=== PATIENT | female | born 1950 | race Caucasian/White ===

== ENCOUNTER → 2018-06-03 | Outpatient (CLI) | payer MEDICARE, BC ==
[2018-06-03 10:24] LABS: Blood Urea Nitrogen 8 mg/dL (7-17)
--- NOTE | 2018-06-03 14:03 | XR ---
EXAMINATION TYPE: XR finger RT DATE OF EXAM: 06/03/2018 COMPARISON: NONE HISTORY: Thumb pain on the right TECHNIQUE: 3 views of the right thumb were obtained FINDINGS: No evidence of acute fracture or dislocation is seen. However mild degenerative changes are present at the first distal interphalangeal joint and to a lesser degree of the proximal interphalan geal joint and metacarpal phalangeal joint demonstrated as small marginal osteophytes, opposing surfa ce sclerosis and joint space narrowing. No radiopaque foreign body is seen. IMPRESSION: No evidence of acute fracture or dislocation of the right thumb. Mild arthropathy.
--- NOTE | 2018-06-03 14:15 | XR ---
EXAMINATION TYPE: XR wrist complete RT DATE OF EXAM: 06/03/2018 CLINICAL HISTORY: Right wrist pain TECHNIQUE: Frontal, lateral and oblique images of the right wrist are obtained. Scaphoid view was al so obtained. COMPARISON: None FINDINGS: There is no acute fracture/dislocation evident in the right wrist. The joint spaces in th e right wrist demonstrate mild opposing surface sclerosis, joint space narrowing and marginal osteoph ytes. No radiopaque foreign body. The overlying soft tissue appears unremarkable. IMPRESSION: There is no acute fracture or dislocation in the right wrist. Mild first carpometacarpal arthropathy.
--- NOTE | 2018-06-05 07:03 | MR ---
EXAMINATION TYPE: MR lumbar spine wo/w con DATE OF EXAM: 06/03/2018 COMPARISON: 04/21/2013 HISTORY: LBP, mari[place] feet numbness x 2 mos, hx surgery 2016 TECHNIQUE: Multiplanar, multisequence images of the lumbar spine were acquired utilizing 7.5 mL intravenous Gada vist gadolinium contrast. FINDINGS: The lumbar spine vertebral bodies maintain normal vertebral body height and alignment. Schmorl's node is present in the superior endplate of L4. Anterior superior endplate maintains normal vertebral bod y height at this level. Vertebral body hemangiomas are seen of L2-L3 that are T1 and T2 hyperintense. Pedicular screws and fixation rods fixate the L5-S1 vertebral levels. Conus medullaris is unremarkab le terminating at L1. The previously noted hepatic cyst appears overall stable. L1-L2: There is a broad-based disc bulge and facet arthropathy without significant spinal canal steno sis or neural foraminal narrowing. L2-L3: There is a broad-based disc bulge and facet arthropathy resulting in bilateral mild neural for aminal narrowing slightly narrowing the ventral subarachnoid space without significant spinal canal s tenosis. No ligamentum flavum buckling. L3-L4: There is a left eccentric broad-based disc bulge creating moderate left neural foraminal narro wing and mild right neural foraminal narrowing without significant spinal canal stenosis. Facet arthr opathy is also seen at this level. L4-L5: There is a broad-based disc bulge and facet arthropathy creating moderate bilateral neural for aminal narrowing. No spinal canal stenosis. L5-S1: There is postoperative change with a small residual disc bulge and and very small central nallely lar tear. There is resection of the posterior elements at this level. Mild paraspinal atrophy is seen . There is no significant neural foraminal narrowing or spinal canal stenosis. Postcontrast images demonstrate no abnormal enhancement at the postsurgical level to suggest epidural fibrosis, however there is linear and nodular abnormal enhancement along the anterior thecal sac and of the distal nerve roots of the cauda equina such as on T1 nonfat sat sagittal image 7. IMPRESSION: 1. Abnormal ventral dural enhancement along the thecal sac and extending into the distal nerve roots. This finding is nonspecific but as seen in arachnoiditis of infectious or inflammatory etiologies or leptomeningeal carcinomatosis. Evaluation of the cervical and thoracic spine with MR could be perfor med to evaluate for additional lesion as well as lumbar puncture. 2. Postoperative changes of the lumbosacral spine without evidence of epidural fibrosis. 3. Moderate multilevel degenerative disc disease without spinal canal stenosis or disc herniation. Va riable degrees of neural foraminal narrowing are described above.
== END | disposition home or self-care (01) ==
LOC: RADMRIMAIN 09:44
PROVIDERS: ATTEND Family Medicine
DX: M99.73 Connective tissue and disc stenosis of intervertebral foramina of lumbar region (principal); M51.36 Other intervertebral disc degeneration, lumbar region; M19.041 Primary osteoarthritis, right hand; M18.11 Unilateral primary osteoarthritis of first carpometacarpal joint, right hand; Z13.9 Encounter for screening, unspecified; Z98.890 Other specified postprocedural states
CPT/HCPCS: 82565; 84520; 73110; 73140; 72158; 36415; A9581

== ENCOUNTER → 2018-07-12 | Outpatient (CLI) | payer MEDICARE, BC ==
--- NOTE | 2018-07-12 14:00 | XR ---
EXAM TYPE: LUMBAR SPINE X RAY SERIES COMPARISON: 02/26/2014 HISTORY: Pain TECHNIQUE: 4 views are submitted. FINDINGS: Alignment is anatomic. The pedicles are intact. The transverse processes are intact. There is no s pondylolysis or spondylolisthesis. Degenerative change involving the vertebral column all levels wit h postsurgical changes at L5-S1. Endplate deformities of L4 and L3 appear to be chronic. Vascular hayley cifications are noted. IMPRESSION: 1. Postsurgical changes which is similar flexion and extension views.
== END | disposition home or self-care (01) ==
LOC: RADXRMAIN 12:48
DX: M47.26 Other spondylosis with radiculopathy, lumbar region (principal)
CPT/HCPCS: 72110

== ENCOUNTER → 2019-04-03 | Outpatient (CLI) | payer MEDICARE, BC ==
[~2019-04-03] MED LIST: DENOSUMAB 60 MG/ML 1 ML SYRINGE SQ ONE
[2019-04-03 11:41] VITALS: BP 149/68; PULSE 71; RESP 16; TEMP 97.6
== END ==
LOC: PROCWHC3 10:44
PROVIDERS: ATTEND Family Medicine
DX: M81.0 Age-related osteoporosis without current pathological fracture (principal)
CPT/HCPCS: 96372; J0897

== ENCOUNTER 2019-05-18 12:09 | Day surgery (SDC) | payer MEDICARE, BC ==
[2019-05-16 08:54] VITALS: BMI 27.5
[~2019-05-18 12:09] MED LIST changes: -DENOSUMAB 60 MG/ML 1 ML SYRINGE SQ ONE; +LACTATED RINGERS 1,000 ML IV SCH
[2019-05-18 12:55] VITALS: TEMP 97.4
[2019-05-18] MEDS ORDERED: PROPOFOL 10 MG/ML 20 ML VIAL IV ONE (13:11)
--- NOTE | 2019-05-18 13:33 | P.PCN ---
Date of Procedure: 05/18/19 Procedure(s) Performed: BRIEF HISTORY: Patient is a 68-year-old [id number], scheduled for an elective colonoscopy as a part of evaluation of prior history of colon polyps. Last coloscopy was 5 years ago. PROCEDURE PERFORMED: Colonoscopy. PREOPERATIVE DIAGNOSIS: History of colon polyps. IV sedation per Anesthesia. PROCEDURE: After informed consent was obtained, the patient, was brought into the endoscopy unit. IV sedation was administered by Anesthesia under continuous monitoring. Digital rectal examination was normal. Initially the Olympus CF-160 flexible video colonoscope was then inserted in the rectum, gradually advanced into the cecum without any difficulty. Careful examination was performed as the scope was gradually being withdrawn. Ileocecal valve and the appendiceal orifice were visualized and appeared normal. Prep was excellent. Mucosa of the cecum, ascending colon, transverse colon, descending colon, sigmoid colon, and rectum appeared normal. Scattered diverticulosis seen. Retroflexion was performed in the rectum and no lesions were seen. The patient tolerated the procedure well. IMPRESSION: Normal-appearing colon from rectum to cecum with no evidence of colitis or colonic neoplasia Scattered left sided diverticulosis.. RECOMMENDATIONS: Findings of this examination were discussed with the patient and as well as a family. She was advised to have a repeat surveillance colonoscopy in 5 years because of the prior history of colon polyps..
[2019-05-18 14:03] VITALS: BP 133/77; PULSE 68; RESP 18
== END 2019-05-18 14:14 | disposition home or self-care (01) ==
LOC: ORWHC2ENDO 12:09
PROVIDERS: ATTEND Internal Medicine Gastroenterology
DX: Z12.11 Encounter for screening for malignant neoplasm of colon (principal); K57.30 Diverticulosis of large intestine without perforation or abscess without bleeding; K21.9 Gastro-esophageal reflux disease without esophagitis; J44.9 Chronic obstructive pulmonary disease, unspecified; I10 Essential (primary) hypertension; Z79.891 Long term (current) use of opiate analgesic; Z86.010 Personal history of colon polyps; Z88.1 Allergy status to other antibiotic agents; Z72.0 Tobacco use; Z79.82 Long term (current) use of aspirin; Z79.899 Other long term (current) drug therapy
CPT/HCPCS: J2704; G0105

== ENCOUNTER → 2019-07-31 | Outpatient (CLI) | payer MEDICARE, BC ==
--- NOTE | 2019-07-31 11:39 | XR ---
EXAMINATION TYPE: XR chest 2V DATE OF EXAM: 07/31/2019 COMPARISON: 03/01/2016 TECHNIQUE: PA and lateral views submitted. HISTORY: COPD FINDINGS: The lungs are clear and there is no pneumothorax, pleural effusion, or focal pneumonia. 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 Hype rinflation noted. Degenerative change of the vertebral column. Atherosclerotic change aorta. No overt failure. IMPRESSION: 1. No acute process. Correlate for COPD.
== END ==
LOC: RADXRMAIN 11:10
PROVIDERS: ATTEND Family Medicine
DX: J44.9 Chronic obstructive pulmonary disease, unspecified (principal)
CPT/HCPCS: 71046

== ENCOUNTER → 2019-10-12 | Outpatient (CLI) | payer MEDICARE, BC ==
[~2019-10-12] MED LIST changes: +DENOSUMAB 60 MG/ML 1 ML SYRINGE SQ NR; -LACTATED RINGERS 1,000 ML IV SCH
[2019-10-12 13:31] VITALS: BP 145/78; PULSE 81; RESP 16; TEMP 97.9
== END | disposition home or self-care (01) ==
LOC: PROCWHC3 13:09
PROVIDERS: ATTEND Family Medicine
DX: M81.0 Age-related osteoporosis without current pathological fracture (principal)
CPT/HCPCS: 96372; J0897

== ENCOUNTER 2019-11-06 11:21 | Inpatient (IN) | payer MEDICARE, BC ==
[2019-11-06] MEDS ORDERED: IPRATROPIUM 0.5 MG/2.5 ML NEBU INHALATION STA (11:33)
[2019-11-06] MEDS ORDERED: ALBUTEROL NEBULIZED 2.5 MG/3 ML INHALATION STA (11:33)
[2019-11-06] MEDS ORDERED: methylPREDNISolone SOD SUCCI 125 MG/2 ML VIAL IV STA (11:33)
--- NOTE | 2019-11-06 11:36 | ED ---
General Adult HPI - General Chief complaint: Shortness of Breath Stated complaint: YEIMY Time Seen by Provider: 11/06/19 11:25 Source: EMS, RN notes reviewed, old records reviewed Mode of arrival: EMS Limitations: no limitations - History of Present Illness Initial comments: This is a 68-year-old female with past medical history significant for smoking and COPD. Patient states she quit smoking and I asked her when she quit she stated 2 days ago patient states she's been having difficulty breathing for the last 3-4 days. Patient states she's coughing quite a bit more than normal and coughing up some green sputum. Patient denies any fever chills per patient denies any chest pain or palpitations. Patient denies any sweating the legs or calf tenderness. Patient denies any abdominal pain. Patient denies any nausea vomiting. Patient denies any headache patient denies numbness weakness. Patient denies lightheadedness or dizziness. - Related Data Home Medications Medication Instructions Recorded Confirmed HYDROcodone/APAP 7.5-325MG [[place] 7.5 mg PO Q6H PRN 04/15/14 10/12/19 7.5-325] Tiotropium [place] [Spiriva] 1 inhalation INHALATION HS 04/15/14 10/12/19 Aspirin [[place] Aspirin EC] 81 mg PO DAILY 04/03/19 10/12/19 Budesonide-Formot 160-4.5 Mcg 2 puff INHALATION BID 04/03/19 10/12/19 [Symbicort 160-4.5 Mcg Inhaler] Ranitidine HCl [Zantac] 75 mg PO BID 04/03/19 10/12/19 Albuterol Inhaler [Ventolin Hfa 2 puff INHALATION BID 05/16/19 10/12/19 Inhaler] Atorvastatin [Lipitor] 20 mg PO HS 05/16/19 10/12/19 Ergocalciferol [Vitamin D2] 50,000 unit PO Q30D 05/16/19 10/12/19 Gabapentin [Neurontin] 300 mg PO BID 05/16/19 10/12/19 Lisinopril [Zestril] 5 mg PO HS 05/16/19 10/12/19 Ubidecarenone [Co Q-10] 100 mg PO DAILY 05/16/19 10/12/19 traMADol HCL [Ultram] 50 mg PO BID PRN 05/16/19 10/12/19 Allergies Allergy/AdvReac Type Severity Reaction Status Date / Time levofloxacin [From Levaquin] Allergy Nausea,diarrhea,STATES Verified 11/06/19 11:25 GOT C. DIFF AFTER TAKING Review of Systems ROS Statement: Those systems with pertinent positive or pertinent negative responses have been documented in the HPI. ROS Other: All systems not noted in ROS Statement are negative. Past Medical History Past Medical History: COPD, GERD/Reflux, Hypertension Additional Past Medical History / Comment(s): HX POLYPS, DIVERTICULI. Osteoporosis History of Any Multi-Drug Resistant Organisms: C-DIFF Date of last positivie culture/infection: 2013 approx MDRO Source:: stool Past Surgical History: Back Surgery, Bowel Resection, Joint Replacement, Orthopedic Surgery Additional Past Surgical History / Comment(s): RIGHT KNEE REPLACEMENT, LEFT LEG ORIF-removed, LIZZIE CARPAL TUNNEL,. Bilateral cataract surgery,plate rt foot Additional Past Anesthesia/Blood Transfusion Reaction / Comment(s): STATES NO EPIDURALS R/T GETTING SEVERE MIGRAINES Past Psychological History: No Psychological Hx Reported Smoking Status: Former smoker Past Alcohol Use History: None Reported Past Drug Use History: None Reported - Past Family History Mother Family Medical History: Hypertension Father Family Medical History: Cancer Additional Family Medical History / Comment(s): aneurysms,prostate General Exam - General Exam Comments Initial Comments: GENERAL: Patient is well-developed and well-nourished. Patient is nontoxic and well- hydrated and is in mild distress. ENT: Neck is soft and supple. No significant lymphadenopathy is noted. Oropharynx is clear. Moist mucous membranes. Neck has full range of motion without eliciting any pain. EYES: The sclera were anicteric and conjunctiva were pink and moist. Extraocular movements were intact and pupils were equal round and reactive to light. Eyelids were unremarkable. PULMONARY: Patient has diffuse wheezing with some crackles the left base. CARDIOVASCULAR: There is a regular rate and rhythm without any murmurs gallops or rubs. ABDOMEN: Soft and nontender with normal bowel sounds. No palpable organomegaly was n oted. There is no palpable pulsatile mass. SKIN: Skin is clear with no lesions or rashes and otherwise unremarkable. NEUROLOGIC: Patient is alert and oriented x3. Cranial nerves II through XII are grossly intact. Motor and sensory are also intact. Normal speech, volume and content. Symmetrical smile. MUSCULOSKELETAL: Normal extremities with adequate strength and full range of motion. LYMPHATICS: No significant lymphadenopathy is noted PSYCHIATRIC: Normal psychiatric evaluation. Limitations: no limitations Course Vital Signs 11/06/19 11:25 Temperature 98.4 F Pulse Rate 99 Respiratory 22 Rate Blood Pressure 122/79 O2 Sat by Pulse 96 Oximetry Procedures - Intubation Sedative: Versed Mg Given: 5 Paralytic: Succinylcholine Mg Given: 100 Laryngoscope: Gary ET Tube Size: 7.5 ET Tube Uncuffed: No Tube Secured Location: teeth Tube Placement Confirmation: visualized tube passing through cords, equal breath sounds bilaterally, no breath sounds over epigastrium, confirmation by capnometry Patient Tolerated Procedure: well Intubation Complications: none Medical Decision Making - Medical Decision Making EKG shows a normal sinus rhythm at 96 bpm AR interval 230 QRS is 82 QT interval 384 QTC is 485 per patient's EKG shows no ST segment elevation however there is biphasic T waves in inferior leads as well as leads V2 and V3. EKG was not given to me to call after the patient coded and a second EKG was used to was done. After I left the room the patient had increased difficulty breathing and then lost her pulses at which point in time the nurse called a CODE BLUE. At the room the patient was pulses but in PEA and she was not taking any breaths. We ran the code per ACLS I intubated the patient and patient was given 1 epi. Shortly thereafter pulses returned another EKG was done. Second EKG showed atrial fibrillation with rapid ventricular response at a rate of 216 QRS is 80 QT interval is 220 QTC is 417. The patient's heart rate slowed significantly repeated an EKG showed sinus tachycardia at 150 bpm AR interval 220 QRS is 90 QT interval 326 QTC is 447 per patient's EKG shows no ST segment elevation at this point continues to show T- wave inversions in inferior leads and biphasic T waves in V2 V3. and it was significant ST segment elevation in inferior leads and I called a STEMI at this time. Cardiology did come down to the bedside to see the patient. When the patient's heart rate slowed significantly high Patient was given heparin and aspirin in the emergency department. Patient was taken to the catheterization lab. - Lab Data Result diagrams: 11/06/19 11:34 11/06/19 11:34 Lab Results 11/06/19 11/06/19 11/06/19 Range/Units 11:34 11:34 11:34 WBC 22.6 H (3.8-10.6) k/uL RBC 4.65 (3.80-5.40) m/uL Hgb 14.2 (11.4-16.0) gm/dL Hct 43.1 (34.0-46.0) % MCV 92.6 (80.0-100.0) fL MCH 30.6 (25.0-35.0) pg MCHC 33.1 (31.0-37.0) g/dL RDW 12.5 (11.5-15.5) % Plt Count 362 (150-450) k/uL Neutrophils % 84 % Lymphocytes % 8 % Monocytes % 5 % Eosinophils % 1 % Basophils % 0 % Neutrophils # 19.1 H (1.3-7.7) k/uL Lymphocytes # 1.9 (1.0-4.8) k/uL Monocytes # 1.1 H (0-1.0) k/uL Eosinophils # 0.1 (0-0.7) k/uL Basophils # 0.1 (0-0.2) k/uL PT 9.9 (9.0-12.0) sec INR 0.9 (<1.2) APTT 24.6 (22.0-30.0) sec Sodium 131 L (137-145) mmol/L Potassium 4.5 (3.5-5.1) mmol/L Chloride 92 L (98-107) mmol/L Carbon Dioxide 31 H (22-30) mmol/L Anion Gap 8 mmol/L BUN 27 H (7-17) mg/dL Creatinine 0.59 (0.52-1.04) mg/dL Est GFR (CKD-EPI)AfAm >90 (>60 ml/min/1.73 sqM) Est GFR (CKD-EPI)NonAf >90 (>60 ml/min/1.73 sqM) Glucose 104 H (74-99) mg/dL POC Glucose (mg/dL) (75-99) mg/dL POC Glu Interactive Digital Media Specialist ID Calcium 8.3 L (8.4-10.2) mg/dL Magnesium 2.5 H (1.6-2.3) mg/dL Total Bilirubin 0.9 (0.2-1.3) mg/dL AST 56 H (14-36) U/L ALT 54 H (9-52) U/L Alkaline Phosphatase 125 (38-126) U/L Troponin I (0.000-0.034) ng/mL Total Protein 6.8 (6.3-8.2) g/dL Albumin 3.3 L (3.5-5.0) g/dL 11/06/19 11/06/19 Range/Units 11:34 12:04 WBC (3.8-10.6) k/uL RBC (3.80-5.40) m/uL Hgb (11.4-16.0) gm/dL Hct (34.0-46.0) % MCV (80.0-100.0) fL MCH (25.0-35.0) pg MCHC (31.0-37.0) g/dL RDW (11.5-15.5) % Plt Count (150-450) k/uL Neutrophils % % Lymphocytes % % Monocytes % % Eosinophils % % Basophils % % Neutrophils # (1.3-7.7) k/uL Lymphocytes # (1.0-4.8) k/uL Monocytes # (0-1.0) k/uL Eosinophils # (0-0.7) k/uL Basophils # (0-0.2) k/uL PT (9.0-12.0) sec INR (<1.2) APTT (22.0-30.0) sec Sodium (137-145) mmol/L Potassium (3.5-5.1) mmol/L Chloride (98-107) mmol/L Carbon Dioxide (22-30) mmol/L Anion Gap mmol/L BUN (7-17) mg/dL Creatinine (0.52-1.04) mg/dL Est GFR (CKD-EPI)AfAm (>60 ml/min/1.73 sqM) Est GFR (CKD-EPI)NonAf (>60 ml/min/1.73 sqM) Glucose (74-99) mg/dL POC Glucose (mg/dL) 110 H (75-99) mg/dL POC Glu Interactive Digital Media Specialist ID Tuesday, Samia Calcium (8.4-10.2) mg/dL Magnesium (1.6-2.3) mg/dL Total Bilirubin (0.2-1.3) mg/dL AST (14-36) U/L ALT (9-52) U/L Alkaline Phosphatase (38-126) U/L Troponin I 0.090 H* (0.000-0.034) ng/mL Total Protein (6.3-8.2) g/dL Albumin (3.5-5.0) g/dL Critical Care Time Critical Care Time: Yes Total Critical Care Time: 35 Disposition Clinical Impression: Cardiac arrest, Acute MD Disposition: ADMITTED IP TO THIS HOSP Referrals: Vern Rodriguez DO [Primary Care Provider] - 1-2 days Time of Disposition: 12:30
[2019-11-06 11:56] LABS: Basophils # (A) 0.1 k/uL (0-0.2); Basophils % (A) 0 %; Eosinophils # (A) 0.1 k/uL (0-0.7); Eosinophils % (A) 1 %; HCT 43.1 % (34.0-46.0); HGB 14.2 gm/dL (11.4-16.0); Lymphocytes # (A) 1.9 k/uL (1.0-4.8); Lymphocytes % (A) 8 %; MCH 30.6 pg (25.0-35.0); MCHC 33.1 g/dL (31.0-37.0); MCV 92.6 fL (80.0-100.0); Mean Platelet Volume 6.8; Monocytes # (A) 1.1 k/uL (0-1.0); Monocytes % (A) 5 %; Neutrophils # (A) 19.1 k/uL (1.3-7.7); Neutrophils % (A) 84 %; Platelet Count 362 k/uL (150-450); RBC 4.65 m/uL (3.80-5.40); RDW 12.5 % (11.5-15.5); WBC 22.6 k/uL (3.8-10.6)
[2019-11-06] MEDS ORDERED: EPINEPHrine 10 ML SYRINGE (0.1 MG/ML) ONE (11:59)
[2019-11-06 12:05] LABS: INR 0.9 (<1.2); Partial Thromboplastin Time 24.6 sec (22.0-30.0); Prothrombin Time 9.9 sec (9.0-12.0)
[2019-11-06 12:06] LABS: Glucose,Whole Blood 110 mg/dL (75-99)
[2019-11-06 12:07] LABS: ALT 54 U/L (9-52); AST 56 U/L (14-36); African American GFR (CKD) >90 (>60 ml/min/1.73 sqM); Albumin 3.3 g/dL (3.5-5.0); Alkaline Phosphatase 125 U/L (38-126); Anion Gap 8 mmol/L; Blood Urea Nitrogen 27 mg/dL (7-17); Calcium 8.3 mg/dL (8.4-10.2); Carbon Dioxide 31 mmol/L (22-30); Chloride 92 mmol/L (98-107); Glucose 104 mg/dL (74-99); Magnesium 2.5 mg/dL (1.6-2.3); Non-African American GFR(CKD) >90 (>60 ml/min/1.73 sqM); Potassium 4.5 mmol/L (3.5-5.1); Sodium 131 mmol/L (137-145); Total Bilirubin 0.9 mg/dL (0.2-1.3); Total Protein 6.8 g/dL (6.3-8.2)
[2019-11-06] MEDS ORDERED: MIDAZOLAM 1 MG/ML 5 ML VIAL IV STA (12:14)
[2019-11-06] MEDS ORDERED: SUCCINYLCHOLINE CHLORIDE VIAL 200 MG/10 ML VIAL IV ONE (12:17)
[2019-11-06] MEDS ORDERED: ASPIRIN 600 MG SUPP RECTAL STA (12:18)
[2019-11-06] MEDS ORDERED: LIDOCAINE 1% INJ 10MG/ML (20 ML MDV) ONE (12:21)
[2019-11-06] MEDS ORDERED: IV FLUID CONTINUATION 1,000 ML IV ONE (12:39)
[2019-11-06] MEDS ORDERED: MIDAZOLAM 2 MG/2 ML VIAL IV ONE (12:40)
[2019-11-06] MEDS ORDERED: ASPIRIN 325 MG TAB PO ONE (12:50)
--- NOTE | 2019-11-06 12:59 | XR ---
EXAMINATION TYPE: XR chest 1V DATE OF EXAM: 11/06/2019 COMPARISON: 07/31/2019 HISTORY: Postintubation TECHNIQUE: Single frontal view of the chest is obtained. FINDINGS: There is no focal air space opacity, pleural effusion, or pneumothorax seen. The cardiac silhouette size is within normal limits. The osseous structures are intact. ET tube approximately 3 cm above the kadie. 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 Atherosclerotic change aorta. Un derlying COPD suspected. Gastric bubble is distended. Interstitium suggests chronic interstitial lung disease. IMPRESSION: 1. ET tube approximately 3 cm above kadie. 2. Correlate for chronic interstitial lung disease or interstitial pneumonitis. 3. The gastric bubble is distended correlate clinically
[2019-11-06] MEDS ORDERED: IOPAMIDOL-370 100ML BTL INJ ONE (13:00)
[2019-11-06] MEDS ORDERED: SODIUM CHLORIDE 0.9% 2,000 ML IV ONE (13:03)
[2019-11-06 13:23] LABS: O2 Sat Blood Gas 99.7 %
[2019-11-06] MEDS: PROPOFOL 1,000 MG in EMPTY BAG 1 BAG IV SCH ×3 (13:50→22:00)
[2019-11-06] MEDS: NOREPINEPHRINE 4 MG in SODIUM CHLORIDE 0.9% 250 ML IV SCH ×2 (14:00→21:58)
[2019-11-06 14:08] LABS: Glucose,Whole Blood 139 mg/dL (75-99)
[2019-11-06] MEDS ORDERED: NALOXONE 0.4 MG/ML 1 ML VIAL IV PRN (14:24)
--- NOTE | 2019-11-06 14:42 | CC ---
CARDIAC CATHETERIZATION REPORT DATE OF SERVICE: 11/06/2019 PROCEDURE: Left heart catheterization and coronary angiography. PERFORMED BY: Dr. Will Elizabeth. Moderate conscious sedation time was 18 minutes. The patient was administered Versed and subsequently because she was still restless, I gave her some propofol bolus of about 15 mg and a drip at 10 mcg/kg per minute. Patient's oxygen saturation was monitored closely. She was already on the ventilator. CLINICAL INFORMATION: This lady presented to the emergency room with shortness of breath and in the ER, developed sort of a respiratory arrest-type picture and then had epinephrine was also given. Developed atrial fib with ST elevation. Patient was seen and evaluated by Dr. Wenceslao King and sent to the cardiac systems testing laboratory technician. Dr. King has requested me to perform coronary angiography. PROCEDURE NOTE: Under local anesthesia and strict aseptic precautions, a 6-[place] introducer was placed in the right femoral artery. Using a JR4 diagnostic and a JL3.5 guide catheter, I performed coronary angiography and a pigtail catheter was used to check LV pressures. LV gram was not performed. Sheath was sutured. Patient was sedated, placed on Levophed drip up to 10 mcg/minute and she was advised to go to the ICU. Patient does not have any significant obstructive CAD. Filling pressures are elevated. No gradient across the aortic valve. She has a right dominant system. CARDIAC CATHETERIZATION FINDINGS: The left ventricular end-diastolic pressure was about 16 mmHg without any gradient for across aortic valve. CORONARY ANGIOGRAPHY FINDINGS: RIGHT CORONARY ARTERY: Moderate to heavily calcified vessel, especially in the proximal 1/3, there is about a 40% narrowing without significant critical lesion. Distally the vessel caliber improves, gives off a large PDA, small PLV. No significant disease other than the 35%-40% proximal RCA disease. LEFT MAIN CORONARY ARTERY: Short patent vessel immediately bifurcates into LAD and circumflex. No significant disease in the left main. LEFT ANTERIOR DESCENDING CORONARY ARTERY: Good caliber vessel, extends along the anterior wall, very tortuous, gives off several septal and diagonal branches. No significant disease. The distal aspect curves over the apex to supply the inferoapical portion. LEFT POSTERIOR CIRCUMFLEX CORONARY ARTERY: Technically a nondominant, yet good caliber vessel gives off 2 large obtuse marginals and a distal posterolateral branch, has minor irregularities, no significant disease. No more than 30% to 35% narrowing noted. Overall, circumflex is a disease-free, nondominant, good caliber and good distribution vessel. Left ventriculogram was not performed. FINAL IMPRESSION: This patient has a moderate noncritical disease with a 40% proximal right coronary artery calcified and mid circumflex of 35%. No significant disease in the left anterior descending artery. Filling pressures are mildly elevated and there is no gradient across the aortic valve. RECOMMENDATION: I believe this patient probably had more or less respiratory arrest type picture and does not seem to be in any obstructive CAD. Findings were discussed with the patient. I will also speak to the family. I spoke to Dr. Robles, technical project lead and the patient will be transferred on the ventilator to the ICU and a small dose of propofol and Levophed drip. This is not ST-elevation AL. MMODL / IJN: [id number] /
[2019-11-06] MEDS: HEPARIN SOD,PORK IN 0.45% NACL 25,000 UNIT in 0.45% NACL 1 250ML.BAG IV SCH (14:53)
[2019-11-06 15:07] LABS: ABG Base Excess -0.4 mmol/L; ABG HCO3 26 mmol/L (21-25); ABG PCO2 55 mmHg (35-45); ABG PH 7.29 (7.35-7.45); ABG PO2 >400 mmHg (83-108); ABG TCO2 28 mmol/L (19-24)
[2019-11-06 15:15] LABS: Allen Test Performed? no
[2019-11-06] MEDS ORDERED: IPRATROPIUM-ALBUTEROL 3 ML NEB INHALATION PRN (15:26)
--- NOTE | 2019-11-06 15:26 | P.CNPUL ---
History of Present Illness Consult date: 11/06/19 Requesting physician: Esvin Elizabeth Reason for consult: dyspnea Chief complaint: Acute ST elevated myocardial infarction, respiratory failure History of present illness: This is 68-year-old white female patient, with past medical history significant for smoking, and COPD, hypertension, GERD, osteoarthritis with previous joint replacement surgeries, who presented to the emergency department per EMS for evaluation of shortness of breath. She was having increased coughing, but is some greenish colored sputum. Denied any fever and chills, most of the history is obtained from the chart, as the patient is currently intubated and sedated. While in the emergency department patient had suffered respiratory arrest, and patient was in pulseless electrical activity, she was intubated, and rios ccessfully resuscitated, EKG was done at that time showing atrial fibrillation with RVR, may have been the effect of epinephrine injections that were given during the resuscitation effort. Subsequent EKG showed sinus tachycardia with a rate of 150 BPM, and did show T-wave inversions in inferior leads and biphasic T waves in the septal leads V2 and V3, as well as ST and he was called patient was taken to the [facility], she had a clear cath. Chest x-ray postintubation showed chronic interstitial lung disease or interstitial pneumonitis. ET tube in appropriate position. Currently on assist-control mode of ventilation with a rate of 14, tidal volume 500, FiO2 of 100% and PEEP of 5, waiting for of blood gas, 0.9 normal saline infusing at a rate of 75 ML per hour, patient has received 2 L of IV fluid boluses, Diprivan and is at 50 mics per kilo per minute, and norepinephrine is currently a 0.17 mics per kilo per minute or 12 mics per minute. Labs have been reviewed, showing white blood cell count of 22.6, hemoglobin of 14.2, troponin was 0.090, and proBNP was 5540. Review of Systems All systems: negative Constitutional: Denies chills, Denies fever Eyes: denies blurred vision, denies pain Ears, nose, mouth and throat: Denies headache, Denies sore throat Cardiovascular: Denies chest pain, Denies shortness of breath Respiratory: Reports dyspnea, Denies cough Gastrointestinal: Denies abdominal pain, Denies diarrhea, Denies nausea, Denies vomiting Genitourinary: Denies dysuria, Denies hematuria Musculoskeletal: Denies myalgias Integumentary: Denies pruritus, Denies rash Neurological: Denies numbness, Denies weakness Psychiatric: Denies anxiety, Denies depression Endocrine: Denies fatigue, Denies weight change Past Medical History Past Medical History: COPD, GERD/Reflux, Hypertension Additional Past Medical History / Comment(s): HX POLYPS, DIVERTICULI. Osteoporosis History of Any Multi-Drug Resistant Organisms: C-DIFF Date of last positivie culture/infection: 2013 approx MDRO Source:: stool Past Surgical History: Back Surgery, Bowel Resection, Joint Replacement, O rthopedic Surgery Additional Past Surgical History / Comment(s): RIGHT KNEE REPLACEMENT, LEFT LEG ORIF-removed, LIZZIE CARPAL TUNNEL,. Bilateral cataract surgery,plate rt foot Additional Past Anesthesia/Blood Transfusion Reaction / Comment(s): STATES NO EPIDURALS R/T GETTING SEVERE MIGRAINES Past Psychological History: No Psychological Hx Reported Smoking Status: Former smoker Past Alcohol Use History: None Reported Past Drug Use History: None Reported - Past Family History Mother Family Medical History: Hypertension Father Family Medical History: Cancer Additional Family Medical History / Comment(s): aneurysms,prostate Medications and Allergies Home Medications Medication Instructions Recorded Confirmed Type HYDROcodone/APAP 7.5-325MG [[place] 7.5 mg PO Q6H PRN 04/15/14 10/12/19 History 7.5-325] Tiotropium [place] [Spiriva] 1 inhalation INHALATION HS 04/15/14 10/12/19 [place] Aspirin [[place] Aspirin EC] 81 mg PO DAILY 04/03/19 10/12/19 History Budesonide-Formot 160-4.5 Mcg 2 puff INHALATION BID 04/03/19 10/12/19 History [Symbicort 160-4.5 Mcg Inhaler] Ranitidine HCl [Zantac] 75 mg PO BID 04/03/19 10/12/19 History Albuterol Inhaler [Ventolin Hfa 2 puff INHALATION BID 05/16/19 10/12/19 History Inhaler] Atorvastatin [Lipitor] 20 mg PO HS 05/16/19 10/12/19 History Ergocalciferol [Vitamin D2] 50,000 unit PO Q30D 05/16/19 10/12/19 History Gabapentin [Neurontin] 300 mg PO BID 05/16/19 10/12/19 History Lisinopril [Zestril] 5 mg PO HS 05/16/19 10/12/19 History Ubidecarenone [Co Q-10] 100 mg PO DAILY 05/16/19 10/12/19 History traMADol HCL [Ultram] 50 mg PO BID PRN 05/16/19 10/12/19 History Allergies Allergy/AdvReac Type Severity Reaction Status Date / Time levofloxacin [From [facility]] Allergy Nausea,diarrhea,STATES Verified 11/06/19 11:25 GOT C. DIFF AFTER TAKING Physical Exam Vitals: Vital Signs Temp Pulse Resp BP Pulse Ox 11/06/19 14:45 68 14 99 11/06/19 14:10 67 14 99 11/06/19 14:00 74 21 99 11/06/19 13:40 98.0 F 68 22 84/52 99 11/06/19 13:20 119/78 11/06/19 13:10 119/78 11/06/19 13:00 119/78 11/06/19 12:50 119/78 11/06/19 12:40 119/78 11/06/19 12:30 119/78 11/06/19 12:25 83 20 11/06/19 12:20 119/78 11/06/19 12:14 84 11/06/19 12:10 119/78 11/06/19 12:00 119/78 11/06/19 11:50 112 H 27 H 119/78 89 L 11/06/19 11:40 95 23 119/78 96 11/06/19 11:30 122/79 11/06/19 11:25 98.4 F 99 22 122/79 96 11/06/19 11:24 95 Intake and Output 11/06/19 11/06/19 11/06/19 06:59 14:59 22:59 Intake Total 618.485 Balance 618.485 Intake: IV 600 Intake, IV Titration 18.485 Amount Norepinephrine 4 mg In 18.485 Sodium Chloride 0.9% 250 ml @ 0.1 MCG/KG/MIN 26. 095 mls/hr IV .Q9H45M [facility] Rx#:[id number] Other: Weight 68.492 kg ABP, PAP, CO, CI - Last 8 Hours Arterial Blood Pressure 113/52 Arterial Blood Pressure 106/48 Arterial Blood Pressure 84/36 Arterial Blood Pressure 121/44 GENERAL EXAM: Sitting, intubated, 68-year-old white female comfortable in no apparent distress. HEAD: Normocephalic/atraumatic. EYES: Normal reaction of pupils, equal size. Conjunctiva pink, sclera white. NOSE: Clear with pink turbinates. THROAT: No erythema or exudates. NECK: No masses, no JVD, no thyroid enlargement, no adenopathy. CHEST: No chest wall deformity. Symmetrical expansion. LUNGS: Equal air entry with no crackles, wheeze, rhonchi or dullness. CVS: Regular rate and rhythm, normal S1 and S2, no gallops, no murmurs, no rubs ABDOMEN: Soft, nontender. No hepatosplenomegaly, normal bowel sounds, no guarding or rigidity. EXTREMITIES: No clubbing, no edema, no cyanosis, 2+ pulses and upper and lower extremities. Right groin sheath is in place, groin is clean dry and intact, soft, no evidence of hematoma MUSCULOSKELETAL: Muscle strength and tone normal. SPINE: No scoliosis or deformity SKIN: No rashes CENTRAL NERVOUS SYSTEM: Sedated, intubated. No focal deficits, tone is normal in all 4 extremities. Results - Laboratory Findings CBC and BMP: 11/06/19 11:34 11/06/19 11:34 PT/INR, D-dimer PT 9.9 sec (9.0-12.0) 11/06/19 11:34 INR 0.9 (<1.2) 11/06/19 11:34 Abnormal lab findings: Abnormal Labs 11/06/19 11/06/19 11/06/19 11:34 11:34 11:34 WBC 22.6 H Neutrophils # 19.1 H Monocytes # 1.1 H Sodium 131 L Chloride 92 L Carbon Dioxide 31 H BUN 27 H Glucose 104 H POC Glucose (mg/dL) Calcium 8.3 L Magnesium 2.5 H AST 56 H ALT 54 H Troponin I 0.090 H* Albumin 3.3 L 11/06/19 11/06/19 12:04 13:38 WBC Neutrophils # Monocytes # Sodium Chloride Carbon Dioxide BUN Glucose POC Glucose (mg/dL) 110 H 139 H Calcium Magnesium AST ALT Troponin I Albumin - Diagnostic Findings Chest x-ray: report reviewed, image reviewed Assessment and Plan Plan: Assessment: #1. Acute cardiac arrest, related to acute hypoxemic respiratory failure requiring ACLS protocol and resuscitation, and intubation and placement on mechanical ventilator. #2. Acute ST elevated myocardial infarction, however patient has no evidence of coronary obstructive disease evidenced right coronary angiography #3. Acute exacerbation of COPD, with chronic hypercapnic respiratory failure, suspect advanced COPD #4. Leukocytosis, rule out infectious process #5. Mild hyponatremia #6. Hyperlipidemia #7. History of smoking, currently in remission #8. GERD/reflux #9. Osteoarthritis with previous history of orthopedic surgeries Plan: Continue fluid resuscitation, patient has received 2 L of IV fluid boluses, continue 0.9 normal saline at a rate of 75 ML per hour, patient remains on IV he constantin, will continue nebulized bronchodilators, will start IV steroids, empiric antibiotics in the form of Zosyn, we'll send blood cultures sputum culture and urine culture, chest x-ray at this time shows no clear evidence of pneumonia, we'll obtain follow-up chest x-ray tomorrow, we'll obtain a blood gas. GI and DVT prophylaxis, I performed a history & physical examination of the patient and discussed their management with my nurse practitioner, Brooke Sol. I reviewed the nurse practitioner's note and agree with the documented findings and plan of care. Lung sounds are positive for diminished breath sounds. The findings and the impression was discussed with the patient. I attest to the documentation by the nurse practitioner. Time with Patient: Greater than 30
--- NOTE | 2019-11-06 15:32 | CONS ---
CONSULTATION Mrs. Forte is a 68-year-old female who was seen in the emergency room with a diagnosis of Staph epi. This patient has a long-standing history of smoking and COPD. She quit. She came to the emergency room with a complaint of shortness of breath for last 3 days. She was having some greenish sputum. Patient denied any fever or chills. Patient was given Solu-Medrol, subsequently while she was in the emergency room. She developed cardiorespiratory arrest. She stopped breathing and loss of pulse. A brief CPR was done. Patient received epinephrine and subsequently pulse was obtained. Initially, EKG showed T-wave inversions in the inferior lead with a minimal ST elevation in the inferior leads suggestive of inferior lateral leads suggestive of possible inferolateral ST-segment elevation myocardial infarction. After epinephrine, there was marked ST elevation in the inferior leads. Subsequent EKG shows resolution of the ST- segment elevation. There is no history of angina. a smoker. There is no history of diabetes. The history is mostly obtained from the chart. HOME MEDICATIONS: Include [place], Spiriva, baby aspirin, Zantac, Lipitor 20 mg daily, and Ultram. PAST MEDICAL HISTORY: Includes bowel resection, joint replacement, orthopedic surgery, back surgery, carpal tunnel surgery, bilateral cataracts surgery. Patient had a history of severe migraine. PHYSICAL EXAMINATION: At present reveals a 68-year-old female who is intubated and has being being bagged, the blood pressure is 122/79 mmHg. Oxygen saturation was 93% HEENT: Examination was negative. Neck is supple. There is no increase in jugular venous pressure. Both the carotid pulses are felt, there is no bruit. Chest is symmetrical. Heart, the PMI is not felt. First and second heart sounds are heard. Lungs reveal bilateral scattered rhonchi. Abdomen is soft. Liver and spleen are not enlarged. Extremities, peripheral pulsations are 2+. The labs results are not awaited. FINAL IMPRESSION: This patient came to the emergency room with the symptoms of shortness of breath. Initial EKG showed minimal ST-segment elevation in the inferior lateral leads with a T- wave inversion suggestive of possible inferior ST-segment elevation myocardial infarction. After the epinephrine, patient had a marked ST elevation in the inferior leads. In view of that, we will advise the family members to go head to the freezer laboratory technician for cardiac catheterization for definitive diagnosis. Chest x-ray is also suggestive of mild congestive cardiac failure. Depending upon the results of the catheterization, further recommendations will be made. MMODL / IJN: [id number] /
[2019-11-06] MEDS: IPRATROPIUM-ALBUTEROL 3 ML NEB INHALATION SCH ×3 (15:46→23:21)
[2019-11-06] MEDS ORDERED: IPRATROPIUM-ALBUTEROL 3 ML NEB INHALATION SCH (16:00)
[2019-11-06 16:27] LABS: Appearance,Urine Cloudy (Clear); Bacteria,Urine Rare /hpf; Bilirubin,Urine Negative (Negative); Blood,Urine Small (Negative); Color,Urine Yellow; Glucose,Urine (UA) Negative (Negative); Hyaline Casts,Urine 1 /lpf (0-2); Ketones,Urine Negative (Negative); Leukocyte Esterase,Urine Negative (Negative); Mucus,Urine Rare /hpf; Nitrite,Urine Negative (Negative); Protein,Urine 2+ (Negative); RBC,Urine 10 /hpf (0-5); Specific Gravity,Urine 1.042 (1.001-1.035); Squamous Epithelial Cell,Urine 1 /hpf (0-4); WBC,Urine 8 /hpf (0-5)
[2019-11-06] MEDS: SODIUM CHLORIDE 0.9% 1,000 ML IV SCH (16:32)
[2019-11-06] MEDS: methylPREDNISolone SOD SUCCI 40 MG/ML 1 ML VIAL IV SCH ×2 (17:23→23:21)
[2019-11-06] MEDS: PIPERACILLIN-TAZOBACTAM 3.375 GM in SODIUM CHLORIDE 0.9% 100 ML IVPB SCH ×2 (17:24→23:21)
[2019-11-06] MEDS: PANTOPRAZOLE 40 MG/10 ML VIAL IV SCH (17:24)
[2019-11-06] MEDS: BUDESONIDE 1 MG/2 ML NEBU INHALATION SCH (19:38)
[2019-11-06] MEDS ORDERED: SODIUM CHLORIDE 0.9% 1,000 ML IV ONE (19:38)
[2019-11-06] MEDS: FORMOTEROL FUMARATE 20 MCG/2 ML NEBU INHALATION SCH (19:38)
--- NOTE | 2019-11-06 20:24 | P.HPIM ---
History of Present Illness H&P Date: 11/06/19 Chief Complaint: Short of breath This is a 68-year-old patient of Dr. Gloria Rodriguez. Chronic stable medical conditions include GERD, hypertension, colonic diverticulosis, osteoporosis. Patient presented to ER earlier today and told him should quit smoking 2 days ago and she did having trouble breathing for last few days. Her cough and bit more than normal and she was coughing up some green-yellow sputum. He denied any fever and chills that. No chest pain no palpitation. Denied any swelling or leg or cough tenderness. No abdominal pain. In the ER patient became quite a bit short of breath more and a CODE BLUE was called at that is the patient has lost a pulse. When the physician arrived patient had and I will pulse and she was in a PEA and patient is intubated. One dose of epinephrine was given. EKG showed a short run of atrial fibrillation with rapid ventricular rate and also sinus tachycardia. Does some T wave changes. And cardiology Dr. VC King arrived to the ER. Decided to take the patient to the cardiac catheterization lab. Cardiac catheterization showed normal coronaries. Patient now brought to the ICU. Current drips include norepinephrine, propofol. Patient on the ventilator with FiO2 40% and PEEP of 5. No family members present. A sister had been present earlier. Apparently the patient having respiratory symptoms for close to 20 weeks. Patient's been a smoker. Review of systems cannot be done as patient intubated. Relevant finding as above Social history: Patient being smoking close to 50 years. No alcohol reported. Physical examination: VITAL SIGNS: 98, 74, 21, 84/36, 99% on the ventilator GENERAL: BMI 26.7 laying in bed intubated. EYES: Pupils equal. Conjunctiva normal. HEENT: External appearance of nose and ears normal, oral cavity grossly normal, endotracheal tube in place. NECK: JVD unable to assess; masses not palpable. HEART: First and second heart sounds are normal; no edema. LUNGS: Respiratory rate increased, decreased breaths on some wheezing;. ABDOMEN: Soft, nontender, liver spleen not palpable, no masses palpable. PSYCH: Sedatedl. NEUROLOGICAL: Cranial nerves grossly intact; no facial asymmetry, power and sensation grossly intact, plantars downgoing. LYMPHATICS: No lymph nodes palpable in the axilla and neck INVESTIGATIONS, reviewed in the clinical context: White count 22.6 hemoglobin 40.2 platelets 362 Sodium 131 potassium 4.5 bun 27 creatinine 0.59 Troponin I 0.090 proBNP 5540 ABG-pH 7.29, pCO2 55, pO2 more than 400 EKG tracing personally reviewed by me shows some T wave changes in the anterior leads, sinus rhythm Chest x-ray film personally reviewed by me-some infiltrate on the bases Assessment: -Acute hypoxic respiratory failure, hypercapnic respiratory failure leading to pulseless electrical activity, requiring ventilator support -Acute COPD exacerbation in a current smoker -Bibasilar pneumonia, suspect gram-negative organism -Troponins leak likely due to hemodynamic mismatch -Cardiac catheterization revealing normal coronaries -Chronic nicotine dependence patient cigarette smoker -GERD -Essential hypertension and non -colonic diverticulosis Plan: Patient the ICU. Status post cardiac catheterization. Intubated. Drips include norepinephrine, propofol, IV fluids. Patient is on DuoNeb, IV Solu- Medrol, IV Zosyn. Also getting steroids. We will add Perforomist. Patient seen by Dr. VC King from cardiology and Dr. Bowser from pulmonary. No family at the bedside. Past Medical History Past Medical History: COPD, GERD/Reflux, Hypertension Additional Past Medical History / Comment(s): HX POLYPS, DIVERTICULI. Osteoporosis History of Any Multi-Drug Resistant Organisms: C-DIFF Date of last positivie culture/infection: 2013 approx MDRO Source:: stool Past Surgical History: Back Surgery, Bowel Resection, Joint Replacement, Orthopedic Surgery Additional Past Surgical History / Comment(s): RIGHT KNEE REPLACEMENT, LEFT LEG ORIF-removed, LIZZIE CARPAL TUNNEL,. Bilateral cataract surgery,plate rt foot Additional Past Anesthesia/Blood Transfusion Reaction / Comment(s): STATES NO EPIDURALS R/T GETTING SEVERE MIGRAINES Past Psychological History: No Psychological Hx Reported Smoking Status: Former smoker Past Alcohol Use History: None Reported Past Drug Use History: None Reported - Past Family History Mother Family Medical History: Hypertension Father Family Medical History: Cancer Additional Family Medical History / Comment(s): aneurysms,prostate Medications and Allergies Home Medications Medication Instructions Recorded Confirmed Type Tiotropium [place] [Spiriva] 2 puff INHALATION RT-DAILY 04/15/14 11/06/19 History Budesonide-Formot 160-4.5 Mcg 2 puff INHALATION RT-BID 04/03/19 11/06/19 History [Symbicort 160-4.5 Mcg Inhaler] Albuterol Inhaler [Ventolin Hfa 2 puff INHALATION RT-Q6H PRN 05/16/19 11/06/19 History Inhaler] Ergocalciferol [Vitamin D2] 50,000 unit PO Q30D 05/16/19 11/06/19 History Gabapentin [Neurontin] 300 mg PO BID 05/16/19 11/06/19 History Lisinopril [Zestril] 5 mg PO HS 05/16/19 11/06/19 History Ubidecarenone [Co Q-10] 100 mg PO DAILY 05/16/19 11/06/19 History traMADol HCL [Ultram] 50 mg PO BID PRN 05/16/19 11/06/19 History Albuterol Nebulized [Ventolin 2.5 mg INHALATION RT-Q6H PRN 11/06/19 11/06/19 History Nebulized] Denosumab [Prolia] 60 mg SQ Q180D 11/06/19 11/06/19 History Famotidine [Pepcid] 20 mg PO BID 11/06/19 11/06/19 History HYDROcodone/APAP 10-325MG [[place] 1 tab PO Q6HR PRN 11/06/19 11/06/19 History 10-325] Magnesium 400 mg PO DAILY 11/06/19 11/06/19 History Polyethylene Glycol 3350 [Miralax] 17 gm PO DAILY 11/06/19 11/06/19 History buPROPion HCL [Wellbutrin SR] 150 mg PO BID 11/06/19 11/06/19 History Allergies Allergy/AdvReac Type Severity Reaction Status Date / Time levofloxacin [From [facility]] AdvReac Nausea,diarrhea,STATES Verified 11/06/19 18:14 GOT C. DIFF AFTER TAKING Physical Exam Vitals: Vital Signs Temp Pulse Resp BP Pulse Ox 11/06/19 20:09 73 11/06/19 20:00 98.4 F 71 20 97 11/06/19 19:58 75 11/06/19 19:57 75 11/06/19 19:45 73 20 97 11/06/19 19:40 73 11/06/19 19:30 71 20 94 L 11/06/19 19:00 69 11 L 95 11/06/19 18:45 70 10 L 95 11/06/19 18:30 71 25 H 95 11/06/19 18:15 71 24 96 11/06/19 18:00 98.2 F 70 33 H 97 11/06/19 17:45 71 7 L 94 L 11/06/19 17:30 67 17 96 11/06/19 17:15 64 20 96 11/06/19 17:00 64 20 95 11/06/19 16:45 65 20 95 11/06/19 16:30 64 20 96 11/06/19 16:15 65 20 98 11/06/19 16:10 63 11/06/19 16:00 67 20 98 11/06/19 15:54 65 11/06/19 15:45 67 20 98 11/06/19 15:30 65 20 98 11/06/19 15:15 67 14 100 11/06/19 15:00 65 14 99 11/06/19 14:45 68 14 99 11/06/19 14:10 67 14 99 11/06/19 14:00 74 21 99 11/06/19 13:45 98.0 F 11/06/19 13:40 98.0 F 68 22 84/52 99 11/06/19 13:20 119/78 11/06/19 13:10 119/78 11/06/19 13:00 119/78 11/06/19 12:50 119/78 11/06/19 12:40 119/78 11/06/19 12:30 119/78 11/06/19 12:25 83 20 11/06/19 12:20 119/78 11/06/19 12:14 84 11/06/19 12:10 119/78 11/06/19 12:00 119/78 11/06/19 11:50 112 H 27 H 119/78 89 L 11/06/19 11:40 95 23 119/78 96 11/06/19 11:30 122/79 11/06/19 11:25 98.4 F 99 22 122/79 96 11/06/19 11:24 95 Intake and Output 11/06/19 11/06/19 11/06/19 06:59 14:59 22:59 Intake Total 3618.485 638.976 Output Total 270 Balance 3618.485 368.976 Intake: IV 3600 300 IV Fluid Continuation 1, 1000 000 ml @ 0 mls/hr IV .[facility] Rx#:[id number] Sodium Chloride 0.9% 1, 300 000 ml @ 75 mls/hr IV . [id number] [facility] Rx#:[id number] Sodium Chloride 0.9% 2, 2000 000 ml @ 999 mls/hr IV . Q2H1M [facility] Rx#:[id number] Intake, IV Titration 18.485 338.976 Amount Norepinephrine 4 mg In 18.485 231.510 Sodium Chloride 0.9% 250 ml @ 0.1 MCG/KG/MIN 26. 095 mls/hr IV .Q9H45M [facility] Rx#:[id number] Propofol 1,000 mg In 107.466 Empty Bag 1 bag @ Titrate IV .Q0M [facility] Rx#: [id number] Output: Urine 270 Other: Voiding Method Indwelling Catheter # Voids 0 Weight 68.492 kg ABP, PAP, CO, CI - Last 8 Hours Arterial Blood Pressure 101/51 Arterial Blood Pressure 91/42 Arterial Blood Pressure 91/45 Arterial Blood Pressure 98/48 Arterial Blood Pressure 87/44 Arterial Blood Pressure 89/45 Arterial Blood Pressure 96/47 Arterial Blood Pressure 102/49 Arterial Blood Pressure 123/55 Arterial Blood Pressure 134/68 Arterial Blood Pressure 119/56 Arterial Blood Pressure 108/52 Arterial Blood Pressure 104/51 Arterial Blood Pressure 106/51 Arterial Blood Pressure 103/52 Arterial Blood Pressure 95/48 Arterial Blood Pressure 101/49 Arterial Blood Pressure 105/50 Arterial Blood Pressure 115/54 Arterial Blood Pressure 88/44 Arterial Blood Pressure 113/52 Arterial Blood Pressure 106/48 Arterial Blood Pressure 84/36 Arterial Blood Pressure 121/44 Results CBC & Chem 7: 11/06/19 11:34 11/06/19 11:34 Labs: Abnormal Lab Results - Last 24 Hours (Table) 11/06/19 11/06/19 11/06/19 Range/Units 11:34 11:34 11:34 WBC 22.6 H (3.8-10.6) k/uL Neutrophils # 19.1 H (1.3-7.7) k/uL Monocytes # 1.1 H (0-1.0) k/uL ABG pH (7.35-7.45) ABG pCO2 (35-45) mmHg ABG pO2 (83-108) mmHg ABG HCO3 (21-25) mmol/L ABG Total CO2 (19-24) mmol/L ABG O2 Saturation (94-97) % Sodium 131 L (137-145) mmol/L Chloride 92 L (98-107) mmol/L Carbon Dioxide 31 H (22-30) mmol/L BUN 27 H (7-17) mg/dL Glucose 104 H (74-99) mg/dL POC Glucose (mg/dL) (75-99) mg/dL Calcium 8.3 L (8.4-10.2) mg/dL Magnesium 2.5 H (1.6-2.3) mg/dL AST 56 H (14-36) U/L ALT 54 H (9-52) U/L Troponin I 0.090 H* (0.000-0.034) ng/mL Albumin 3.3 L (3.5-5.0) g/dL Urine Appearance (Clear) Ur Specific [place] (1.001-1.035) Urine Protein (Negative) Urine Blood (Negative) Urine RBC (0-5) /hpf Urine WBC (0-5) /hpf Urine Bacteria (None) /hpf Urine Mucus (None) /hpf 11/06/19 11/06/19 11/06/19 Range/Units 12:04 13:38 15:05 WBC (3.8-10.6) k/uL Neutrophils # (1.3-7.7) k/uL Monocytes # (0-1.0) k/uL ABG pH 7.29 L (7.35-7.45) ABG pCO2 55 H (35-45) mmHg ABG pO2 >400 H (83-108) mmHg ABG HCO3 26 H (21-25) mmol/L ABG Total CO2 28 H (19-24) mmol/L ABG O2 Saturation 100.0 H (94-97) % Sodium (137-145) mmol/L Chloride (98-107) mmol/L Carbon Dioxide (22-30) mmol/L BUN (7-17) mg/dL Glucose (74-99) mg/dL POC Glucose (mg/dL) 110 H 139 H (75-99) mg/dL Calcium (8.4-10.2) mg/dL Magnesium (1.6-2.3) mg/dL AST (14-36) U/L ALT (9-52) U/L Troponin I (0.000-0.034) ng/mL Albumin (3.5-5.0) g/dL Urine Appearance (Clear) Ur Specific [place] (1.001-1.035) Urine Protein (Negative) Urine Blood (Negative) Urine RBC (0-5) /hpf Urine WBC (0-5) /hpf Urine Bacteria (None) /hpf Urine Mucus (None) /hpf 11/06/19 11/06/19 Range/Units 16:00 17:40 WBC (3.8-10.6) k/uL Neutrophils # (1.3-7.7) k/uL Monocytes # (0-1.0) k/uL ABG pH (7.35-7.45) ABG pCO2 (35-45) mmHg ABG pO2 (83-108) mmHg ABG HCO3 (21-25) mmol/L ABG Total CO2 (19-24) mmol/L ABG O2 Saturation (94-97) % Sodium (137-145) mmol/L Chloride (98-107) mmol/L Carbon Dioxide (22-30) mmol/L BUN (7-17) mg/dL Glucose (74-99) mg/dL POC Glucose (mg/dL) (75-99) mg/dL Calcium (8.4-10.2) mg/dL Magnesium (1.6-2.3) mg/dL AST (14-36) U/L ALT (9-52) U/L Troponin I 0.095 H* (0.000-0.034) ng/mL Albumin (3.5-5.0) g/dL Urine Appearance Cloudy H (Clear) Ur Specific [place] 1.042 H (1.001-1.035) Urine Protein 2+ H (Negative) Urine Blood Small H (Negative) Urine RBC 10 H (0-5) /hpf Urine WBC 8 H (0-5) /hpf Urine Bacteria Rare H (None) /hpf Urine Mucus Rare H (None) /hpf Microbiology - Last 24 Hours (Table) 11/06/19 13:45 Sputum Culture - Preliminary Sputum
[2019-11-06] MEDS: CHLORHEXIDINE GLUCONATE 15 ML CUP MUCOUS MEM SCH (21:53)
[2019-11-06] MEDS: INSULIN ASPART (NovoLOG) 100 UNIT/ML VIAL SQ SCH (23:20)
[2019-11-06 23:29] LABS: Glucose,Whole Blood 134 mg/dL (75-99)
[2019-11-07] MEDS: PROPOFOL 1,000 MG in EMPTY BAG 1 BAG IV SCH ×2 (01:53→06:50)
[2019-11-07] MEDS: IPRATROPIUM-ALBUTEROL 3 ML NEB INHALATION SCH ×5 (03:14→20:18)
[2019-11-07] MEDS: SODIUM CHLORIDE 0.9% 1,000 ML IV SCH (03:16)
[2019-11-07 04:39] LABS: Basophils # (A) 0.1 k/uL (0-0.2); Basophils % (A) 0 %; Eosinophils # (A) 0.1 k/uL (0-0.7); Eosinophils % (A) 0 %; HCT 41.2 % (34.0-46.0); HGB 13.3 gm/dL (11.4-16.0); Lymphocytes # (A) 1.2 k/uL (1.0-4.8); Lymphocytes % (A) 4 %; MCHC 32.2 g/dL (31.0-37.0); MCV 93.1 fL (80.0-100.0); Mean Platelet Volume 6.9; Monocytes # (A) 0.5 k/uL (0-1.0); Monocytes % (A) 2 %; Neutrophils # (A) 25.8 k/uL (1.3-7.7); Neutrophils % (A) 93 %; Platelet Count 378 k/uL (150-450); RBC 4.42 m/uL (3.80-5.40); RDW 12.6 % (11.5-15.5); WBC 27.9 k/uL (3.8-10.6)
[2019-11-07 04:56] LABS: ABG Base Excess 0.2 mmol/L; ABG HCO3 26 mmol/L (21-25); ABG Oxygen Saturation 97.7 % (94-97); ABG PCO2 45 mmHg (35-45); ABG PH 7.37 (7.35-7.45); ABG PO2 86 mmHg (83-108); ABG TCO2 27 mmol/L (19-24); Allen Test Performed? Yes
[2019-11-07 05:29] LABS: African American GFR (CKD) >90 (>60 ml/min/1.73 sqM); Anion Gap 6 mmol/L; Blood Urea Nitrogen 21 mg/dL (7-17); Calcium 6.5 mg/dL (8.4-10.2); Carbon Dioxide 23 mmol/L (22-30); Chloride 103 mmol/L (98-107); Glucose 144 mg/dL (74-99); Non-African American GFR(CKD) >90 (>60 ml/min/1.73 sqM); Potassium 4.5 mmol/L (3.5-5.1); Sodium 132 mmol/L (137-145)
[2019-11-07] MEDS: INSULIN ASPART (NovoLOG) 100 UNIT/ML VIAL SQ SCH (06:07)
[2019-11-07 06:17] LABS: Glucose,Whole Blood 129 mg/dL (75-99)
[2019-11-07] MEDS: NOREPINEPHRINE 4 MG in SODIUM CHLORIDE 0.9% 250 ML IV SCH (06:50)
[2019-11-07] MEDS: BUDESONIDE 1 MG/2 ML NEBU INHALATION SCH ×2 (08:59→20:17)
[2019-11-07] MEDS: FORMOTEROL FUMARATE 20 MCG/2 ML NEBU INHALATION SCH ×2 (08:59→20:17)
[2019-11-07] MEDS: methylPREDNISolone SOD SUCCI 40 MG/ML 1 ML VIAL IV SCH ×2 (09:01→17:23)
[2019-11-07] MEDS: PANTOPRAZOLE 40 MG/10 ML VIAL IV SCH (09:01)
[2019-11-07] MEDS: PIPERACILLIN-TAZOBACTAM 3.375 GM in SODIUM CHLORIDE 0.9% 100 ML IVPB SCH ×2 (09:02→17:24)
[2019-11-07] MEDS: CHLORHEXIDINE GLUCONATE 15 ML CUP MUCOUS MEM SCH (09:33)
--- NOTE | 2019-11-07 09:38 | P.PN ---
Subjective Progress Note Date: 11/07/19 Principal diagnosis: Acute hypoxic respiratory failure, acute ST elevated myocardial infarction, cardiac arrest This is 68-year-old white female patient, with past medical history significant for smoking, and COPD, hypertension, GERD, osteoarthritis with previous joint replacement surgeries, who presented to the emergency department per EMS for evaluation of shortness of breath. She was having increased coughing, but is some greenish colored sputum. Denied any fever and chills, most of the history is obtained from the chart, as the patient is currently intubated and sedated. While in the emergency department patient had suffered respiratory arrest, and patient was in pulseless electrical activity, she was intubated, and successfully resuscitated, EKG was done at that time showing atrial fibrillation with RVR, may have been the effect of epinephrine injections that were given during the resuscitation effort. Subsequent EKG showed sinus tachycardia with a rate of 150 BPM, and did show T-wave inversions in inferior leads and biphasic T waves in the septal leads V2 and V3, as well as ST and he was called patient was taken to the [facility], she had a clear cath. Chest x-ray postintubation showed chronic interstitial lung disease or interstitial pneumonitis. ET tube in appropriate position. Currently on assist-control mode of ventilation with a rate of 14, tidal volume 500, FiO2 of 100% and PEEP of 5, waiting for of blood gas, 0.9 normal saline infusing at a rate of 75 ML per hour, patient has received 2 L of IV fluid boluses, Diprivan and is at 50 mics per kilo per minute, and norepinephrine is currently a 0.17 mics per kilo per minute or 12 mics per minute. Labs have been reviewed, showing white blood cell count of 22.6, hemoglobin of 14.2, troponin was 0.090, and proBNP was 5540. On 11/07/2019 patient seen in follow-up in the intensive care unit. Patient is awake, she is following command, today's chest x-ray was reviewed showing chronic interstitial changes. Current vent settings are assist-control mode of ventilation with a rate of 20, tidal volume 400, FiO2 40% and PEEP of 5, this morning his blood gases showed pO2 of 86, pCO2 45, and pH of 7.37. Maintenance IV fluids 0.9 normal saline a rate of 75 ML per hour, heparin infusion per weight base protocol, to prevent is off, and levo fed has been off. Lung sounds reveal clear breath sounds, no rhonchi, no wheezing, patient had weaning parameters, there were satisfactory except for the RSBI which was at 96, however decision was made to extubate the patient and she was extubated to nasal cannula and doing very well after extubation. His labs have been reviewed, showing whi te blood cell count of 27.9, hemoglobin of 13.3, sodium is 132, the rest of electrolytes were within normal limits, BUN is 21 creatinine is 0.64 Objective - Vital Signs Vital signs: Vital Signs Temp 98.9 F 11/07/19 08:00 Pulse 104 H 11/07/19 09:28 Resp 24 11/07/19 08:30 BP 84/52 11/06/19 13:40 Pulse Ox 95 11/07/19 08:30 Intake & Output 11/06/19 11/07/19 11/07/19 18:59 06:59 18:59 Intake Total 4094.968 1439.800 218.213 Output Total 240 455 115 Balance 3854.968 984.800 103.213 Weight 68 kg 77.4 kg Intake: IV 3825 925 150 IV Fluid Continuation 1, 1000 000 ml @ 0 mls/hr IV .[facility] Rx#:[id number] Piperacillin-Tazobactam 3 100 .375 gm In Sodium Chloride 0.9% 100 ml @ 25 mls/hr IVPB Q8HR [facility] Rx# :[id number] Sodium Chloride 0.9% 1, 225 825 150 000 ml @ 75 mls/hr IV . [id number] [facility] Rx#:[id number] Sodium Chloride 0.9% 2, 2000 000 ml @ 999 mls/hr IV . Q2H1[facility] Rx#:[id number] Intake, IV Titration 269.968 514.800 68.213 Amount Norepinephrine 4 mg In 193.324 232.645 39.925 Sodium Chloride 0.9% 250 ml @ 0.1 MCG/KG/MIN 26. 095 mls/hr IV .Q9H45M [facility] Rx#:[id number] Propofol 1,000 mg In 76.644 282.155 28.288 Empty Bag 1 bag @ Titrate IV .Q0M [facility] Rx#: [id number] Output: Urine 240 455 115 Other: Voiding Method Indwelling Catheter Indwelling Catheter # Voids 0 ABP, PAP, CO, CI - Last Documented Arterial Blood Pressure 106/46 - Exam GENERAL EXAM: Awake, intubated, 68-year-old white female, followed commands comfortable in no apparent distress. HEAD: Normocephalic/atraumatic. EYES: Normal reaction of pupils, equal size. Conjunctiva pink, sclera white. NOSE: Clear with pink turbinates. THROAT: No erythema or exudates. NECK: No masses, no JVD, no thyroid enlargement, no adenopathy. CHEST: No chest wall deformity. Symmetrical expansion. LUNGS: Equal air entry with no crackles, wheeze, rhonchi or dullness. CVS: Regular rate and rhythm, normal S1 and S2, no gallops, no murmurs, no rubs ABDOMEN: Soft, nontender. No hepatosplenomegaly, normal bowel sounds, no guarding or rigidity. EXTREMITIES: No clubbing, no edema, no cyanosis, 2+ pulses and upper and lower extremities. Right groin sheath is in place, groin is clean dry and intact, soft, no evidence of hematoma MUSCULOSKELETAL: Muscle strength and tone normal. SPINE: No scoliosis or deformity SKIN: No rashes CENTRAL NERVOUS SYSTEM: Sedated, intubated. No focal deficits, tone is normal in all 4 extremities. - Labs CBC & Chem 7: 11/07/19 04:30 11/07/19 04:30 Labs: Abnormal Lab Results - Last 24 Hours (Table) 11/06/19 11/06/19 11/06/19 Range/Units 11:34 11:34 11:34 WBC 22.6 H (3.8-10.6) k/uL Neutrophils # 19.1 H (1.3-7.7) k/uL Monocytes # 1.1 H (0-1.0) k/uL APTT (22.0-30.0) sec ABG pH (7.35-7.45) ABG pCO2 (35-45) mmHg ABG pO2 (83-108) mmHg ABG HCO3 (21-25) mmol/L ABG Total CO2 (19-24) mmol/L ABG O2 Saturation (94-97) % Sodium 131 L (137-145) mmol/L Chloride 92 L (98-107) mmol/L Carbon Dioxide 31 H (22-30) mmol/L BUN 27 H (7-17) mg/dL Glucose 104 H (74-99) mg/dL POC Glucose (mg/dL) (75-99) mg/dL Calcium 8.3 L (8.4-10.2) mg/dL Magnesium 2.5 H (1.6-2.3) mg/dL AST 56 H (14-36) U/L ALT 54 H (9-52) U/L Troponin I 0.090 H* (0.000-0.034) ng/mL Albumin 3.3 L (3.5-5.0) g/dL Urine Appearance (Clear) Ur Specific [place] (1.001-1.035) Urine Protein (Negative) Urine Blood (Negative) Urine RBC (0-5) /hpf Urine WBC (0-5) /hpf Urine Bacteria (None) /hpf Urine Mucus (None) /hpf 11/06/19 11/06/19 11/06/19 Range/Units 12:04 13:38 15:05 WBC (3.8-10.6) k/uL Neutrophils # (1.3-7.7) k/uL Monocytes # (0-1.0) k/uL APTT (22.0-30.0) sec ABG pH 7.29 L (7.35-7.45) ABG pCO2 55 H (35-45) mmHg ABG pO2 >400 H (83-108) mmHg ABG HCO3 26 H (21-25) mmol/L ABG Total CO2 28 H (19-24) mmol/L ABG O2 Saturation 100.0 H (94-97) % Sodium (137-145) mmol/L Chloride (98-107) mmol/L Carbon Dioxide (22-30) mmol/L BUN (7-17) mg/dL Glucose (74-99) mg/dL POC Glucose (mg/dL) 110 H 139 H (75-99) mg/dL Calcium (8.4-10.2) mg/dL Magnesium (1.6-2.3) mg/dL AST (14-36) U/L ALT (9-52) U/L Troponin I (0.000-0.034) ng/mL Albumin (3.5-5.0) g/dL Urine Appearance (Clear) Ur Specific [place] (1.001-1.035) Urine Protein (Negative) Urine Blood (Negative) Urine RBC (0-5) /hpf Urine WBC (0-5) /hpf Urine Bacteria (None) /hpf Urine Mucus (None) /hpf 11/06/19 11/06/19 11/06/19 Range/Units 16:00 17:40 22:50 WBC (3.8-10.6) k/uL Neutrophils # (1.3-7.7) k/uL Monocytes # (0-1.0) k/uL APTT 52.1 H (22.0-30.0) sec ABG pH (7.35-7.45) ABG pCO2 (35-45) mmHg ABG pO2 (83-108) mmHg ABG HCO3 (21-25) mmol/L ABG Total CO2 (19-24) mmol/L ABG O2 Saturation (94-97) % Sodium (137-145) mmol/L Chloride (98-107) mmol/L Carbon Dioxide (22-30) mmol/L BUN (7-17) mg/dL Glucose (74-99) mg/dL POC Glucose (mg/dL) (75-99) mg/dL Calcium (8.4-10.2) mg/dL Magnesium (1.6-2.3) mg/dL AST (14-36) U/L ALT (9-52) U/L Troponin I 0.095 H* (0.000-0.034) ng/mL Albumin (3.5-5.0) g/dL Urine Appearance Cloudy H (Clear) Ur Specific [place] 1.042 H (1.001-1.035) Urine Protein 2+ H (Negative) Urine Blood Small H (Negative) Urine RBC 10 H (0-5) /hpf Urine WBC 8 H (0-5) /hpf Urine Bacteria Rare H (None) /hpf Urine Mucus Rare H (None) /hpf 11/06/19 11/07/19 11/07/19 Range/Units 23:17 04:30 04:30 WBC 27.9 H (3.8-10.6) k/uL Neutrophils # 25.8 H (1.3-7.7) k/uL Monocytes # (0-1.0) k/uL APTT (22.0-30.0) sec ABG pH (7.35-7.45) ABG pCO2 (35-45) mmHg ABG pO2 (83-108) mmHg ABG HCO3 (21-25) mmol/L ABG Total CO2 (19-24) mmol/L ABG O2 Saturation (94-97) % Sodium 132 L (137-145) mmol/L Chloride (98-107) mmol/L Carbon Dioxide (22-30) mmol/L BUN 21 H (7-17) mg/dL Glucose 144 H (74-99) mg/dL POC Glucose (mg/dL) 134 H (75-99) mg/dL Calcium 6.5 L (8.4-10.2) mg/dL Magnesium (1.6-2.3) mg/dL AST (14-36) U/L ALT (9-52) U/L Troponin I (0.000-0.034) ng/mL Albumin (3.5-5.0) g/dL Urine Appearance (Clear) Ur Specific [place] (1.001-1.035) Urine Protein (Negative) Urine Blood (Negative) Urine RBC (0-5) /hpf Urine WBC (0-5) /hpf Urine Bacteria (None) /hpf Urine Mucus (None) /hpf 11/07/19 11/07/19 11/07/19 Range/Units 04:30 04:52 06:06 WBC (3.8-10.6) k/uL Neutrophils # (1.3-7.7) k/uL Monocytes # (0-1.0) k/uL APTT 60.6 H (22.0-30.0) sec ABG pH (7.35-7.45) ABG pCO2 (35-45) mmHg ABG pO2 (83-108) mmHg ABG HCO3 26 H (21-25) mmol/L ABG Total CO2 27 H (19-24) mmol/L ABG O2 Saturation 97.7 H (94-97) % Sodium (137-145) mmol/L Chloride (98-107) mmol/L Carbon Dioxide (22-30) mmol/L BUN (7-17) mg/dL Glucose (74-99) mg/dL POC Glucose (mg/dL) 129 H (75-99) mg/dL Calcium (8.4-10.2) mg/dL Magnesium (1.6-2.3) mg/dL AST (14-36) U/L ALT (9-52) U/L Troponin I (0.000-0.034) ng/mL Albumin (3.5-5.0) g/dL Urine Appearance (Clear) Ur Specific [place] (1.001-1.035) Urine Protein (Negative) Urine Blood (Negative) Urine RBC (0-5) /hpf Urine WBC (0-5) /hpf Urine Bacteria (None) /hpf Urine Mucus (None) /hpf Microbiology - Last 24 Hours (Table) 11/06/19 13:45 Gram Stain - Preliminary Sputum Sputum Culture - Preliminary Assessment and Plan Plan: Assessment: #1. Acute cardiac arrest, related to acute hypoxemic respiratory failure requiring ACLS protocol and resuscitation, and intubation and placement on mec hanical ventilator. On 11/07/2019 patient was successfully extubated to nasal cannula, tolerating extubation well so far, today's chest x-ray showed chronic interstitial lung disease changes #2. Acute ST elevated myocardial infarction, however patient has no evidence of coronary obstructive disease as evidenced right coronary angiography #3. Acute exacerbation of COPD, with chronic hypercapnic respiratory failure, suspect advanced COPD #4. Leukocytosis, rule out infectious process #5. Mild hyponatremia #6. Hyperlipidemia #7. History of smoking, currently in remission #8. GERD/reflux #9. Osteoarthritis with previous history of orthopedic surgeries Plan: Continue current medical treatment, continue nebulized bronchodilators, right groin sheath is anticipated to be removed today, after the patient can sit up, and should be provided and patient should be encouraged to deep breathe and cough, continue with IV steroids, and empiric antibiotics, patient has been afebrile, cultures are pending, preliminary sputum culture showed many gram- negative bacilli. Hemodynamically stable, no acute distress, she remains on heparin infusion, cardiology is following. We'll continue to follow. I performed a history & physical examination of the patient and discussed their management with my nurse practitioner, Brooke Sol. I reviewed the nurse practitioner's note and agree with the documented findings and plan of care. Lung sounds are positive for diminished breath sounds. The findings and the impression was discussed with the patient. I attest to the documentation by the nurse practitioner. Time with Patient: Less than 30
[2019-11-07] MEDS ORDERED: RX INFO: IV CONTRAST WAS GIVEN 1 EACH MISC MISCELLANE PRN (10:38)
[2019-11-07] MEDS ORDERED: ATROPINE SULFATE 0.1 MG/ML 10ML SYRINGE ONE (11:30)
--- NOTE | 2019-11-07 11:35 | CT ---
EXAMINATION TYPE: CT angio chest DATE OF EXAM: 11/07/2019 COMPARISON: None HISTORY: Rule out PE CT DLP: 392.6 mGycm CONTRAST: CT chest with contrast and 3D reconstruction with MIP imaging is performed with IV Contrast, patient injected with 100 mL of Isovue 370. Contrast-enhanced CT of the chest was performed through the course of the pulmonary arteries with kalie g and mediastinal window settings submitted. 3D reconstruction with MIP imaging was also performed. PULMONARY ARTERIES: The pulmonary arteries and their major tributaries are patent. I do not see deni dence for sizable filling defect to suggest pulmonary embolic process. LUNGS: The lungs are clear and free of infiltrate. Mild right basilar compressive atelectasis. No pul monary nodule or mass is detected. No pleural effusion. MEDIASTINUM: Thoracic aorta is of normal caliber,however, evaluation is limited given timing of the contrast bolus. If there is concern for thoracic aortic pathology consider HARMAN. Correlate clinicall y . The heart is not enlarged. No evidence for mediastinal mass. No mediastinal lymph nodes greater than 1cm. HILAR STRUCTURES: No evidence for mass. No hilar lymph nodes greater than 1 cm. UPPER ABDOMEN: No significant abnormality is seen. IMPRESSION: 1. No evidence for Pulmonary embolism at this time.
--- NOTE | 2019-11-07 12:16 | PN ---
PROGRESS NOTE This patient was admitted with the symptoms of shortness of breath. Initial EKG showed some mild ST-segment elevation and the T-wave inversions in the inferior and anterior leads. Subsequently patient had an episode of cardiorespiratory arrest. The patient was given epinephrine, which showed ST-segment elevation in the inferior leads. In view of that, the patient was taken to the cardiac catheterization. No significant coronary artery disease was detected. The patient is off the Levophed and she is extubated. The patient does have a long-standing history of smoking and she had been having problem of breathing for last 3 days and she has been having some non-productive cough. There is no definite evidence of pneumonia, but patient's initial white count was elevated. At present, she is comfortable, denies any chest pain or shortness of breath. The patient is afebrile. Heart rate is 101 per minute, blood pressure is 100/46 mmHg. First and second heart sounds are normal. Lungs examination revealed bilateral wheezing. Creatinine is normal. The patient's 2 troponins are 0.095 and 0.090. The patient did had a evidence of a mild heart failure. Her BNP level is a 5500. FINAL IMPRESSION: This patient is admitted with acute respiratory distress. There was a suggestion of possible ST-segment elevation myocardial infarction, but the coronary arteries are normal. We cannot completely exclude possibility of underlying coronary artery spasm. In view of the abnormal EKG with the T-wave inversions noted, I will CAT scan to rule out any evidence of pulmonary embolism. We will discontinue the arterial line. An echo and Doppler study will be obtained. Once the patient's blood pressure is stable, we will put her on a small dose of Cardizem. MMODL / IJN: [id number] /
--- NOTE | 2019-11-07 12:22 | ECHOF ---
Referral Reason:asses lv function MEASUREMENTS -------- HEIGHT: 160.0 cm WEIGHT: 68.5 kg BP: RVIDd: 2.7 cm (< 3.3) IVSd: 0.9 cm (0.6 - 1.1) LVIDd: 4.5 cm (3.9 - 5.3) LVPWd: 0.9 cm (0.6 - 1.1) IVSs: 1.5 cm LVIDs: 1.7 cm LVPWs: 1.3 cm Ao Diam: 2.7 cm (2.0 - 3.7) AV Cusp: 1.8 cm (1.5 - 2.6) LA Diam: 3.0 cm (2.7 - 3.8) MV EXCURSION: 14.230 mm (> 18.000) MV EF SLOPE: 102 mm/s (70 - 150) EPSS: 0.9 cm MV E Niles: 0.52 m/s MV DecT: 205 ms MV A Niles: 0.54 m/s MV E/A Ratio: 0.96 RAP: 5.00 mmHg RVSP: 18.11 mmHg FINDINGS -------- Sinus rhythm. This was a technically difficult study with suboptimal apical views. The left ventricular size is normal. Left ventricular wall thickness is normal. Overall left vent ricular systolic function is normal with, an EF between 55 - 60 %. The right ventricle is mildly enlarged. The left atrial size is normal. The right atrial size is normal. Aortic valve is trileaflet and is mildly thickened. The mitral valve is normal. There is trace mitral regurgitation. The tricuspid valve appears structurally normal. Trace tricuspid regurgitation present. Right julianna tricular systolic pressure is normal at < 35 mmHg. There is no pulmonic regurgitation present. The aortic root size is normal. Normal inferior vena cava with normal inspiratory collapse consistent with estimated right atrial pre ssure of 5 mmHg. There is no pericardial effusion. CONCLUSIONS -------- 1. Sinus rhythm. 2. This was a technically difficult study with suboptimal apical views. 3. The left ventricular size is normal. 4. Left ventricular wall thickness is normal. 5. Overall left ventricular systolic function is normal with, an EF between 55 - 60 %. 6. The right ventricle is mildly enlarged. 7. The left atrial size is normal. 8. The right atrial size is normal. 9. Aortic valve is trileaflet and is mildly thickened. 10. The mitral valve is normal. 11. There is trace mitral regurgitation. 12. The tricuspid valve appears structurally normal. 13. Trace tricuspid regurgitation present. 14. Right ventricular systolic pressure is normal at < 35 mmHg. 15. There is no pulmonic regurgitation present. 16. The aortic root size is normal. 17. Normal inferior vena cava with normal inspiratory collapse consistent with estimated right atrial pressure of 5 mmHg. 18. There is no pericardial effusion. [employer] MANAGER: Aidee Ely RDCS
[2019-11-08] MEDS: methylPREDNISolone SOD SUCCI 40 MG/ML 1 ML VIAL IV SCH ×3 (00:04→21:06)
[2019-11-08] MEDS: IPRATROPIUM-ALBUTEROL 3 ML NEB INHALATION SCH ×6 (00:11→20:21)
[2019-11-08] MEDS ORDERED: HYDROcodone/APAP 10-325MG 1 EACH TAB PO PRN (00:14)
--- NOTE | 2019-11-08 00:14 | P.PN ---
Progress Note - Text Progress Note Date: 11/07/19 Chief Complaint: Short of breath Interval history: This is a 68-year-old patient of Dr. Gloria Rodriguez. Chronic stable medical conditions include GERD, hypertension, colonic diverticulosis, osteoporosis. Patient presented to ER earlier today and told him should quit smoking 2 days ago and she did having trouble breathing for last few days. Her cough and bit more than normal and she was coughing up some green-yellow sputum. He denied any fever and chills that. No chest pain no palpitation. Denied any swelling or leg or cough tenderness. No abdominal pain. In the ER patient became quite a bit short of breath more and a CODE BLUE was called at that is the patient has lost a pulse. When the physician arrived patient had and I will pulse and she was in a PEA and patient is intubated. One dose of epinephrine was given. EKG showed a short run of atrial fibrillation with rapid ventricular rate and also sinus tachycardia. Does some T wave changes. And cardiology Dr. VC King arrived to the ER. Decided to take the patient to the cardiac catheterization lab. Cardiac catheterization showed normal coronaries. Patient now brought to the ICU. Current drips include norepinephrine, propofol. Patient on the ventilator with FiO2 40% and PEEP of 5. No family members present. A sister had been present earlier. Apparently the patient having respiratory symptoms for close to 20 weeks. Patient's been a smoker. Admitted with-acute hypoxic respiratory failure, hypercapnic respiratory failure, pulseless electrical activity, COPD exacerbation, bilateral pneumonia. Today-laying in bed. Awake. Tired. Some shortness of breath. Slight cough. Chest CTA was negative for PE. Patient was extubated this morning. Review of systems cannot be done as patient intubated. Relevant finding as above Active Medications Albuterol/Ipratropium (Duoneb 0.5 Mg-3 Mg/3 Ml Soln) 3 ml INHALATION RT-Q4H [facility], [facility]1983 Last Admin: 11/07/19 20:18 Dose: 3 ml Documented by: Albuterol/Ipratropium (Duoneb 0.5 Mg-3 Mg/3 Ml Soln) 3 ml INHALATION RT-Q2H PRN PRN Reason: Shortness Of Breath Or Wheezing Budesonide (Pulmicort) 1 mg INHALATION RT-BID [facility], 1928[facility]1983 Last Admin: 11/07/19 20:17 Dose: 1 mg Documented by: Formoterol Fumarate (Perforomist) 20 mcg INHALATION RT-BID [facility], [facility]1983 Last Admin: 11/07/19 20:17 Dose: 20 mcg Documented by: Heparin Sodium/Sodium Chloride (25,000 unit/ Sodium Chloride) 250 mls @ 8.014 mls/hr IV .Q24H [facility], [facility]; Protocol Last Admin: 11/06/19 14:53 Dose: 11.7 units/kg/hr, 8.014 mls/hr Documented by: Norepinephrine Bitartrate 4 mg (/ Sodium Chloride) 254 mls @ 26.095 mls/hr IV .Q9H45M [facility], [facility]; Protocol Last Titration: 11/07/19 08:40 Dose: 0 mcg/kg/min, 0 mls/hr Documented by: Piperacillin Sod/Tazobactam (Sod 3.375 gm/ Sodium Chloride) 100 mls @ 25 mls/hr IVPB Q8HR [facility] Last Admin: 11/07/19 17:24 Dose: 25 mls/hr Documented by: Sodium Chloride (Saline 0.9%) 1,000 mls @ 75 mls/hr IV .Q04V64K [facility] Last Admin: 11/07/19 03:16 Dose: 75 mls/hr Documented by: Methylprednisolone Sodium Succinate (Solu-Medrol) 40 mg IV Q8HR [facility] Last Admin: 11/08/19 00:04 Dose: 40 mg Documented by: Miscellaneous Information (Rx Info: Iv Contrast Was Given) 1 each MISCELLANE DAILY PRN PRN Reason: Per Protocol Stop: 11/09/19 10:40 Naloxone HCl (Narcan) 0.2 mg IV Q2M PRN PRN Reason: Opioid Reversal Pantoprazole Sodium (Protonix) 40 mg IV DAILY [facility] Last Admin: 11/07/19 09:01 Dose: 40 mg Documented by: Physical examination: VITAL SIGNS: Afebrile, 101, 34, 121/55, 25% on 3 L GENERAL: Propped up in bed, awake, tired EYES: Pupils equal. Conjunctiva normal. HEENT: External appearance of nose and ears normal, oral cavity grossly normal, endotracheal tube in place. NECK: JVD unable to assess; masses not palpable. HEART: First and second heart sounds are normal; no edema. LUNGS: Respiratory rate increased, decreased breaths on some wheezing;. ABDOMEN: Soft, nontender, liver spleen not palpable, no masses palpable. PSYCH: AAO 3, motor affect slightly anxious INVESTIGATIONS, reviewed in the clinical context: White count 27.9 hemoglobin 13.3 creatinine 0.64 Chest CTA-negative for PE 2-D echo-EF 55-60%. No wall motion normal bilaterally. Previous testing White count 22.6 hemoglobin 40.2 platelets 362 Sodium 131 potassium 4.5 bun 27 creatinine 0.59 Troponin I 0.090 proBNP 5540 ABG-pH 7.29, pCO2 55, pO2 more than 400 EKG tracing personally reviewed by me shows some T wave changes in the anterior leads, sinus rhythm Chest x-ray film personally reviewed by me-some infiltrate on the bases Assessment: -Acute hypoxic respiratory failure, hypercapnic respiratory failure leading to pulseless electrical activity, requiring ventilator support, extubated today -Acute COPD exacerbation in a current smoker -Bibasilar pneumonia, suspect gram-negative organism -Troponins leak likely due to hemodynamic mismatch -Cardiac catheterization revealing normal coronaries -Chronic nicotine dependence patient cigarette smoker -GERD -Essential hypertension and non -colonic diverticulosis Plan: Detrol milligrams. She'll represent IV Solu-Medrol. On IV Zosyn. Bronchodilators. Care was discussed with the patient.
[2019-11-08] MEDS ORDERED: traMADol 50 MG TAB PO PRN (01:00)
[2019-11-08 05:41] LABS: Basophils % (A) 0 %; Eosinophils % (A) 0 %; HCT 37.5 % (34.0-46.0); HGB 12.2 gm/dL (11.4-16.0); Lymphocytes # (A) 0.8 k/uL (1.0-4.8); Lymphocytes % (A) 4 %; MCH 30.3 pg (25.0-35.0); MCHC 32.6 g/dL (31.0-37.0); MCV 92.9 fL (80.0-100.0); Mean Platelet Volume 6.9; Monocytes # (A) 0.7 k/uL (0-1.0); Monocytes % (A) 3 %; Neutrophils % (A) 92 %; Platelet Count 319 k/uL (150-450); RBC 4.03 m/uL (3.80-5.40); RDW 12.8 % (11.5-15.5); WBC 20.7 k/uL (3.8-10.6)
[2019-11-08 06:11] LABS: African American GFR (CKD) >90 (>60 ml/min/1.73 sqM); Anion Gap 5 mmol/L; Blood Urea Nitrogen 16 mg/dL (7-17); Calcium 6.9 mg/dL (8.4-10.2); Carbon Dioxide 27 mmol/L (22-30); Chloride 101 mmol/L (98-107); Glucose 138 mg/dL (74-99); Non-African American GFR(CKD) >90 (>60 ml/min/1.73 sqM); Potassium 4.1 mmol/L (3.5-5.1); Sodium 133 mmol/L (137-145)
[2019-11-08] MEDS: SODIUM CHLORIDE 0.9% 1,000 ML IV SCH (06:48)
[2019-11-08] MEDS: FORMOTEROL FUMARATE 20 MCG/2 ML NEBU INHALATION SCH ×2 (07:41→20:21)
[2019-11-08] MEDS: BUDESONIDE 1 MG/2 ML NEBU INHALATION SCH ×2 (07:41→20:21)
--- NOTE | 2019-11-08 07:45 | XR ---
EXAMINATION TYPE: XR chest 1V portable DATE OF EXAM: 11/07/2019 COMPARISON: Prior chest x-ray 11/06/2019 HISTORY: Intubated TECHNIQUE: Single frontal view of the chest is obtained. FINDINGS: Endotracheal tube and NG tube are overlying appropriate positions, patient is rotated. No evident pneumothorax or pleural effusion. Heart size is within normal limits. Aorta is dense. Interst itium is increased. Suspect some airspace disease present at the right lower lobe. There are overlyin g cardiac leads. IMPRESSION: Correlate for pneumonia., Interstitial lung disease
[2019-11-08] MEDS: HEPARIN SOD,PORK IN 0.45% NACL 25,000 UNIT in 0.45% NACL 1 250ML.BAG IV SCH (07:51)
[2019-11-08] MEDS: NOREPINEPHRINE 4 MG in SODIUM CHLORIDE 0.9% 250 ML IV SCH ×3 (07:52→13:49)
[2019-11-08] MEDS: PIPERACILLIN-TAZOBACTAM 3.375 GM in SODIUM CHLORIDE 0.9% 100 ML IVPB SCH ×3 (08:22→16:24)
--- NOTE | 2019-11-08 08:29 | XR ---
EXAMINATION TYPE: XR chest 1V portable DATE OF EXAM: 11/08/2019 COMPARISON: 11/07/2019 HISTORY: Tube placement TECHNIQUE: Single frontal view of the chest is obtained. FINDINGS: ET and NG tube have been removed. No evident pneumothorax or pleural effusion. Heart size is within normal limits. Aorta is dense. Interstitium is increased. Suspect subsegmental changes righ t lung base noted. Chronic rib cage deformity in the right noted.. There are overlying cardiac leads. IMPRESSION: 1. Correlate for pulmonary fibrosis. Superimposed interstitial pneumonitis or venous congestion not e xcluded. 2. Stable persistent right lower lobe infiltrate.. 3. Interval removal of ET and NG tube.
[2019-11-08] MEDS: POLYETHYLENE GLYCOL 3350 17 GM POWD.PACK PO SCH (08:33)
[2019-11-08] MEDS: PANTOPRAZOLE 40 MG/10 ML VIAL IV SCH (08:34)
[2019-11-08] MEDS: buPROPion SR 150 MG TABLET.ER PO SCH ×2 (08:34→23:45)
[2019-11-08] MEDS: GABAPENTIN 300 MG CAP PO SCH ×2 (08:34→21:06)
[2019-11-08] MEDS ORDERED: FUROSEMIDE 10 MG/ML 4 ML VIAL IV STA (09:06)
--- NOTE | 2019-11-08 09:08 | P.PN ---
Subjective Progress Note Date: 11/08/19 Principal diagnosis: Acute hypoxic respiratory failure, acute ST elevated myocardial infarction, cardiac arrest This is 68-year-old white female patient, with past medical history significant for smoking, and COPD, hypertension, GERD, osteoarthritis with previous joint replacement surgeries, who presented to the emergency department per EMS for evaluation of shortness of breath. She was having increased coughing, but is some greenish colored sputum. Denied any fever and chills, most of the history is obtained from the chart, as the patient is currently intubated and sedated. While in the emergency department patient had suffered respiratory arrest, and patient was in pulseless electrical activity, she was intubated, and successfully resuscitated, EKG was done at that time showing atrial fibrillation with RVR, may have been the effect of epinephrine injections that were given during the resuscitation effort. Subsequent EKG showed sinus tachycardia with a rate of 150 BPM, and did show T-wave inversions in inferior leads and biphasic T waves in the septal leads V2 and V3, as well as ST and he was called patient was taken to the [facility], she had a clear cath. Chest x-ray postintubation showed chronic interstitial lung disease or interstitial pneumonitis. ET tube in appropriate position. Currently on assist-control mode of ventilation with a rate of 14, tidal volume 500, FiO2 of 100% and PEEP of 5, waiting for of blood gas, 0.9 normal saline infusing at a rate of 75 ML per hour, patient has received 2 L of IV fluid boluses, Diprivan and is at 50 mics per kilo per minute, and norepinephrine is currently a 0.17 mics per kilo per minute or 12 mics per minute. Labs have been reviewed, showing white blood cell count of 22.6, hemoglobin of 14.2, troponin was 0.090, and proBNP was 5540. On 11/07/2019 patient seen in follow-up in the intensive care unit. Patient is awake, she is following command, today's chest x-ray was reviewed showing chronic interstitial changes. Current vent settings are assist-control mode of ventilation with a rate of 20, tidal volume 400, FiO2 40% and PEEP of 5, this morning his blood gases showed pO2 of 86, pCO2 45, and pH of 7.37. Maintenance IV fluids 0.9 normal saline a rate of 75 ML per hour, heparin infusion per weight base protocol, to prevent is off, and levo fed has been off. Lung sounds reveal clear breath sounds, no rhonchi, no wheezing, patient had weaning parameters, there were satisfactory except for the RSBI which was at 96, however decision was made to extubate the patient and she was extubated to nasal cannula and doing very well after extubation. His labs have been reviewed, showing whi te blood cell count of 27.9, hemoglobin of 13.3, sodium is 132, the rest of electrolytes were within normal limits, BUN is 21 creatinine is 0.64 On 11/08/2019 patient seen in follow-up in the intensive care unit, she was successfully extubated yesterday, this morning she senses a recliner, she is l ooking and feeling very good, she is on 3 L of oxygen, and her pulse ox of 97%, patient is afebrile, hemodynamically stable, no acute issues overnight, pulmonary normal saline infusing at a rate of 75 ML per hour, blood and sputum cultures have been sent, and are pending at this time, patient has had no fever or chills, today's labs have been reviewed, showing white blood cell count of 20.7, hemoglobin of 12.2, serum sodium is 133, potassium is 4.1, the rest of electrolytes and renal profile are unremarkable. ProCalcitonin did come back elevated at 0.50, and patient is on empiric abt in the form of Zosyn Objective - Vital Signs Vital signs: Vital Signs Temp 98.2 F 11/08/19 04:00 Pulse 88 11/08/19 07:54 Resp 21 11/08/19 07:00 BP 118/67 11/08/19 07:00 Pulse Ox 97 11/08/19 07:00 Intake & Output 11/07/19 11/08/19 11/08/19 18:59 06:59 18:59 Intake Total 968.213 925 75 Output Total 935 645 75 Balance 33.213 280 0 Weight 77.2 kg Intake: IV 900 825 75 Sodium Chloride 0.9% 1, 900 825 75 000 ml @ 75 mls/hr IV . [id number] [facility] Rx#:[id number] Intake, IV Titration 68.213 100 Amount Norepinephrine 4 mg In 39.925 Sodium Chloride 0.9% 250 ml @ 0.1 MCG/KG/MIN 26. 095 mls/hr IV .[id number] [facility] Rx#:[id number] Propofol 1,000 mg In 28.288 Empty Bag 1 bag @ Titrate IV .Q0M [facility] Rx#: [id number] Sodium Chloride 0.9% 1, 100 000 ml @ 75 mls/hr IV . [id number] [facility] Rx#:[id number] Output: Urine 935 645 75 Other: Voiding Method Indwelling Catheter Indwelling Catheter # Bowel Movements 0 ABP, PAP, CO, CI - Last Documented Arterial Blood Pressure 111/49 - Exam GENERAL EXAM: Awake, intubated, 68-year-old white female, followed commands comfortable in no apparent distress. HEAD: Normocephalic/atraumatic. EYES: Normal reaction of pupils, equal size. Conjunctiva pink, sclera white. NOSE: Clear with pink turbinates. THROAT: No erythema or exudates. NECK: No masses, no JVD, no thyroid enlargement, no adenopathy. CHEST: No chest wall deformity. Symmetrical expansion. LUNGS: Equal air entry with bilateral crackles, but no wheeze, rhonchi or dullness. CVS: Regular rate and rhythm, normal S1 and S2, no gallops, no murmurs, no rubs ABDOMEN: Soft, nontender. No hepatosplenomegaly, normal bowel sounds, no guarding or rigidity. EXTREMITIES: No clubbing, no edema, no cyanosis, 2+ pulses and upper and lower extremities. Right groin sheath is in place, groin is clean dry and intact, soft, no evidence of hematoma MUSCULOSKELETAL: Muscle strength and tone normal. SPINE: No scoliosis or deformity SKIN: No rashes CENTRAL NERVOUS SYSTEM: Sedated, intubated. No focal deficits, tone is normal in all 4 extremities. - Labs CBC & Chem 7: 11/08/19 04:54 11/08/19 04:54 Labs: Abnormal Lab Results - Last 24 Hours (Table) 11/07/19 11/08/19 11/08/19 Range/Units 04:30 04:54 04:54 WBC 20.7 H (3.8-10.6) k/uL Neutrophils # 19.0 H (1.3-7.7) k/uL Lymphocytes # 0.8 L (1.0-4.8) k/uL Sodium 133 L (137-145) mmol/L Glucose 138 H (74-99) mg/dL Calcium 6.9 L (8.4-10.2) mg/dL Procalcitonin 0.50 H (0.02-0.09) ng/mL Microbiology - Last 24 Hours (Table) 11/06/19 11:34 Blood Culture - Preliminary Blood No Growth after 24 hours Assessment and Plan Plan: Assessment: #1. Acute cardiac arrest, related to acute hypoxemic respiratory failure requiring ACLS protocol and resuscitation, and intubation and placement on mechanical ventilator. On 11/07/2019 patient was successfully extubated to nasal cannula, tolerating extubation well so far, today's chest x-ray showed chronic interstitial lung disease changes #2. Acute ST elevated myocardial infarction, however patient has no evidence of coronary obstructive disease as evidenced right coronary angiography #3. Acute exacerbation of COPD, with chronic hypercapnic respiratory failure, suspect advanced COPD #4. Possible right lower lobe pneumonia #5. Mild hyponatremia #6. Hyperlipidemia #7. History of smoking, currently in remission #8. GERD/reflux #9. Osteoarthritis with previous history of orthopedic surgeries Plan: Continue current antibiotics, will await the final cultures of the sputum, today's chest x-ray shows persistence of right lower infiltrate, possibility of underlying pneumonia is not completely excluded, pro-calcitonin level did come back elevated to 0.50, will continue Zosyn and we will give the patient a dose of IV Lasix, we'll stop the IV fluids, continue nebulized bronchodilators, IV steroids to 40 mg every 12 hours, encouraged to deep breathe and cough, patient has done very well, she was extubated yesterday, tolerated extubation very well, smoking cessation was strongly encouraged, and patient will need follow-up with youth career specialist with Dr. Palmer in the office after discharge, stable for discharge out of intensive care unit today to medical floor. We'll continue to follow. I performed a history & physical examination of the patient and discussed their management with my nurse practitioner, Brooke Sol. I reviewed the nurse practitioner's note and agree with the documented findings and plan of care. Lung sounds are positive for diminished breath sounds. The findings and the impression was discussed with the patient. I attest to the documentation by the nurse practitioner. Time with Patient: Less than 30
[2019-11-08] MEDS: ATORVASTATIN 40 MG TAB PO SCH (11:09)
[2019-11-08] MEDS: ASPIRIN 81 MG PO SCH (11:09)
[2019-11-08] MEDS: DILTIAZEM ORAL 30 MG TAB PO SCH ×3 (11:09→23:44)
--- NOTE | 2019-11-08 11:41 | PN ---
PROGRESS NOTE This patient was admitted with symptoms of shortness of breath and acute exacerbation of COPD. The patient is doing well. She is feeling comfortable. Patient had ST- segment elevation after epinephrine injection, but there was no evidence of any significant coronary artery disease, so most likely ST-segment elevation is due to the epinephrine and there is no evidence of ST-segment elevation myocardial infarction. The patient's CT scan was negative for pulmonary embolism. Associated coronary artery spasm cannot be entirely excluded. We will start the patient on Cardizem 30 mg q.8 hourly. The patient's procalcitonin level is elevated and patient is getting empiric antibiotic therapy. PHYSICAL EXAMINATION: The patient's physical examination reveals blood pressure of 121/77 mmHg. First and second heart sounds are normal. Lungs examination reveals a few scattered rhonchi. Continue the current medications. Cardizem 30 mg t.i.d. is added. MMODL / IJN: [id number] /
--- NOTE | 2019-11-08 21:18 | P.PN ---
Progress Note - Text Progress Note Date: 11/08/19 Chief Complaint: Short of breath Interval history: This is a 68-year-old patient of Dr. Gloria Rodriguez. Chronic stable medical conditions include GERD, hypertension, colonic diverticulosis, osteoporosis. Patient presented to ER earlier today and told him should quit smoking 2 days ago and she did having trouble breathing for last few days. Her cough and bit more than normal and she was coughing up some green-yellow sputum. He denied any fever and chills that. No chest pain no palpitation. Denied any swelling or leg or cough tenderness. No abdominal pain. In the ER patient became quite a bit short of breath more and a CODE BLUE was called at that is the patient has lost a pulse. When the physician arrived patient had and I will pulse and she was in a PEA and patient is intubated. One dose of epinephrine was given. EKG showed a short run of atrial fibrillation with rapid ventricular rate and also sinus tachycardia. Does some T wave changes. And cardiology Dr. VC King arrived to the ER. Decided to take the patient to the cardiac catheterization lab. Cardiac catheterization showed normal coronaries. Patient now brought to the ICU. Current drips include norepinephrine, propofol. Patient on the ventilator with FiO2 40% and PEEP of 5. No family members present. A sister had been present earlier. Apparently the patient having respiratory symptoms for close to 20 weeks. Patient's been a smoker. Admitted with-acute hypoxic respiratory failure, hypercapnic respiratory failure, pulseless electrical activity, COPD exacerbation, bilateral pneumonia. Today-sitting upon a chair. For much of an appetite. Eating about 50%. On nasal cannula. Some cough is present. Review of systems cannot be done as patient intubated. Relevant finding as above Active Medications Hydrocodone Bitart/Acetaminophen ([place] 10) 1 each PO Q6HR PRN PRN Reason: Pain Albuterol/Ipratropium (Duoneb 0.5 Mg-3 Mg/3 Ml Soln) 3 ml INHALATION RT-Q4H [facility] Last Admin: 11/08/19 20:21 Dose: 3 ml Documented by: Albuterol/Ipratropium (Duoneb 0.5 Mg-3 Mg/3 Ml Soln) 3 ml INHALATION RT-Q2H PRN PRN Reason: Shortness Of Breath Or Wheezing Aspirin (Aspirin) 81 mg PO DAILY [facility] Last Admin: 11/08/19 11:09 Dose: 81 mg Documented by: Atorvastatin Calcium (Lipitor) 40 mg PO DAILY [facility] Last Admin: 11/08/19 11:09 Dose: 40 mg Documented by: Budesonide (Pulmicort) 1 mg INHALATION RT-BID [facility] Last Admin: 11/08/19 20:21 Dose: Not Given Documented by: Bupropion HCl (Wellbutrin Sr) 150 mg PO BID [facility] Last Admin: 11/08/19 08:34 Dose: 150 mg Documented by: Diltiazem HCl (Cardizem Oral) 30 mg PO TID [facility] Last Admin: 11/08/19 16:24 Dose: 30 mg Documented by: Formoterol Fumarate (Perforomist) 20 mcg INHALATION RT-BID [facility] Last Admin: 11/08/19 20:21 Dose: Not Given Documented by: Gabapentin (Neurontin) 300 mg PO BID [facility] Last Admin: 11/08/19 21:06 Dose: 300 mg Documented by: Norepinephrine Bitartrate 4 mg (/ Sodium Chloride) 254 mls @ 26.095 mls/hr IV .Q9H45M [facility]; Protocol Last Admin: 11/08/19 13:49 Dose: Not Given Documented by: Piperacillin Sod/Tazobactam (Sod 3.375 gm/ Sodium Chloride) 100 mls @ 25 mls/hr IVPB Q8HR [facility] Last Admin: 11/08/19 16:24 Dose: 25 mls/hr Documented by: Methylprednisolone Sodium Succinate (Solu-Medrol) 40 mg IV Q12HR [facility] Last Admin: 11/08/19 21:06 Dose: 40 mg Documented by: Miscellaneous Information (Rx Info: Iv Contrast Was Given) 1 each MISCELLANE DAILY PRN PRN Reason: Per Protocol Stop: 11/09/19 10:40 Naloxone HCl (Narcan) 0.2 mg IV Q2M PRN PRN Reason: Opioid Reversal Pantoprazole Sodium (Protonix) 40 mg PO -BRKFST [facility] Polyethylene Glycol (Miralax) 17 gm PO DAILY [facility] Last Admin: 11/08/19 08:33 Dose: 17 gm Documented by: Tramadol HCl (Ultram) 50 mg PO BID PRN PRN Reason: Pain Physical examination: VITAL SIGNS: 97.7, 91, 20, 138/79, 94% on 3 L GENERAL:sitting up in a chair, awake EYES: Pupils equal. Conjunctiva normal. HEENT: External appearance of nose and ears normal, oral cavity grossly normal, endotracheal tube in place. NECK: JVD unable to assess; masses not palpable. HEART: First and second heart sounds are normal; no edema. LUNGS: Respiratory rate increased, decreased breaths , decreased wheezing;. ABDOMEN: Soft, nontender, liver spleen not palpable, no masses palpable. PSYCH: AAO 3, motor affect slightly anxious INVESTIGATIONS, reviewed in the clinical context: white count 20.7 hemoglobin 12.2 pressure 4.1 crit 0.58 Previous testing White count 22.6 hemoglobin 40.2 platelets 362 Sodium 131 potassium 4.5 bun 27 creatinine 0.59 Troponin I 0.090 proBNP 5540 ABG-pH 7.29, pCO2 55, pO2 more than 400 EKG tracing personally reviewed by me shows some T wave changes in the anterior leads, sinus rhythm Chest x-ray film personally reviewed by me-some infiltrate on the bases Chest CTA-negative for PE 2-D echo-EF 55-60%. No wall motion normal bilaterally. Assessment: -Acute hypoxic respiratory failure, hypercapnic respiratory failure leading to pulseless electrical activity, requiring ventilator support, extubated 11/07/2019 -Acute COPD exacerbation in a current smoker, improving -Bibasilar pneumonia, suspect gram-negative organism -Troponins leak likely due to hemodynamic mismatch -Cardiac catheterization revealing normal coronaries -Chronic nicotine dependence patient cigarette smoker -GERD -Essential hypertension and non -colonic diverticulosis Plan: continue DuoNeb, IV Solu-Medrol every 12, IV Zosyn. Patient encouraged to increase her oral intake. Improving.
[2019-11-09] MEDS: PIPERACILLIN-TAZOBACTAM 3.375 GM in SODIUM CHLORIDE 0.9% 100 ML IVPB SCH ×2 (00:16→08:29)
[2019-11-09] MEDS: IPRATROPIUM-ALBUTEROL 3 ML NEB INHALATION SCH ×7 (00:24→23:53)
[2019-11-09 05:36] LABS: HCT 40.8 % (34.0-46.0); HGB 13.1 gm/dL (11.4-16.0); MCH 29.8 pg (25.0-35.0); MCHC 32.1 g/dL (31.0-37.0); MCV 92.6 fL (80.0-100.0); Mean Platelet Volume 7.1; Platelet Count 286 k/uL (150-450); RBC 4.41 m/uL (3.80-5.40); RDW 12.8 % (11.5-15.5); WBC 22.7 k/uL (3.8-10.6)
[2019-11-09 05:52] LABS: African American GFR (CKD) >90 (>60 ml/min/1.73 sqM); Anion Gap 8 mmol/L; Blood Urea Nitrogen 18 mg/dL (7-17); Calcium 7.2 mg/dL (8.4-10.2); Carbon Dioxide 27 mmol/L (22-30); Chloride 97 mmol/L (98-107); Glucose 109 mg/dL (74-99); Non-African American GFR(CKD) >90 (>60 ml/min/1.73 sqM); Potassium 4.1 mmol/L (3.5-5.1); Sodium 132 mmol/L (137-145)
[2019-11-09] MEDS: FORMOTEROL FUMARATE 20 MCG/2 ML NEBU INHALATION SCH ×2 (06:45→19:23)
[2019-11-09] MEDS: BUDESONIDE 1 MG/2 ML NEBU INHALATION SCH ×2 (06:45→19:23)
[2019-11-09] MEDS: PANTOPRAZOLE 40 MG TABLET PO SCH (06:57)
[2019-11-09 06:59] LABS: Band Neutrophils % 9 %; Lymphocytes # (M) 2.04 k/uL (1.0-4.8); Metamyelocytes # (M) 1.14 k/uL (0); Metamyelocytes % 5 %; Monocytes # (M) 1.14 k/uL (0-1.0); Myelocytes # (M) 0.23 k/uL (0); Myelocytes % 1 %; Neutrophils % (M) 72 %; Nucleated Red Blood Cells 0 /100 WBC (0-0); Total Cells Counted 200
[2019-11-09 07:00] LABS: Large Platelets Present
[2019-11-09 07:02] LABS: Anisocytosis (M) Present; Polychromasia Present
[2019-11-09] MEDS: NOREPINEPHRINE 4 MG in SODIUM CHLORIDE 0.9% 250 ML IV SCH ×2 (08:20→08:38)
[2019-11-09] MEDS: GABAPENTIN 300 MG CAP PO SCH ×2 (08:30→20:38)
[2019-11-09] MEDS: ASPIRIN 81 MG PO SCH (08:30)
[2019-11-09] MEDS: DILTIAZEM ORAL 30 MG TAB PO SCH ×3 (08:30→20:38)
[2019-11-09] MEDS: buPROPion SR 150 MG TABLET.ER PO SCH ×2 (08:30→21:03)
[2019-11-09] MEDS: ATORVASTATIN 40 MG TAB PO SCH (08:30)
[2019-11-09] MEDS: POLYETHYLENE GLYCOL 3350 17 GM POWD.PACK PO SCH (08:31)
[2019-11-09] MEDS: methylPREDNISolone SOD SUCCI 40 MG/ML 1 ML VIAL IV SCH ×2 (08:34→20:38)
--- NOTE | 2019-11-09 08:49 | P.PN ---
Subjective Progress Note Date: 11/09/19 Principal diagnosis: Acute hypoxic respiratory failure, acute ST elevated myocardial infarction, cardiac arrest This is 68-year-old white female patient, with past medical history significant for smoking, and COPD, hypertension, GERD, osteoarthritis with previous joint replacement surgeries, who presented to the emergency department per EMS for evaluation of shortness of breath. She was having increased coughing, but is some greenish colored sputum. Denied any fever and chills, most of the history is obtained from the chart, as the patient is currently intubated and sedated. While in the emergency department patient had suffered respiratory arrest, and patient was in pulseless electrical activity, she was intubated, and successfully resuscitated, EKG was done at that time showing atrial fibrillation with RVR, may have been the effect of epinephrine injections that were given during the resuscitation effort. Subsequent EKG showed sinus tachycardia with a rate of 150 BPM, and did show T-wave inversions in inferior leads and biphasic T waves in the septal leads V2 and V3, as well as ST and he was called patient was taken to the [facility], she had a clear cath. Chest x-ray postintubation showed chronic interstitial lung disease or interstitial pneumonitis. ET tube in appropriate position. Currently on assist-control mode of ventilation with a rate of 14, tidal volume 500, FiO2 of 100% and PEEP of 5, waiting for of blood gas, 0.9 normal saline infusing at a rate of 75 ML per hour, patient has received 2 L of IV fluid boluses, Diprivan and is at 50 mics per kilo per minute, and norepinephrine is currently a 0.17 mics per kilo per minute or 12 mics per minute. Labs have been reviewed, showing white blood cell count of 22.6, hemoglobin of 14.2, troponin was 0.090, and proBNP was 5540. On 11/07/2019 patient seen in follow-up in the intensive care unit. Patient is awake, she is following command, today's chest x-ray was reviewed showing chronic interstitial changes. Current vent settings are assist-control mode of ventilation with a rate of 20, tidal volume 400, FiO2 40% and PEEP of 5, this morning his blood gases showed pO2 of 86, pCO2 45, and pH of 7.37. Maintenance IV fluids 0.9 normal saline a rate of 75 ML per hour, heparin infusion per weight base protocol, to prevent is off, and levo fed has been off. Lung sounds reveal clear breath sounds, no rhonchi, no wheezing, patient had weaning parameters, there were satisfactory except for the RSBI which was at 96, however decision was made to extubate the patient and she was extubated to nasal cannula and doing very well after extubation. His labs have been reviewed, showing whi te blood cell count of 27.9, hemoglobin of 13.3, sodium is 132, the rest of electrolytes were within normal limits, BUN is 21 creatinine is 0.64 On 11/08/2019 patient seen in follow-up in the intensive care unit, she was successfully extubated yesterday, this morning she senses a recliner, she is l ooking and feeling very good, she is on 3 L of oxygen, and her pulse ox of 97%, patient is afebrile, hemodynamically stable, no acute issues overnight, pulmonary normal saline infusing at a rate of 75 ML per hour, blood and sputum cultures have been sent, and are pending at this time, patient has had no fever or chills, today's labs have been reviewed, showing white blood cell count of 20.7, hemoglobin of 12.2, serum sodium is 133, potassium is 4.1, the rest of electrolytes and renal profile are unremarkable. ProCalcitonin did come back elevated at 0.50, and patient is on empiric abt in the form of Zosyn. On 11/09/2019 patient seen in follow-up in the intensive care unit, patient has been an overflow for medical surgical floor. Patient remains stable, no fever or chills, yesterday's sputum culture revealed Haemophilus influenza and patient is on IV Zosyn. Remains on IV steroids, no fever or chills, lung sounds revealed scattered rhonchi. Decreased breath sounds bilaterally, end expiratory wheezes. No complaints of chest pain, is in sinus mechanism, no acute events overnight, today's blood work has been reviewed, showing white blood cell count of 22.7, hemoglobin at 13.1, sodium is 132, potassium is 4.1, chloride is 97, CO2 is 27, BUN is 18 creatinine 0.57. Occasional nonproductive cough, denies shortness of breath, denies any chest pain. Objective - Vital Signs Vital signs: Vital Signs Temp 97.5 F L 11/09/19 08:00 Pulse 85 11/09/19 08:00 Resp 24 11/09/19 08:00 BP 136/64 11/09/19 08:00 Pulse Ox 97 11/09/19 03:46 Intake & Output 11/08/19 11/09/19 11/09/19 18:59 06:59 18:59 Intake Total 300 Output Total 192 1650 Balance -1625 -1650 Weight 77.2 kg 73.2 kg Intake: IV 300 Sodium Chloride 0.9% 1, 300 000 ml @ 75 mls/hr IV . [id number] [facility] Rx#:[id number] Output: Urine 1924 1649 Other: Voiding Method Bedside Commode Bedside Commode ABP, PAP, CO, CI - Last Documented Arterial Blood Pressure 111/49 - Exam GENERAL EXAM: Awake, intubated, 68-year-old white female, followed commands comfortable in no apparent distress. HEAD: Normocephalic/atraumatic. EYES: Normal reaction of pupils, equal size. Conjunctiva pink, sclera white. NOSE: Clear with pink turbinates. THROAT: No erythema or exudates. NECK: No masses, no JVD, no thyroid enlargement, no adenopathy. CHEST: No chest wall deformity. Symmetrical expansion. LUNGS: Equal air entry with diminished sounds bilaterally, and extremity weakness, and scattered rhonchi CVS: Regular rate and rhythm, normal S1 and S2, no gallops, no murmurs, no rubs ABDOMEN: Soft, nontender. No hepatosplenomegaly, normal bowel sounds, no guarding or rigidity. EXTREMITIES: No clubbing, no edema, no cyanosis, 2+ pulses and upper and lower extremities. Right groin sheath is in place, groin is clean dry and intact, soft, no evidence of hematoma MUSCULOSKELETAL: Muscle strength and tone normal. SPINE: No scoliosis or deformity SKIN: No rashes CENTRAL NERVOUS SYSTEM: Sedated, intubated. No focal deficits, tone is normal in all 4 extremities. - Labs CBC & Chem 7: 11/09/19 04:58 11/09/19 04:58 Labs: Abnormal Lab Results - Last 24 Hours (Table) 11/09/19 11/09/19 Range/Units 04:58 04:58 WBC 22.7 H (3.8-10.6) k/uL Neutrophils # (Manual) 18.30 H (1.3-7.7) k/uL Monocytes # (Manual) 1.14 H (0-1.0) k/uL Metamyelocytes # (Man) 1.14 H (0) k/uL Myelocytes # (Manual) 0.23 H (0) k/uL Sodium 132 L (137-145) mmol/L Chloride 97 L (98-107) mmol/L BUN 18 H (7-17) mg/dL Glucose 109 H (74-99) mg/dL Calcium 7.2 L (8.4-10.2) mg/dL Microbiology - Last 24 Hours (Table) 11/06/19 11:34 Blood Culture - Preliminary Blood No Growth after 48 hours 11/06/19 13:45 Gram Stain - Final Sputum Sputum Culture - Final Haemophilus influenzae Assessment and Plan Plan: Assessment: #1. Acute cardiac arrest, related to acute hypoxemic respiratory failure requiring ACLS protocol and resuscitation, and intubation and placement on mechanical ventilator. On 11/07/2019 patient was successfully extubated to nasal cannula, tolerating extubation well so far, today's chest x-ray showed chronic interstitial lung disease changes #2. Acute ST elevated myocardial infarction, however patient has no evidence of coronary obstructive disease as evidenced right coronary angiography #3. Acute exacerbation of COPD, with chronic hypercapnic respiratory failure, suspect advanced COPD #4. Possible right lower lobe pneumonia, sputum cultures positive for Haemophilus influenza #5. Mild hyponatremia #6. Hyperlipidemia #7. History of smoking, currently in remission #8. GERD/reflux #9. Osteoarthritis with previous history of orthopedic surgeries Plan: Continue current antibiotics, continue IV steroids, breathing treatments, encour aged patient to deep breathe and cough, provided incentive spirometer, encourage ambulation, today's chest x-ray has been reviewed, improved aeration of the right lower lobe, and improvement in the appearance of interstitial prominence. No acute issues overnight, wean FiO2, she is stable to transfer out of the intensive care unit to general medical floor. I performed a history & physical examination of the patient and discussed their management with my nurse practitioner, Brooke Sol. I reviewed the nurse practitioner's note and agree with the documented findings and plan of care. Lung sounds are positive for diminished breath sounds. The findings and the impression was discussed with the patient. I attest to the documentation by the nurse practitioner. Time with Patient: Less than 30
--- NOTE | 2019-11-09 09:20 | XR ---
EXAMINATION TYPE: XR chest 1V portable DATE OF EXAM: 11/09/2019 COMPARISON: Prior chest x-ray 11/08/2019 HISTORY: Abnormal chest x-ray TECHNIQUE: Single frontal view of the chest is obtained. FINDINGS: Patient is rotated. There are overlying cardiac leads. The aorta is dense. Interstitium is improved. Heart size is within normal limits. Pulmonary vascularity and renae are unremarkable. No ev ident pneumothorax. Some persistent right lower lobe increased attenuation noted. IMPRESSION: Suspect there may be improvement in volume status, aeration.
--- NOTE | 2019-11-09 12:23 | PN ---
PROGRESS NOTE This patient was admitted with acute exacerbation of COPD and possible acute bronchitis. The patient is comfortable. Denies any shortness of breath, orthopnea or PND. Patient does not have any definite evidence of myocardial infarction. Coronary arteries are normal. We will continue the current medications. Patient still has bilateral rhonchi. The patient is going to be transferred to the regular bed. TAM / KARTHIKEYAN: [id number] /
--- NOTE | 2019-11-09 16:29 | P.PN ---
Progress Note - Text Progress Note Date: 11/09/19 Chief Complaint: Short of breath Interval history: This is a 68-year-old patient of Dr. lGoria Rodriguez. Chronic stable medical conditions include GERD, hypertension, colonic diverticulosis, osteoporosis. Patient presented to ER earlier today and told him should quit smoking 2 days ago and she did having trouble breathing for last few days. Her cough and bit more than normal and she was coughing up some green-yellow sputum. He denied any fever and chills that. No chest pain no palpitation. Denied any swelling or leg or cough tenderness. No abdominal pain. In the ER patient became quite a bit short of breath more and a CODE BLUE was called at that is the patient has lost a pulse. When the physician arrived patient had and I will pulse and she was in a PEA and patient is intubated. One dose of epinephrine was given. EKG showed a short run of atrial fibrillation with rapid ventricular rate and also sinus tachycardia. Does some T wave changes. And cardiology Dr. VC King arrived to the ER. Decided to take the patient to the cardiac catheterization lab. Cardiac catheterization showed normal coronaries. Patient now brought to the ICU. Current drips include norepinephrine, propofol. Patient on the ventilator with FiO2 40% and PEEP of 5. No family members present. A sister had been present earlier. Apparently the patient having respiratory symptoms for close to 20 weeks. Patient's been a smoker. Admitted with-acute hypoxic respiratory failure, hypercapnic respiratory failure, pulseless electrical activity, COPD exacerbation, bilateral pneumonia. Today-ICU. Up in a chair. Getting slightly better. Less short of breath. Minimal cough. Did walk out of the hallway. On oxygen. Review of systems: Was done for constitutional, cardiovascular, GI, pulmonary. relevant finding as above Active Medications Hydrocodone Bitart/Acetaminophen ([place]utz 10) 1 each PO Q6HR PRN PRN Reason: Pain Albuterol/Ipratropium (Duoneb 0.5 Mg-3 Mg/3 Ml Soln) 3 ml INHALATION RT-Q4H [facility] Last Admin: 11/09/19 11:03 Dose: 3 ml Documented by: Albuterol/Ipratropium (Duoneb 0.5 Mg-3 Mg/3 Ml Soln) 3 ml INHALATION RT-Q2H PRN PRN Reason: Shortness Of Breath Or Wheezing Amoxicillin/Clavulanate Potassium (Augmentin 875-125) 1 each PO Q12HR [facility] Aspirin (Aspirin) 81 mg PO DAILY [facility] Last Admin: 11/09/19 08:30 Dose: 81 mg Documented by: Atorvastatin Calcium (Lipitor) 40 mg PO DAILY [facility] Last Admin: 11/09/19 08:30 Dose: 40 mg Documented by: Budesonide (Pulmicort) 1 mg INHALATION RT-BID [facility] Last Admin: 11/09/19 06:45 Dose: Not Given Documented by: Bupropion HCl (Wellbutrin Sr) 150 mg PO BID [facility] Last Admin: 11/09/19 08:30 Dose: 150 mg Documented by: Diltiazem HCl (Cardizem Oral) 30 mg PO TID [facility] Last Admin: 11/09/19 15:31 Dose: 30 mg Documented by: Formoterol Fumarate (Perforomist) 20 mcg INHALATION RT-BID [facility] Last Admin: 11/09/19 06:45 Dose: Not Given Documented by: Gabapentin (Neurontin) 300 mg PO BID [facility] Last Admin: 11/09/19 08:30 Dose: 300 mg Documented by: Norepinephrine Bitartrate 4 mg (/ Sodium Chloride) 254 mls @ 26.095 mls/hr IV .Q9H45M [facility]; Protocol Last Admin: 11/09/19 08:38 Dose: Not Given Documented by: Methylprednisolone Sodium Succinate (Solu-Medrol) 40 mg IV Q12HR [facility] Last Admin: 11/09/19 08:34 Dose: 40 mg Documented by: Naloxone HCl (Narcan) 0.2 mg IV Q2M PRN PRN Reason: Opioid Reversal Pantoprazole Sodium (Protonix) 40 mg PO AC-BRKFST [facility] Last Admin: 11/09/19 06:57 Dose: 40 mg Documented by: Polyethylene Glycol (Miralax) 17 gm PO DAILY [facility] Last Admin: 11/09/19 08:31 Dose: 17 gm Documented by: Tramadol HCl (Ultram) 50 mg PO BID PRN PRN Reason: Pain Physical examination: VITAL SIGNS: 97.5, 85, respiration 22, blood pressure 136 x 64, 93% on 2 L GENERAL:sitting up in a chair, awake EYES: Pupils equal. Conjunctiva normal. HEENT: External appearance of nose and ears normal, oral cavity grossly normal, endotracheal tube in place. NECK: JVD unable to assess; masses not palpable. HEART: First and second heart sounds are normal; no edema. LUNGS: Respiratory rate normal, decreased sounds, prolonged expiration;. ABDOMEN: Soft, nontender, liver spleen not palpable, no masses palpable. PSYCH: AAO 3, motor affect slightly anxious INVESTIGATIONS, reviewed in the clinical context: White count 22.7 hemoglobin 13.1 creatinine 0.57 Previous testing White count 22.6 hemoglobin 40.2 platelets 362 Sodium 131 potassium 4.5 bun 27 creatinine 0.59 Troponin I 0.090 proBNP 5540 ABG-pH 7.29, pCO2 55, pO2 more than 400 EKG tracing personally reviewed by me shows some T wave changes in the anterior leads, sinus rhythm Chest x-ray film personally reviewed by me-some infiltrate on the bases Chest CTA-negative for PE 2-D echo-EF 55-60%. No wall motion normal bilaterally. Sputum culture-Haemophilus influenza Assessment: -Acute hypoxic respiratory failure, hypercapnic respiratory failure leading to pulseless electrical activity, requiring ventilator support, extubated 11/07/2019, improving -Acute COPD exacerbation in a current smoker, improving -Bibasilar pneumonia, suspect gram-negative organism -Troponins leak likely due to hemodynamic mismatch -Cardiac catheterization revealing normal coronaries -Chronic nicotine dependence patient cigarette smoker -GERD -Essential hypertension and non -colonic diverticulosis Plan: Patient remains on Solu-Medrol IV every 12. Switched to oral antibiotic in the form of Augmentin. Continue bronchodilators. Discussed with the patient and family the bedside. Patient to be moved out of the ICU.
[2019-11-09] MEDS: SODIUM CHLORIDE 0.9% 1,000 ML IV SCH (16:30)
[2019-11-09] MEDS: INSULIN ASPART (NovoLOG) 100 UNIT/ML VIAL SQ SCH (16:30)
[2019-11-09] MEDS: AMOXIC-POT CLAV 875-125MG 1 EACH TAB PO SCH (20:37)
[2019-11-10] MEDS: IPRATROPIUM-ALBUTEROL 3 ML NEB INHALATION SCH ×4 (03:21→14:51)
[2019-11-10 06:03] VITALS: TEMP 97.3
[2019-11-10] MEDS: BUDESONIDE 1 MG/2 ML NEBU INHALATION SCH (07:10)
[2019-11-10] MEDS: FORMOTEROL FUMARATE 20 MCG/2 ML NEBU INHALATION SCH (07:10)
[2019-11-10] MEDS: ASPIRIN 81 MG PO SCH (08:09)
[2019-11-10] MEDS: buPROPion SR 150 MG TABLET.ER PO SCH (08:10)
[2019-11-10] MEDS: GABAPENTIN 300 MG CAP PO SCH (08:10)
[2019-11-10] MEDS: PANTOPRAZOLE 40 MG TABLET PO SCH (08:10)
[2019-11-10] MEDS: methylPREDNISolone SOD SUCCI 40 MG/ML 1 ML VIAL IV SCH (08:10)
[2019-11-10] MEDS: DILTIAZEM ORAL 30 MG TAB PO SCH ×2 (08:10→15:17)
[2019-11-10] MEDS: ATORVASTATIN 40 MG TAB PO SCH (08:10)
[2019-11-10] MEDS: AMOXIC-POT CLAV 875-125MG 1 EACH TAB PO SCH (08:10)
[2019-11-10] MEDS: POLYETHYLENE GLYCOL 3350 17 GM POWD.PACK PO SCH (08:11)
--- NOTE | 2019-11-10 14:20 | PN ---
PROGRESS NOTE PULMONARY/CRITICAL CARE PROGRESS NOTE: DATE OF SERVICE: November 10, 2019 This is a 68-year-old female with a history of acute cardiac arrest, likely related to acute hypoxemic respiratory failure caused primarily by COPD exacerbation and possible purulent tracheobronchitis/bronchopneumonia. The patient was successfully extubated on November 07, 2019 and was in the ICU for a number of days before transferring out to the floor. Her chest x-ray has continued to improve and her lung function and lung symptoms have improved as well. She has a history of acute ST-segment elevation myocardial infarction, but no evidence of coronary obstructive disease on recent angiography. She does have COPD from previous heavy tobacco use. In addition, she has a history of pneumonia, hyponatremia, hyperlipidemia, ongoing tobacco use with nicotine addiction, GERD, and osteoarthritis. The patient was found to have Haemophilus influenzae pneumonia on sputum sampling. For that, she was placed on Augmentin. She is doing much better. Her breathing is much improved. She likely will go home on oxygen therapy when she is discharged. I am not sure when that will be. She still has some shortness of breath, cough, wheezing especially on exertion. PHYSICAL EXAMINATION: VITAL SIGNS: Current vital signs are reviewed. Her temperature is 97.3, heart rate 77, respiratory rate 18, blood pressure 144/80, mean 101. Her 2 L saturation 97%. Appears in no acute distress. HEENT examination is grossly unremarkable. NECK: Supple. Full range of motion. No adenopathy. Neck veins flat. CARDIOVASCULAR exam reveals regular rhythm rate. S1, S2 normal. No S3, S4, murmur. Heart sounds are distant. LUNGS: Reveal some coarse inspiratory and expiratory rhonchi and wheezes. Breath sounds are decreased throughout. Breath sounds are definitely improved. No crackles. Slight prolongation on forced maneuver. ABDOMEN: Soft. EXTREMITIES are intact. No cyanosis, clubbing, or edema. SKIN: Without rash. NEUROLOGIC: Examination is brief but nonfocal. Microbiology from November 06 shows Haemophilus influenzae. She is on Augmentin for that. LABS: Reviewed. No new labs from today. CBC from yesterday shows a white count of 22.7, normal hemoglobin, hematocrit and platelet count. Medications are reviewed. Most recent chest x-ray from the showed improvement in the abnormality seen on x-ray. ASSESSMENT: 1. Acute cardiac arrest, likely related to hypoxemic respiratory failure requiring ACLS protocol and resuscitation with intubation and placement in the ICU on the mechanical ventilator. 2. Status post successful extubation from mechanical ventilation on November 07. Currently, patient is still hypoxemic requiring oxygen. 3. Probable pneumonia, secondary to Haemophilus influenzae, currently being treated. 4. Relatively normal coronary angiography despite an acute ST-segment elevation myocardial infarction. 5. Hypoxemic and hypercapnic respiratory failure. 6. Right lower lobe pneumonia. 7. Mild hyponatremia. 8. Hyperlipidemia. 9. History of heavy tobacco use in the past. 10.Gastroesophageal reflux disease. 11.Osteoarthritis. PLAN: The patient is again counseled about the importance of smoking cessation. We hope she never smokes. She will follow up in the office at which time the patient will have pulmonary function testing. No additional recommendations are made. We will continue to follow. Prognosis is guarded. Again, we hope that she will never smoke again. When she is discharged whenever that is, the patient will likely need to go home on oxygen therapy. MMODL / IJN: [id number] /
[2019-11-10 14:44] VITALS: BP 147/76; RESP 16
[2019-11-10 15:02] VITALS: PULSE 100
--- NOTE | 2019-11-10 22:37 | P.DS ---
Providers Date of admission: 11/06/19 12:32 Expected date of discharge: 11/10/19 Attending physician: Nahun Chacon Consults: 11/06/19 14:00 Consult Physician Urgent Consulting Provider: David King Consult Reason/Comments: arrest Do you want consulting provider notified?: Already Contacted 11/06/19 16:50 Consult Physician Urgent Consulting Provider: Jason Robles Consult Reason/Comments: ventilator management Do you want consulting provider notified?: Already Contacted Primary care physician: Vern Rodriguez [facility] Course: Chief Complaint: Short of breath Interval history: This is a 68-year-old patient of Dr. Gloria Rodriguez. Chronic stable medical conditions include GERD, hypertension, colonic diverticulosis, osteoporosis. Patient presented to ER earlier today and told him should quit smoking 2 days ago and she did having trouble breathing for last few days. Her cough and bit more than normal and she was coughing up some green-yellow sputum. He denied any fever and chills that. No chest pain no palpitation. Denied any swelling or leg or cough tenderness. No abdominal pain. In the ER patient became quite a bit short of breath more and a CODE BLUE was called at that is the patient has lost a pulse. When the physician arrived patient had and I will pulse and she was in a PEA and patient is intubated. One dose of epinephrine was given. EKG showed a short run of atrial fibrillation with rapid ventricular rate and also sinus tachycardia. Does some T wave changes. And cardiology Dr. VC King arrived to the ER. Decided to take the patient to the cardiac catheterization lab. Cardiac catheterization showed normal coronaries. Patient now brought to the ICU. Current drips include norepinephrine, propofol. Patient on the ventilator with FiO2 40% and PEEP of 5. No family members present. A sister had been present earlier. Apparently the patient having respiratory symptoms for close to 20 weeks. Patient's been a smoker. Admitted with-acute hypoxic respiratory failure, hypercapnic respiratory failure, pulseless electrical activity, COPD exacerbation, bilateral pneumonia. Today-doing much better today. date walked the patient.. Pulse ox with walking to drop down to the 80s. Home oxygen is being prescribed.care was discussed with the patient and family at length. Questions were answered. Advised against systemic. Smoking. Discussion and discharge planning more than 35 minutes consultation: Dr. VC King from cardiology Dr. Bowser from pulmonary Physical examination: VITAL SIGNS: 97.3, 97, 16, 147/76, 88% r with activity GENERAL:sitting up in a chair, awake EYES: Pupils equal. Conjunctiva normal. HEENT: External appearance of nose and ears normal, oral cavity grossly normal, endotracheal tube in place. NECK: JVD unable to assess; masses not palpable. HEART: First and second heart sounds are normal; no edema. LUNGS: Respiratory rate normal, decreased sounds, ABDOMEN: Soft, nontender, liver spleen not palpable, no masses palpable. PSYCH: AAO 3, motor affect slightly anxious INVESTIGATIONS, reviewed in the clinical context: White count 22.7 hemoglobin 13.1 creatinine 0.57 Previous testing White count 22.6 hemoglobin 40.2 platelets 362 Sodium 131 potassium 4.5 bun 27 creatinine 0.59 Troponin I 0.090 proBNP 5540 ABG-pH 7.29, pCO2 55, pO2 more than 400 EKG tracing personally reviewed by me shows some T wave changes in the anterior leads, sinus rhythm Chest x-ray film personally reviewed by me-some infiltrate on the bases Chest CTA-negative for PE 2-D echo-EF 55-60%. No wall motion normal bilaterally. Sputum culture-Haemophilus influenza Assessment: -Acute hypoxic respiratory failure, hypercapnic respiratory failure leading to pulseless electrical activity, requiring ventilator support, extubated 11/07/2019, improving -Acute COPD exacerbation in a current smoker, improving -Bibasilar pneumonia, suspect gram-negative organism -Troponins leak likely due to hemodynamic mismatch -Cardiac catheterization revealing normal coronaries -Chronic nicotine dependence patient cigarette smoker -GERD -Essential hypertension and non -colonic diverticulosis disposition: Home Patient Condition at Discharge: Fair Plan - Discharge Summary Discharge Rx Participant: Yes New Discharge Prescriptions: New Amoxic-Pot Clav 875-125Mg [Augmentin 875-125] 1 each PO Q12HR #3 tab predniSONE 10 mg PO DAILY #30 tab Aspirin 81 mg PO DAILY #30 chew Diltiazem Oral [Cardizem*] 30 mg PO TID #90 tab Continue Tiotropium [place] [Spiriva] 2 puff INHALATION RT-DAILY Budesonide-Formot 160-4.5 Mcg [Symbicort 160-4.5 Mcg Inhaler] 2 puff INHALATION RT-BID Ubidecarenone [Co Q-10] 100 mg PO DAILY Albuterol Inhaler [Ventolin Hfa Inhaler] 2 puff INHALATION RT-Q6H PRN PRN Reason: Shortness Of Breath traMADol HCL [Ultram] 50 mg PO BID PRN PRN Reason: Pain Gabapentin [Neurontin] 300 mg PO BID Ergocalciferol [Vitamin D2 (DRISDOL)] 50,000 unit PO Q30D Denosumab [Prolia] 60 mg SQ Q180D HYDROcodone/APAP 10-325MG [[place] 10-325] 1 tab PO Q6HR PRN PRN Reason: Pain Famotidine [Pepcid] 20 mg PO BID Polyethylene Glycol 3350 [Miralax] 17 gm PO DAILY Magnesium 400 mg PO DAILY Albuterol Nebulized [Ventolin Nebulized] 2.5 mg INHALATION RT-Q6H PRN PRN Reason: Shortness Of Breath buPROPion HCL [Wellbutrin SR] 150 mg PO BID Discontinued Lisinopril [Zestril] 5 mg PO HS Discharge Medication List Tiotropium [place] [Spiriva] 2 puff INHALATION RT-DAILY 04/15/14 [History] Budesonide-Formot 160-4.5 Mcg [Symbicort 160-4.5 Mcg Inhaler] 2 puff INHALATION RT-BID 04/03/19 [History] Albuterol Inhaler [Ventolin Hfa Inhaler] 2 puff INHALATION RT-Q6H PRN 05/16/19 [History] Ergocalciferol [Vitamin D2 (DRISDOL)] 50,000 unit PO Q30D 05/16/19 [History] Gabapentin [Neurontin] 300 mg PO BID 05/16/19 [History] Ubidecarenone [Co Q-10] 100 mg PO DAILY 05/16/19 [History] traMADol HCL [Ultram] 50 mg PO BID PRN 05/16/19 [History] Albuterol Nebulized [Ventolin Nebulized] 2.5 mg INHALATION RT-Q6H PRN 11/06/19 [History] Denosumab [Prolia] 60 mg SQ Q180D 11/06/19 [History] Famotidine [Pepcid] 20 mg PO BID 11/06/19 [History] HYDROcodone/APAP 10-325MG [[place] 10-325] 1 tab PO Q6HR PRN 11/06/19 [History] Magnesium 400 mg PO DAILY 11/06/19 [History] Polyethylene Glycol 3350 [Miralax] 17 gm PO DAILY 11/06/19 [History] buPROPion HCL [Wellbutrin SR] 150 mg PO BID 11/06/19 [History] Amoxic-Pot Clav 875-125Mg [Augmentin 875-125] 1 each PO Q12HR #3 tab 11/10/19 [Rx] Aspirin 81 mg PO DAILY #30 chew 11/10/19 [Rx] Diltiazem Oral [Cardizem*] 30 mg PO TID #90 tab 11/10/19 [Rx] predniSONE 10 mg PO DAILY #30 tab 11/10/19 [Rx] Follow up Appointment(s)/Referral(s): [facility] [NON-STAFF] - As Needed (Please call if you have any questions.) Vern Rodriguez DO [Primary Care Provider] - 3 Days (Please call tuesday and schedule appointment ) David King MD [STAFF PHYSICIAN] - 2 Weeks (Please call Tuesday and du appointment) JAZMYNE Visiting Nurse, [NON-STAFF] - 1-2 Days Patient Instructions/Handouts: Heart Attack (DC), Using Oxygen at Home (DC) Activity/Diet/Wound Care/Special Instructions: Home oxygen 3 L at all times for 1 month Discharge Disposition: HOME WITH HOME HEALTH SERVICES
== END 2019-11-10 15:23 | disposition home health service (06) | DRG 208 ==
LOC: EC 11:21 → 2SICU 12:32 → 4MS4W 11-09 16:02
PROVIDERS: ADMIT Hospitalist; ATTEND Hospitalist
PROC: 4A023N7 Measurement of Cardiac Sampling and Pressure, Left Heart, Percutaneous Approach (ICD-10-PCS; 2019-11-06)
PROC: B2111ZZ Fluoroscopy of Multiple Coronary Arteries using Low Osmolar Contrast (ICD-10-PCS; 2019-11-06)
PROC: 5A1935Z Respiratory Ventilation, Less than 24 Consecutive Hours (ICD-10-PCS; principal; 2019-11-06 13:10)
PROC: 0BH17EZ Insertion of Endotracheal Airway into Trachea, Via Natural or Artificial Opening (ICD-10-PCS; principal; 2019-11-06 13:10)
DX: J96.01 Acute respiratory failure with hypoxia (principal); I46.9 Cardiac arrest, cause unspecified; J15.6 Pneumonia due to other Gram-negative bacteria; E87.1 Hypo-osmolality and hyponatremia; J44.1 Chronic obstructive pulmonary disease with (acute) exacerbation; J44.0 Chronic obstructive pulmonary disease with (acute) lower respiratory infection; K21.9 Gastro-esophageal reflux disease without esophagitis; K57.30 Diverticulosis of large intestine without perforation or abscess without bleeding; M19.90 Unspecified osteoarthritis, unspecified site; M81.0 Age-related osteoporosis without current pathological fracture; Z96.651 Presence of right artificial knee joint; E78.5 Hyperlipidemia, unspecified; E11.9 Type 2 diabetes mellitus without complications; F17.210 Nicotine dependence, cigarettes, uncomplicated; I48.91 Unspecified atrial fibrillation; I11.9 Hypertensive heart disease without heart failure; Z79.51 Long term (current) use of inhaled steroids; Z79.82 Long term (current) use of aspirin; Z79.899 Other long term (current) drug therapy; Z82.49 Family history of ischemic heart disease and other diseases of the circulatory system; Z87.01 Personal history of pneumonia (recurrent)
CPT/HCPCS: 31500; 36415; 71045; 71275; 80048; 80053; 81001; 82805; 82810; 83735; 83880; 84145; 84484; 85018; 85025; 85610; 85730; 87040; 87070; 87205; 87502; 93005; 93306; 93458; 94002; 94003; 94640; 94644; 96374; 99291

== ENCOUNTER → 2020-04-18 | Outpatient (CLI) | payer MEDICARE, BC ==
[2020-04-18 11:30] VITALS: BP 157/78; PULSE 70; RESP 16; TEMP 98.2
== END | disposition home or self-care (01) ==
LOC: PROCWHC3 11:17
PROVIDERS: ATTEND Family Medicine
DX: M81.0 Age-related osteoporosis without current pathological fracture (principal)
CPT/HCPCS: 96372; J0897

== ENCOUNTER → 2020-10-07 | Outpatient (CLI) | payer MEDICARE, BC ==
[2020-10-07 10:52] VITALS: BP 120/68; PULSE 68; RESP 16; TEMP 98.6
== END | disposition home or self-care (01) ==
LOC: PROCWHC3 10:38
PROVIDERS: ATTEND Family Medicine
DX: M81.0 Age-related osteoporosis without current pathological fracture (principal)
CPT/HCPCS: 96372; J0897

== ENCOUNTER → 2021-07-17 | Outpatient (CLI) | payer MEDICARE, BC ==
[~2021-07-17] MED LIST changes: -DENOSUMAB 60 MG/ML 1 ML SYRINGE SQ NR; +DENOSUMAB 60 MG/ML 1 ML SYRINGE SQ ONE
[2021-07-17 11:10] VITALS: BP 116/64; PULSE 71; RESP 18; TEMP 98.5
== END ==
LOC: PROCWHC3 10:45
PROVIDERS: ATTEND Family Medicine
DX: M81.0 Age-related osteoporosis without current pathological fracture (principal); Z88.1 Allergy status to other antibiotic agents; Z87.891 Personal history of nicotine dependence
CPT/HCPCS: 96372; J0897

== ENCOUNTER 2022-03-28 02:26 | Inpatient (IN) | payer MEDICARE, BC ==
[2022-03-28] MEDS ORDERED: MORPHINE SULFATE 4 MG/ML SYRINGE IVP STA (02:45)
[2022-03-28] MEDS ORDERED: NITROGLYCERIN-D5W PMX 50 MG in DEXTROSE/WATER 1 250ML.BAG IV ONE (02:46)
[2022-03-28] MEDS ORDERED: ALBUTEROL NEBULIZED 2.5 MG/3 ML INHALATION STA (02:47)
[2022-03-28 02:52] LABS: Basophils # (A) 0.3 k/uL (0-0.2); Basophils % (A) 2 %; Eosinophils # (A) 0.1 k/uL (0-0.7); Eosinophils % (A) 1 %; HCT 45.2 % (34.0-46.0); HGB 13.7 gm/dL (11.4-16.0); Lymphocytes # (A) 1.8 k/uL (1.0-4.8); Lymphocytes % (A) 15 %; MCH 28.6 pg (25.0-35.0); MCHC 30.2 g/dL (31.0-37.0); MCV 94.7 fL (80.0-100.0); Mean Platelet Volume 7.2; Monocytes % (A) 8 %; Neutrophils # (A) 8.8 k/uL (1.3-7.7); Neutrophils % (A) 73 %; Platelet Count 248 k/uL (150-450); RBC 4.77 m/uL (3.80-5.40); RDW 12.5 % (11.5-15.5); WBC 12.1 k/uL (3.8-10.6)
--- NOTE | 2022-03-28 02:58 | XR ---
EXAMINATION TYPE: XR chest 1V portable DATE OF EXAM: 03/28/2022 COMPARISON: 11/09/2019 HISTORY: Short of breath TECHNIQUE: Single view FINDINGS: Heart size is normal. Thoracic aorta is atheromatous. There is some mild coarsening of the interstitial markings. There are chest leads. Costophrenic angles are clear. IMPRESSION: Atheromatous aorta. Minimal pulmonary fibrotic changes. Lung markings increased slightly compared to old exam
[2022-03-28 03:02] LABS: VBG PH 7.3 (7.31-7.41)
[2022-03-28 03:03] LABS: ALT 19 U/L (4-34); AST 43 U/L (14-36); African American GFR (CKD) >90 (>60 ml/min/1.73 sqM); Alkaline Phosphatase 79 U/L (38-126); Anion Gap 4 mmol/L; Blood Urea Nitrogen 11 mg/dL (7-17); Carbon Dioxide 36 mmol/L (22-30); Chloride 89 mmol/L (98-107); Glucose 133 mg/dL (74-99); Non-African American GFR(CKD) >90 (>60 ml/min/1.73 sqM); Sodium 129 mmol/L (137-145); Total Bilirubin 0.9 mg/dL (0.2-1.3); Total Protein 7.4 g/dL (6.3-8.2)
[2022-03-28 03:10] LABS: Potassium 4.9 mmol/L (3.5-5.1)
[2022-03-28 03:18] LABS: INR 0.9 (<1.2); Partial Thromboplastin Time 23.2 sec (22.0-30.0); Prothrombin Time 10.2 sec (9.0-12.0)
[2022-03-28] MEDS ORDERED: methylPREDNISolone SOD SUCCI 125 MG/2 ML VIAL IV STA (03:20)
--- NOTE | 2022-03-28 03:40 | ED ---
SOB HPI - General Chief Complaint: Shortness of Breath Stated Complaint: SOB Time Seen by Provider: 03/28/22 02:33 Source: EMS Mode of arrival: EMS Limitations: no limitations - History of Present Illness Initial Comments: This patient is 71-year-old woman with history of COPD who presents with complaint of 3 days worsening shortness of breath. Symptoms had become much worse tonight. Patient states last time she was this bad" my heart stopped." The patient not able to give much additional history due to severe dyspnea. Acknowledges cough. Denies chest pain. Denies fever. MD Complaint: shortness of breath, cough Onset/Timin -: days(s) - Related Data Home Medications Medication Instructions Recorded Confirmed Budesonide-Formot 160-4.5 Mcg 2 puff INHALATION RT-BID 04/03/19 03/28/22 [Symbicort 160-4.5 Mcg Inhaler] Gabapentin [Neurontin] 300 mg PO BID 05/16/19 03/28/22 Ubidecarenone [Co Q-10] 100 mg PO DAILY 05/16/19 03/28/22 traMADol HCL [Ultram] 50 mg PO BID 05/16/19 03/28/22 Denosumab [Prolia] 60 mg SQ Q180D 11/06/19 03/28/22 Famotidine [Pepcid] 20 mg PO BID 11/06/19 03/28/22 HYDROcodone/APAP 10-325MG [[place] 1 tab PO Q6HR PRN 11/06/19 03/28/22 10-325] Atorvastatin Calcium [Lipitor] 10 mg PO HS 03/28/22 03/28/22 Diltiazem Oral [Cardizem*] 30 mg PO BID 03/28/22 03/28/22 Ergocalciferol [Vitamin D2 (1250 1,250 mcg PO Q30D 03/28/22 03/28/22 Mcg = 12876 Iu)] Metoprolol Tartrate [Lopressor] 12.5 mg PO BID 03/28/22 03/28/22 [place]-3 Fatty Acids/Fish Oil [Fish 1 cap PO DAILY 03/28/22 03/28/22 Oil 1,000 mg Softgel] Previous Rx's Medication Instructions Recorded Benzocaine/Menthol Lozeng [Cepacol 1 each MUCOUS MEM Q4HR PRN lozenge 03/30/22 lozenge] Doxycycline [Vibramycin] 100 mg PO BID 7 Days #2 capsule 03/30/22 predniSONE 0 mg PO DIRECTED 15 Days #39 tab 03/30/22 Allergies Allergy/AdvReac Type Severity Reaction Status Date / Time dextromethorphan AdvReac Swelling Verified 03/28/22 21:05 [From Mucinex DM] guaifenesin [From Mucinex DM] AdvReac Swelling Verified 03/28/22 21:05 levofloxacin [From Levaquin] AdvReac Nausea, Verified 03/28/22 12:18 Diarrhea , States she got C-Diff after, Migraines Review of Systems ROS Statement: Those systems with pertinent positive or pertinent negative responses have been documented in the HPI. ROS Other: All systems not noted in ROS Statement are negative. Limitations: ROS unobtainable due to patients medical condition Respiratory: Reports: cough, dyspnea Cardiovascular: Denies: chest pain Gastrointestinal: Denies: abdominal pain, vomiting Neurological: Denies: headache Past Medical History Past Medical History: COPD, GERD/Reflux, Hypertension Additional Past Medical History / Comment(s): HX POLYPS, DIVERTICULI. Osteoporosis. ICU - History of Any Multi-Drug Resistant Organisms: C-DIFF Date of last positivie culture/infection: 2013 approx MDRO Source:: stool Past Surgical History: Back Surgery, Bowel Resection, Joint Replacement, Or thopedic Surgery Additional Past Surgical History / Comment(s): RIGHT KNEE REPLACEMENT, LEFT LEG ORIF-removed, LIZZIE CARPAL TUNNEL,. Bilateral cataract surgery,plate rt foot Additional Past Anesthesia/Blood Transfusion Reaction / Comment(s): STATES NO EPIDURALS R/T GETTING SEVERE MIGRAINES Past Psychological History: No Psychological Hx Reported Smoking Status: Former smoker - Past Family History Mother Family Medical History: Hypertension Father Family Medical History: Cancer Additional Family Medical History / Comment(s): aneurysms,prostate General Exam Limitations: no limitations General appearance: alert, in distress Head exam: Present: atraumatic, normocephalic Eye exam: Present: normal appearance. Absent: scleral icterus, conjunctival injection Neck exam: Present: normal inspection, full ROM Respiratory exam: Present: respiratory distress, wheezes, accessory muscle use, prolonged expiratory. Absent: rales, rhonchi, stridor Cardiovascular Exam: Present: normal rhythm, tachycardia, systolic murmur, gallop. Absent: irregular rhythm, diastolic murmur, rubs GI/Abdominal exam: Present: soft. Absent: distended, tenderness, guarding, rebound, rigid, mass Extremities exam: Present: normal inspection, normal capillary refill. Absent: pedal edema, calf tenderness Back exam: Present: normal inspection. Absent: CVA tenderness (R), CVA tenderness (L) Neurological exam: Present: alert Skin exam: Present: warm, dry, intact, normal color, mottled. Absent: rash, diaphoretic, erythema, urticaria, vesicles, petechiae Course Vital Signs 03/28/22 03/28/22 03/28/22 02:33 02:34 02:40 Temperature 98.2 F Pulse Rate 120 H 121 H Respiratory 40 H 40 H 40 H Rate Blood Pressure 150/91 177/93 O2 Sat by Pulse 89 L 92 L Oximetry 03/28/22 03/28/22 03/28/22 02:45 02:46 02:55 Temperature Pulse Rate 120 H 107 H 116 H Respiratory 35 H 30 H 38 H Rate Blood Pressure 177/93 150/75 O2 Sat by Pulse 94 L 91 L Oximetry 03/28/22 03/28/22 03/28/22 02:56 03:00 03:10 Temperature Pulse Rate 118 H 113 H 106 H Respiratory 27 H 29 H 26 H Rate Blood Pressure 100/76 107/75 O2 Sat by Pulse 90 L 90 L Oximetry 03/28/22 03/28/22 03/28/22 03:15 03:20 03:27 Temperature Pulse Rate 104 H Respiratory 37 H Rate Blood Pressure 92/55 75/53 63/45 O2 Sat by Pulse 90 L Oximetry 03/28/22 03/28/22 03/28/22 03:30 03:32 03:34 Temperature Pulse Rate 105 H 104 H Respiratory 22 25 H Rate Blood Pressure 78/50 71/51 71/48 O2 Sat by Pulse 90 L 90 L Oximetry 03/28/22 03/28/22 03/28/22 03:45 04:00 04:13 Temperature Pulse Rate 94 96 95 Respiratory 28 H 20 18 Rate Blood Pressure 62/44 76/40 73/47 O2 Sat by Pulse 90 L 90 L 90 L Oximetry 03/28/22 03/28/22 03/28/22 04:15 04:25 04:30 Temperature Pulse Rate 96 96 95 Respiratory 25 H 19 15 Rate Blood Pressure 73/47 80/48 O2 Sat by Pulse 90 L 90 L 90 L Oximetry 03/28/22 03/28/22 03/28/22 04:35 04:40 04:45 Temperature Pulse Rate 93 89 86 Respiratory 19 18 20 Rate Blood Pressure 97/57 O2 Sat by Pulse 92 L 93 L 93 L Oximetry 03/28/22 03/28/22 03/28/22 04:50 04:55 05:00 Temperature Pulse Rate 86 86 83 Respiratory 18 18 17 Rate Blood Pressure 95/49 97/53 97/51 O2 Sat by Pulse 92 L 92 L 93 L Oximetry 03/28/22 03/28/22 03/28/22 05:05 05:10 05:25 Temperature Pulse Rate 83 88 Respiratory 17 18 Rate Blood Pressure 94/55 95/55 107/58 O2 Sat by Pulse 93 L 92 L Oximetry 03/28/22 03/28/22 05:30 05:35 Temperature Pulse Rate 86 82 Respiratory 16 14 Rate Blood Pressure 113/60 102/50 O2 Sat by Pulse 96 96 Oximetry Medical Decision Making - Medical Decision Making This patient is a 71-year-old woman presenting with acute dyspnea and respiratory distress. The patient is started on BiPAP. Given her hypertension she was also started on nitroglycerin drip. The patient did begin to show steady improvement. We were able to wean her from the nitroglycerin drip, as her main process appeared to be COPD related rather than CHF. She also received albuterol and Solu-Medrol treatment. The tachycardia also resolved. Patient subsequently became mildly hypotensive while on the BiPAP and she did receive fluid bolus. Her pressure normalized following this. Case discussed with Dr. Dubose for pulmonology, admitted for continued treatment - Lab Data Result diagrams: 03/28/22 02:43 03/30/22 09:42 Lab Results 03/28/22 03/28/22 03/28/22 Range/Units 02:43 02:43 02:43 WBC 12.1 H (3.8-10.6) k/uL RBC 4.77 (3.80-5.40) m/uL Hgb 13.7 (11.4-16.0) gm/dL Hct 45.2 (34.0-46.0) % MCV 94.7 (80.0-100.0) fL MCH 28.6 (25.0-35.0) pg MCHC 30.2 L (31.0-37.0) g/dL RDW 12.5 (11.5-15.5) % Plt Count 248 (150-450) k/uL MPV 7.2 Neutrophils % 73 % Lymphocytes % 15 % Monocytes % 8 % Eosinophils % 1 % Basophils % 2 % Neutrophils # 8.8 H (1.3-7.7) k/uL Lymphocytes # 1.8 (1.0-4.8) k/uL Monocytes # 1.0 (0-1.0) k/uL Eosinophils # 0.1 (0-0.7) k/uL Basophils # 0.3 H (0-0.2) k/uL PT 10.2 (9.0-12.0) sec INR 0.9 (<1.2) APTT 23.2 (22.0-30.0) sec D-Dimer 1.27 H (<0.60) mg/L FEU VBG pH (7.31-7.41) VBG pCO2 (37-51) mmHg VBG HCO3 (24-28) mmol/L Sodium 129 L (137-145) mmol/L Potassium 4.9 (3.5-5.1) mmol/L Chloride 89 L (98-107) mmol/L Carbon Dioxide 36 H (22-30) mmol/L Anion Gap 4 mmol/L BUN 11 (7-17) mg/dL Creatinine 0.58 (0.52-1.04) mg/dL Est GFR (CKD-EPI)AfAm >90 (>60 ml/min/1.73 sqM) Est GFR (CKD-EPI)NonAf >90 (>60 ml/min/1.73 sqM) Glucose 133 H (74-99) mg/dL Plasma Lactic Acid Robert (0.7-2.0) mmol/L Calcium 9.0 (8.4-10.2) mg/dL Total Bilirubin 0.9 (0.2-1.3) mg/dL AST 43 H (14-36) U/L ALT 19 (4-34) U/L Alkaline Phosphatase 79 (38-126) U/L Troponin I (0.000-0.034) ng/mL NT-Pro-B Natriuret Pep pg/mL Total Protein 7.4 (6.3-8.2) g/dL Albumin 4.0 (3.5-5.0) g/dL 03/28/22 03/28/22 03/28/22 Range/Units 02:43 02:43 02:43 WBC (3.8-10.6) k/uL RBC (3.80-5.40) m/uL Hgb (11.4-16.0) gm/dL Hct (34.0-46.0) % MCV (80.0-100.0) fL MCH (25.0-35.0) pg MCHC (31.0-37.0) g/dL RDW (11.5-15.5) % Plt Count (150-450) k/uL MPV Neutrophils % % Lymphocytes % % Monocytes % % Eosinophils % % Basophils % % Neutrophils # (1.3-7.7) k/uL Lymphocytes # (1.0-4.8) k/uL Monocytes # (0-1.0) k/uL Eosinophils # (0-0.7) k/uL Basophils # (0-0.2) k/uL PT (9.0-12.0) sec INR (<1.2) APTT (22.0-30.0) sec D-Dimer (<0.60) mg/L FEU VBG pH (7.31-7.41) VBG pCO2 (37-51) mmHg VBG HCO3 (24-28) mmol/L Sodium (137-145) mmol/L Potassium (3.5-5.1) mmol/L Chloride (98-107) mmol/L Carbon Dioxide (22-30) mmol/L Anion Gap mmol/L BUN (7-17) mg/dL Creatinine (0.52-1.04) mg/dL Est GFR (CKD-EPI)AfAm (>60 ml/min/1.73 sqM) Est GFR (CKD-EPI)NonAf (>60 ml/min/1.73 sqM) Glucose (74-99) mg/dL Plasma Lactic Acid Robert 0.8 (0.7-2.0) mmol/L Calcium (8.4-10.2) mg/dL Total Bilirubin (0.2-1.3) mg/dL AST (14-36) U/L ALT (4-34) U/L Alkaline Phosphatase (38-126) U/L Troponin I <0.012 (0.000-0.034) ng/mL NT-Pro-B Natriuret Pep 186 pg/mL Total Protein (6.3-8.2) g/dL Albumin (3.5-5.0) g/dL 03/28/22 Range/Units 02:55 WBC (3.8-10.6) k/uL RBC (3.80-5.40) m/uL Hgb (11.4-16.0) gm/dL Hct (34.0-46.0) % MCV (80.0-100.0) fL MCH (25.0-35.0) pg MCHC (31.0-37.0) g/dL RDW (11.5-15.5) % Plt Count (150-450) k/uL MPV Neutrophils % % Lymphocytes % % Monocytes % % Eosinophils % % Basophils % % Neutrophils # (1.3-7.7) k/uL Lymphocytes # (1.0-4.8) k/uL Monocytes # (0-1.0) k/uL Eosinophils # (0-0.7) k/uL Basophils # (0-0.2) k/uL PT (9.0-12.0) sec INR (<1.2) APTT (22.0-30.0) sec D-Dimer (<0.60) mg/L FEU VBG pH 7.30 L (7.31-7.41) VBG pCO2 78 H* (37-51) mmHg VBG HCO3 37 H (24-28) mmol/L Sodium (137-145) mmol/L Potassium (3.5-5.1) mmol/L Chloride (98-107) mmol/L Carbon Dioxide (22-30) mmol/L Anion Gap mmol/L BUN (7-17) mg/dL Creatinine (0.52-1.04) mg/dL Est GFR (CKD-EPI)AfAm (>60 ml/min/1.73 sqM) Est GFR (CKD-EPI)NonAf (>60 ml/min/1.73 sqM) Glucose (74-99) mg/dL Plasma Lactic Acid Robert (0.7-2.0) mmol/L Calcium (8.4-10.2) mg/dL Total Bilirubin (0.2-1.3) mg/dL AST (14-36) U/L ALT (4-34) U/L Alkaline Phosphatase (38-126) U/L Troponin I (0.000-0.034) ng/mL NT-Pro-B Natriuret Pep pg/mL Total Protein (6.3-8.2) g/dL Albumin (3.5-5.0) g/dL - EKG Data -: EKG Interpreted by Me EKG shows normal: sinus rhythm, axis (Normal), intervals (Normal), QRS complexes (Normal) Rate: tachycardia (Rate 120 bpm) Interpretation: nonspecific ST-T wave changes Critical Care Time Critical Care Time: Yes (35 minutes) Disposition Clinical Impression: Acute dyspnea, Respiratory acidosis, Hyponatremia Disposition: ADMITTED IP TO THIS HOSP Condition: Fair Is patient prescribed a controlled substance at d/c from ED?: No
[2022-03-28] MEDS ORDERED: SODIUM CHLORIDE 0.9% 500 ML 500 ML IV STA (04:23)
[2022-03-28] MEDS ORDERED: ALBUTEROL NEBULIZED 2.5 MG/3 ML INHALATION PRN (04:23)
[2022-03-28] MEDS ORDERED: SODIUM CHLORIDE 0.9% 500 ML 500 ML IV ONE (04:24)
[2022-03-28] MEDS: SODIUM CHLORIDE 0.9% 1,000 ML IV SCH ×3 (04:40→18:06)
[2022-03-28] MEDS: methylPREDNISolone SOD SUCCI 125 MG/2 ML VIAL IV SCH ×4 (04:41→23:10)
--- NOTE | 2022-03-28 05:33 | CT ---
EXAMINATION TYPE: CT chest angio for PE DATE OF EXAM: 03/28/2022 COMPARISON: 11/07/2019 HISTORY: Short of breath CT DLP: mGycm Automated exposure control for dose reduction was used. CONTRAST: There are 3-D post processed images. The contrast was Isovue 100 mL. FINDINGS: There is some mild pulmonary emphysema. There is mild flattening of the diaphragm. There is no medias tinal adenopathy. There are no hilar masses. Thoracic aorta shows atheromatous changes. No dissection . The ascending aorta measures 3.9 cm. There is some coronary artery calcification. Heart size is fairly normal. No pericardial effusion. There is no evidence of filling defect in the pulmonary arteries. The thoracic spine is intact. No co mpression fracture. Sternum is intact. There is mild linear density right posterior lung base. IMPRESSION: No evidence of pulmonary embolism. Mild right basilar subsegmental atelectasis. Borderline aneurysm a scending aorta. COPD.
[2022-03-28] MEDS: IPRATROPIUM-ALBUTEROL 3 ML NEB INHALATION SCH ×4 (07:27→19:56)
[2022-03-28] MEDS: AZITHROMYCIN 500 MG TAB PO SCH (09:44)
[2022-03-28 11:39] LABS: Glucose,Whole Blood 152 mg/dL (75-99)
--- NOTE | 2022-03-28 11:57 | P.CNPUL ---
History of Present Illness Consult date: 03/28/22 Reason for consult: dyspnea, COPD History of present illness: This is a 71-year-old female patient, known history of COPD, ex-smoker, maintained on a combination of Symbicort and Spiriva on outpatient basis, presenting to [facility] because of worsening shortness of breath of few days' duration. Emergency, the patient was quite bronchospastic and wheezy, placed briefly on a BiPAP at a pressure of 12/5 cm of water, improved and subsequently the BiPAP was taken off. The patient is currently on 2 L of oxygen by nasal cannula. Chest x-ray is consistent with COPD. CAT scan of the chest also showed no evidence of any pulmonary embolism. There was diffuse centrilobular emphysema affecting the upper lobes bilaterally and the patient has no p neumonia. Patient has a metallic combination of Symbicort and Spiriva on outpatient basis. No angina. No altered mentation. No signs of any CO2 narcosis. Troponins are negative, LFTs are normal, white cell count is at 12.1 with hemoglobin 15.7. Review of Systems Constitutional: Denies chills, Denies fever Eyes: denies blurred vision, denies pain Ears, nose, mouth and throat: Denies headache, Denies sore throat Cardiovascular: Denies chest pain, Denies shortness of breath Respiratory: Reports dyspnea, increased cough and dyspnea and chest tightness and wheezing Gastrointestinal: Denies abdominal pain, Denies diarrhea, Denies nausea, Denies vomiting Genitourinary: Denies dysuria, Denies hematuria Musculoskeletal: Denies myalgias Integumentary: Denies pruritus, Denies rash Neurological: Denies numbness, Denies weakness Psychiatric: Denies anxiety, Denies depression Endocrine: Denies fatigue, Denies weight change Past Medical History Past Medical History: COPD, GERD/Reflux, Hypertension Additional Past Medical History / Comment(s): COPD, chronic hypoxic respiratory failure 2-3 liters, maintained on Spiriva/ Symbicort. Vaccinated for COVID 19 x3. HX POLYPS, DIVERTICULI. Osteoporosis. ICU - History of Any Multi-Drug Resistant Organisms: C-DIFF Date of last positivie culture/infection: 2013 approx MDRO Source:: stool Past Surgical History: Back Surgery, Bowel Resection, Joint Replacement, Orthopedic Surgery Additional Past Surgical History / Comment(s): RIGHT KNEE REPLACEMENT, LEFT LEG ORIF-removed, LIZZIE CARPAL TUNNEL,. Bilateral cataract surgery,plate rt foot Additional Past Anesthesia/Blood Transfusion Reaction / Comment(s): STATES NO EPIDURALS R/T GETTING SEVERE MIGRAINES Past Psychological History: No Psychological Hx Reported Smoking Status: Former smoker - Past Family History Mother Family Medical History: Hypertension Father Family Medical History: Cancer Additional Family Medical History / Comment(s): aneurysms,prostate Medications and Allergies Home Medications Medication Instructions Recorded Confirmed Type Tiotropium [place] [Spiriva] 2 puff INHALATION RT-DAILY 04/15/14 07/17/21 His tory Budesonide-Formot 160-4.5 Mcg 2 puff INHALATION RT-BID 04/03/19 07/17/21 History [Symbicort 160-4.5 Mcg Inhaler] Albuterol Inhaler (Mhu) [Ventolin 2 puff INHALATION RT-Q6H PRN 05/16/19 07/17/21 History Hfa Inhaler (Mhu)] Ergocalciferol [Vitamin D2 50,000 unit PO Q30D 05/16/19 07/17/21 History (DRISDOL)] Gabapentin [Neurontin] 300 mg PO BID 05/16/19 07/17/21 History Ubidecarenone [Co Q-10] 100 mg PO DAILY 05/16/19 07/17/21 History traMADol HCL [Ultram] 50 mg PO BID PRN 05/16/19 07/17/21 History Albuterol Nebulized [Ventolin 2.5 mg INHALATION RT-Q6H PRN 11/06/19 07/17/21 History Nebulized] Denosumab [Prolia] 60 mg SQ Q180D 11/06/19 07/17/21 History Famotidine [Pepcid] 20 mg PO BID 11/06/19 07/17/21 History HYDROcodone/APAP 10-325MG [[place] 1 tab PO Q6HR PRN 11/06/19 07/17/21 History 10-325] Magnesium 400 mg PO DAILY 11/06/19 07/17/21 History Polyethylene Glycol 3350 [Miralax] 17 gm PO DAILY 11/06/19 07/17/21 History buPROPion HCL [Wellbutrin SR] 150 mg PO BID 11/06/19 07/17/21 History Aspirin 81 mg PO DAILY #30 chew 11/10/19 07/17/21 Rx Diltiazem Oral [Cardizem*] 30 mg PO TID #90 tab 11/10/19 07/17/21 Rx Allergies Allergy/AdvReac Type Severity Reaction Status Date / Time levofloxacin [From Levaquin] AdvReac Nausea,diarrhea,STATES Verified 07/17/21 11:07 GOT C. DIFF AFTER TAKING Physical Exam Vitals: Vital Signs Temp Pulse Pulse Resp BP BP Pulse Ox 03/28/22 07:42 80 03/28/22 07:27 76 03/28/22 06:57 110 H 21 118/70 93 L 03/28/22 05:35 82 14 102/50 96 03/28/22 05:30 86 16 113/60 96 03/28/22 05:25 88 18 107/58 92 L 03/28/22 05:10 95/55 03/28/22 05:05 83 17 94/55 93 L 03/28/22 05:00 83 17 97/51 93 L 03/28/22 04:55 86 18 97/53 92 L 03/28/22 04:50 86 18 95/49 92 L 03/28/22 04:45 86 20 93 L 03/28/22 04:40 89 18 97/57 93 L 03/28/22 04:35 93 19 92 L 03/28/22 04:30 95 15 80/48 90 L 03/28/22 04:25 96 19 90 L 03/28/22 04:15 96 25 H 73/47 90 L 03/28/22 04:13 95 18 73/47 90 L 03/28/22 04:00 96 20 76/40 90 L 03/28/22 03:45 94 28 H 62/44 90 L 03/28/22 03:34 71/48 03/28/22 03:32 104 H 25 H 71/51 90 L 03/28/22 03:30 105 H 22 78/50 90 L 03/28/22 03:27 63/45 03/28/22 03:20 75/53 03/28/22 03:15 104 H 37 H 92/55 90 L 03/28/22 03:10 106 H 26 H 03/28/22 03:00 113 H 29 H 107/75 90 L 03/28/22 02:56 118 H 27 H 100/76 90 L 03/28/22 02:55 116 H 38 H 03/28/22 02:46 107 H 30 H 150/75 91 L 03/28/22 02:45 120 H 35 H 177/93 94 L 03/28/22 02:40 40 H 03/28/22 02:34 121 H 40 H 177/93 92 L 03/28/22 02:33 98.2 F 120 H 40 H 150/91 89 L Intake and Output 03/27/22 03/28/22 03/28/22 22:59 06:59 14:59 Intake Total 3.85 Balance 3.85 Intake: Intake, IV Titration 3.85 Amount Nitroglycerin-D5w Pmx 50 3.85 mg In Dextrose/Water 1 250ml.bag @ 20 MCG/MIN 6 mls/hr IV .Q24H ONE Rx#: [id number] Other: Weight 79.379 kg GENERAL EXAM: Sitting, intubated, 71 -year-old white female comfortable in no apparent distress. Currently on 3 L of O2 nasal cannula HEAD: Normocephalic/atraumatic. EYES: Normal reaction of pupils, equal size. Conjunctiva pink, sclera white. NOSE: Clear with pink turbinates. THROAT: No erythema or exudates. NECK: No masses, no JVD, no thyroid enlargement, no adenopathy. CHEST: No chest wall deformity. Symmetrical expansion. LUNGS: Equal air entry with no crackles, and there is a diffuse expiratory wheezes throughout the lung russell bilaterally CVS: Regular rate and rhythm, normal S1 and S2, no gallops, no murmurs, no rubs ABDOMEN: Soft, nontender. No hepatosplenomegaly, normal bowel sounds, no guarding or rigidity. EXTREMITIES: No clubbing, no edema, no cyanosis, 2+ pulses and upper and lower extremities. MUSCULOSKELETAL: Muscle strength and tone normal. SPINE: No scoliosis or deformity SKIN: No rashes CENTRAL NERVOUS SYSTEM: Sedated, intubated. No focal deficits, tone is normal in all 4 extremities. Results - Laboratory Findings CBC and BMP: 03/28/22 02:43 03/28/22 02:43 PT/INR, D-dimer PT 10.2 sec (9.0-12.0) 03/28/22 02:43 INR 0.9 (<1.2) 03/28/22 02:43 D-Dimer 1.27 mg/L FEU (<0.60) H 03/28/22 02:43 Abnormal lab findings: Abnormal Labs 03/28/22 03/28/22 03/28/22 02:43 02:43 02:43 WBC 12.1 H MCHC 30.2 L Neutrophils # 8.8 H Basophils # 0.3 H D-Dimer 1.27 H VBG pH VBG pCO2 VBG HCO3 Sodium 129 L Chloride 89 L Carbon Dioxide 36 H Glucose 133 H AST 43 H 03/28/22 02:55 WBC MCHC Neutrophils # Basophils # D-Dimer VBG pH 7.30 L VBG pCO2 78 H* VBG HCO3 37 H Sodium Chloride Carbon Dioxide Glucose AST - Diagnostic Findings Chest x-ray: image reviewed CT scan - chest: image reviewed Assessment and Plan Plan: 1. Acute COPD exacerbation , no evidence of pneumonia. CAT scan of the chest shows upper lobe emphysematous changes without any evidence of pulmonary infiltrates or lung masses.. The patient was briefly placed on BiPAP overnight and the patient is currently on O2 at 3 L per minute nasal cannula. 2 History of acute STEMI and cardiac arrest, Cardiac catheterization revealing normal coronaries, 2018 3 Hyperlipidemia 4 GERD/reflux 5 Osteoarthritis with previous history of orthopedic surgeries 6 colonic diverticulosis Plan: Keep O2 and titrate the flow to maintain saturation above 90%, currently on 3 L DuoNeb nebulized treatments around the clock Resume Symbicort and Spiriva IV Solu Medrol 60 mg every 6 hours Discontinue BiPAP IV fluids cut down to 20 is an hour Resume all medications We will follow
--- NOTE | 2022-03-28 12:07 | P.HPIM ---
History of Present Illness This is a pleasant 71 years old female with past medical history of COPD, GERD, hypertension, osteoporosis. Presents because of worsening dyspnea over several days which gets really worse over the last 3 days associated with cough and annular phlegm but no chest pain. She is on chronic oxygen at home with 3 L/m for her history of COPD. She quit smoking several years ago, no alcohol or illicit drugs. She denies any GI or urinary symptoms. No headache or weakness or dizziness. On admission patient was hypoxic with oxygen saturation 89% on 5 L oxygen , She had to be placed on BiPAP. Also she was mildly hypotensive blood pressure 80/48, currently blood pressure 118/70. Heart rate is 110. She has mild leukocytosis of 12.1, rest of CBC and INR are unremarkable with INR of 0.9. Sodium 129. Rest of creatinine and electrolytes and liver enzymes are unremarkable. Troponin and proBNP are negative. CTA of the chest: No pulmonary embolism, atelectasis. COPD. Patient is started on Medrol 16 mg, Zithromax, bronchodilators and inhaled steroids. Review of Systems CONSTITUTIONAL: No fever, no malaise, no fatigue. HEENT: No recent visual problems or hearing problems. Denied any sore throat. CARDIOVASCULAR: No orthopnea, PND, no palpitations, no syncope. PULMONARY: No chest wall tenderness, no hemoptysis. GASTROINTESTINAL: No diarrhea, no nausea, no vomiting, no abdominal pain. Normoactive bowel sounds. NEUROLOGICAL: No headaches, no weakness, no numbness. HEMATOLOGICAL: Denies any bleeding or petechiae. GENITOURINARY: Denies any burning micturition, frequency, or urgency. MUSCULOSKELETAL/RHEUMATOLOGICAL: Denies any joint pain, swelling, or any muscle pain. ENDOCRINE: Denies any polyuria or polydipsia. Past Medical History Past Medical History: COPD, GERD/Reflux, Hypertension Additional Past Medical History / Comment(s): HX POLYPS, DIVERTICULI. Osteoporosis. ICU - History of Any Multi-Drug Resistant Organisms: C-DIFF Date of last positivie culture/infection: 2013 approx MDRO Source:: stool Past Surgical History: Back Surgery, Bowel Resection, Joint Replacement, Orthopedic Surgery Additional Past Surgical History / Comment(s): RIGHT KNEE REPLACEMENT, LEFT LEG ORIF-removed, LIZZIE CARPAL TUNNEL,. Bilateral cataract surgery,plate rt foot Additional Past Anesthesia/Blood Transfusion Reaction / Comment(s): STATES NO EPIDURALS R/T GETTING SEVERE MIGRAINES Past Psychological History: No Psychological Hx Reported Smoking Status: Former smoker - Past Family History Mother Family Medical History: Hypertension Father Family Medical History: Cancer Additional Family Medical History / Comment(s): aneurysms,prostate Medications and Allergies Home Medications Medication Instructions Recorded Confirmed Type Tiotropium S[place]ent [Spiriva] 2 puff INHALATION RT-DAILY 04/15/14 07/17/21 History Budesonide-Formot 160-4.5 Mcg 2 puff INHALATION RT-BID 04/03/19 07/17/21 History [Symbicort 160-4.5 Mcg Inhaler] Albuterol Inhaler (Mhu) [Ventolin 2 puff INHALATION RT-Q6H PRN 05/16/19 07/17/21 History Hfa Inhaler (Mhu)] Ergocalciferol [Vitamin D2 50,000 unit PO Q30D 05/16/19 07/17/21 History (DRISDOL)] Gabapentin [Neurontin] 300 mg PO BID 05/16/19 07/17/21 History Ubidecarenone [Co Q-10] 100 mg PO DAILY 05/16/19 07/17/21 History traMADol HCL [Ultram] 50 mg PO BID PRN 05/16/19 07/17/21 History Albuterol Nebulized [Ventolin 2.5 mg INHALATION RT-Q6H PRN 11/06/19 07/17/21 History Nebulized] Denosumab [Prolia] 60 mg SQ Q180D 11/06/19 07/17/21 History Famotidine [Pepcid] 20 mg PO BID 11/06/19 07/17/21 History HYDROcodone/APAP 10-325MG [[place] 1 tab PO Q6HR PRN 11/06/19 07/17/21 History 10-325] Magnesium 400 mg PO DAILY 11/06/19 07/17/21 History Polyethylene Glycol 3350 [Miralax] 17 gm PO DAILY 11/06/19 07/17/21 History buPROPion HCL [Wellbutrin SR] 150 mg PO BID 11/06/19 07/17/21 History Aspirin 81 mg PO DAILY #30 chew 11/10/19 07/17/21 Rx Diltiazem Oral [Cardizem*] 30 mg PO TID #90 tab 11/10/19 07/17/21 Rx Allergies Allergy/AdvReac Type Severity Reaction Status Date / Time levofloxacin [From [facility]] AdvReac Nausea,diarrhea,STATES Verified 07/17/21 11:07 GOT C. DIFF AFTER TAKING Physical Exam Vitals: Vital Signs Temp Pulse Pulse Resp BP BP Pulse Ox 03/28/22 07:42 80 03/28/22 07:27 76 03/28/22 06:57 110 H 21 118/70 93 L 03/28/22 05:35 82 14 102/50 96 03/28/22 05:30 86 16 113/60 96 03/28/22 05:25 88 18 107/58 92 L 03/28/22 05:10 95/55 03/28/22 05:05 83 17 94/55 93 L 03/28/22 05:00 83 17 97/51 93 L 03/28/22 04:55 86 18 97/53 92 L 03/28/22 04:50 86 18 95/49 92 L 03/28/22 04:45 86 20 93 L 03/28/22 04:40 89 18 97/57 93 L 03/28/22 04:35 93 19 92 L 03/28/22 04:30 95 15 80/48 90 L 03/28/22 04:25 96 19 90 L 03/28/22 04:15 96 25 H 73/47 90 L 03/28/22 04:13 95 18 73/47 90 L 03/28/22 04:00 96 20 76/40 90 L 03/28/22 03:45 94 28 H 62/44 90 L 03/28/22 03:34 71/48 03/28/22 03:32 104 H 25 H 71/51 90 L 03/28/22 03:30 105 H 22 78/50 90 L 03/28/22 03:27 63/45 03/28/22 03:20 75/53 03/28/22 03:15 104 H 37 H 92/55 90 L 03/28/22 03:10 106 H 26 H 03/28/22 03:00 113 H 29 H 107/75 90 L 03/28/22 02:56 118 H 27 H 100/76 90 L 03/28/22 02:55 116 H 38 H 03/28/22 02:46 107 H 30 H 150/75 91 L 03/28/22 02:45 120 H 35 H 177/93 94 L 03/28/22 02:40 40 H 03/28/22 02:34 121 H 40 H 177/93 92 L 03/28/22 02:33 98.2 F 120 H 40 H 150/91 89 L Intake and Output 03/27/22 03/28/22 03/28/22 22:59 06:59 14:59 Intake Total 3.85 Balance 3.85 Intake: Intake, IV Titration 3.85 Amount Nitroglycerin-D5w Pmx 50 3.85 mg In Dextrose/Water 1 250ml.bag @ 20 MCG/MIN 6 mls/hr IV .Q24H ONE Rx#: [id number] Other: Weight 79.379 kg GENERAL: The patient is alert and oriented x3, not in any acute distress. Well developed, well nourished. HEENT: Pupils are round and equally reacting to light. EOMI. No scleral icterus. No conjunctival pallor. Normocephalic, atraumatic. No pharyngeal erythema. No thyromegaly. CARDIOVASCULAR: S1 and S2 present. No murmurs, rubs, or gallops. PULMONARY: Chest is clear to auscultation, no bilateral expiratory wheezing ABDOMEN: Soft, nontender, nondistended, normoactive bowel sounds. No palpable organomegaly. MUSCULOSKELETAL: No joint swelling or deformity. EXTREMITIES: No cyanosis, clubbing, or pedal edema. NEUROLOGICAL: Gross neurological examination did not reveal any focal deficits. SKIN: No rashes. No petechiae Results CBC & Chem 7: 03/28/22 02:43 03/28/22 02:43 Labs: Abnormal Lab Results - Last 24 Hours (Table) 03/28/22 03/28/22 03/28/22 Range/Units 02:43 02:43 02:43 WBC 12.1 H (3.8-10.6) k/uL MCHC 30.2 L (31.0-37.0) g/dL Neutrophils # 8.8 H (1.3-7.7) k/uL Basophils # 0.3 H (0-0.2) k/uL D-Dimer 1.27 H (<0.60) mg/L FEU VBG pH (7.31-7.41) VBG pCO2 (37-51) mmHg VBG HCO3 (24-28) mmol/L Sodium 129 L (137-145) mmol/L Chloride 89 L (98-107) mmol/L Carbon Dioxide 36 H (22-30) mmol/L Glucose 133 H (74-99) mg/dL AST 43 H (14-36) U/L 03/28/22 Range/Units 02:55 WBC (3.8-10.6) k/uL MCHC (31.0-37.0) g/dL Neutrophils # (1.3-7.7) k/uL Basophils # (0-0.2) k/uL D-Dimer (<0.60) mg/L FEU VBG pH 7.30 L (7.31-7.41) VBG pCO2 78 H* (37-51) mmHg VBG HCO3 37 H (24-28) mmol/L Sodium (137-145) mmol/L Chloride (98-107) mmol/L Carbon Dioxide (22-30) mmol/L Glucose (74-99) mg/dL AST (14-36) U/L Assessment and Plan Assessment: Acute COPD exacerbation Acute hypoxic respiratory failure Hypertension History of osteoporosis History of GERD Plan: This is a pleasant 71 years old female who presents with acute COPD exacerbation. With the steroids, bronchodilators. Pulmonary consult. Start normal saline 75 mL/h as patient was hypertensive on admission and she kept contrast and to protect the kidney function. Labs and medication were reviewed.. Continue same treatment. Continue with symptomatic treatment. Resume home medication. Monitor lytes and vitals. DVT and GI prophylaxis. Further recommendationsas per clinical course of the patient DVT prophylaxis: Subcutaneous heparin GI Prophylaxis: Pepcid PT/OT: Pending Prognosis is guarded
[2022-03-28] MEDS ORDERED: HYDROcodone/APAP 10-325MG 1 EACH TAB PO PRN (12:41)
[2022-03-28] MEDS: ACETAMINOPHEN TAB 325 MG TAB PO PRN (16:15)
[2022-03-28] MEDS: diphenhydrAMINE 25 MG CAP PO PRN (16:22)
[2022-03-28 16:26] LABS: Glucose,Whole Blood 135 mg/dL (75-99)
[2022-03-28 19:55] LABS: Glucose,Whole Blood 150 mg/dL (75-99)
[2022-03-28] MEDS: SYMBICORT 160-4.5 MCG INHALER INHALATION SCH (19:59)
[2022-03-28] MEDS ORDERED: BUDESONIDE 1 MG/2 ML NEBU INHALATION SCH (20:00)
[2022-03-28] MEDS: GABAPENTIN 300 MG CAP PO SCH (20:18)
[2022-03-28] MEDS: FAMOTIDINE 20 MG TAB PO SCH (20:18)
[2022-03-28] MEDS: INSULIN ASPART (NovoLOG) 100 UNIT/ML VIAL SQ SCH (20:18)
[2022-03-28] MEDS: ATORVASTATIN 10 MG TAB PO SCH (20:18)
[2022-03-28] MEDS ORDERED: guaiFENesin-DM 600/30MG 1 EACH TAB.ER.12H PO SCH (21:00)
[2022-03-29] MEDS: SODIUM CHLORIDE 0.9% 1,000 ML IV SCH ×3 (00:09→17:52)
[2022-03-29 06:03] LABS: Glucose,Whole Blood 136 mg/dL (75-99)
[2022-03-29] MEDS: INSULIN ASPART (NovoLOG) 100 UNIT/ML VIAL SQ SCH ×4 (06:21→20:30)
[2022-03-29] MEDS: methylPREDNISolone SOD SUCCI 125 MG/2 ML VIAL IV SCH ×4 (06:21→22:57)
[2022-03-29] MEDS: IPRATROPIUM-ALBUTEROL 3 ML NEB INHALATION SCH ×4 (07:25→19:22)
[2022-03-29] MEDS: SYMBICORT 160-4.5 MCG INHALER INHALATION SCH ×2 (07:25→19:22)
[2022-03-29] MEDS ORDERED: NON FORMULARY DRUG (Tiotropium Bromide [Spiriva] 18 MCG Cap.W.Dev) INHALATION SCH (08:00)
[2022-03-29] MEDS: AZITHROMYCIN 500 MG TAB PO SCH (08:55)
[2022-03-29] MEDS: GABAPENTIN 300 MG CAP PO SCH ×2 (08:56→20:35)
[2022-03-29] MEDS: diphenhydrAMINE 25 MG CAP PO PRN (08:56)
[2022-03-29] MEDS: ACETAMINOPHEN TAB 325 MG TAB PO PRN (08:56)
[2022-03-29] MEDS: FAMOTIDINE 20 MG TAB PO SCH ×2 (08:56→20:35)
[2022-03-29 09:03] LABS: African American GFR (CKD) >90 (>60 ml/min/1.73 sqM); Anion Gap 7 mmol/L; Blood Urea Nitrogen 17 mg/dL (7-17); Carbon Dioxide 35 mmol/L (22-30); Chloride 90 mmol/L (98-107); Glucose 110 mg/dL (74-99); Magnesium 1.7 mg/dL (1.6-2.3); Non-African American GFR(CKD) >90 (>60 ml/min/1.73 sqM); Sodium 132 mmol/L (137-145)
[2022-03-29] MEDS ORDERED: Magnesium Replacement Protocol 1 EACH MISC MISCELLANE PRN (09:28)
[2022-03-29 11:34] LABS: Glucose,Whole Blood 124 mg/dL (75-99)
[2022-03-29] MEDS: MAGNESIUM SULFATE-D5W PMX 1 GM in DEXTROSE/WATER 1 100ML.BAG IVPB SCH ×2 (12:04→17:22)
--- NOTE | 2022-03-29 13:35 | P.PN ---
Subjective Progress Note Date: 03/29/22 Principal diagnosis: Acute on chronic hypoxic respiratory failure secondary to acute exacerbation of COPD This is a 71-year-old female patient, known history of COPD, ex-smoker, ma intained on a combination of Symbicort and Spiriva on outpatient basis, presenting to arousal because of worsening shortness of breath of few days' duration. Emergency, the patient was quite bronchospastic and wheezy, placed briefly on a BiPAP at a pressure of 12/5 cm of water, improved and subsequently the BiPAP was taken off. The patient is currently on 2 L of oxygen by nasal cannula. Chest x-ray is consistent with COPD. CAT scan of the chest also showed no evidence of any pulmonary embolism. There was diffuse centrilobular emphysema affecting the upper lobes bilaterally and the patient has no pneumonia. Patient has a metallic combination of Symbicort and Spiriva on outpatient basis. No angina. No altered mentation. No signs of any CO2 narcosis. Troponins are negative, LFTs are normal, white cell count is at 12.1 with hemoglobin 15.7. Reevaluated today on 03/29/2022, patient remains symptomatic, continues to have intermittent cough wheezing shortness of breath. Patient is on multiple bronchodilators, he is also on steroids, improving but not back to her baseline, hence the plan is to continue present course of bronchodilators, steroids, and not quite ready for discharge planning. CT of the chest showed no evidence of pulmonary embolism and no evidence of pneumonia. Objective - Vital Signs Vital signs: Vital Signs Temp 99.2 F 03/29/22 07:51 Pulse 96 03/29/22 11:33 Resp 18 03/29/22 08:00 BP 163/79 03/29/22 07:51 Pulse Ox 91 L 03/29/22 07:51 Intake & Output 03/28/22 03/29/22 03/29/22 18:59 06:59 18:59 Intake Total 240 240 0 Balance 240 240 0 Weight 79.379 kg Intake: Oral 240 240 0 Other: Voiding Method Toilet # Voids 4 1 2 - Exam Physical Exam: Revealed a 71-year-old female in no distress, on 3 L nasal cannula Head: Atraumatic normocephalic. HEENT:[Neck is supple.] [No neck masses.] [No thyromegaly.] [No JVD.] Chest: [Rhonchi and wheezes noted bilaterally. Cardiac Exam: [Normal S1 and S2, no S3 gallop, no murmur.] Abdomen: [Soft, nontender, no megaly, no rebound, no guarding, normal bowel sounds.] Extremities: [No clubbing, no edema, no cyanosis.] Neurological Exam: [No focal neurologic deficit.] Alert oriented 3. Psychiatric: Normal mood affect and normal mental status examination. Skin: No rashes. - Labs CBC & Chem 7: 03/28/22 02:43 03/29/22 07:36 Labs: Abnormal Lab Results - Last 24 Hours (Table) 03/28/22 03/28/22 03/29/22 Range/Units 16:25 19:36 05:55 Sodium (137-145) mmol/L Chloride (98-107) mmol/L Carbon Dioxide (22-30) mmol/L Creatinine (0.52-1.04) mg/dL Glucose (74-99) mg/dL POC Glucose (mg/dL) 135 H 150 H 136 H (75-99) mg/dL 03/29/22 03/29/22 Range/Units 07:36 11:32 Sodium 132 L (137-145) mmol/L Chloride 90 L (98-107) mmol/L Carbon Dioxide 35 H (22-30) mmol/L Creatinine 0.50 L (0.52-1.04) mg/dL Glucose 110 H (74-99) mg/dL POC Glucose (mg/dL) 124 H (75-99) mg/dL Microbiology - Last 24 Hours (Table) 03/28/22 04:40 Blood Culture - Preliminary Blood No Growth after 24 hours 03/28/22 04:35 Blood Culture - Preliminary Blood No Growth after 24 hours Assessment and Plan Assessment: Impression: Acute on chronic hypoxic respiratory failure secondary to acute exacerbation of COPD Coronary arteriosclerosis and previous cardiac arrest. Dyslipidemia Degenerative joint disease Recommendation: Continue oxygen and titrate accordingly Continue updrafts. Continue Symbicort. Continue IV Solu-Medrol. Possible discharge planning in the next 24 hours if the patient continues to improve We will continue to follow Time with Patient: Less than 30
--- NOTE | 2022-03-29 13:46 | P.PN ---
Subjective Progress Note Date: 03/29/22 This is a pleasant 71 years old female with past medical history of COPD, GERD, hypertension, osteoporosis. Presents because of worsening dyspnea over several days which gets really worse over the last 3 days associated with cough and annular phlegm but no chest pain. She is on chronic oxygen at home with 3 L/m for her history of COPD. She quit smoking several years ago, no alcohol or illicit drugs. She denies any GI or urinary symptoms. No headache or weakness or dizziness. On admission patient was hypoxic with oxygen saturation 89% on 5 L oxygen , She had to be placed on BiPAP. Also she was mildly hypotensive blood pressure 80/48, currently blood pressure 118/70. Heart rate is 110. She has mild leukocytosis of 12.1, rest of CBC and INR are unremarkable with INR of 0.9. Sodium 129. Rest of creatinine and electrolytes and liver enzymes are unremarkable. Troponin and proBNP are negative. CTA of the chest: No pulmonary embolism, atelectasis. COPD. Patient is started on Medrol 16 mg, Zithromax, bronchodilators and inhaled steroids. 03/29/2022 Patient today states she is feeling better, but not quite back to baseline yet. Lungs are tight some expiratory wheezing noted on exam. She is back to baseline home oxygen dose of 3L, current saturation 91-93%. She does have bronchospastic cough with deep breathing. Patient does state that lately she has also been chocking while eating and feels her food is getting stuck. Will consult speech therapy for a bedside swallow exam. She is currently on pepcid twice a day and will also add lozenges. Patient continues on oral azithromycin for a total of 3 doses, also on IV solumedrol 60 mg every 6 hours. Sodium has improved up to 132, potassium 4.0, CO2 today 35, magnesium 1.7. Blood glucose in the 120s. She is being followed closely by pulmonary services. Review of Systems Constitutional: Denied any fatigue denied any fever. Cardio vascular: denied any chest pain, palpitations Gastrointestinal: denied any nausea, vomiting, diarrhea Pulmonary: Reports shortness of breath with exertion, reports intermittent dry nonproductive cough Neurologic denied any new focal deficits All inpatient medications were reviewed and appropriate changes in these medications as dictated in the interval history and assessment and plan. PHYSICAL EXAMINATION: GENERAL: The patient is alert and oriented x3, not in any acute distress. Well developed, well nourished. HEENT: Pupils are round and equally reacting to light. EOMI. No scleral icterus. No conjunctival pallor. Normocephalic, atraumatic. No pharyngeal erythema. No thyromegaly. CARDIOVASCULAR: S1 and S2 present. No murmurs, rubs, or gallops. PULMONARY: Diminished aeration, bronchospastic cough noted with deep breathing. Expiratory wheezing. ABDOMEN: Soft, nontender, nondistended, normoactive bowel sounds. No palpable organomegaly. MUSCULOSKELETAL: No joint swelling or deformity. EXTREMITIES: No cyanosis, clubbing, or pedal edema. NEUROLOGICAL: Gross neurological examination did not reveal any focal deficits. SKIN: No rashes. Assessment and Plan Assessment: Acute COPD exacerbation, oxygen dependent Acute hypoxic respiratory failure Hypertension Steroid induced hyperglycemia History of coronnary artery disease with previous cardiac arrest History of osteoporosis History of GERD Former smoker GI prophylaxis: Pepcid DVT Prophylaxis: Lovenox Plan Continue on current medications including IV solumedrol, duonebs, symbicort for acute COPD exacerbation Continue with oxygen therapy Complete short course of antibiotic therapy Bedside speech evaluation Repeat BMP in AM Pulmonary consultation Possible DC in the next 24 to 48 hours The impression and plan of care has been dictated by Lizz Ng Nurse Practitioner as directed. Dr. New MD I have performed a history and physical examination and medical decision making of this patient, discussed the same with the dictator, and agree with the dictators assessment and plan as written, documented as a scribe. Based on total visit time, I have performed more than 50% of this visit. Objective - Vital Signs Vital signs: Vital Signs Temp 99.2 F 03/29/22 07:51 Pulse 96 03/29/22 11:33 Resp 18 03/29/22 08:00 BP 163/79 03/29/22 07:51 Pulse Ox 91 L 03/29/22 07:51 Intake & Output 03/28/22 03/29/22 03/29/22 18:59 06:59 18:59 Intake Total 240 240 0 Balance 240 240 0 Weight 79.379 kg Intake: Oral 240 240 0 Other: Voiding Method Toilet # Voids 4 1 2 - Labs CBC & Chem 7: 03/28/22 02:43 03/29/22 07:36 Labs: Abnormal Lab Results - Last 24 Hours (Table) 03/28/22 03/28/22 03/29/22 Range/Units 16:25 19:36 05:55 Sodium (137-145) mmol/L Chloride (98-107) mmol/L Carbon Dioxide (22-30) mmol/L Creatinine (0.52-1.04) mg/dL Glucose (74-99) mg/dL POC Glucose (mg/dL) 135 H 150 H 136 H (75-99) mg/dL 03/29/22 03/29/22 Range/Units 07:36 11:32 Sodium 132 L (137-145) mmol/L Chloride 90 L (98-107) mmol/L Carbon Dioxide 35 H (22-30) mmol/L Creatinine 0.50 L (0.52-1.04) mg/dL Glucose 110 H (74-99) mg/dL POC Glucose (mg/dL) 124 H (75-99) mg/dL Microbiology - Last 24 Hours (Table) 03/28/22 04:40 Blood Culture - Preliminary Blood No Growth after 24 hours 03/28/22 04:35 Blood Culture - Preliminary Blood No Growth after 24 hours Assessment and Plan Time with Patient: Less than 30
[2022-03-29 16:17] LABS: Glucose,Whole Blood 158 mg/dL (75-99)
[2022-03-29] MEDS: BENZOCAINE/MENTHOL LOZENG 1 EACH LOZENGE MUCOUS MEM PRN (17:32)
[2022-03-29 19:57] LABS: Glucose,Whole Blood 114 mg/dL (75-99)
[2022-03-29] MEDS: ATORVASTATIN 10 MG TAB PO SCH (20:35)
[2022-03-30] MEDS: SODIUM CHLORIDE 0.9% 1,000 ML IV SCH (03:32)
[2022-03-30 05:52] LABS: Glucose,Whole Blood 129 mg/dL (75-99)
[2022-03-30] MEDS: INSULIN ASPART (NovoLOG) 100 UNIT/ML VIAL SQ SCH ×2 (06:12→11:51)
[2022-03-30] MEDS: methylPREDNISolone SOD SUCCI 125 MG/2 ML VIAL IV SCH ×2 (06:15→12:15)
[2022-03-30] MEDS: ACETAMINOPHEN TAB 325 MG TAB PO PRN ×2 (06:17→13:25)
[2022-03-30] MEDS: FAMOTIDINE 20 MG TAB PO SCH (08:07)
[2022-03-30] MEDS: GABAPENTIN 300 MG CAP PO SCH (08:07)
[2022-03-30] MEDS: AZITHROMYCIN 500 MG TAB PO SCH (08:07)
[2022-03-30] MEDS: IPRATROPIUM-ALBUTEROL 3 ML NEB INHALATION SCH ×2 (08:48→11:40)
[2022-03-30] MEDS: SYMBICORT 160-4.5 MCG INHALER INHALATION SCH (08:48)
[2022-03-30] MEDS ORDERED: ENOXAPARIN 40 MG/0.4 ML SYRINGE SQ SCH (09:00)
[2022-03-30] MEDS ORDERED: traMADol 50 MG TAB PO SCH (09:30)
[2022-03-30 10:25] LABS: African American GFR (CKD) >90 (>60 ml/min/1.73 sqM); Anion Gap 4 mmol/L; Blood Urea Nitrogen 16 mg/dL (7-17); Calcium 9.1 mg/dL (8.4-10.2); Carbon Dioxide 39 mmol/L (22-30); Chloride 89 mmol/L (98-107); Glucose 123 mg/dL (74-99); Magnesium 1.8 mg/dL (1.6-2.3); Non-African American GFR(CKD) >90 (>60 ml/min/1.73 sqM); Potassium 3.9 mmol/L (3.5-5.1); Sodium 132 mmol/L (137-145)
[2022-03-30 11:30] LABS: Glucose,Whole Blood 126 mg/dL (75-99)
[2022-03-30 11:50] VITALS: BP 131/69; RESP 20; TEMP 98.3
[2022-03-30 11:53] VITALS: PULSE 100
[2022-03-30] MEDS ORDERED: Magnesium Replacement Protocol 1 EACH MISC MISCELLANE PRN (12:00)
[2022-03-30] MEDS ORDERED: METOPROLOL TARTRATE 12.5 MG TAB PO SCH (12:15)
[2022-03-30] MEDS: MAGNESIUM SULFATE-D5W PMX 1 GM in DEXTROSE/WATER 1 100ML.BAG IVPB SCH ×2 (12:16→13:22)
--- NOTE | 2022-03-30 12:20 | P.PN ---
Subjective Progress Note Date: 03/30/22 Principal diagnosis: Acute on chronic hypoxic respiratory failure secondary to acute exacerbation of COPD This is a 71-year-old female patient, known history of COPD, ex-smoker, ma intained on a combination of Symbicort and Spiriva on outpatient basis, presenting to arousal because of worsening shortness of breath of few days' duration. Emergency, the patient was quite bronchospastic and wheezy, placed briefly on a BiPAP at a pressure of 12/5 cm of water, improved and subsequently the BiPAP was taken off. The patient is currently on 2 L of oxygen by nasal cannula. Chest x-ray is consistent with COPD. CAT scan of the chest also showed no evidence of any pulmonary embolism. There was diffuse centrilobular emphysema affecting the upper lobes bilaterally and the patient has no pneumonia. Patient has a metallic combination of Symbicort and Spiriva on outpatient basis. No angina. No altered mentation. No signs of any CO2 narcosis. Troponins are negative, LFTs are normal, white cell count is at 12.1 with hemoglobin 15.7. Reevaluated today on 03/29/2022, patient remains symptomatic, continues to have intermittent cough wheezing shortness of breath. Patient is on multiple bronchodilators, he is also on steroids, improving but not back to her baseline, hence the plan is to continue present course of bronchodilators, steroids, and not quite ready for discharge planning. CT of the chest showed no evidence of pulmonary embolism and no evidence of pneumonia. Reevaluated today on 03/30/20, patient is feeling better today, breathing a lot easier, and I will clear the patient to be discharged home today. Patient is to go home on her usual bronchodilators, would add doxycycline 100 twice a day for 10 days, I would also add prednisone 30 mg tapered over 2 weeks, 30 mg daily for 5 days 20 mg daily for 5 days and 10 mg daily for 5 days Objective - Vital Signs Vital signs: Vital Signs Temp 98.3 F 03/30/22 11:49 Pulse 100 03/30/22 11:51 Resp 20 03/30/22 11:49 BP 131/69 03/30/22 11:49 Pulse Ox 96 03/30/22 11:49 Intake & Output 03/29/22 03/30/22 03/30/22 18:59 06:59 18:59 Intake Total 210 240 118 Balance 210 240 118 Intake: Oral 210 240 118 Other: Voiding Method Toilet # Voids 2 1 - Exam Physical Exam: Revealed a 71-year-old female in no distress, on 3 L nasal cannula, O2 saturations 96%. Head: Atraumatic normocephalic. HEENT:[Neck is supple.] [No neck masses.] [No thyromegaly.] [No JVD.] Chest: Diminished breath sound bilaterally no crackles or rhonchi or wheezes Cardiac Exam: [Normal S1 and S2, no S3 gallop, no murmur.] Abdomen: [Soft, nontender, no megaly, no rebound, no guarding, normal bowel sounds.] Extremities: [No clubbing, no edema, no cyanosis.] Neurological Exam: [No focal neurologic deficit.] Alert oriented 3. Psychiatric: Normal mood affect and normal mental status examination. Skin: No rashes. - Labs CBC & Chem 7: 03/28/22 02:43 03/30/22 09:42 Labs: Abnormal Lab Results - Last 24 Hours (Table) 03/29/22 03/29/22 03/30/22 Range/Units 16:16 19:56 05:51 Sodium (137-145) mmol/L Chloride (98-107) mmol/L Carbon Dioxide (22-30) mmol/L Glucose (74-99) mg/dL POC Glucose (mg/dL) 158 H 114 H 129 H (75-99) mg/dL 03/30/22 03/30/22 Range/Units 09:42 11:28 Sodium 132 L (137-145) mmol/L Chloride 89 L (98-107) mmol/L Carbon Dioxide 39 H (22-30) mmol/L Glucose 123 H (74-99) mg/dL POC Glucose (mg/dL) 126 H (75-99) mg/dL Microbiology - Last 24 Hours (Table) 03/28/22 04:40 Blood Culture - Preliminary Blood No Growth after 48 hours 03/28/22 04:35 Blood Culture - Preliminary Blood No Growth after 48 hours Assessment and Plan Assessment: Impression: Acute on chronic hypoxic respiratory failure secondary to acute exacerbation of COPD Coronary arteriosclerosis and previous cardiac arrest. Dyslipidemia Degenerative joint disease Recommendation: Continue oxygen and titrate accordingly Continue updrafts. Continue Symbicort. We will clear the patient to be discharged home today on her usual medications, patient already has oxygen at home. Patient to go on prednisone 30 mg daily for 5 days 20 mg for 5 days and 10 mg daily for 45 days Patient to go home on doxycycline 100 mg by mouth twice a day for 10 days Again the patient is cleared for discharge home today and to follow-up with Dr. Dr. Robles as scheduled Time with Patient: Less than 30
--- NOTE | 2022-03-30 13:21 | P.DS ---
Providers Date of admission: 03/28/22 04:23 Attending physician: Josef So MD Consults: 03/28/22 04:23 Consult Physician Routine Consulting Provider: Leroy Dubose Consult Reason/Comments: COPD exacerbation Do you want consulting provider notified?: Yes Primary care physician: Vern Rodriguez [facility] Course: Final Diagnosis Acute COPD exacerbation, oxygen dependent Acute hypoxic respiratory failure Hypertension Steroid induced hyperglycemia History of coronnary artery disease with previous cardiac arrest History of osteoporosis History of GERD Former smoker Discharge Disposition Patient is stable for discharge home today. She is maintained on her home dose of oxygen at 3L nasal cannula. Discharged on oral antibiotics and steroid taper. Hospital Course This is a pleasant 71-year-old female presents to hospital with complaints of worsening dyspnea over several days which got really worse over the last 3 days with associated cough and phlegm but no chest pain. Patient is a past medical history significant for COPD, GERD, hypertension, osteoporosis. She is oxygen dependent on 3 L nasal cannula. Patient has quit smoking several years ago, there is no clear use or illicit drugs. She denies any GI or urinary symptoms there's been no headache or weakness or dizziness. Patient was hypoxic on admission with an oxygen saturation 89% on 5 L nasal cannula and was initially placed on BiPAP respirator support. On admission she was also mildly hypotensive blood pressure was 80/48, heart rate is 110. There is mild leukocytosis 12.1, CBC and INR unremarkable. Sodium was low at 129 which is now improved at 132 with gentle hydration. Troponin and proBNP are negative. CTA of the chest was completed which shows no pulmonary embolism, or atelectasis. Demonstrates COPD. Patient was admitted to the hospital for acute COPD exacerbation and started on Solu-Medrol IV, PO azithromycin x 3 days, bronchodilators and inhaled steroids. She was evaluated by pulmonary services. Blood pressure is now improved up to 131/69, she has been afebrile, heart rate is improving to the 90s. Blood sugar has improved into the 110s to 120s. This is also expected to improve as she titrates off steroids. 03/29/2022 Patient evaluated today sitting up in the chair. No acute events overnight. She feels her breathing is improved more today than yesterday. Her main complaint is some congestion and difficult expectorating, however, her lungs have improved aeration today. She was cleared by pulmonary services and will discharge on oral steroid taper and doxycycline for 10 days. Follow up with Dr Robles in the office as well as primary care. Patient today denies chest pain, palpitations. Shortness of breath is improved at at baseline. Denies nausea vomiting diarrhea. Denies fever, chills. Lungs are coarse, faint expiratory wheezing, improved from yesterday. S1 S2 auscultated. Abdomen is soft and nontender. Focal neurological exam is negative. Hemodynamically stable. Labs today showing sodium of 132 which will be repeated outpatient in 2-3 days. Magnesium 1.8, patient will receive supplementation prior to discharge. Patient does not need any refills on any inhalers, states she has enough. Plan for discharge today. Please see medication reconciliation for a list of current medication. Thank you for allowing us to participate in the care of this patient. The impression and plan of care has been dictated by Lizz Ng, Nurse Practitioner as directed. Dr. New MD I have performed a history and physical examination and medical decision making of this patient, discussed the same with the dictator, and agree with the dictators assessment and plan as written, documented as a scribe. Based on total visit time, I have performed more than 50% of this visit. Patient Condition at Discharge: Fair Plan - Discharge Summary New Discharge Prescriptions: New Doxycycline [Vibramycin] 100 mg PO BID 7 Days #2 capsule predniSONE 0 mg PO DIRECTED 15 Days #39 tab Benzocaine/Menthol Lozeng [Cepacol lozenge] 1 each MUCOUS MEM Q4HR PRN lozenge PRN Reason: Sore Throat Continue Budesonide-Formot 160-4.5 Mcg [Symbicort 160-4.5 Mcg Inhaler] 2 puff INHALATION RT-BID Ubidecarenone [Co Q-10] 100 mg PO DAILY traMADol HCL [Ultram] 50 mg PO BID Gabapentin [Neurontin] 300 mg PO BID Denosumab [Prolia] 60 mg SQ Q180D HYDROcodone/APAP 10-325MG [[place] 10-325] 1 tab PO Q6HR PRN PRN Reason: Pain Famotidine [Pepcid] 20 mg PO BID Metoprolol Tartrate [Lopressor] 12.5 mg PO BID Atorvastatin Calcium [Lipitor] 10 mg PO HS [place]-3 Fatty Acids/Fish Oil [Fish Oil 1,000 mg Softgel] 1 cap PO DAILY Ergocalciferol [Vitamin D2 (1250 Mcg = 46819 Iu)] 1,250 mcg PO Q30D Diltiazem Oral [Cardizem*] 30 mg PO BID Discharge Medication List Budesonide-Formot 160-4.5 Mcg [Symbicort 160-4.5 Mcg Inhaler] 2 puff INHALATION RT-BID 04/03/19 [History] Gabapentin [Neurontin] 300 mg PO BID 05/16/19 [History] Ubidecarenone [Co Q-10] 100 mg PO DAILY 05/16/19 [History] traMADol HCL [Ultram] 50 mg PO BID 05/16/19 [History] Denosumab [Prolia] 60 mg SQ Q180D 11/06/19 [History] Famotidine [Pepcid] 20 mg PO BID 11/06/19 [History] HYDROcodone/APAP 10-325MG [[place] 10-325] 1 tab PO Q6HR PRN 11/06/19 [History] Atorvastatin Calcium [Lipitor] 10 mg PO HS 03/28/22 [History] Diltiazem Oral [Cardizem*] 30 mg PO BID 03/28/22 [History] Ergocalciferol [Vitamin D2 (1250 Mcg = 17536 Iu)] 1,250 mcg PO Q30D 03/28/22 [History] Metoprolol Tartrate [Lopressor] 12.5 mg PO BID 03/28/22 [History] [place]-3 Fatty Acids/Fish Oil [Fish Oil 1,000 mg Softgel] 1 cap PO DAILY 03/28/22 [History] Benzocaine/Menthol Lozeng [Cepacol lozenge] 1 each MUCOUS MEM Q4HR PRN lozenge 03/30/22 [Rx] Doxycycline [Vibramycin] 100 mg PO BID 7 Days #2 capsule 03/30/22 [Rx] predniSONE 0 mg PO DIRECTED 15 Days #39 tab 03/30/22 [Rx] Follow up Appointment(s)/Referral(s): Jason Robles DO [Doctor of Osteopathic Medicine] - 1 Week Vern Rodriguez DO [Primary Care Provider] - 1-2 days Ambulatory/Diagnostic Orders: Basic Metabolic Panel [LAB.AMB] Time Frame: 2 Days, Location: None Selected Patient Instructions/Handouts: COPD (Chronic Obstructive Pulmonary Disease) (DC) Discharge Disposition: HOME SELF-CARE
[2022-03-30] MEDS: BENZOCAINE/MENTHOL LOZENG 1 EACH LOZENGE MUCOUS MEM PRN (13:24)
== END 2022-03-30 15:07 | disposition home or self-care (01) | DRG 190 ==
LOC: EC 02:26 → 3SCARD 04:23
PROVIDERS: ADMIT Internal Medicine; ATTEND Internal Medicine
PROC: 3E0F7SF Introduction of Other Gas into Respiratory Tract, Via Natural or Artificial Opening (ICD-10-PCS; principal; 2022-03-28)
PROC: 5A09357 Assistance with Respiratory Ventilation, Less than 24 Consecutive Hours, Continuous Positive Airway Pressure (ICD-10-PCS; principal; 2022-03-28)
DX: J43.2 Centrilobular emphysema (principal); J96.21 Acute and chronic respiratory failure with hypoxia; E87.1 Hypo-osmolality and hyponatremia; E87.2 Acidosis; I10 Essential (primary) hypertension; M81.0 Age-related osteoporosis without current pathological fracture; G43.909 Migraine, unspecified, not intractable, without status migrainosus; T38.0X5A Adverse effect of glucocorticoids and synthetic analogues, initial encounter; I95.9 Hypotension, unspecified; K21.9 Gastro-esophageal reflux disease without esophagitis; Z87.891 Personal history of nicotine dependence; M19.90 Unspecified osteoarthritis, unspecified site; I25.10 Atherosclerotic heart disease of native coronary artery without angina pectoris; R00.0 Tachycardia, unspecified; Z86.74 Personal history of sudden cardiac arrest; E78.5 Hyperlipidemia, unspecified; R73.9 Hyperglycemia, unspecified; X58.XXXA Exposure to other specified factors, initial encounter; Z79.51 Long term (current) use of inhaled steroids; Z79.82 Long term (current) use of aspirin; Z79.899 Other long term (current) drug therapy; Z82.49 Family history of ischemic heart disease and other diseases of the circulatory system; Z96.651 Presence of right artificial knee joint; Z99.81 Dependence on supplemental oxygen; Z88.8 Allergy status to other drugs, medicaments and biological substances; Z88.1 Allergy status to other antibiotic agents; Z98.42 Cataract extraction status, left eye; Z98.41 Cataract extraction status, right eye; Z86.010 Personal history of colon polyps
CPT/HCPCS: 36415; 71045; 71275; 80048; 80053; 82803; 83605; 83735; 83880; 84484; 85025; 85379; 85610; 85730; 87040; 93005; 94640; 94660; 94760; 96365; 96366; 96375; 99291

== ENCOUNTER 2022-04-24 23:05 | Inpatient (IN) | payer MEDICARE, BC ==
[2022-04-24] MEDS ORDERED: ALBUTEROL NEBULIZED 2.5 MG/3 ML INHALATION STA (23:10)
[2022-04-24] MEDS ORDERED: IPRATROPIUM 0.5 MG/2.5 ML NEBU INHALATION STA (23:10)
[2022-04-24] MEDS ORDERED: SODIUM CHLORIDE 0.9% 500 ML 500 ML IV STA (23:10)
[2022-04-24] MEDS ORDERED: SODIUM CHLORIDE 0.9% 1,000 ML IV STA (23:10)
[2022-04-24] MEDS ORDERED: MORPHINE SULFATE 2 MG/ML SYRINGE IVP STA (23:11)
--- NOTE | 2022-04-24 23:18 | ED ---
SOB HPI - General Stated Complaint: YEIMY Time Seen by Provider: 04/24/22 23:08 Source: RN notes reviewed, old records reviewed Limitations: no limitations - History of Present Illness Initial Comments: This is a 71-year-old female DF for evaluation of severe shortness of breath by EMS. Going on just over a day or shortness of breath recent hospital admission for COPD. Patient placed on BiPAP on arrival to emergency department secondary significant rust for a stress. Respiratory distress patient cannot provide history but is denying chest pain currently. No fevers. MD Complaint: shortness of breath, cough, "asthma attack", anxiety -: days(s) Radiation: back Severity: severe Severity scale (1-10): 10 Consistency: constant Improves With: nothing Worsens With: nothing Known History Of: COPD Context: recent URI, recent illness Associated Symptoms: cough, sputum production Treatments Prior to Arrival: oxygen - Related Data Home Medications Medication Instructions Recorded Confirmed Budesonide-Formot 160-4.5 Mcg 2 puff INHALATION RT-BID 04/03/19 03/28/22 [Symbicort 160-4.5 Mcg Inhaler] Gabapentin [Neurontin] 300 mg PO BID 05/16/19 03/28/22 Ubidecarenone [Co Q-10] 100 mg PO DAILY 05/16/19 03/28/22 traMADol HCL [Ultram] 50 mg PO BID 05/16/19 03/28/22 Denosumab [Prolia] 60 mg SQ Q180D 11/06/19 03/28/22 Famotidine [Pepcid] 20 mg PO BID 11/06/19 03/28/22 HYDROcodone/APAP 10-325MG [[place] 1 tab PO Q6HR PRN 11/06/19 03/28/22 10-325] Atorvastatin Calcium [Lipitor] 10 mg PO HS 03/28/22 03/28/22 Diltiazem Oral [Cardizem*] 30 mg PO BID 03/28/22 03/28/22 Ergocalciferol [Vitamin D2 (1250 1,250 mcg PO Q30D 03/28/22 03/28/22 Mcg = 89938 Iu)] Metoprolol Tartrate [Lopressor] 12.5 mg PO BID 03/28/22 03/28/22 [place]-3 Fatty Acids/Fish Oil [Fish 1 cap PO DAILY 03/28/22 03/28/22 Oil 1,000 mg Softgel] Previous Rx's Medication Instructions Recorded Benzocaine/Menthol Lozeng [Cepacol 1 each MUCOUS MEM Q4HR PRN lozenge 03/30/22 lozenge] Doxycycline [Vibramycin] 100 mg PO BID 7 Days #2 capsule 03/30/22 predniSONE 0 mg PO DIRECTED 15 Days #39 tab 03/30/22 Allergies Allergy/AdvReac Type Severity Reaction Status Date / Time dextromethorphan AdvReac Swelling Verified 03/28/22 21:05 [From Mucinex DM] guaifenesin [From Mucinex DM] AdvReac Swelling Verified 03/28/22 21:05 levofloxacin [From Levaquin] AdvReac Nausea, Verified 03/28/22 12:18 Diarrhea , States she got C-Diff after, Migraines Review of Systems ROS Statement: Those systems with pertinent positive or pertinent negative responses have been documented in the HPI. ROS Other: All systems not noted in ROS Statement are negative. Past Medical History Past Medical History: COPD, GERD/Reflux, Hypertension Additional Past Medical History / Comment(s): HX POLYPS, DIVERTICULI. Osteoporosis. ICU - History of Any Multi-Drug Resistant Organisms: C-DIFF Date of last positivie culture/infection: 2013 approx MDRO Source:: stool Past Surgical History: Back Surgery, Bowel Resection, Joint Replacement, Ort hopedic Surgery Additional Past Surgical History / Comment(s): RIGHT KNEE REPLACEMENT, LEFT LEG ORIF-removed, LIZZIE CARPAL TUNNEL,. Bilateral cataract surgery,plate rt foot Additional Past Anesthesia/Blood Transfusion Reaction / Comment(s): STATES NO EPIDURALS R/T GETTING SEVERE MIGRAINES Past Psychological History: No Psychological Hx Reported Smoking Status: Former smoker - Past Family History Mother Family Medical History: Hypertension Father Family Medical History: Cancer Additional Family Medical History / Comment(s): aneurysms,prostate General Exam General appearance: alert, in no apparent distress, anxious, in distress Head exam: Present: atraumatic, normocephalic, normal inspection Eye exam: Present: normal appearance, PERRL, EOMI. Absent: scleral icterus, conjunctival injection, periorbital swelling ENT exam: Present: normal exam, mucous membranes moist Neck exam: Present: normal inspection. Absent: tenderness, meningismus, lymphadenopathy Respiratory exam: Present: respiratory distress, wheezes, rhonchi, accessory muscle use, decreased breath sounds, prolonged expiratory. Absent: rales, stridor Cardiovascular Exam: Present: normal rhythm, tachycardia, normal heart sounds. Absent: systolic murmur, diastolic murmur, rubs, gallop, clicks GI/Abdominal exam: Present: soft, normal bowel sounds. Absent: distended, tenderness, guarding, rebound, rigid Extremities exam: Present: normal inspection, full ROM, normal capillary refill. Absent: tenderness, pedal edema, joint swelling, calf tenderness Back exam: Present: normal inspection Neurological exam: Present: alert, oriented X3, CN II-XII intact Psychiatric exam: Present: normal affect, normal mood Skin exam: Present: warm, dry, intact, normal color. Absent: rash Course Vital Signs 04/24/22 04/24/22 04/24/22 23:16 23:19 23:20 Temperature 98.6 F Pulse Rate 87 80 Respiratory 18 24 24 Rate Blood Pressure 156/78 147/78 O2 Sat by Pulse 100 99 Oximetry 04/24/22 04/25/22 04/25/22 23:23 00:05 00:20 Temperature Pulse Rate 85 75 74 Respiratory 18 Rate Blood Pressure 155/60 O2 Sat by Pulse 100 Oximetry - Reevaluation(s) Reevaluation #1: 04/25/22 00:42 Medical record is reviewed Reevaluation #2: 04/25/22 00:42 Patient placed on BiPAP currently Reevaluation #3: 04/25/22 00:42 Patient does show improvement after long BiPAP session and repeated breathing treatments still very labile and her respiratory distress Reevaluation #4: 04/25/22 00:43 Patient informed results and questions answered - Consultations Consultation #1: Spoke with [facility] regarding admission there agreeable Medical Decision Making - Medical Decision Making 71 female to the emergency department with COPD exacerbation severe hypoxia on BiPAP. Patient will be admitted for continuing respiratory support - Lab Data Result diagrams: 04/24/22 23:24 04/24/22 23:24 Lab Results 04/24/22 04/24/22 04/24/22 Range/Units 23:24 23:24 23:24 WBC 8.2 (3.8-10.6) k/uL RBC 4.70 (3.80-5.40) m/uL Hgb 13.2 (11.4-16.0) gm/dL Hct 44.5 (34.0-46.0) % MCV 94.6 (80.0-100.0) fL MCH 28.1 (25.0-35.0) pg MCHC 29.7 L (31.0-37.0) g/dL RDW 12.5 (11.5-15.5) % Plt Count 321 (150-450) k/uL MPV 7.1 Neutrophils % 57 % Lymphocytes % 20 % Monocytes % 12 % Eosinophils % 4 % Basophils % 3 % Neutrophils # 4.7 (1.3-7.7) k/uL Lymphocytes # 1.7 (1.0-4.8) k/uL Monocytes # 1.0 (0-1.0) k/uL Eosinophils # 0.3 (0-0.7) k/uL Basophils # 0.2 (0-0.2) k/uL Hypochromasia Slight PT 10.2 (9.0-12.0) sec INR 0.9 (<1.2) APTT 21.7 L (22.0-30.0) sec Sodium 129 L (137-145) mmol/L Potassium 4.7 (3.5-5.1) mmol/L Chloride 89 L (98-107) mmol/L Carbon Dioxide 38 H (22-30) mmol/L Anion Gap 2 mmol/L BUN 5 L (7-17) mg/dL Creatinine 0.52 (0.52-1.04) mg/dL Est GFR (CKD-EPI)AfAm >90 (>60 ml/min/1.73 sqM) Est GFR (CKD-EPI)NonAf >90 (>60 ml/min/1.73 sqM) Glucose 129 H (74-99) mg/dL Plasma Lactic Acid Robert (0.7-2.0) mmol/L Calcium 9.0 (8.4-10.2) mg/dL Total Bilirubin 0.5 (0.2-1.3) mg/dL AST 39 H (14-36) U/L ALT 22 (4-34) U/L Alkaline Phosphatase 88 (38-126) U/L Troponin I (0.000-0.034) ng/mL NT-Pro-B Natriuret Pep pg/mL Total Protein 7.0 (6.3-8.2) g/dL Albumin 3.8 (3.5-5.0) g/dL 04/24/22 04/24/22 04/24/22 Range/Units 23:24 23:24 23:24 WBC (3.8-10.6) k/uL RBC (3.80-5.40) m/uL Hgb (11.4-16.0) gm/dL Hct (34.0-46.0) % MCV (80.0-100.0) fL MCH (25.0-35.0) pg MCHC (31.0-37.0) g/dL RDW (11.5-15.5) % Plt Count (150-450) k/uL MPV Neutrophils % % Lymphocytes % % Monocytes % % Eosinophils % % Basophils % % Neutrophils # (1.3-7.7) k/uL Lymphocytes # (1.0-4.8) k/uL Monocytes # (0-1.0) k/uL Eosinophils # (0-0.7) k/uL Basophils # (0-0.2) k/uL Hypochromasia PT (9.0-12.0) sec INR (<1.2) APTT (22.0-30.0) sec Sodium (137-145) mmol/L Potassium (3.5-5.1) mmol/L Chloride (98-107) mmol/L Carbon Dioxide (22-30) mmol/L Anion Gap mmol/L BUN (7-17) mg/dL Creatinine (0.52-1.04) mg/dL Est GFR (CKD-EPI)AfAm (>60 ml/min/1.73 sqM) Est GFR (CKD-EPI)NonAf (>60 ml/min/1.73 sqM) Glucose (74-99) mg/dL Plasma Lactic Acid Robert <0.5 L (0.7-2.0) mmol/L Calcium (8.4-10.2) mg/dL Total Bilirubin (0.2-1.3) mg/dL AST (14-36) U/L ALT (4-34) U/L Alkaline Phosphatase (38-126) U/L Troponin I <0.012 (0.000-0.034) ng/mL NT-Pro-B Natriuret Pep 299 pg/mL Total Protein (6.3-8.2) g/dL Albumin (3.5-5.0) g/dL - EKG Data -: EKG Interpreted by Me (EKG sinus rhythm 82 [place] 137 QRS 84 QTC 372) - Radiology Data Radiology results: report reviewed (Chest x-rays negative for acute disease), image reviewed Critical Care Time Critical Care Time: Yes Total Critical Care Time: 33 Disposition Clinical Impression: Acute dyspnea, COPD with acute exacerbation, Acute exacerbation of chronic obstructive pulmonary disease, Hypoxia Disposition: ADMITTED IP TO THIS [facility] Condition: Serious Is patient prescribed a controlled substance at d/c from ED?: No Referrals: Vern Rodriguez DO [Primary Care Provider] - 1-2 days
--- NOTE | 2022-04-24 23:31 | XR ---
EXAMINATION TYPE: XR chest 1V portable DATE OF EXAM: 04/24/2022 COMPARISON: 03/28/2022 HISTORY: Short of breath TECHNIQUE: FINDINGS: Heart is normal. Lungs are clear of consolidation. There are no hilar masses. Thoracic aort a is atheromatous. There are chest leads. Bony thorax is intact. IMPRESSION: No active cardiopulmonary disease. Atheromatous aorta. No change.
[2022-04-24 23:42] LABS: Basophils # (A) 0.2 k/uL (0-0.2); Basophils % (A) 3 %; Eosinophils # (A) 0.3 k/uL (0-0.7); Eosinophils % (A) 4 %; HCT 44.5 % (34.0-46.0); HGB 13.2 gm/dL (11.4-16.0); Hypochromasia Slight; Lymphocytes # (A) 1.7 k/uL (1.0-4.8); Lymphocytes % (A) 20 %; MCH 28.1 pg (25.0-35.0); MCHC 29.7 g/dL (31.0-37.0); MCV 94.6 fL (80.0-100.0); Mean Platelet Volume 7.1; Monocytes % (A) 12 %; Neutrophils # (A) 4.7 k/uL (1.3-7.7); Neutrophils % (A) 57 %; Platelet Count 321 k/uL (150-450); RDW 12.5 % (11.5-15.5); WBC 8.2 k/uL (3.8-10.6)
[2022-04-24 23:52] LABS: ALT 22 U/L (4-34); AST 39 U/L (14-36); African American GFR (CKD) >90 (>60 ml/min/1.73 sqM); Albumin 3.8 g/dL (3.5-5.0); Alkaline Phosphatase 88 U/L (38-126); Anion Gap 2 mmol/L; Blood Urea Nitrogen 5 mg/dL (7-17); Carbon Dioxide 38 mmol/L (22-30); Chloride 89 mmol/L (98-107); Glucose 129 mg/dL (74-99); Non-African American GFR(CKD) >90 (>60 ml/min/1.73 sqM); Potassium 4.7 mmol/L (3.5-5.1); Sodium 129 mmol/L (137-145); Total Bilirubin 0.5 mg/dL (0.2-1.3)
[2022-04-25 00:11] LABS: INR 0.9 (<1.2); Prothrombin Time 10.2 sec (9.0-12.0)
[2022-04-25 00:18] LABS: Partial Thromboplastin Time 21.7 sec (22.0-30.0)
[2022-04-25] MEDS ORDERED: methylPREDNISolone SOD SUCCI 125 MG/2 ML VIAL IV STA (00:40)
[2022-04-25] MEDS ORDERED: IPRATROPIUM-ALBUTEROL 3 ML NEB INHALATION STA (00:40)
[2022-04-25] MEDS: methylPREDNISolone SOD SUCCI 125 MG/2 ML VIAL IV SCH ×4 (07:05→22:27)
[2022-04-25] MEDS: SODIUM CHLORIDE 0.9% 1,000 ML IV SCH ×2 (07:10→21:53)
[2022-04-25] MEDS ORDERED: ALBUTEROL NEBULIZED 2.5 MG/3 ML INHALATION SCH (08:00)
[2022-04-25] MEDS ORDERED: IPRATROPIUM-ALBUTEROL 3 ML NEB INHALATION PRN (08:44)
[2022-04-25] MEDS ORDERED: FUROSEMIDE 10 MG/ML 2 ML VIAL IV ONE (09:06)
[2022-04-25] MEDS: ALPRAZolam 0.25 MG TAB PO PRN (09:31)
--- NOTE | 2022-04-25 10:36 | P.CNPUL ---
History of Present Illness Consult date: 04/25/22 History of present illness: This is a 71-year-old female patient, known history of COPD, ex-smoker, maintained on a combination of Symbicort and Yupelri on outpatient basis, was in the hospital earlier this month for an acute COPD exacerbation, treated and he was discharged home. The patient was on oxygen at 3 L per minute nasal cannula. Following her discharge, she progressively became more short of breath and she end up coming to the emergency care yesterday because of increased dyspnea. Note that during her last evaluation, she had no evidence of pneumonia . Chest x-ray is consistent with COPD. CAT scan of the chest also showed no evidence of any pulmonary embolism. There was diffuse centrilobular emphysema affecting the upper lobes bilaterally and the patient has no pneumonia. She is fully vaccinated for COVID 19. She has tested negative for the Virus. She is coming in in for worsening shortness of breath. Increased dyspnea, to the point where the patient is unable to perform activities of daily today life. Limited cough,and vitamin production. No hemoptysis. No pleurisy. Chest x-ray still consistent with COPD. She quit smoking approximately a year ago. Review of Systems Constitutional: Denies chills, Denies fever Eyes: denies blurred vision, denies pain Ears, nose, mouth and throat: Denies headache, Denies sore throat Cardiovascular: Denies chest pain, Denies shortness of breath Respiratory: Reports dyspnea, increased cough and dyspnea and chest tightness and wheezing Gastrointestinal: Denies abdominal pain, Denies diarrhea, Denies nausea, Denies vomiting Genitourinary: Denies dysuria, Denies hematuria Musculoskeletal: Denies myalgias Integumentary: Denies pruritus, Denies rash Neurological: Denies numbness, Denies weakness Psychiatric: Denies anxiety, Denies depression Endocrine: Denies fatigue, Denies weight change Past Medical History Past Medical History: COPD, GERD/Reflux, Hearing Disorder / Deafness, Hypertension, Osteoarthritis (OA), Respiratory Disorder Additional Past Medical History / Comment(s): HX POLYPS, DIVERTICULI. Osteoporosis. ICU - History of Any Multi-Drug Resistant Organisms: C-DIFF Date of last positivie culture/infection: 2013 approx MDRO Source:: stool Past Surgical History: Back Surgery, Bowel Resection, Joint Replacement, Orthopedic Surgery Additional Past Surgical History / Comment(s): RIGHT KNEE REPLACEMENT, LEFT LEG ORIF-removed, LIZZIE CARPAL TUNNEL,. Bilateral cataract surgery,plate rt foot Additional Past Anesthesia/Blood Transfusion Reaction / Comment(s): STATES NO EPIDURALS R/T GETTING SEVERE MIGRAINES Past Psychological History: No Psychological Hx Reported Smoking Status: Former smoker Past Alcohol Use History: None Reported Additional Past Alcohol Use History / Comment(s): started smoking at age 19's,on and off,<1ppd Past Drug Use History: None Reported - Past Family History Mother Family Medical History: Hypertension Father Family Medical History: Cancer Additional Family Medical History / Comment(s): aneurysms,prostate Medications and Allergies Home Medications Medication Instructions Recorded Confirmed Type Budesonide-Formot 160-4.5 Mcg 2 puff INHALATION RT-BID 04/03/19 03/28/22 History [Symbicort 160-4.5 Mcg Inhaler] Gabapentin [Neurontin] 300 mg PO BID 05/16/19 03/28/22 History Ubidecarenone [Co Q-10] 100 mg PO DAILY 05/16/19 03/28/22 History traMADol HCL [Ultram] 50 mg PO BID 05/16/19 03/28/22 History Denosumab [Prolia] 60 mg SQ Q180D 11/06/19 03/28/22 History Famotidine [Pepcid] 20 mg PO BID 11/06/19 03/28/22 History HYDROcodone/APAP 10-325MG [[place] 1 tab PO Q6HR PRN 11/06/19 03/28/22 History 10-325] Atorvastatin Calcium [Lipitor] 10 mg PO HS 03/28/22 03/28/22 History Diltiazem Oral [Cardizem*] 30 mg PO BID 03/28/22 03/28/22 History Ergocalciferol [Vitamin D2 (1250 1,250 mcg PO Q30D 03/28/22 03/28/22 History Mcg = 89130 Iu)] Metoprolol Tartrate [Lopressor] 12.5 mg PO BID 03/28/22 03/28/22 History [place]-3 Fatty Acids/Fish Oil [Fish 1 cap PO DAILY 03/28/22 03/28/22 History Oil 1,000 mg Softgel] Benzocaine/Menthol Lozeng [Cepacol 1 each MUCOUS MEM Q4HR PRN lozenge 03/30/22 Rx lozenge] Doxycycline [Vibramycin] 100 mg PO BID 7 Days #2 capsule 03/30/22 Rx predniSONE 0 mg PO DIRECTED 15 Days #39 tab 03/30/22 Rx Allergies Allergy/AdvReac Type Severity Reaction Status Date / Time alprazolam [From Xanax] AdvReac Anaphylaxis Verified 04/25/22 09:48 dextromethorphan AdvReac Swelling Verified 03/28/22 21:05 [From Mucinex DM] guaifenesin [From Mucinex DM] AdvReac Swelling Verified 03/28/22 21:05 levofloxacin [From Levaquin] AdvReac Nausea, Verified 03/28/22 12:18 Diarrhea , States she got C-Diff after, Migraines Physical Exam Vitals: Vital Signs Temp Pulse Pulse Resp BP BP Pulse Ox 04/25/22 09:06 88 04/25/22 08:53 88 04/25/22 08:48 86 18 04/25/22 08:00 97.9 F 86 18 156/73 100 04/25/22 03:58 17 04/25/22 03:15 97.9 F 87 18 152/74 95 04/25/22 02:46 74 16 141/78 99 04/25/22 01:37 78 16 136/75 99 04/25/22 01:22 79 04/25/22 01:11 77 04/25/22 00:20 74 18 155/60 100 04/25/22 00:05 75 04/24/22 23:23 85 04/24/22 23:20 24 04/24/22 23:19 80 24 147/78 99 04/24/22 23:16 98.6 F 87 18 156/78 100 Intake and Output 04/24/22 04/25/22 04/25/22 22:59 06:59 14:59 Other: Voiding Method Toilet Bedside Commode Weight 65.771 kg GENERAL EXAM: Sitting, intubated, 71 -year-old white female comfortable in no apparent distress. Currently on 3 L of O2 nasal cannula HEAD: Normocephalic/atraumatic. EYES: Normal reaction of pupils, equal size. Conjunctiva pink, sclera white. NOSE: Clear with pink turbinates. THROAT: No erythema or exudates. NECK: No masses, no JVD, no thyroid enlargement, no adenopathy. CHEST: No chest wall deformity. Symmetrical expansion. LUNGS: Equal air entry with no crackles, and there is a diffuse expiratory wheezes throughout the lung russell bilaterally CVS: Regular rate and rhythm, normal S1 and S2, no gallops, no murmurs, no rubs ABDOMEN: Soft, nontender. No hepatosplenomegaly, normal bowel sounds, no guarding or rigidity. EXTREMITIES: No clubbing, no edema, no cyanosis, 2+ pulses and upper and lower extremities. MUSCULOSKELETAL: Muscle strength and tone normal. SPINE: No scoliosis or deformity SKIN: No rashes CENTRAL NERVOUS SYSTEM: Sedated, intubated. No focal deficits, tone is normal in all 4 extremities. Results - Laboratory Findings CBC and BMP: 04/24/22 23:24 04/24/22 23:24 PT/INR, D-dimer PT 10.2 sec (9.0-12.0) 04/24/22 23:24 INR 0.9 (<1.2) 04/24/22 23:24 Abnormal lab findings: Abnormal Labs 04/24/22 04/24/22 04/24/22 23:24 23:24 23:24 MCHC 29.7 L APTT 21.7 L Sodium 129 L Chloride 89 L Carbon Dioxide 38 H BUN 5 L Glucose 129 H Plasma Lactic Acid Robert AST 39 H 04/24/22 23:24 MCHC APTT Sodium Chloride Carbon Dioxide BUN Glucose Plasma Lactic Acid Robert <0.5 L AST - Diagnostic Findings Chest x-ray: image reviewed Assessment and Plan Plan: 1. Acute COPD exacerbation , no evidence of pneumonia. Previous CAT scan of the chest shows upper lobe emphysematous changes without any evidence of pulmonary infiltrates or lung masses.. The patient to the hospital after being treated for an acute COPD exacerbation the patient was improving and subsequently she had worsening shortness of breath and she end up coming into the hospital again. The chest x-ray again is not showing any pneumonia. The patient has no clear signs of an infection. This is a clear-cut COPD exacerbation in patient with advanced COPD. She has been maintained on a combination of Symbicort and Yupelri and DuoNeb nebulized treatments around the clock. She is a nonsmoker for now. 2 History of acute STEMI and cardiac arrest, Cardiac catheterization revealing normal coronaries, 2019 3 Hyperlipidemia 4 GERD/reflux 5 Osteoarthritis with previous history of orthopedic surgeries 6 colonic diverticulosis Plan: Keep O2 and titrate the flow to maintain saturation above 90%, currently on 3 L DuoNeb nebulized treatments around the clock Resume Symbicort and Yupelri can be resumed on outpatient basis. IV Solu Medrol 60 mg every 6 hours Oxygen and titrate the flow to maintain a saturation above 90% IV fluids cut down to 20 is an hour No need for antibiotics Anticipate further improvement Resume all medications
[2022-04-25] MEDS ORDERED: HYDROcodone/APAP 10-325MG 1 EACH TAB PO PRN (10:37)
[2022-04-25] MEDS ORDERED: DILTIAZEM ORAL 30 MG TAB PO SCH (10:45)
[2022-04-25] MEDS: METOPROLOL TARTRATE 12.5 MG TAB PO SCH ×2 (11:46→21:52)
[2022-04-25] MEDS: GABAPENTIN 300 MG CAP PO SCH ×2 (11:46→21:52)
[2022-04-25] MEDS: IPRATROPIUM-ALBUTEROL 3 ML NEB INHALATION SCH ×3 (12:09→20:25)
--- NOTE | 2022-04-25 19:54 | P.HPIM ---
History of Present Illness H&P Date: 04/25/22 Chief Complaint: Difficulty breathing This is a 71-year-old female DF for evaluation of severe shortness of breath by EMS. Going on just over a day or shortness of breath recent hospital admission for COPD. Patient placed on BiPAP on arrival to emergency department secondary significant rust for a stress. Respiratory distress patient cannot provide history but is denying chest pain currently. No fevers. Chest x-ray is consistent with COPD. CAT scan of the chest also showed no evidence of any pulmonary embolism. There was diffuse centrilobular emphysema affecting the upper lobes bilaterally and the patient has no pneumonia. She is fully vaccinated for COVID 19. She has tested negative for the Virus. She is coming in in for worsening shortness of breath. Increased dyspnea, to the point where the patient is unable to perform activities of daily today life. Limited cough,and vitamin production. No hemoptysis. No pleurisy. Chest x-ray still consistent with COPD. She quit smoking approximately a year ago. Review of Systems REVIEW OF SYSTEMS: CONSTITUTIONAL: No fever, no malaise, no fatigue. HEENT: No recent visual problems or hearing problems. Denied any sore throat. CARDIOVASCULAR: No chest pain, orthopnea, PND, no palpitations, no syncope. PULMONARY: No shortness of breath, no cough, no hemoptysis. GASTROINTESTINAL: No diarrhea, no nausea, no vomiting, no abdominal pain. NEUROLOGICAL: No headaches, no weakness, no numbness. HEMATOLOGICAL: Denies any bleeding or petechiae. GENITOURINARY: Denies any burning micturition, frequency, or urgency. MUSCULOSKELETAL/RHEUMATOLOGICAL: Denies any joint pain, swelling, or any muscle pain. ENDOCRINE: Denies any polyuria or polydipsia. The rest of the 14-point review of systems is negative. Past Medical History Past Medical History: COPD, GERD/Reflux, Hearing Disorder / Deafness, H ypertension, Osteoarthritis (OA), Respiratory Disorder Additional Past Medical History / Comment(s): HX POLYPS, DIVERTICULI. Osteoporosis. ICU - History of Any Multi-Drug Resistant Organisms: C-DIFF Date of last positivie culture/infection: 2013 approx MDRO Source:: stool Past Surgical History: Back Surgery, Bowel Resection, Joint Replacement, Orthopedic Surgery Additional Past Surgical History / Comment(s): RIGHT KNEE REPLACEMENT, LEFT LEG ORIF-removed, LIZZIE CARPAL TUNNEL,. Bilateral cataract surgery,plate rt foot Additional Past Anesthesia/Blood Transfusion Reaction / Comment(s): STATES NO EPIDURALS R/T GETTING SEVERE MIGRAINES Past Psychological History: No Psychological Hx Reported Smoking Status: Former smoker Past Alcohol Use History: None Reported Additional Past Alcohol Use History / Comment(s): started smoking at age 19's,on and off,<1ppd Past Drug Use History: None Reported - Past Family History Mother Family Medical History: Hypertension Father Family Medical History: Cancer Additional Family Medical History / Comment(s): aneurysms,prostate Medications and Allergies Home Medications Medication Instructions Recorded Confirmed Type Budesonide-Formot 160-4.5 Mcg 2 puff INHALATION RT-BID 04/03/19 04/25/22 History [Symbicort 160-4.5 Mcg Inhaler] Gabapentin [Neurontin] 300 mg PO BID 05/16/19 04/25/22 History Ubidecarenone [Co Q-10] 100 mg PO DAILY 05/16/19 04/25/22 History traMADol HCL [Ultram] 50 mg PO BID 05/16/19 04/25/22 History Denosumab [Prolia] 60 mg SQ Q180D 11/06/19 04/25/22 History Famotidine [Pepcid] 20 mg PO BID 11/06/19 04/25/22 History HYDROcodone/APAP 10-325MG [[place] 1 tab PO Q6HR PRN 11/06/19 04/25/22 History 10-325] Atorvastatin Calcium [Lipitor] 10 mg PO HS 03/28/22 04/25/22 History Diltiazem Oral [Cardizem*] 30 mg PO BID 03/28/22 04/25/22 History Ergocalciferol [Vitamin D2 (1250 1,250 mcg PO Q30D 03/28/22 04/25/22 History Mcg = 09443 Iu)] Metoprolol Tartrate [Lopressor] 12.5 mg PO BID 03/28/22 04/25/22 History [place]-3 Fatty Acids/Fish Oil [Fish 1 cap PO DAILY 03/28/22 04/25/22 History Oil 1,000 mg Softgel] Allergies Allergy/AdvReac Type Severity Reaction Status Date / Time dextromethorphan Allergy Unknown Verified 04/25/22 12:30 [From Mucinex DM] guaifenesin [From Mucinex DM] Allergy Unknown Verified 04/25/22 12:30 alprazolam [From Xanax] AdvReac Anaphylaxis Verified 04/25/22 12:26 levofloxacin [From Levaquin] AdvReac Nausea, Verified 04/25/22 12:26 Diarrhea , States she got C-Diff after, Migraines roflumilast [From Daliresp] AdvReac Nausea & Verified 04/25/22 12:30 Vomiting & Diarrhea Physical Exam Vitals: Vital Signs Temp Pulse Pulse Resp BP BP Pulse Ox 04/25/22 09:06 88 04/25/22 08:53 88 04/25/22 08:48 86 18 04/25/22 08:00 97.9 F 86 18 156/73 100 04/25/22 03:58 17 04/25/22 03:15 97.9 F 87 18 152/74 95 04/25/22 02:46 74 16 141/78 99 04/25/22 01:37 78 16 136/75 99 04/25/22 01:22 79 04/25/22 01:11 77 04/25/22 00:20 74 18 155/60 100 04/25/22 00:05 75 04/24/22 23:23 85 04/24/22 23:20 24 04/24/22 23:19 80 24 147/78 99 04/24/22 23:16 98.6 F 87 18 156/78 100 Intake and Output 04/24/22 04/25/22 04/25/22 22:59 06:59 14:59 Other: Voiding Method Toilet Bedside Commode Weight 65.771 kg PHYSICAL EXAMINATION: GENERAL: The patient is alert and oriented x3, not in any acute distress. Well developed, well nourished. HEENT: Pupils are round and equally reacting to light. EOMI. No scleral icterus. No conjunctival pallor. Normocephalic, atraumatic. No pharyngeal erythema. No thyromegaly. CARDIOVASCULAR: S1 and S2 present. No murmurs, rubs, or gallops. PULMONARY: Chest is clear to auscultation, no wheezing or crackles. ABDOMEN: Soft, nontender, nondistended, normoactive bowel sounds. No palpable organomegaly. MUSCULOSKELETAL: No joint swelling or deformity. EXTREMITIES: No cyanosis, clubbing, or pedal edema. NEUROLOGICAL: Gross neurological examination did not reveal any focal deficits. SKIN: No rashes. Results CBC & Chem 7: 04/24/22 23:24 04/24/22 23:24 Labs: Abnormal Lab Results - Last 24 Hours (Table) 04/24/22 04/24/22 04/24/22 Range/Units 23:24 23:24 23:24 MCHC 29.7 L (31.0-37.0) g/dL APTT 21.7 L (22.0-30.0) sec Sodium 129 L (137-145) mmol/L Chloride 89 L (98-107) mmol/L Carbon Dioxide 38 H (22-30) mmol/L BUN 5 L (7-17) mg/dL Glucose 129 H (74-99) mg/dL Plasma Lactic Acid Robert (0.7-2.0) mmol/L AST 39 H (14-36) U/L 04/24/22 Range/Units 23:24 MCHC (31.0-37.0) g/dL APTT (22.0-30.0) sec Sodium (137-145) mmol/L Chloride (98-107) mmol/L Carbon Dioxide (22-30) mmol/L BUN (7-17) mg/dL Glucose (74-99) mg/dL Plasma Lactic Acid Robert <0.5 L (0.7-2.0) mmol/L AST (14-36) U/L Thrombosis Risk Factor Assmnt - Choose All That Apply Each Factor Represents 1 point: Abnormal pulmonary function (COPD) Each Risk Factor Represents 2 Points: Age 61-74 years Thrombosis Risk Factor Assessment Total Risk Factor Score: 3 Thrombosis Risk Factor Assessment Level: Moderate Risk Assessment and Plan Assessment: 1. Acute exacerbation COPD; patient remains on Symbicort inhaler twice a day, DuoNeb nebulizer treatments 4 times a day and when necessary; Solu-Medrol 60 mg IV every 6 hours 2. Acute hypoxic respiratory failure; O2 per nasal cannula with plans to take ergotamine is able 3. Hypertension; metoprolol 12.5 mg twice a day 4. Hyperlipidemia; Lipitor 10 mg by mouth daily at bedtime 5. Peripheral neuropathy; continue with Neurontin 300 mg twice a day 6. Osteoarthritis/chronic pain; continue with home dose of 7. GERD/reflux; Protonix 40 mg daily DVT prophylaxis; SCDs CODE STATUS; full code
[2022-04-25] MEDS: SYMBICORT 160-4.5 MCG INHALER INHALATION SCH (20:25)
[2022-04-25] MEDS: FAMOTIDINE 20 MG TAB PO SCH (21:52)
[2022-04-25] MEDS: ATORVASTATIN 10 MG TAB PO SCH (21:52)
[2022-04-25] MEDS: traMADol 50 MG TAB PO SCH (21:52)
[2022-04-25] MEDS: DILTIAZEM ORAL 30 MG TAB PO SCH ×2 (21:53→21:57)
[2022-04-25] MEDS: IPRATROPIUM-ALBUTEROL 3 ML NEB INHALATION PRN (23:51)
[2022-04-26] MEDS: IPRATROPIUM-ALBUTEROL 3 ML NEB INHALATION PRN ×2 (04:03→23:10)
[2022-04-26] MEDS: methylPREDNISolone SOD SUCCI 125 MG/2 ML VIAL IV SCH ×3 (04:51→16:53)
[2022-04-26] MEDS: METOPROLOL TARTRATE 12.5 MG TAB PO SCH ×2 (08:07→21:42)
[2022-04-26] MEDS: GABAPENTIN 300 MG CAP PO SCH ×2 (08:07→21:42)
[2022-04-26] MEDS: traMADol 50 MG TAB PO SCH ×2 (08:07→21:42)
[2022-04-26] MEDS: FAMOTIDINE 20 MG TAB PO SCH ×2 (08:07→21:42)
[2022-04-26] MEDS: DILTIAZEM ORAL 30 MG TAB PO SCH ×2 (08:07→20:25)
[2022-04-26] MEDS: IPRATROPIUM-ALBUTEROL 3 ML NEB INHALATION SCH ×4 (08:17→19:27)
[2022-04-26] MEDS: SYMBICORT 160-4.5 MCG INHALER INHALATION SCH ×2 (08:17→19:27)
[2022-04-26] MEDS: ALPRAZolam 0.25 MG TAB PO PRN (08:46)
[2022-04-26 10:56] LABS: Basophils # (A) 0 X 10*3/uL (0.00-0.10); Basophils % (A) 0 %; Eosinophils # (A) 0 X 10*3/uL (0.04-0.35); Eosinophils % (A) 0 %; HCT 36.1 % (37.2-46.3); HGB 11.2 g/dL (12.0-15.0); Immature Grans, Automated 0.6 %; Lymphocytes # (A) 0.59 X 10*3/uL (0.90-5.00); Lymphocytes % (A) 12.4 %; MCH 28.8 pg (27.0-32.0); MCV 92.8 fL (80.0-97.0); Mean Platelet Volume 9.2 fL (9.5-12.2); Monocytes # (A) 0.29 X 10*3/uL (0.20-1.00); Monocytes % (A) 6.1 %; NRBC Per 100 WBC 0 /100 WBCS (0.0-0.0); Neutrophils # (A) 3.86 X 10*3/uL (1.80-7.70); Neutrophils % (A) 80.9 %; Platelet Count 261 X 10*3/uL (140-440); RBC 3.89 X 10*6/uL (4.10-5.20); RDW 13.2 % (11.5-14.5); WBC 4.77 X 10*3/uL (4.50-10.00)
[2022-04-26 11:02] LABS: African American GFR (CKD) 120.6 (60.0-200.0); Anion Gap 10.5 mmol/L (10.00-18.00); BUN/Creat Ratio 22.25 Ratio (12.00-20.00); Blood Urea Nitrogen 8.9 mg/dL (9.0-27.0); Carbon Dioxide 32.5 mmol/L (20.0-27.5); Non-African American GFR(CKD) 104.1 (60.0-200.0); Potassium 4.3 mmol/L (3.5-5.5)
--- NOTE | 2022-04-26 11:56 | P.PN ---
Subjective Progress Note Date: 04/26/22 This is a 71-year-old female patient, known history of COPD, ex-smoker, maintained on a combination of Symbicort and Yupelri on outpatient basis, was in the hospital earlier this month for an acute COPD exacerbation, treated and he was discharged home. The patient was on oxygen at 3 L per minute nasal cannula. Following her discharge, she progressively became more short of breath and she end up coming to the emergency care yesterday because of increased dyspnea. Note that during her last evaluation, she had no evidence of pneumonia. Chest x-ray is consistent with COPD. CAT scan of the chest also showed no evidence of any pulmonary embolism. There was diffuse centrilobular emphysema affecting the upper lobes bilaterally and the patient has no pneumonia. She is fully vaccinated for COVID 19. She has tested negative for the Virus. She is coming in in for worsening shortness of breath. Increased dyspnea, to the point where the patient is unable to perform activities of daily today life. Limited cough,and vitamin production. No hemoptysis. No pleurisy. Chest x-ray still consistent with COPD. She quit smoking approximately a year ago. 04/26/2022, the patient is doing essentially the same as yesterday. Limited improvement since yesterday she continued to bronchospastic and wheezy. No new complaints otherwise for now. No significant chest pain or pleurisy. No altered mentation. She remains on IV Solu-Medrol 60 mg every 6 hours and she is also on DuoNeb nebulized treatments around the clock. The labs from today showed a white cell count of 4.7 with a hemoglobin of 11.2 and a platelet count of 261. The BUN is at 8.9 with a creatinine of 0.4 and sodium level is at 133. The patient has quit smoking. No new complaints otherwise for now. Objective - Vital Signs Vital signs: Vital Signs Temp 97.8 F 04/26/22 08:00 Pulse 100 04/26/22 08:34 Resp 18 04/26/22 08:00 BP 130/89 04/26/22 08:00 Pulse Ox 98 04/26/22 08:00 FiO2 Intake & Output 04/25/22 04/26/22 04/26/22 18:59 06:59 18:59 Intake Total 1200 500 Balance 1200 500 Intake: Intake, IV Titration 1200 Amount Sodium Chloride 0.9% 1, 1200 000 ml @ 10 mls/hr IV . Q24H [facility] Rx#:[id number] Oral 500 Other: Voiding Method Bedside Commode Bedside Commode External Catheter # Voids 4 # Bowel Movements 0 - Exam GENERAL EXAM: Sitting, intubated, 71 -year-old white female comfortable in no apparent distress. Currently on 3 L of O2 nasal cannula HEAD: Normocephalic/atraumatic. EYES: Normal reaction of pupils, equal size. Conjunctiva pink, sclera white. NOSE: Clear with pink turbinates. THROAT: No erythema or exudates. NECK: No masses, no JVD, no thyroid enlargement, no adenopathy. CHEST: No chest wall deformity. Symmetrical expansion. LUNGS: Equal air entry with no crackles, and there is a diffuse expiratory wheezes throughout the lung russell bilaterally CVS: Regular rate and rhythm, normal S1 and S2, no gallops, no murmurs, no rubs ABDOMEN: Soft, nontender. No hepatosplenomegaly, normal bowel sounds, no guarding or rigidity. EXTREMITIES: No clubbing, no edema, no cyanosis, 2+ pulses and upper and lower extremities. MUSCULOSKELETAL: Muscle strength and tone normal. SPINE: No scoliosis or deformity SKIN: No rashes CENTRAL NERVOUS SYSTEM: Sedated, intubated. No focal deficits, tone is normal in all 4 extremities. - Labs CBC & Chem 7: 04/26/22 03:39 04/26/22 03:39 Assessment and Plan Plan: 1. Acute COPD exacerbation , no evidence of pneumonia. Previous CAT scan of the chest shows upper lobe emphysematous changes without any evidence of pulmonary infiltrates or lung masses.. The patient to the hospital after being treated for an acute COPD exacerbation the patient was improving and subsequently she had worsening shortness of breath and she end up coming into the hospital again. The chest x-ray again is not showing any pneumonia. The patient has no clear signs of an infection. This is a clear-cut COPD exacerbation in patient with advanced COPD. She has been maintained on a combination of Symbicort and Yupelri and DuoNeb nebulized treatments around the clock. She is a nonsmoker for now. 2 History of acute STEMI and cardiac arrest, Cardiac catheterization revealing normal coronaries, 2018 3 Hyperlipidemia 4 GERD/reflux 5 Osteoarthritis with previous history of orthopedic surgeries 6 colonic diverticulosis Plan: No significant clinical improvement since yesterday We'll continue the same treatment for another 24 hours Continue IV Solu-Medrol Keep O2 and titrate the flow to maintain saturation above 90%, currently on 3 L DuoNeb nebulized treatments around the clock Resume Symbicort and Yupelri can be resumed on outpatient basis. No need for antibiotics Anticipate further improvement Resume all medications
[2022-04-26] MEDS ORDERED: CALCIUM CARBONATE 500 MG CHEWABLE PO PRN (13:16)
[2022-04-26] MEDS: SODIUM CHLORIDE 0.9% 1,000 ML IV SCH (15:23)
--- NOTE | 2022-04-26 18:03 | P.PN ---
Subjective From records: This is a 71-year-old female DF for evaluation of severe shortness of breath by EMS. Going on just over a day or shortness of breath recent hospital admission for COPD. Patient placed on BiPAP on arrival to emergency department secondary significant rust for a stress. Respiratory distress patient cannot provide history but is denying chest pain currently. No fevers. Chest x-ray is consistent with COPD. CAT scan of the chest also showed no evidence of any pulmonary embolism. There was diffuse centrilobular emphysema affecting the upper lobes bilaterally and the patient has no pneumonia. She is fully vaccinated for COVID 19. She has tested negative for the Virus. She is coming in in for worsening shortness of breath. Increased dyspnea, to the point where the patient is unable to perform activities of daily today life. Limited cough,and vitamin production. No hemoptysis. No pleurisy. Chest x-ray still consistent with COPD. She quit smoking approximately a year ago. I'm resuming care of the patient today 04/26/22 This is a pleasant 71 years old female with respiratory distress secondary to acute COPD exacerbation and acute on chronic hypoxic respiratory failure, she was on the 3-D to permit at home and currently she is on 4 L/m. She is kept on some Medrol 60 mg with close monitoring. She is also on Xanax and [place] and Ultram, patient consult about this medication, risks and benefits are explained and she wants to continue with medication. Sodium improved 133 today Objective - Vital Signs Vital signs: Vital Signs Temp 97.8 F 04/26/22 08:00 Pulse 100 04/26/22 08:34 Resp 18 04/26/22 08:00 BP 130/89 04/26/22 08:00 Pulse Ox 98 04/26/22 08:00 FiO2 Intake & Output 04/25/22 04/26/22 04/26/22 18:59 06:59 18:59 Intake Total 1200 500 Balance 1200 500 Intake: Intake, IV Titration 1200 Amount Sodium Chloride 0.9% 1, 1200 000 ml @ 10 mls/hr IV . Q24H [facility] Rx#:[id number] Oral 500 Other: Voiding Method Bedside Commode Bedside Commode External Catheter # Voids 4 # Bowel Movements 0 - Exam GENERAL: The patient is alert and oriented x3, not in any acute distress. Well developed, well nourished. HEENT: Pupils are round and equally reacting to light. EOMI. No scleral icterus. No conjunctival pallor. Normocephalic, atraumatic. No pharyngeal erythema. No thyromegaly. CARDIOVASCULAR: S1 and S2 present. No murmurs, rubs, or gallops. -PULMONARY: Chest is clear to auscultation, no expiratory wheezing ABDOMEN: Soft, nontender, nondistended, normoactive bowel sounds. No palpable o rganomegaly. MUSCULOSKELETAL: No joint swelling or deformity. EXTREMITIES: No cyanosis, clubbing, or pedal edema. NEUROLOGICAL: Gross neurological examination did not reveal any focal deficits. SKIN: No rashes. no petechiae. - Labs CBC & Chem 7: 04/26/22 03:39 04/26/22 03:39 Assessment and Plan Assessment: Acute COPD exacerbation Acute on chronic hypoxic respiratory failure Attention Hyperlipidemia History of peripheral neuropathy History of posterior arthritis History of GERD Plan: This is a pleasant 71 years old female who presents with COPD exacerbation. Continue with Solu-Medrol Continue with oxygen Pulmonary team consult Labs and medication were reviewed.. Continue same treatment. Continue with symptomatic treatment. Resume home medication. Monitor lytes and vitals. DVT and GI prophylaxis. Further recommendations as per clinical course of the patient DVT prophylaxis: Subcutaneous heparin GI Prophylaxis: Pepcid PT/OT: Pending Prognosis is guarded
[2022-04-26] MEDS: ATORVASTATIN 10 MG TAB PO SCH (21:42)
[2022-04-26] MEDS: HEPARIN SODIUM,PORCINE/PF 5,000 UNIT/0.5 ML SYRINGE SQ SCH (21:43)
[2022-04-27] MEDS: methylPREDNISolone SOD SUCCI 125 MG/2 ML VIAL IV SCH ×4 (01:45→17:45)
[2022-04-27] MEDS: DILTIAZEM ORAL 30 MG TAB PO SCH ×2 (06:40→20:41)
[2022-04-27] MEDS: IPRATROPIUM-ALBUTEROL 3 ML NEB INHALATION SCH ×4 (08:39→20:48)
[2022-04-27] MEDS: SYMBICORT 160-4.5 MCG INHALER INHALATION SCH (08:39)
[2022-04-27] MEDS: FAMOTIDINE 20 MG TAB PO SCH ×2 (08:59→20:41)
[2022-04-27] MEDS: METOPROLOL TARTRATE 12.5 MG TAB PO SCH ×2 (08:59→20:41)
[2022-04-27] MEDS: HEPARIN SODIUM,PORCINE/PF 5,000 UNIT/0.5 ML SYRINGE SQ SCH ×2 (08:59→20:42)
[2022-04-27] MEDS: traMADol 50 MG TAB PO SCH ×2 (08:59→20:41)
[2022-04-27] MEDS: GABAPENTIN 300 MG CAP PO SCH ×2 (08:59→20:41)
[2022-04-27] MEDS: SODIUM CHLORIDE 0.9% 1,000 ML IV SCH (12:54)
--- NOTE | 2022-04-27 14:11 | P.PN ---
Subjective Progress Note Date: 04/27/22 Principal diagnosis: Shortness of breath, cough This is a 71-year-old female patient, known history of COPD, ex-smoker, maintained on a combination of Symbicort and Yupelri on outpatient basis, was in the hospital earlier this month for an acute COPD exacerbation, treated and h e was discharged home. The patient was on oxygen at 3 L per minute nasal cannula. Following her discharge, she progressively became more short of breath and she end up coming to the emergency care yesterday because of increased dyspnea. Note that during her last evaluation, she had no evidence of pneumonia. Chest x-ray is consistent with COPD. CAT scan of the chest also showed no evidence of any pulmonary embolism. There was diffuse centrilobular emphysema affecting the upper lobes bilaterally and the patient has no pneumonia. She is fully vaccinated for COVID 19. She has tested negative for the Virus. She is coming in in for worsening shortness of breath. Increased dyspnea, to the point where the patient is unable to perform activities of daily today life. Limited cough,and vitamin production. No hemoptysis. No pleurisy. Chest x-ray still consistent with COPD. She quit smoking approximately a year ago. 04/26/2022, the patient is doing essentially the same as yesterday. Limited improvement since yesterday she continued to bronchospastic and wheezy. No new complaints otherwise for now. No significant chest pain or pleurisy. No altered mentation. She remains on IV Solu-Medrol 60 mg every 6 hours and she is also on DuoNeb nebulized treatments around the clock. The labs from today showed a white cell count of 4.7 with a hemoglobin of 11.2 and a platelet count of 261. The BUN is at 8.9 with a creatinine of 0.4 and sodium level is at 133. The patient has quit smoking. No new complaints otherwise for now. On 04/27/2022 patient seen in follow-up on medical surgical floor. Patient states she is feeling better, but still short of breath with any exertion. She remains on 3 L of oxygen pulse ox is 94%, she's been afebrile, hemodynamically she is stable, she remains on IV Solu-Medrol 60 mg every 6 hours, DuoNeb, and Symbicort. Patient has history of advanced COPD, with baseline FEV1 of 30% of predicted. Her chest x-ray showed no active cardiopulmonary disease. No new labs from today. No chest discomfort, no hemoptysis. Objective - Vital Signs Vital signs: Vital Signs Temp 97.9 F 04/27/22 08:00 Pulse 85 04/27/22 12:30 Resp 18 04/27/22 08:00 BP 146/78 04/27/22 08:00 Pulse Ox 94 L 04/27/22 08:40 FiO2 Intake & Output 04/26/22 04/27/22 04/27/22 18:59 06:59 18:59 Intake Total 720 500 80 Output Total 200 Balance 720 300 80 Intake: Intake, IV Titration 80 Amount Sodium Chloride 0.9% 1, 80 000 ml @ 10 mls/hr IV . Q24H [facility] Rx#:[id number] Oral 720 500 Output: Urine 200 Stool 0 Other: Voiding Method Bedside Commode External Catheter # Voids 5 3 - Exam GENERAL EXAM: Alert, very pleasant, 71-year-old white female on 3 L of oxygen pulse ox of 94% comfortable in no apparent distress. HEAD: Normocephalic/atraumatic. EYES: Normal reaction of pupils, equal size. Conjunctiva pink, sclera white. NOSE: Clear with pink turbinates. THROAT: No erythema or exudates. NECK: No masses, no JVD, no thyroid enlargement, no adenopathy. CHEST: No chest wall deformity. Symmetrical expansion. LUNGS: Equal air entry with diminished breath sounds, and end expiratory wheezes CVS: Regular rate and rhythm, normal S1 and S2, no gallops, no murmurs, no rubs ABDOMEN: Soft, nontender. No hepatosplenomegaly, normal bowel sounds, no guarding or rigidity. EXTREMITIES: No clubbing, no edema, no cyanosis, 2+ pulses and upper and lower extremities. MUSCULOSKELETAL: Muscle strength and tone normal. SPINE: No scoliosis or deformity SKIN: No rashes CENTRAL NERVOUS SYSTEM: Alert and oriented -3. No focal deficits, tone is normal in all 4 extremities. PSYCHIATRIC: Alert and oriented -3. Appropriate affect. Intact judgment and i nsight. - Labs CBC & Chem 7: 04/26/22 03:39 04/26/22 03:39 Assessment and Plan Plan: Assessment: #1. Acute exacerbation of COPD, no evidence of pneumonia. #2. History of acute ST elevated myocardial infarction and cardiac arrest in 2019, cardiac cath showed normal coronary arteries #3. Chronic COPD, stage IV, with baseline FEV1 of 30% of predicted, with chronic hypercapnic respiratory failure #4. History of smoking currently in remission #5. Hyperlipidemia #6. Osteoarthritis #7. Colonic diverticulosis Plan: Patient is slowly improving Continue current medical treatment Continue IV Solu-Medrol, Discontinue Symbicort, and replace with Pulmicort and Perforomist We'll continue to follow her clinical course Will probably need at least another 2 or 3 day of inpatient treatment, possible discharge on if continues to improve I have personally seen and examined the patient, performed the documentation and the assessment and plan as written. Number of minutes spent on the visit: [10] Time with Patient: Less than 30
[2022-04-27] MEDS: ATORVASTATIN 10 MG TAB PO SCH (20:41)
[2022-04-27] MEDS: FORMOTEROL FUMARATE 20 MCG/2 ML NEBU INHALATION SCH (20:48)
[2022-04-27] MEDS: ALBUTEROL NEBULIZED 2.5 MG/3 ML INHALATION PRN (20:48)
[2022-04-27] MEDS: BUDESONIDE 1 MG/2 ML NEBU INHALATION SCH (20:48)
[2022-04-28] MEDS: ALBUTEROL NEBULIZED 2.5 MG/3 ML INHALATION PRN (00:04)
[2022-04-28] MEDS: methylPREDNISolone SOD SUCCI 125 MG/2 ML VIAL IV SCH ×5 (00:54→23:15)
[2022-04-28] MEDS: HEPARIN SODIUM,PORCINE/PF 5,000 UNIT/0.5 ML SYRINGE SQ SCH ×2 (07:28→19:35)
[2022-04-28] MEDS: GABAPENTIN 300 MG CAP PO SCH ×2 (07:28→19:36)
[2022-04-28] MEDS: METOPROLOL TARTRATE 12.5 MG TAB PO SCH ×2 (07:28→19:36)
[2022-04-28] MEDS: DILTIAZEM ORAL 30 MG TAB PO SCH ×2 (07:28→19:36)
[2022-04-28] MEDS: FAMOTIDINE 20 MG TAB PO SCH ×2 (07:28→19:36)
[2022-04-28] MEDS: traMADol 50 MG TAB PO SCH ×2 (07:28→19:36)
[2022-04-28] MEDS: IPRATROPIUM-ALBUTEROL 3 ML NEB INHALATION SCH ×4 (08:15→20:13)
[2022-04-28] MEDS: FORMOTEROL FUMARATE 20 MCG/2 ML NEBU INHALATION SCH (08:15)
[2022-04-28] MEDS: BUDESONIDE 1 MG/2 ML NEBU INHALATION SCH ×2 (08:16→20:13)
--- NOTE | 2022-04-28 11:26 | P.PN ---
Subjective Progress Note Date: 04/28/22 Principal diagnosis: Shortness of breath, cough This is a 71-year-old female patient, known history of COPD, ex-smoker, maintained on a combination of Symbicort and Yupelri on outpatient basis, was in the hospital earlier this month for an acute COPD exacerbation, treated and h e was discharged home. The patient was on oxygen at 3 L per minute nasal cannula. Following her discharge, she progressively became more short of breath and she end up coming to the emergency care yesterday because of increased dyspnea. Note that during her last evaluation, she had no evidence of pneumonia. Chest x-ray is consistent with COPD. CAT scan of the chest also showed no evidence of any pulmonary embolism. There was diffuse centrilobular emphysema affecting the upper lobes bilaterally and the patient has no pneumonia. She is fully vaccinated for COVID 19. She has tested negative for the Virus. She is coming in in for worsening shortness of breath. Increased dyspnea, to the point where the patient is unable to perform activities of daily today life. Limited cough,and vitamin production. No hemoptysis. No pleurisy. Chest x-ray still consistent with COPD. She quit smoking approximately a year ago. 04/26/2022, the patient is doing essentially the same as yesterday. Limited improvement since yesterday she continued to bronchospastic and wheezy. No new complaints otherwise for now. No significant chest pain or pleurisy. No altered mentation. She remains on IV Solu-Medrol 60 mg every 6 hours and she is also on DuoNeb nebulized treatments around the clock. The labs from today showed a white cell count of 4.7 with a hemoglobin of 11.2 and a platelet count of 261. The BUN is at 8.9 with a creatinine of 0.4 and sodium level is at 133. The patient has quit smoking. No new complaints otherwise for now. On 04/27/2022 patient seen in follow-up on medical surgical floor. Patient states she is feeling better, but still short of breath with any exertion. She remains on 3 L of oxygen pulse ox is 94%, she's been afebrile, hemodynamically she is stable, she remains on IV Solu-Medrol 60 mg every 6 hours, DuoNeb, and Symbicort. Patient has history of advanced COPD, with baseline FEV1 of 30% of predicted. Her chest x-ray showed no active cardiopulmonary disease. No new labs from today. No chest discomfort, no hemoptysis. On 04/28/2022 patient seen in follow-up patient is seen in follow-up on medical surgical floor. She is still tight and wheezy, but feels a bit better. She remains on 3/2 L of oxygen and her pulse ox is 93%. He is awake and alert, oriented 3, no complaints of chest discomfort, still coughs, and still has exertional dyspnea. She states that she could not tolerate the new breathing treatments yesterday we switched the patient from Symbicort to Pulmicort and Perforomist, and she stated that in addition to DuoNeb was just too much, and was making her more short of breath. But no fever or chills, no hemoptysis, no chest discomfort. She remains on breathing treatments with DuoNeb, we'll discontinue performance and continue with Pulmicort. No new labs today. Objective - Vital Signs Vital signs: Vital Signs Temp 97.6 F 04/28/22 07:33 Pulse 89 04/28/22 08:31 Resp 23 04/28/22 07:33 BP 183/94 04/28/22 07:33 Pulse Ox 93 L 04/28/22 07:33 FiO2 Intake & Output 04/27/22 04/28/22 04/28/22 18:59 06:59 18:59 Intake Total 80 180 Output Total 200 650 Balance -120 -650 180 Intake: Intake, IV Titration 80 Amount Sodium Chloride 0.9% 1, 80 000 ml @ 10 mls/hr IV . Q[facility]H [facility] Rx#:[id number] Oral 180 Output: Urine 200 650 Other: Voiding Method Bedside Commode External Catheter - Exam GENERAL EXAM: Alert, very pleasant, 71-year-old white female on 3,5 L of oxygen pulse ox of 94% comfortable in no apparent distress. HEAD: Normocephalic/atraumatic. EYES: Normal reaction of pupils, equal size. Conjunctiva pink, sclera white. NOSE: Clear with pink turbinates. THROAT: No erythema or exudates. NECK: No masses, no JVD, no thyroid enlargement, no adenopathy. CHEST: No chest wall deformity. Symmetrical expansion. LUNGS: Equal air entry with diminished breath sounds, and end expiratory wheezes CVS: Regular rate and rhythm, normal S1 and S2, no gallops, no murmurs, no rubs ABDOMEN: Soft, nontender. No hepatosplenomegaly, normal bowel sounds, no guarding or rigidity. EXTREMITIES: No clubbing, no edema, no cyanosis, 2+ pulses and upper and lower extremities. MUSCULOSKELETAL: Muscle strength and tone normal. SPINE: No scoliosis or deformity SKIN: No rashes CENTRAL NERVOUS SYSTEM: Alert and oriented -3. No focal deficits, tone is normal in all 4 extremities. PSYCHIATRIC: Alert and oriented -3. Appropriate affect. Intact judgment and insight. - Labs CBC & Chem 7: 04/26/22 03:39 04/26/22 03:39 Assessment and Plan Plan: Assessment: #1. Acute exacerbation of COPD, no evidence of pneumonia. #2. History of acute ST elevated myocardial infarction and cardiac arrest in 2019, cardiac cath showed normal coronary arteries #3. Chronic COPD, stage IV, with baseline FEV1 of 30% of predicted, with chronic hypercapnic respiratory failure #4. History of smoking currently in remission #5. Hyperlipidemia #6. Osteoarthritis #7. Colonic diverticulosis Plan: Continue DuoNeb Continue Pulmicort, we will discontinue Perforomist, the patient was complaining that it was making her more short of breath Continue IV steroids We'll continue to monitor patient's progress Still tight and wheezy, short of breath not ready for discharge I have personally seen and examined the patient, performed the documentation and the assessment and plan as written. Number of minutes spent on the visit: [10] Time with Patient: Less than 30
[2022-04-28] MEDS: ALPRAZolam 0.25 MG TAB PO PRN (17:01)
[2022-04-28] MEDS: ATORVASTATIN 10 MG TAB PO SCH (19:36)
--- NOTE | 2022-04-28 21:43 | P.PN ---
Subjective From records: This is a 71-year-old female DF for evaluation of severe shortness of breath by EMS. Going on just over a day or shortness of breath recent hospital admission for COPD. Patient placed on BiPAP on arrival to emergency department secondary significant rust for a stress. Respiratory distress patient cannot provide history but is denying chest pain currently. No fevers. Chest x-ray is consistent with COPD. CAT scan of the chest also showed no evidence of any pulmonary embolism. There was diffuse centrilobular emphysema affecting the upper lobes bilaterally and the patient has no pneumonia. She is fully vaccinated for COVID 19. She has tested negative for the Virus. She is coming in in for worsening shortness of breath. Increased dyspnea, to the point where the patient is unable to perform activities of daily today life. Limited cough,and vitamin production. No hemoptysis. No pleurisy. Chest x-ray still consistent with COPD. She quit smoking approximately a year ago. I'm resuming care of the patient today 04/26/22 This is a pleasant 71 years old female with respiratory distress secondary to acute COPD exacerbation and acute on chronic hypoxic respiratory failure, she was on the 3-D to permit at home and currently she is on 4 L/m. She is kept on some Medrol 60 mg with close monitoring. She is also on Xanax and [place] and Ultram, patient consult about this medication, risks and benefits are explained and she wants to continue with medication. Sodium improved 133 today 04/28/2022 Patient remains dyspneic although she is improving slowly and gradually. She still significantly wheezing. She still dyspneic especially with exertion Continue with Solu-Medrol and breathing treatment and Pulmicort Check labs tomorrow morning Objective - Vital Signs Vital signs: Vital Signs Temp 97.6 F 04/28/22 07:33 Pulse 90 04/28/22 11:39 Resp 23 04/28/22 07:33 BP 183/94 04/28/22 07:33 Pulse Ox 93 L 04/28/22 07:33 FiO2 Intake & Output 04/27/22 04/28/22 04/28/22 18:59 06:59 18:59 Intake Total 80 180 Output Total 200 650 Balance -120 -650 180 Intake: Intake, IV Titration 80 Amount Sodium Chloride 0.9% 1, 80 000 ml @ 10 mls/hr IV . Q24H [facility] Rx#:[id number] Oral 180 Output: Urine 200 650 Other: Voiding Method Bedside Commode External Catheter - Exam GENERAL: The patient is alert and oriented x3, not in any acute distress. Well developed, well nourished. HEENT: Pupils are round and equally reacting to light. EOMI. No scleral icterus. No conjunctival pallor. Normocephalic, atraumatic. No pharyngeal erythema. No thyromegaly. CARDIOVASCULAR: S1 and S2 present. No murmurs, rubs, or gallops. -PULMONARY: Chest is clear to auscultation, no expiratory wheezing ABDOMEN: Soft, nontender, nondistended, normoactive bowel sounds. No palpable organomegaly. MUSCULOSKELETAL: No joint swelling or deformity. EXTREMITIES: No cyanosis, clubbing, or pedal edema. NEUROLOGICAL: Gross neurological examination did not reveal any focal deficits. SKIN: No rashes. no petechiae. - Labs CBC & Chem 7: 04/26/22 03:39 04/26/22 03:39 Assessment and Plan Assessment: Acute COPD exacerbation Acute on chronic hypoxic respiratory failure Attention Hyperlipidemia History of peripheral neuropathy History of posterior arthritis History of GERD Plan: This is a pleasant 71 years old female who presents with COPD exacerbation. Continue with Solu-Medrol Continue with oxygen Pulmonary team consult Labs and medication were reviewed.. Continue same treatment. Continue with symptomatic treatment. Resume home medication. Monitor lytes and vitals. DVT and GI prophylaxis. Further recommendations as per clinical course of the patient DVT prophylaxis: Subcutaneous heparin GI Prophylaxis: Pepcid PT/OT: Pending Prognosis is guarded
[2022-04-29] MEDS: methylPREDNISolone SOD SUCCI 125 MG/2 ML VIAL IV SCH (05:24)
[2022-04-29] MEDS: traMADol 50 MG TAB PO SCH (07:42)
[2022-04-29] MEDS: FAMOTIDINE 20 MG TAB PO SCH (07:42)
[2022-04-29] MEDS: METOPROLOL TARTRATE 12.5 MG TAB PO SCH (07:42)
[2022-04-29] MEDS: DILTIAZEM ORAL 30 MG TAB PO SCH (07:43)
[2022-04-29] MEDS: GABAPENTIN 300 MG CAP PO SCH (07:43)
[2022-04-29] MEDS: HEPARIN SODIUM,PORCINE/PF 5,000 UNIT/0.5 ML SYRINGE SQ SCH (07:44)
[2022-04-29] MEDS: IPRATROPIUM-ALBUTEROL 3 ML NEB INHALATION SCH ×2 (07:51→11:42)
[2022-04-29] MEDS: BUDESONIDE 1 MG/2 ML NEBU INHALATION SCH (07:51)
[2022-04-29] MEDS: ALPRAZolam 0.25 MG TAB PO PRN (08:28)
[2022-04-29] MEDS ORDERED: predniSONE 20 MG TAB PO SCH (09:00)
[2022-04-29 09:12] LABS: Magnesium 2.2 mg/dL (1.5-2.4)
[2022-04-29 09:23] LABS: BUN/Creat Ratio 29.83 Ratio (12.00-20.00)
[2022-04-29 09:24] LABS: Anion Gap 4.3 mmol/L (10.00-18.00); Blood Urea Nitrogen 15.9 mg/dL (9.0-27.0); Calcium 9.3 mg/dL (8.7-10.3); Carbon Dioxide 40.1 mmol/L (20.0-27.5); Non-African American GFR(CKD) 94.7 (60.0-200.0); Potassium 4.8 mmol/L (3.5-5.5)
[2022-04-29 09:51] LABS: African American GFR (CKD) 109.7 (60.0-200.0)
--- NOTE | 2022-04-29 11:30 | P.PN ---
Subjective Progress Note Date: 04/29/22 Principal diagnosis: Shortness of breath, cough This is a 71-year-old female patient, known history of COPD, ex-smoker, maintained on a combination of Symbicort and Yupelri on outpatient basis, was in the hospital earlier this month for an acute COPD exacerbation, treated and h e was discharged home. The patient was on oxygen at 3 L per minute nasal cannula. Following her discharge, she progressively became more short of breath and she end up coming to the emergency care yesterday because of increased dyspnea. Note that during her last evaluation, she had no evidence of pneumonia. Chest x-ray is consistent with COPD. CAT scan of the chest also showed no evidence of any pulmonary embolism. There was diffuse centrilobular emphysema affecting the upper lobes bilaterally and the patient has no pneumonia. She is fully vaccinated for COVID 19. She has tested negative for the Virus. She is coming in in for worsening shortness of breath. Increased dyspnea, to the point where the patient is unable to perform activities of daily today life. Limited cough,and vitamin production. No hemoptysis. No pleurisy. Chest x-ray still consistent with COPD. She quit smoking approximately a year ago. 04/26/2022, the patient is doing essentially the same as yesterday. Limited improvement since yesterday she continued to bronchospastic and wheezy. No new complaints otherwise for now. No significant chest pain or pleurisy. No altered mentation. She remains on IV Solu-Medrol 60 mg every 6 hours and she is also on DuoNeb nebulized treatments around the clock. The labs from today showed a white cell count of 4.7 with a hemoglobin of 11.2 and a platelet count of 261. The BUN is at 8.9 with a creatinine of 0.4 and sodium level is at 133. The patient has quit smoking. No new complaints otherwise for now. On 04/27/2022 patient seen in follow-up on medical surgical floor. Patient states she is feeling better, but still short of breath with any exertion. She remains on 3 L of oxygen pulse ox is 94%, she's been afebrile, hemodynamically she is stable, she remains on IV Solu-Medrol 60 mg every 6 hours, DuoNeb, and Symbicort. Patient has history of advanced COPD, with baseline FEV1 of 30% of predicted. Her chest x-ray showed no active cardiopulmonary disease. No new labs from today. No chest discomfort, no hemoptysis. On 04/28/2022 patient seen in follow-up patient is seen in follow-up on medical surgical floor. She is still tight and wheezy, but feels a bit better. She remains on 3/2 L of oxygen and her pulse ox is 93%. He is awake and alert, oriented 3, no complaints of chest discomfort, still coughs, and still has exertional dyspnea. She states that she could not tolerate the new breathing treatments yesterday we switched the patient from Symbicort to Pulmicort and Perforomist, and she stated that in addition to DuoNeb was just too much, and was making her more short of breath. But no fever or chills, no hemoptysis, no chest discomfort. She remains on breathing treatments with DuoNeb, we'll discontinue performance and continue with Pulmicort. No new labs today. On 04/29/2022 patient seen in follow-up on medical surgical floor. Patient is doing much better, breathing more comfortably, less dyspneic and bronchospastic she remains on 3 L of oxygen pulse ox is 93%, no fever or chills, no complaints of chest discomfort. She remains on breathing treatments, with DuoNeb and Pulmicort, we discontinued Perforomist yesterday, her IV steroids can be transitioned to oral prednisone. She's had no acute events overnight, she thinks that she is ready to go home today Objective - Vital Signs Vital signs: Vital Signs Temp 97.8 F 04/29/22 07:28 Pulse 82 04/29/22 08:01 Resp 20 04/29/22 08:01 BP 171/72 04/29/22 07:28 Pulse Ox 93 L 04/29/22 07:28 FiO2 Intake & Output 04/28/22 04/29/22 04/29/22 18:59 06:59 18:59 Intake Total 180 180 Output Total 300 Balance -120 180 Intake: Oral 180 180 Output: Urine 300 Other: # Bowel Movements 1 - Exam GENERAL EXAM: Alert, very pleasant, 71-year-old white female on 3,5 L of oxygen pulse ox of 94% comfortable in no apparent distress. HEAD: Normocephalic/atraumatic. EYES: Normal reaction of pupils, equal size. Conjunctiva pink, sclera white. NOSE: Clear with pink turbinates. THROAT: No erythema or exudates. NECK: No masses, no JVD, no thyroid enlargement, no adenopathy. CHEST: No chest wall deformity. Symmetrical expansion. LUNGS: Equal air entry with diminished breath sounds, and end expiratory wheezes CVS: Regular rate and rhythm, normal S1 and S2, no gallops, no murmurs, no rubs ABDOMEN: Soft, nontender. No hepatosplenomegaly, normal bowel sounds, no guarding or rigidity. EXTREMITIES: No clubbing, no edema, no cyanosis, 2+ pulses and upper and lower extremities. MUSCULOSKELETAL: Muscle strength and tone normal. SPINE: No scoliosis or deformity SKIN: No rashes CENTRAL NERVOUS SYSTEM: Alert and oriented -3. No focal deficits, tone is normal in all 4 extremities. PSYCHIATRIC: Alert and oriented -3. Appropriate affect. Intact judgment and insight. - Labs CBC & Chem 7: 04/26/22 03:39 04/29/22 05:36 Labs: Abnormal Lab Results - Last 24 Hours (Table) 04/29/22 Range/Units 05:36 Sodium 133 L (135-145) mmol/L Chloride 88 L (96-109) mmol/L Carbon Dioxide 40.1 H* (20.0-27.5) mmol/L Anion Gap 4.30 L (10.00-18.00) mmol/L Creatinine 0.5 L (0.6-1.5) mg/dL BUN/Creatinine Ratio 29.83 H (12.00-20.00) Ratio Glucose 122 H (70-110) mg/dL Assessment and Plan Plan: Assessment: #1. Acute exacerbation of COPD, no evidence of pneumonia. #2. History of acute ST elevated myocardial infarction and cardiac arrest in 2019, cardiac cath showed normal coronary arteries #3. Chronic COPD, stage IV, with baseline FEV1 of 30% of predicted, with chronic hypercapnic respiratory failure #4. History of smoking currently in remission #5. Hyperlipidemia #6. Osteoarthritis #7. Colonic diverticulosis Plan: Patient is improving Switch IV Solu-Medrol to oral prednisone 40 mg Increase activity as tolerated Patient can resume her maintenance inhaler Outpatient follow-up with Dr. Robles in the office in 7-10 days Stable for discharge home today I have personally seen and examined the patient, performed the documentation and the assessment and plan as written. Number of minutes spent on the visit: [10] Time with Patient: Less than 30
[2022-04-29 14:34] VITALS: BP 161/78; PULSE 90; RESP 18; TEMP 97.9
--- NOTE | 2022-04-29 18:28 | P.DS ---
Providers Date of admission: 04/25/22 00:40 Attending physician: Josef So MD Consults: 04/25/22 00:40 Consult Physician Routine Consulting Provider: Leroy Dubose Consult Reason/Comments: hypoxia Do you want consulting provider notified?: Yes Primary care physician: Vern Rodriguez [place] Hospital Course: Hospital course: Diagnoses: Acute COPD exacerbation Acute on chronic hypoxic respiratory failure Attention Hyperlipidemia History of peripheral neuropathy History of posterior arthritis History of GERD This is a 71-year-old female DF for evaluation of severe shortness of breath by EMS. Going on just over a day or shortness of breath recent hospital admission for COPD. Patient placed on BiPAP on arrival to emergency department secondary significant rust for a stress. Patient has been evaluated by x ray electronics wiring technician and treated with IV Solu-Medrol, patient showed interval improvement and she is back to her baseline of a breathing, she is at 3 L/m of oxygen which is his baseline. Also her steroids are switched to prednisone. Patient was cleared for discharge by pulmonary team Patient denies any other symptoms. No chest pain or dizziness. No headache or weakness or numbness. No change in urine or bowel habits. No fever. Problems and management plan were discussed with the patient and he verbalized understanding and acceptance Patient was found stable and can be discharged home and guarded prognosis however he needs follow-up as an outpatient. Patient was instructed to follow up with PCP Dr. Rodriguez within one week and patient agrees Patient was instructed to follow up with pulmonary just Dr. Robles and she agrees with the appointments made for her on stating and she will follow up Physical exam Gen: patient is a AAOx3, no distress CVS: S1-S2, RRR, no murmur -Lungs: B/L CTA, mild bilateral scattered wheezing Abdomen: soft, no distention, no tenderness, positive bowel sounds Extremity: no leg edema or induration Time spent more than 35 minutes Patient Condition at Discharge: Serious Plan - Discharge Summary Discharge Rx Participant: Yes New Discharge Prescriptions: New predniSONE 10 mg PO DIRECTED #40 tab Continue Budesonide-Formot 160-4.5 Mcg [Symbicort 160-4.5 Mcg Inhaler] 2 puff INHALATION RT-BID Ubidecarenone [Co Q-10] 100 mg PO DAILY traMADol HCL [Ultram] 50 mg PO BID Gabapentin [Neurontin] 300 mg PO BID Denosumab [Prolia] 60 mg SQ Q180D HYDROcodone/APAP 10-325MG [Letcher 10-325] 1 tab PO Q6HR PRN PRN Reason: Pain Famotidine [Pepcid] 20 mg PO BID Metoprolol Tartrate [Lopressor] 12.5 mg PO BID Atorvastatin Calcium [Lipitor] 10 mg PO HS [place]-3 Fatty Acids/Fish Oil [Fish Oil 1,000 mg Softgel] 1 cap PO DAILY Ergocalciferol [Vitamin D2 (1250 Mcg = 98646 Iu)] 1,250 mcg PO Q30D Diltiazem Oral [Cardizem*] 30 mg PO BID Discharge Medication List Budesonide-Formot 160-4.5 Mcg [Symbicort 160-4.5 Mcg Inhaler] 2 puff INHALATION RT-BID 04/03/19 [History] Gabapentin [Neurontin] 300 mg PO BID 05/16/19 [History] Ubidecarenone [Co Q-10] 100 mg PO DAILY 05/16/19 [History] traMADol HCL [Ultram] 50 mg PO BID 05/16/19 [History] Denosumab [Prolia] 60 mg SQ Q180D 11/06/19 [History] Famotidine [Pepcid] 20 mg PO BID 11/06/19 [History] HYDROcodone/APAP 10-325MG [[place]cher 10-325] 1 tab PO Q6HR PRN 11/06/19 [History] Atorvastatin Calcium [Lipitor] 10 mg PO HS 03/28/22 [History] Diltiazem Oral [Cardizem*] 30 mg PO BID 03/28/22 [History] Ergocalciferol [Vitamin D2 (1250 Mcg = 71786 Iu)] 1,250 mcg PO Q30D 03/28/22 [History] Metoprolol Tartrate [Lopressor] 12.5 mg PO BID 03/28/22 [History] [place]-3 Fatty Acids/Fish Oil [Fish Oil 1,000 mg Softgel] 1 cap PO DAILY 03/28/22 [History] predniSONE 10 mg PO DIRECTED #40 tab 04/29/22 [Rx] Follow up Appointment(s)/Referral(s): Jason Robles DO [Doctor of Osteopathic Medicine] - 05/13/22 2:30 pm Vern Rodriguez DO [Primary Care Provider] - 05/04/22 10:15 am [facility] Visiting Nurse, [NON-STAFF] - As Needed Patient Instructions/Handouts: COPD (Chronic Obstructive Pulmonary Disease) (DC) Activity/Diet/Wound Care/Special Instructions: Low carbohydrate 1600 kcal per day diet Activity is restricted till you see your doctor Discharge Disposition: HOME WITH HOME HEALTH SERVICES
== END 2022-04-29 14:54 | disposition home health service (06) | DRG 190 ==
LOC: EC 23:05 → 4SSUR 04-25 00:40
PROVIDERS: ADMIT Internal Medicine; ATTEND Internal Medicine
PROC: 5A09357 Assistance with Respiratory Ventilation, Less than 24 Consecutive Hours, Continuous Positive Airway Pressure (ICD-10-PCS; principal; 2022-04-25)
DX: J43.2 Centrilobular emphysema (principal); J96.21 Acute and chronic respiratory failure with hypoxia; J96.22 Acute and chronic respiratory failure with hypercapnia; E78.5 Hyperlipidemia, unspecified; F41.9 Anxiety disorder, unspecified; G62.9 Polyneuropathy, unspecified; G89.29 Other chronic pain; H91.90 Unspecified hearing loss, unspecified ear; I10 Essential (primary) hypertension; G43.909 Migraine, unspecified, not intractable, without status migrainosus; K57.30 Diverticulosis of large intestine without perforation or abscess without bleeding; I25.2 Old myocardial infarction; K21.9 Gastro-esophageal reflux disease without esophagitis; M19.90 Unspecified osteoarthritis, unspecified site; M81.0 Age-related osteoporosis without current pathological fracture; Z79.51 Long term (current) use of inhaled steroids; Z79.899 Other long term (current) drug therapy; Z82.49 Family history of ischemic heart disease and other diseases of the circulatory system; Z86.74 Personal history of sudden cardiac arrest; Z87.891 Personal history of nicotine dependence; Z96.651 Presence of right artificial knee joint; Z98.42 Cataract extraction status, left eye; Z98.41 Cataract extraction status, right eye; Z88.8 Allergy status to other drugs, medicaments and biological substances; Z88.1 Allergy status to other antibiotic agents
CPT/HCPCS: 36415; 71045; 80048; 80053; 83605; 83735; 83880; 84484; 85025; 85610; 85730; 93005; 94640; 94760; 96361; 96374; 99291

== ENCOUNTER → 2022-10-05 | Outpatient (CLI) | payer MEDICARE, BC ==
[~2022-10-05] MED LIST changes: +DENOSUMAB 60 MG/ML 1 ML SYRINGE SQ NR; -DENOSUMAB 60 MG/ML 1 ML SYRINGE SQ ONE
[2022-10-05 12:47] VITALS: BP 152/67; PULSE 80; RESP 20; TEMP 98.1
== END ==
LOC: PROCWHC3 12:36
PROVIDERS: ATTEND Family Medicine
DX: M81.0 Age-related osteoporosis without current pathological fracture (principal); Z88.1 Allergy status to other antibiotic agents; Z88.8 Allergy status to other drugs, medicaments and biological substances; Z87.891 Personal history of nicotine dependence
CPT/HCPCS: 96372

== ENCOUNTER → 2023-05-05 | Outpatient (CLI) | payer MEDICARE, BC ==
[2023-05-05 13:14] VITALS: BP 117/67; PULSE 69; RESP 16; TEMP 98.6
== END ==
LOC: PROCWHC3 12:34
PROVIDERS: ATTEND Family Medicine
DX: M81.0 Age-related osteoporosis without current pathological fracture (principal)
CPT/HCPCS: 96372; J0897

== ENCOUNTER 2023-05-15 15:21 | Inpatient (IN) | payer MEDICARE, BC ==
[2023-05-15] MEDS ORDERED: ACETAMINOPHEN IV (For NPO) 1,000 MG in EMPTY BAG 1 BAG IVPB STA (15:35)
[2023-05-15] MEDS ORDERED: IBUPROFEN IV 600 MG in SODIUM CHLORIDE 0.9% 250 ML IV ONE (15:35)
[2023-05-15] MEDS ORDERED: SODIUM CHLORIDE 0.9% 1,000 ML IV STA (15:35)
--- NOTE | 2023-05-15 15:37 | ED ---
SOB HPI - General Chief Complaint: Shortness of Breath Stated Complaint: sob Time Seen by Provider: 05/15/23 15:35 Source: patient, RN notes reviewed, old records reviewed Mode of arrival: EMS Limitations: no limitations - History of Present Illness Initial Comments: This is a 72-year-old female. This patient presents today for evaluation of fever cough shortness of breath weakness not feeling well. Dizziness a she was feeling hot and cold with increased shortness of breath and cough. No current chest pain. No recent travel history or sick contacts. MD Complaint: shortness of breath, cough -: days(s) Severity: moderate, severe Severity scale (1-10): 10 - Related Data Home Medications Medication Instructions Recorded Confirmed Budesonide-Formot 160-4.5 Mcg 2 puff INHALATION RT-BID 04/03/19 05/15/23 [Symbicort 160-4.5 Mcg Inhaler] Gabapentin [Neurontin] 300 mg PO BID 05/16/19 05/15/23 Ubidecarenone [Co Q-10] 100 mg PO DAILY 05/16/19 05/15/23 traMADol HCL [Ultram] 50 mg PO DAILY 05/16/19 05/15/23 Famotidine [Pepcid] 20 mg PO BID 11/06/19 05/15/23 HYDROcodone/APAP 10-325MG [[place] 1 tab PO Q6H 11/06/19 05/15/23 10-325] Atorvastatin Calcium [Lipitor] 10 mg PO HS 03/28/22 05/15/23 Diltiazem Oral [Cardizem*] 30 mg PO BID 03/28/22 05/15/23 Ergocalciferol [Vitamin D2 (1250 2,500 mcg PO Q30D 03/28/22 05/15/23 Mcg = 21502 Iu)] Metoprolol Tartrate [Lopressor] 12.5 mg PO BID 03/28/22 05/15/23 Albuterol Inhaler [Ventolin Hfa 2 puff INHALATION RT-BID 05/15/23 05/15/23 Inhaler] Dorzolamide 2% [Trusopt 2%] 1 drop BOTH EYES BID 05/15/23 05/15/23 Memantine [Namenda] 5 mg PO BID 05/15/23 05/15/23 predniSONE 5 mg PO DAILY 05/15/23 05/15/23 Allergies Allergy/AdvReac Type Severity Reaction Status Date / Time dextromethorphan Allergy Unknown Verified 05/15/23 18:56 [From Mucinex DM] guaifenesin [From Mucinex DM] Allergy Diarrhea Verified 05/15/23 18:56 diltiazem AdvReac Intermediate Abdominal Verified 05/15/23 18:56 Pain alprazolam [From Xanax] AdvReac Anaphylaxis Verified 05/15/23 18:56 donepezil [From Aricept] AdvReac Nausea & Verified 05/15/23 18:56 Vomiting levofloxacin [From Levaquin] AdvReac Nausea, Verified 05/15/23 18:56 Diarrhea , States she got C-Diff after, Migraines roflumilast [From Daliresp] AdvReac Nausea & Verified 05/15/23 18:56 Vomiting & Diarrhea Review of Systems ROS Statement: Those systems with pertinent positive or pertinent negative responses have been documented in the HPI. ROS Other: All systems not noted in ROS Statement are negative. Past Medical History Past Medical History: COPD, GERD/Reflux, Hearing Disorder / Deafness, Hypertension, Osteoarthritis (OA), Respiratory Disorder Additional Past Medical History / Comment(s): HX POLYPS, DIVERTICULI. Osteoporosis. ICU - History of Any Multi-Drug Resistant Organisms: C-DIFF Date of last positivie culture/infection: 2013 approx MDRO Source:: stool Past Surgical History: Back Surgery, Bowel Resection, Joint Replacement, Orthopedic Surgery Additional Past Surgical History / Comment(s): RIGHT KNEE REPLACEMENT, LEFT LEG ORIF-removed, LIZZIE CARPAL TUNNEL,. Bilateral cataract surgery,plate rt foot Additional Past Anesthesia/Blood Transfusion Reaction / Comment(s): STATES NO EPIDURALS R/T GETTING SEVERE MIGRAINES Past Psychological History: No Psychological Hx Reported Smoking Status: Former smoker - Past Family History Mother Family Medical History: Hypertension Father Family Medical History: Cancer Additional Family Medical History / Comment(s): aneurysms,prostate General Exam Limitations: no limitations, altered mental status General appearance: anxious, in distress Head exam: Present: atraumatic, normocephalic, normal inspection Eye exam: Present: normal appearance, PERRL, EOMI. Absent: scleral icterus, conjunctival injection, periorbital swelling ENT exam: Present: normal exam, mucous membranes moist Neck exam: Present: normal inspection. Absent: tenderness, meningismus, lymphadenopathy Respiratory exam: Present: respiratory distress, wheezes, accessory muscle use, decreased breath sounds, prolonged expiratory. Absent: rales, rhonchi, stridor Cardiovascular Exam: Present: regular rate, normal rhythm, normal heart sounds. Absent: systolic murmur, diastolic murmur, rubs, gallop, clicks GI/Abdominal exam: Present: soft, normal bowel sounds. Absent: distended, tenderness, guarding, rebound, rigid Extremities exam: Present: normal inspection, full ROM, normal capillary refill. Absent: tenderness, pedal edema, joint swelling, calf tenderness Back exam: Present: normal inspection Neurological exam: Present: alert, oriented X3, CN II-XII intact Psychiatric exam: Present: normal affect, normal mood Skin exam: Present: warm, dry, intact, normal color. Absent: rash Course Vital Signs 05/15/23 05/15/23 05/15/23 15:22 17:25 17:42 Temperature 100.5 F H Pulse Rate 110 H 95 108 H Pulse Rate [ Right] Respiratory 20 24 Rate Blood Pressure 160/77 Blood Pressure [Right Arm] O2 Sat by Pulse 97 94 L Oximetry Fraction of Inspired Oxygen (FIO2) 05/15/23 05/15/23 05/15/23 17:51 18:00 22:15 Temperature 98.5 F 98.1 F Pulse Rate 98 100 93 Pulse Rate [ Right] Respiratory 22 22 Rate Blood Pressure 139/67 Blood Pressure [Right Arm] O2 Sat by Pulse 95 94 L Oximetry Fraction of Inspired Oxygen (FIO2) 05/15/23 05/16/23 05/16/23 23:55 00:13 00:21 Temperature Pulse Rate 115 H 122 H Pulse Rate [ Right] Respiratory 24 40 H Rate Blood Pressure 161/80 129/56 Blood Pressure [Right Arm] O2 Sat by Pulse 98 96 Oximetry Fraction of 40 Inspired Oxygen (FIO2) 05/16/23 05/16/23 05/16/23 00:41 00:46 01:54 Temperature Pulse Rate 117 H Pulse Rate [ Right] Respiratory 26 H Rate Blood Pressure 188/93 Blood Pressure [Right Arm] O2 Sat by Pulse 91 L Oximetry Fraction of 35 35 Inspired Oxygen (FIO2) 05/16/23 05/16/23 05/16/23 02:31 03:20 03:30 Temperature 98.2 F Pulse Rate 106 H Pulse Rate [ 119 H Right] Respiratory Rate Blood Pressure Blood Pressure 164/72 [Right Arm] O2 Sat by Pulse 90 L 94 L Oximetry Fraction of 35 Inspired Oxygen (FIO2) 05/16/23 03:40 Temperature Pulse Rate 104 H Pulse Rate [ Right] Respiratory Rate Blood Pressure Blood Pressure [Right Arm] O2 Sat by Pulse Oximetry Fraction of 35 Inspired Oxygen (FIO2) - Reevaluation(s) Reevaluation #1: 05/15/23 19:44 Medical records reviewed Reevaluation #2: 05/15/23 19:44 Patient is improved here in the ER Patient was reevaluated having significant coughing attack and desaturation oxygen in the 70s, patient was given repeated breathing treatment and BiPAP was placed at standby Patient's breathing and continued to improve Reevaluation #3: 05/15/23 19:45 Patient informed of results questions answered Reevaluation #4: 05/15/23 19:44 Was pt. sent in by a medical professional or institution? @ -no Did you speak to anyone other than the patient for history? @ -no Did you review nursing and triage notes? @ -agree Were old charts reviewed? @ -no Differential Diagnosis? @ -prior EKG interpreted by me (3pts min.)? @ -yes X-rays interpreted by me (1pt min.)? @ -yes CT interpreted by me (1pt min.)? @ -no U/S interpreted by me (1pt. min.)? @ -no What testing was considered but not performed? (CT, X-rays, U/S, labs)? Why? @ -no What meds were considered but not given? Why? @ -no Did you discuss the management of the patient with other professionals? @ -no Did you reconcile home meds? @ -no Was smoking cessation discussed for >3mins.? @ -no Was critical care preformed (if so, how long)? @ -no Were there social determinants of health that impacted care today? How? (Homelessness, low income, unemployed, alcoholism, drug addiction, transportation, low edu. Level, literacy, decrease access to med. care, [facility], rehab)? @ -no Was there de-escalation of care discussed even if they declined? (Discuss DNR or withdrawal of care, Hospice)? @ -no What co-morbidities impacted this encounter? (DM, HTN, Smoking, COPD, CAD, Cancer, CVA, Hep., AIDS, mental health diagnosis, sleep apnea, morbid obesity)? @ -none Was patient admitted / discharged? @ -72 History female to the emergency department for evaluation of weakness lightheadedness dizziness fever severe shortness of breath and COPD exacerbation and severe cough. 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 @ -no Drug Therapy requiring intensive monitoring for toxicity (Heparin, Nitro, Insulin, Cardizem)? @ -no Were any procedures done? @ -no Diagnosis/symptom? @ -Severe COPD exacerbation Acute, or Chronic, or Acute on Chronic? @ -no Uncomplicated (without systemic symptoms) or Complicated (systemic symptoms)? @ -uncomplicated Side effects of treatment? @ -no Exacerbation, Progression, or Severe Exacerbation] @ -no Poses a threat to life or bodily function? @ -yes COPD with hypoxia Reevaluation #5: 05/15/23 19:44 Differential Dyspnea: Coronary syndrome, arrhythmia, tamponade, asthma, COPD, pulmonary embolism, pneumonia, pneumothorax, pulmonary effusion, anaphylaxis, diabetic ketoacidosis, flailed chest, pulmonary contusion, diaphragmatic rupture, anemia, neuromuscular, this is not meant to be an all-inclusive list. Differential Fever: Pneumonia, viral URI, endocarditis, myocarditis, pericarditis, otitis, sinusitis, peritonsillar Abscess, retropharyngeal Abscess, epiglottitis, peritonitis, appendicitis, Eve cystitis, diverticulitis, hepatitis, colitis, UTI, PID, TOA, pyelonephritis, prostatitis, epididymitis, meningitis, encephalitis, pulmonary embolism, CVA, thyroid storm, pancreatitis, adrenal crisis, cavernous sinus thrombosis, this is not meant to be an all-inclusive list. - Consultations Consultation #1: Spoke with admitting physicians regarding admission and agreeable Medical Decision Making - Medical Decision Making 72 History female to the emergency department for evaluation of weakness lightheadedness dizziness fever severe shortness of breath and COPD exacerbation and severe cough. 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2) k/uL PT 10.2 (9.0-12.0) sec INR 1.0 (<1.2) APTT 25.6 (22.0-30.0) sec Sodium (137-145) mmol/L Potassium (3.5-5.1) mmol/L Chloride (98-107) mmol/L Carbon Dioxide (22-30) mmol/L Anion Gap mmol/L BUN (7-17) mg/dL Creatinine (0.52-1.04) mg/dL Est GFR (CKD-EPI)AfAm (>60 ml/min/1.73 sqM) Est GFR (CKD-EPI)NonAf (>60 ml/min/1.73 sqM) Glucose (74-99) mg/dL Plasma Lactic Acid Robert (0.7-2.0) mmol/L Calcium (8.4-10.2) mg/dL Magnesium (1.6-2.3) mg/dL Total Bilirubin (0.2-1.3) mg/dL AST (14-36) U/L ALT (4-34) U/L Alkaline Phosphatase (38-126) U/L Troponin I (0.000-0.034) ng/mL NT-Pro-B Natriuret Pep pg/mL Total Protein (6.3-8.2) g/dL Albumin (3.5-5.0) g/dL Influenza Type A (PCR) Not Detected (Not Detectd) Influenza Type B (PCR) Not Detected (Not Detectd) RSV (PCR) Not Detected (Not Detectd) SARS-CoV-2 (PCR) Not Detected (Not Detectd) 05/15/23 05/15/23 05/15/23 Range/Units 16:07 16:07 16:07 WBC (3.8-10.6) k/uL RBC (3.80-5.40) m/uL Hgb (11.4-16.0) gm/dL Hct (34.0-46.0) % MCV (80.0-100.0) fL MCH (25.0-35.0) pg MCHC (31.0-37.0) g/dL RDW (11.5-15.5) % Plt Count (150-450) k/uL MPV Neutrophils % % Lymphocytes % % Monocytes % % Eosinophils % % Basophils % % Neutrophils # (1.3-7.7) k/uL Lymphocytes # (1.0-4.8) k/uL Monocytes # (0-1.0) k/uL Eosinophils # (0-0.7) k/uL Basophils # (0-0.2) k/uL PT (9.0-12.0) sec INR (<1.2) APTT (22.0-30.0) sec Sodium 129 L (137-145) mmol/L Potassium 4.3 (3.5-5.1) mmol/L Chloride 86 L (98-107) mmol/L Carbon Dioxide 37 H (22-30) mmol/L Anion Gap 6 mmol/L BUN 12 (7-17) mg/dL Creatinine 0.52 (0.52-1.04) mg/dL Est GFR (CKD-EPI)AfAm >90 (>60 ml/min/1.73 sqM) Est GFR (CKD-EPI)NonAf >90 (>60 ml/min/1.73 sqM) Glucose 111 H (74-99) mg/dL Plasma Lactic Acid Robert 0.9 (0.7-2.0) mmol/L Calcium 8.7 (8.4-10.2) mg/dL Magnesium 1.5 L (1.6-2.3) mg/dL Total Bilirubin 0.7 (0.2-1.3) mg/dL AST 32 (14-36) U/L ALT 16 (4-34) U/L Alkaline Phosphatase 71 (38-126) U/L Troponin I <0.012 (0.000-0.034) ng/mL NT-Pro-B Natriuret Pep pg/mL Total Protein 6.8 (6.3-8.2) g/dL Albumin 3.8 (3.5-5.0) g/dL Influenza Type A (PCR) (Not Detectd) Influenza Type B (PCR) (Not Detectd) RSV (PCR) (Not Detectd) SARS-CoV-2 (PCR) (Not Detectd) 05/15/23 Range/Units 16:07 WBC (3.8-10.6) k/uL RBC (3.80-5.40) m/uL Hgb (11.4-16.0) gm/dL Hct (34.0-46.0) % MCV (80.0-100.0) fL MCH (25.0-35.0) pg MCHC (31.0-37.0) g/dL RDW (11.5-15.5) % Plt Count (150-450) k/uL MPV Neutrophils % % Lymphocytes % % Monocytes % % Eosinophils % % Basophils % % Neutrophils # (1.3-7.7) k/uL Lymphocytes # (1.0-4.8) k/uL Monocytes # (0-1.0) k/uL Eosinophils # (0-0.7) k/uL Basophils # (0-0.2) k/uL PT (9.0-12.0) sec INR (<1.2) APTT (22.0-30.0) sec Sodium (137-145) mmol/L Potassium (3.5-5.1) mmol/L Chloride (98-107) mmol/L Carbon Dioxide (22-30) mmol/L Anion Gap mmol/L BUN (7-17) mg/dL Creatinine (0.52-1.04) mg/dL Est GFR (CKD-EPI)AfAm (>60 ml/min/1.73 sqM) Est GFR (CKD-EPI)NonAf (>60 ml/min/1.73 sqM) Glucose (74-99) mg/dL Plasma Lactic Acid Robert (0.7-2.0) mmol/L Calcium (8.4-10.2) mg/dL Magnesium (1.6-2.3) mg/dL Total Bilirubin (0.2-1.3) mg/dL AST (14-36) U/L ALT (4-34) U/L Alkaline Phosphatase (38-126) U/L Troponin I (0.000-0.034) ng/mL NT-Pro-B Natriuret Pep 86 pg/mL Total Protein (6.3-8.2) g/dL Albumin (3.5-5.0) g/dL Influenza Type A (PCR) (Not Detectd) Influenza Type B (PCR) (Not Detectd) RSV (PCR) (Not Detectd) SARS-CoV-2 (PCR) (Not Detectd) - EKG Data -: EKG Interpreted by Me (EKG sinus tachycardia 102 WA 139 QRS 84 QTC 360) - Radiology Data Radiology results: report reviewed (Chest x-ray chronic bronchitis), image reviewed Disposition Clinical Impression: Acute dyspnea, Acute exacerbation of chronic obstructive pulmonary disease, Community acquired pneumonia, Fever, COPD with acute exacerbation, Hypoxia Disposition: ADMITTED IP TO THIS HOSP Condition: Good Is patient prescribed a controlled substance at d/c from ED?: No Time of Disposition: 17:35
--- NOTE | 2023-05-15 16:15 | XR ---
EXAMINATION TYPE: XR chest 1V portable DATE OF EXAM: 05/15/2023 3:58 PM COMPARISON: Chest radiographs from 04/24/2022 TECHNIQUE: XR chest 1V portable Frontal view of the chest. CLINICAL INDICATION:Female, 72 years old with history of sob; FINDINGS: Lungs/Pleura: There is no evidence of pleural effusion, focal consolidation, or pneumothorax. Pulmonary vascularity: Unremarkable. Heart/mediastinum: Cardiomediastinal silhouette is unremarkable. Musculoskeletal: No acute osseous pathology. IMPRESSION: 1. No acute cardiopulmonary disease process. 2. COPD changes.
[2023-05-15 16:26] LABS: Basophils % (A) 1 %; Eosinophils # (A) 0.1 k/uL (0-0.7); Eosinophils % (A) 1 %; HCT 45.4 % (34.0-46.0); HGB 14.2 gm/dL (11.4-16.0); Lymphocytes # (A) 0.7 k/uL (1.0-4.8); Lymphocytes % (A) 9 %; MCH 29.4 pg (25.0-35.0); MCHC 31.2 g/dL (31.0-37.0); MCV 94.1 fL (80.0-100.0); Mean Platelet Volume 7.1; Monocytes # (A) 0.6 k/uL (0-1.0); Monocytes % (A) 8 %; Neutrophils # (A) 6.6 k/uL (1.3-7.7); Neutrophils % (A) 81 %; Platelet Count 185 k/uL (150-450); RBC 4.82 m/uL (3.80-5.40); RDW 12.7 % (11.5-15.5); WBC 8.2 k/uL (3.8-10.6)
[2023-05-15 16:43] LABS: Partial Thromboplastin Time 25.6 sec (22.0-30.0); Prothrombin Time 10.2 sec (9.0-12.0)
[2023-05-15 17:04] LABS: ALT 16 U/L (4-34); AST 32 U/L (14-36); African American GFR (CKD) >90 (>60 ml/min/1.73 sqM); Albumin 3.8 g/dL (3.5-5.0); Alkaline Phosphatase 71 U/L (38-126); Anion Gap 6 mmol/L; Blood Urea Nitrogen 12 mg/dL (7-17); Calcium 8.7 mg/dL (8.4-10.2); Carbon Dioxide 37 mmol/L (22-30); Chloride 86 mmol/L (98-107); Glucose 111 mg/dL (74-99); Magnesium 1.5 mg/dL (1.6-2.3); Non-African American GFR(CKD) >90 (>60 ml/min/1.73 sqM); Potassium 4.3 mmol/L (3.5-5.1); Sodium 129 mmol/L (137-145); Total Bilirubin 0.7 mg/dL (0.2-1.3); Total Protein 6.8 g/dL (6.3-8.2)
[2023-05-15] MEDS ORDERED: IPRATROPIUM-ALBUTEROL 3 ML NEB INHALATION STA (17:05)
[2023-05-15] MEDS ORDERED: AZITHROMYCIN 500 MG in SODIUM CHLORIDE 0.9% 250 ML IVPB STA (17:33)
[2023-05-15] MEDS ORDERED: NALOXONE 0.4 MG/ML 1 ML VIAL IV PRN (20:10)
[2023-05-15] MEDS ORDERED: MORPHINE SULFATE 4 MG/ML SYRINGE IV PRN (20:10)
[2023-05-15] MEDS ORDERED: Magnesium Replacement Protocol 1 EACH MISC MISCELLANE PRN (21:53)
[2023-05-15] MEDS ORDERED: ONDANSETRON 4 MG/2 ML VIAL IVP PRN (21:55)
[2023-05-15] MEDS ORDERED: ACETAMINOPHEN TAB 325 MG TAB PO PRN (21:55)
[2023-05-15] MEDS ORDERED: BENZOCAINE/MENTHOL LOZENG 1 EACH LOZENGE MUCOUS MEM PRN (21:56)
[2023-05-15] MEDS ORDERED: HYDROcodone/APAP 10-325MG 1 EACH TAB PO SCH (22:00)
[2023-05-15] MEDS ORDERED: HYDROcodone/APAP 10-325MG 1 EACH TAB PO PRN (22:29)
[2023-05-15] MEDS ORDERED: traMADol 50 MG TAB PO PRN (22:47)
[2023-05-15] MEDS ORDERED: ALBUTEROL NEBULIZED 2.5 MG/3 ML INHALATION STA (23:27)
[2023-05-15] MEDS: MAGNESIUM SULFATE-D5W PMX 1 GM in DEXTROSE/WATER 1 100ML.BAG IVPB SCH (23:54)
[2023-05-16] MEDS ORDERED: NITROGLYCERIN SL TABS 0.4 MG TAB SUBLINGUAL PRN
[2023-05-16] MEDS: methylPREDNISolone SOD SUCCI 125 MG/2 ML VIAL IV SCH ×4 (01:24→16:22)
[2023-05-16] MEDS: MAGNESIUM SULFATE-D5W PMX 1 GM in DEXTROSE/WATER 1 100ML.BAG IVPB SCH (01:24)
[2023-05-16] MEDS ORDERED: LORazepam 2 MG/ML INJ IV STA (02:49)
[2023-05-16] MEDS: GABAPENTIN 300 MG CAP PO SCH ×3 (03:07→20:15)
[2023-05-16] MEDS: DILTIAZEM ORAL 30 MG TAB PO SCH ×3 (03:07→20:15)
[2023-05-16] MEDS: FAMOTIDINE 20 MG TAB PO SCH ×3 (03:07→20:15)
[2023-05-16] MEDS: SODIUM CHLORIDE 0.9% 1,000 ML IV SCH ×2 (03:07→10:54)
[2023-05-16] MEDS: ATORVASTATIN 10 MG TAB PO SCH ×2 (03:07→20:15)
[2023-05-16] MEDS: METOPROLOL TARTRATE 12.5 MG TAB PO SCH ×3 (03:07→20:15)
[2023-05-16] MEDS: MEMANTINE 5 MG TAB PO SCH ×3 (03:07→20:15)
--- NOTE | 2023-05-16 03:10 | P.CNPUL ---
History of Present Illness Consult date: 05/16/23 Requesting physician: Celestine Rowan Reason for consult: COPD Chief complaint: Shortness of breath History of present illness: I am seeing this patient in new consultation today 05/16/2023 for a suspected acute exacerbation of COPD. Patient is a 72-year-old female with history of severe/stage IV COPD with an FEV1 is 30% of predicted. In addition, she has a history of cardiac arrest, essential hypertension, hyperlipidemia, osteoporosis, gastroesophageal reflux diseas, C. difficile colitis, and pneumonia. Patient does follow with Dr. Robles in the outpatient setting. She is chronically steroid and oxygen dependent on 3 L/m nasal cannula. She normally manages her COPD with Symbicort, Yupelri, and when necessary albuterol inhaler. Patient presented to the emergency room yesterday afternoon with chief complaint of shortness of breath starting approximately 24 hours ago. She also had symptoms of mild fever and productive cough with clear sputum. She states that she was recently exposed to her sick grandchildren. She denies any chest pain or hemoptysis. She is currently sitting up in bed, on BiPAP with settings of 10/5 and FiO2 of 50%. She is some moderate respiratory distress, breathing at a rate of 40 breaths per minute, and is in a tripod position. She is oxygenating at 98% on these settings. She is achieving tidal volumes of only 100-200 ml. Chest x-ray on arrival shows no focal consolidation or evidence of pneumonia. She did have a fever on arrival 100.5 degrees Fahrenheit. She is empirically covered on a combination of azithromycin and Rocephin. She was negative for influenza, RSV, COVID-19. CBC on arrival was unremarkable. BMP shows a sodium of 129, potassium 4.3, chloride 86, serum bicarbonate chronically elevated at 37, BUN 12, creatinine 0.52, glucose 111. No IV fluids are currently infusing. Troponin 1 was negative. NT proBNP was low. Patient will be admitted to the cardiac stepdown unit. Review of Systems REVIEW OF SYSTEMS: CONSTITUTIONAL: Denies any recent significant weight loss or weight gain. EYES: Denies change in vision. EARS, NOSE, MOUTH, THROAT: Denies headaches, denies sore throat. CARDIOVASCULAR: Denies chest pain, palpitations or syncopal episodes. RESPIRATORY: See HPI GASTROINTESTINAL: Denies change in appetite, abdominal pain, nausea and vomiting, or diarrhea GENITOURINARY: Denies hematuria, denies infections. MUSKULOSKELETAL: Denies pain, denies swelling. INTEGUMENTARY: Denies rash, denies eczema. NEUROLOGICAL: Denies recent memory loss, no recent seizure activity. PSYCHIATRIC: Denies anxiety, denies depression. HEMATOLOGIC/LYMPHATIC: Denies anemia, denies enlarged lymph node Past Medical History Past Medical History: COPD, GERD/Reflux, Hearing Disorder / Deafness, Hypertension, Osteoarthritis (OA), Respiratory Disorder Additional Past Medical History / Comment(s): HX POLYPS, DIVERTICULI. Osteoporosis. ICU - History of Any Multi-Drug Resistant Organisms: C-DIFF Date of last positivie culture/infection: 2013 approx MDRO Source:: stool Past Surgical History: Back Surgery, Bowel Resection, Joint Replacement, Orthopedic Surgery Additional Past Surgical History / Comment(s): RIGHT KNEE REPLACEMENT, LEFT LEG ORIF-removed, LIZZIE CARPAL TUNNEL,. Bilateral cataract surgery,plate rt foot Additional Past Anesthesia/Blood Transfusion Reaction / Comment(s): STATES NO EPIDURALS R/T GETTING SEVERE MIGRAINES Past Psychological History: No Psychological Hx Reported Smoking Status: Former smoker - Past Family History Mother Family Medical History: Hypertension Father Family Medical History: Cancer Additional Family Medical History / Comment(s): aneurysms,prostate Medications and Allergies Home Medications Medication Instructions Recorded Confirmed Type Budesonide-Formot 160-4.5 Mcg 2 puff INHALATION RT-BID 04/03/19 05/15/23 History [Symbicort 160-4.5 Mcg Inhaler] Gabapentin [Neurontin] 300 mg PO BID 05/16/19 05/15/23 History Ubidecarenone [Co Q-10] 100 mg PO DAILY 05/16/19 05/15/23 History traMADol HCL [Ultram] 50 mg PO DAILY 05/16/19 05/15/23 History Famotidine [Pepcid] 20 mg PO BID 11/06/19 05/15/23 History HYDROcodone/APAP 10-325MG [[place] 1 tab PO Q6H 11/06/19 05/15/23 History 10-325] Atorvastatin Calcium [Lipitor] 10 mg PO HS 03/28/22 05/15/23 History Diltiazem Oral [Cardizem*] 30 mg PO BID 03/28/22 05/15/23 History Ergocalciferol [Vitamin D2 (1250 2,500 mcg PO Q30D 03/28/22 05/15/23 History Mcg = 65526 Iu)] Metoprolol Tartrate [Lopressor] 12.5 mg PO BID 03/28/22 05/15/23 History Albuterol Inhaler [Ventolin Hfa 2 puff INHALATION RT-BID 05/15/23 05/15/23 History Inhaler] Dorzolamide 2% [Trusopt 2%] 1 drop BOTH EYES BID 05/15/23 05/15/23 History Memantine [Namenda] 5 mg PO BID 05/15/23 05/15/23 History predniSONE 5 mg PO DAILY 05/15/23 05/15/23 History Allergies Allergy/AdvReac Type Severity Reaction Status Date / Time dextromethorphan Allergy Unknown Verified 05/15/23 18:56 [From Mucinex DM] guaifenesin [From Mucinex DM] Allergy Diarrhea Verified 05/15/23 18:56 diltiazem AdvReac Intermediate Abdominal Verified 05/15/23 18:56 Pain alprazolam [From Xanax] AdvReac Anaphylaxis Verified 05/15/23 18:56 donepezil [From Aricept] AdvReac Nausea & Verified 05/15/23 18:56 Vomiting levofloxacin [From Levaquin] AdvReac Nausea, Verified 05/15/23 18:56 Diarrhea , States she got C-Diff after, Migraines roflumilast [From Daliresp] AdvReac Nausea & Verified 05/15/23 18:56 Vomiting & Diarrhea Physical Exam Vitals: Vital Signs Temp Pulse Pulse Resp BP BP Pulse Ox 05/16/23 02:31 98.2 F 119 H 164/72 90 L 05/16/23 01:54 117 H 26 H 188/93 91 L 05/16/23 00:46 05/16/23 00:41 05/16/23 00:21 122 H 40 H 129/56 96 05/16/23 00:13 05/15/23 23:55 115 H 24 161/80 98 05/15/23 22:15 98.1 F 93 22 139/67 94 L 05/15/23 18:00 100 05/15/23 17:51 98.5 F 98 22 95 05/15/23 17:42 108 H 05/15/23 17:25 95 24 94 L 05/15/23 15:22 100.5 F H 110 H 20 160/77 97 FiO2 05/16/23 02:31 35 05/16/23 01:54 05/16/23 00:46 35 05/16/23 00:41 35 05/16/23 00:21 05/16/23 00:13 40 05/15/23 23:55 05/15/23 22:15 05/15/23 18:00 05/15/23 17:51 05/15/23 17:42 05/15/23 17:25 05/15/23 15:22 Intake and Output 05/15/23 05/15/23 05/16/23 14:59 22:59 06:59 Other: Weight 58.513 kg GENERAL EXAM: Alert, 72-year-old white female, in a moderate degree of respiratory distress. HEAD: Normocephalic and atraumatic EYES: Normal reaction of pupils, equal size. NOSE: Clear with pink turbinates. THROAT: No erythema or exudates. NECK: No masses, no JVD. CHEST: No chest wall deformity. LUNGS: Equal air entry with expiratory wheezes heard throughout. On BiPAP settings 10/5 and FiO2 50%. No conversational dyspnea or accessory muscle use.. CVS: S1 and S2 normal with no audible murmur, regular rhythm. No extra heart sounds ABDOMEN: No hepatosplenomegaly, active bowel sounds, no guarding or rigidity. SPINE: No scoliosis or deformity SKIN: No rashes CENTRAL NERVOUS SYSTEM: No focal deficits, tone is normal in all 4 extremities. EXTREMITIES: There is no peripheral edema, clubbing, or cyanosis. Peripheral pulses are intact. Results - Laboratory Findings CBC and BMP: 05/16/23 04:02 05/16/23 04:02 PT/INR, D-dimer PT 10.2 sec (9.0-12.0) 05/15/23 16:07 INR 1.0 (<1.2) 05/15/23 16:07 Abnormal lab findings: Abnormal Labs 05/15/23 05/15/23 16:07 16:07 Lymphocytes # 0.7 L Sodium 129 L Chloride 86 L Carbon Dioxide 37 H Glucose 111 H Magnesium 1.5 L - Diagnostic Findings Chest x-ray: image reviewed Assessment and Plan Assessment: Acute on chronic hypoxemic and hypercapnic respiratory failure secondary to COPD exacerbation and possible acute bronchitis. Currently on BiPAP. Chest x-ray on arrival shows no acute cardiopulmonary process or evidence of pneumonia. Negative for influenza, RSV, COVID-19. Essential hypertension Hyperlipidemia History of cardiac arrest Chronic hypoxemic respiratory failure, normally on 3 L/m nasal cannula GERD without esophagitis Diverticulosis Osteoarthritis Ex-smoker Plan: Patient's medications, labs, chest x-ray reviewed Continue BiPAP therapy, increased IPAP to 12 and reduce FiO2 to 35% Start the patient on a combination of budesonide, formoterol, DuoNeb's, IV Solu-Medrol Continue empiric antibiotics, and check procalcitonin level Blood cultures are pending Check d-dimer level Patient did tell me that she would not want to be intubated or on the mechanical ventilator, she wants to be made a DO NOT RESUSCITATE status. Prognosis is guarded, and we will continue to follow I have personally seen and examined the patient, performed the documentation and the assessment and plan as written. Number of minutes spent on the visit:20 This is a joint evaluation that was done along with a nurse practitioner. The patient was seen and evaluated. The patient is known to have COPD with an FEV1 of 30% of predicted. As such, she has history of severe COPD. She also has history of previous cardiac arrest, hypertension hyperlipidemia. The patient has no significant on Symbicort and Yupelri on outpatient basis and albuterol when necessary. Currently she is still on BiPAP at a pressure of 12/5 cm of water with FiO2 of 35%. Her meds ventilation is around 6.9 L. Her pulse ox is 93%. His chest x-ray is consistent with COPD without any airspace disease. The white cell count is not elevated at 11.6. Troponins are negative, pro- calcitonin level is low. The patient is on bronchodilators and IV Solu-Medrol. Patient was also, with accommodation of Rocephin and Zithromax. We'll continue monitoring this patient's condition closely here on the medical floor and transferred to ICU if needed. She does have a component of hypercapnic respiratory failure and I think it's reasonable to obtain a baseline blood gases while she is on a BiPAP. Evaluation was done in more than 30 minutes. Time with Patient: Greater than 30
[2023-05-16] MEDS: DORZOLAMIDE HCL 2% DROPS 10 ML BTL BOTH EYES SCH ×3 (03:17→20:16)
[2023-05-16 04:43] LABS: Basophils % (A) 0 %; Eosinophils % (A) 0 %; HCT 45.4 % (34.0-46.0); HGB 13.7 gm/dL (11.4-16.0); Hypochromasia Slight; Lymphocytes # (A) 0.4 k/uL (1.0-4.8); Lymphocytes % (A) 3 %; MCH 28.6 pg (25.0-35.0); MCHC 30.1 g/dL (31.0-37.0); Mean Platelet Volume 7.5; Monocytes # (A) 0.3 k/uL (0-1.0); Monocytes % (A) 3 %; Neutrophils # (A) 10.8 k/uL (1.3-7.7); Neutrophils % (A) 93 %; Platelet Count 171 k/uL (150-450); RBC 4.78 m/uL (3.80-5.40); RDW 12.7 % (11.5-15.5); WBC 11.6 k/uL (3.8-10.6)
[2023-05-16 04:59] LABS: ALT 17 U/L (4-34); AST 35 U/L (14-36); African American GFR (CKD) >90 (>60 ml/min/1.73 sqM); Albumin 3.9 g/dL (3.5-5.0); Albumin/Globulin Ratio 1.3; Alkaline Phosphatase 73 U/L (38-126); Anion Gap 6 mmol/L; Blood Urea Nitrogen 11 mg/dL (7-17); Carbon Dioxide 36 mmol/L (22-30); Chloride 87 mmol/L (98-107); Glucose 124 mg/dL (74-99); Magnesium 2.1 mg/dL (1.6-2.3); Non-African American GFR(CKD) >90 (>60 ml/min/1.73 sqM); Phosphorus 2.9 mg/dL (2.5-4.5); Potassium 4.3 mmol/L (3.5-5.1); Sodium 129 mmol/L (137-145); Total Bilirubin 0.6 mg/dL (0.2-1.3); Total Protein 6.9 g/dL (6.3-8.2)
[2023-05-16] MEDS: IPRATROPIUM-ALBUTEROL 3 ML NEB INHALATION PRN (06:24)
--- NOTE | 2023-05-16 07:25 | XR ---
EXAMINATION TYPE: XR chest 1V DATE OF EXAM: 05/16/2023 1:54 AM COMPARISON: Chest radiographs from 05/15/2023 TECHNIQUE: XR chest 1V Frontal view of the chest. CLINICAL INDICATION:Female, 72 years old with history of cough; FINDINGS: Lungs/Pleura: Chronic interstitial changes. There is flattening of the diaphragm with increased lucen cy of the lungs. No evidence of pneumothorax, pleural effusion or focal consolidation. Pulmonary vascularity: Unremarkable. Heart/mediastinum: Cardiomediastinal silhouette is unremarkable. Musculoskeletal: No acute osseous pathology. IMPRESSION: 1. No acute cardiopulmonary disease process. 2. COPD changes.
[2023-05-16] MEDS ORDERED: SYMBICORT 160-4.5 MCG INHALER INHALATION SCH (08:00)
[2023-05-16] MEDS ORDERED: ALBUTEROL NEBULIZED 2.5 MG/3 ML INHALATION SCH (08:00)
[2023-05-16] MEDS: IPRATROPIUM-ALBUTEROL 3 ML NEB INHALATION SCH ×4 (08:32→20:38)
[2023-05-16] MEDS: BUDESONIDE 1 MG/2 ML NEBU INHALATION SCH ×2 (08:32→20:38)
[2023-05-16] MEDS: FORMOTEROL FUMARATE 20 MCG/2 ML NEBU INHALATION SCH ×2 (08:32→20:38)
[2023-05-16] MEDS ORDERED: traMADol 50 MG TAB PO SCH (09:00)
[2023-05-16] MEDS ORDERED: NON FORMULARY DRUG (Ubidecarenone [Co Q-10] 100 MG Capsule) PO SCH (09:00)
[2023-05-16 12:17] LABS: ABG Base Excess 10.1 mmol/L; ABG HCO3 37 mmol/L (21-25); ABG Oxygen Saturation 95.6 % (94-97); ABG PH 7.26 (7.35-7.45); ABG PO2 69 mmHg (83-108); ABG TCO2 40 mmol/L (19-24); Allen Test Performed? Yes
[2023-05-16 12:23] LABS: ABG PCO2 84 mmHg (35-45)
--- NOTE | 2023-05-16 14:27 | P.HPIM ---
History of Present Illness H&P Date: 05/16/23 History of present illness; she is a 72-year-old lady with past medical history significant for COPD, chronic hypoxic respiratory failure,cardiac arrest, essential hypertension, hyperlipidemia, osteoporosis, gastroesophageal reflux diseas, C. difficile colitis, and pneumonia presented to the hospital because of worsening shortness of breath. Shortness of breath started 24 hours ago and it was present on rest as well as exertion, it was associated with productive cough and fever. Patient admits to having sick contacts in the family. Denies any chest pain. Because of this worsening shortness of breath patient came to the ER, Initial lab work in the ER showed a PVC 8.2, hemoglobin 14.2, platelet count 185, d-dimer was 0.57, sodium 129, potassium 4.3, BUN 12, creatinine 0.52. Influenza A and B-, RSV negative, COVID-19 negative Chest x-ray done showed no acute cardiac process Patient was admitted to internal medicine service REVIEW OF SYSTEMS: CONSTITUTIONAL: No fever, no malaise, no fatigue. HEENT: No recent visual problems or hearing problems. Denied any sore throat. CARDIOVASCULAR: As mentioned above PULMONARY: As mentioned in HPI GASTROINTESTINAL: No diarrhea, no nausea, no vomiting, no abdominal pain. NEUROLOGICAL: No headaches, no weakness, no numbness. HEMATOLOGICAL: Denies any bleeding or petechiae. GENITOURINARY: Denies any burning micturition, frequency, or urgency. MUSCULOSKELETAL/RHEUMATOLOGICAL: Denies any joint pain, swelling, or any muscle pain. ENDOCRINE: Denies any polyuria or polydipsia. The rest of the 14-point review of systems is negative. PHYSICAL EXAMINATION: GENERAL: The patient is alert and oriented x3, not in any acute distress. Well developed, well nourished. HEENT: Pupils are round and equally reacting to light. EOMI. No scleral icterus. No conjunctival pallor. Normocephalic, atraumatic. No pharyngeal erythema. No thyromegaly. CARDIOVASCULAR: S1 and S2 present. No murmurs, rubs, or gallops. PULMONARY: Coarse breath sounds bilaterally, expiratory wheeze audible ABDOMEN: Soft, nontender, nondistended, normoactive bowel sounds. No palpable organomegaly. MUSCULOSKELETAL: No joint swelling or deformity. EXTREMITIES: No cyanosis, clubbing, or pedal edema. NEUROLOGICAL: Gross neurological examination did not reveal any focal deficits. SKIN: No rashes. Assessment and plan Acute on chronic hypoxemic and hypercapnic respiratory failure Acute COPD exacerbation acute bronchitis. Essential hypertension Hyperlipidemia History of cardiac arrest GERD without esophagitis Diverticulosis Osteoarthritis Plan; Monitor vital signs Monitor CBC Monitor CMP Continue oxygen supplementation Continues of BiPAP as needed Continue breathing treatments Continue IV Solu-Medrol Continue IV Rocephin and azithromycin D-dimer was normal, Resume home meds Pulmonology consulted DVT prophylaxis: Past Medical History Past Medical History: COPD, GERD/Reflux, Hearing Disorder / Deafness, Hypertension, Osteoarthritis (OA), Respiratory Disorder Additional Past Medical History / Comment(s): HX POLYPS, DIVERTICULI. Osteoporosis. ICU - History of Any Multi-Drug Resistant Organisms: C-DIFF Date of last positivie culture/infection: 2013 approx MDRO Source:: stool Past Surgical History: Back Surgery, Bowel Resection, Joint Replacement, Orthopedic Surgery Additional Past Surgical History / Comment(s): RIGHT KNEE REPLACEMENT, LEFT LEG ORIF-removed, LIZZIE CARPAL TUNNEL,. Bilateral cataract surgery,plate rt foot Additional Past Anesthesia/Blood Transfusion Reaction / Comment(s): STATES NO EPIDURALS R/T GETTING SEVERE MIGRAINES Smoking Status: Former smoker - Past Family History Mother Family Medical History: Hypertension Father Family Medical History: Cancer Additional Family Medical History / Comment(s): aneurysms,prostate Medications and Allergies Home Medications Medication Instructions Recorded Confirmed Type Budesonide-Formot 160-4.5 Mcg 2 puff INHALATION RT-BID 04/03/19 05/15/23 History [Symbicort 160-4.5 Mcg Inhaler] Gabapentin [Neurontin] 300 mg PO BID 05/16/19 05/15/23 History Ubidecarenone [Co Q-10] 100 mg PO DAILY 05/16/19 05/15/23 History traMADol HCL [Ultram] 50 mg PO DAILY 05/16/19 05/15/23 History Famotidine [Pepcid] 20 mg PO BID 11/06/19 05/15/23 History HYDROcodone/APAP 10-325MG [[place] 1 tab PO Q6H 11/06/19 05/15/23 History 10-325] Atorvastatin Calcium [Lipitor] 10 mg PO HS 03/28/22 05/15/23 History Diltiazem Oral [Cardizem*] 30 mg PO BID 03/28/22 05/15/23 History Ergocalciferol [Vitamin D2 (1250 2,500 mcg PO Q30D 03/28/22 05/15/23 History Mcg = 31138 Iu)] Metoprolol Tartrate [Lopressor] 12.5 mg PO BID 03/28/22 05/15/23 History Albuterol Inhaler [Ventolin Hfa 2 puff INHALATION RT-BID 05/15/23 05/15/23 History Inhaler] Dorzolamide 2% [Trusopt 2%] 1 drop BOTH EYES BID 05/15/23 05/15/23 History Memantine [Namenda] 5 mg PO BID 05/15/23 05/15/23 History predniSONE 5 mg PO DAILY 05/15/23 05/15/23 History Allergies Allergy/AdvReac Type Severity Reaction Status Date / Time dextromethorphan Allergy Unknown Verified 05/15/23 18:56 [From Mucinex DM] guaifenesin [From Mucinex DM] Allergy Diarrhea Verified 05/15/23 18:56 diltiazem AdvReac Intermediate Abdominal Verified 05/15/23 18:56 Pain alprazolam [From Xanax] AdvReac Anaphylaxis Verified 05/15/23 18:56 donepezil [From Aricept] AdvReac Nausea & Verified 05/15/23 18:56 Vomiting levofloxacin [From Levaquin] AdvReac Nausea, Verified 05/15/23 18:56 Diarrhea , States she got C-Diff after, Migraines roflumilast [From Daliresp] AdvReac Nausea & Verified 05/15/23 18:56 Vomiting & Diarrhea Physical Exam Vitals: Vital Signs Temp Pulse Pulse Resp BP BP Pulse Ox 05/16/23 08:57 100 05/16/23 08:52 05/16/23 08:47 96 05/16/23 08:46 96 05/16/23 08:33 92 05/16/23 04:00 98.0 F 107 H 25 H 172/78 92 L 05/16/23 03:40 104 H 05/16/23 03:30 106 H 05/16/23 03:20 94 L 05/16/23 02:31 98.2 F 119 H 164/72 90 L 05/16/23 01:54 117 H 26 H 188/93 91 L 05/16/23 00:46 05/16/23 00:41 05/16/23 00:21 122 H 40 H 129/56 96 05/16/23 00:13 05/15/23 23:55 115 H 24 161/80 98 05/15/23 22:15 98.1 F 93 22 139/67 94 L 05/15/23 18:00 100 05/15/23 17:51 98.5 F 98 22 95 05/15/23 17:42 108 H 05/15/23 17:25 95 24 94 L 05/15/23 15:22 100.5 F H 110 H 20 160/77 97 FiO2 05/16/23 08:57 05/16/23 08:52 35 05/16/23 08:47 05/16/23 08:46 05/16/23 08:33 05/16/23 04:00 35 05/16/23 03:40 35 05/16/23 03:30 05/16/23 03:20 05/16/23 02:31 35 05/16/23 01:54 05/16/23 00:46 35 05/16/23 00:41 35 05/16/23 00:21 05/16/23 00:13 40 05/15/23 23:55 05/15/23 22:15 05/15/23 18:00 05/15/23 17:51 05/15/23 17:42 05/15/23 17:25 05/15/23 15:22 Intake and Output 05/15/23 05/16/23 05/16/23 22:59 06:59 14:59 Other: Weight 58.513 kg 58.513 kg Results CBC & Chem 7: 05/16/23 04:02 05/16/23 04:02 Labs: Abnormal Lab Results - Last 24 Hours (Table) 05/15/23 05/15/23 05/16/23 Range/Units 16:07 16:07 04:02 WBC 11.6 H (3.8-10.6) k/uL MCHC 30.1 L (31.0-37.0) g/dL Neutrophils # 10.8 H (1.3-7.7) k/uL Lymphocytes # 0.7 L 0.4 L (1.0-4.8) k/uL Sodium 129 L (137-145) mmol/L Chloride 86 L (98-107) mmol/L Carbon Dioxide 37 H (22-30) mmol/L Creatinine (0.52-1.04) mg/dL Glucose 111 H (74-99) mg/dL Calcium (8.4-10.2) mg/dL Magnesium 1.5 L (1.6-2.3) mg/dL 05/16/23 Range/Units 04:02 WBC (3.8-10.6) k/uL MCHC (31.0-37.0) g/dL Neutrophils # (1.3-7.7) k/uL Lymphocytes # (1.0-4.8) k/uL Sodium 129 L (137-145) mmol/L Chloride 87 L (98-107) mmol/L Carbon Dioxide 36 H (22-30) mmol/L Creatinine 0.39 L (0.52-1.04) mg/dL Glucose 124 H (74-99) mg/dL Calcium 8.0 L (8.4-10.2) mg/dL Magnesium (1.6-2.3) mg/dL Thrombosis Risk Factor Assmnt - Choose All That Apply Any of the Below Risk Factors Present?: Yes Each Factor Represents 1 point: Abnormal pulmonary function (COPD) Each Risk Factor Represents 2 Points: Age 61-74 years Thrombosis Risk Factor Assessment Total Risk Factor Score: 3 Thrombosis Risk Factor Assessment Level: Moderate Risk
[2023-05-16] MEDS: AZITHROMYCIN 500 MG in SODIUM CHLORIDE 0.9% 250 ML IVPB SCH (18:12)
[2023-05-17] MEDS: IPRATROPIUM-ALBUTEROL 3 ML NEB INHALATION PRN ×2 (00:22→04:26)
[2023-05-17] MEDS: methylPREDNISolone SOD SUCCI 125 MG/2 ML VIAL IV SCH ×4 (00:25→17:24)
[2023-05-17] MEDS: SODIUM CHLORIDE 0.9% 1,000 ML IV SCH ×2 (05:48→17:29)
[2023-05-17] MEDS: BUDESONIDE 1 MG/2 ML NEBU INHALATION SCH ×2 (07:34→20:31)
[2023-05-17] MEDS: IPRATROPIUM-ALBUTEROL 3 ML NEB INHALATION SCH ×4 (07:34→20:31)
[2023-05-17] MEDS: FORMOTEROL FUMARATE 20 MCG/2 ML NEBU INHALATION SCH ×2 (07:34→20:31)
[2023-05-17] MEDS: METOPROLOL TARTRATE 12.5 MG TAB PO SCH ×2 (08:00→19:42)
[2023-05-17] MEDS: GABAPENTIN 300 MG CAP PO SCH ×2 (08:00→19:42)
[2023-05-17] MEDS: FAMOTIDINE 20 MG TAB PO SCH ×2 (08:00→19:42)
[2023-05-17] MEDS: DILTIAZEM ORAL 30 MG TAB PO SCH ×2 (08:00→19:42)
[2023-05-17] MEDS: MEMANTINE 5 MG TAB PO SCH ×2 (08:00→19:42)
[2023-05-17] MEDS: DORZOLAMIDE HCL 2% DROPS 10 ML BTL BOTH EYES SCH ×2 (08:01→19:42)
--- NOTE | 2023-05-17 10:43 | P.PN ---
Subjective Progress Note Date: 05/17/23 I am seeing this patient in new consultation today 05/16/2023 for a suspected a cute exacerbation of COPD. Patient is a 72-year-old female with history of severe/stage IV COPD with an FEV1 is 30% of predicted. In addition, she has a history of cardiac arrest, essential hypertension, hyperlipidemia, osteoporosis, gastroesophageal reflux diseas, C. difficile colitis, and pneumonia. Patient does follow with Dr. Robles in the outpatient setting. She is chronically steroid and oxygen dependent on 3 L/m nasal cannula. She normally manages her COPD with Symbicort, Yupelri, and when necessary albuterol inhaler. Patient presented to the emergency room yesterday afternoon with chief complaint of shortness of breath starting approximately 24 hours ago. She also had symptoms of mild fever and productive cough with clear sputum. She states that she was recently exposed to her sick grandchildren. She denies any chest pain or hemoptysis. She is currently sitting up in bed, on BiPAP with settings of 10/5 and FiO2 of 50%. She is some moderate respiratory distress, breathing at a rate of 40 breaths per minute, and is in a tripod position. She is oxygenating at 98% on these settings. She is achieving tidal volumes of only 100-200 ml. Chest x-ray on arrival shows no focal consolidation or evidence of pneumonia. She did have a fever on arrival 100.5 degrees Fahrenheit. She is empirically covered on a combination of azithromycin and Rocephin. She was negative for influenza, RSV, COVID-19. CBC on arrival was unremarkable. BMP shows a sodium of 129, potassium 4.3, chloride 86, serum bicarbonate chronically elevated at 37, BUN 12, creatinine 0.52, glucose 111. No IV fluids are currently infusing. Troponin 1 was negative. NT proBNP was low. Patient will be admitted to the cardiac stepdown unit. Today's evaluation of 05/17/2023, the patient is being seen for a follow-up. She is awake and alert and communicating. She is on a BiPAP at a pressure of 12/5 cm of water. She generating a tidal volume of around 300 mL and a minute ventilation of 8.4 L. She seems to be slightly more comfortable compared to yesterday. However, on examination, she remains bronchospastic and wheezy. She remains on a combination of bronchodilators and steroids for now.On her blood work, the blood gas was done yesterday that showed a pH of 7.26 with a pCO2 of 84 and pO2 of 69. The repeat blood gas will be done today. No other labs are available. Pro-calcitonin level level was low at 0.05. Patient is on IV fluids at 75 mL an hour. Objective - Vital Signs Vital signs: Vital Signs Temp 97.7 F 05/17/23 08:00 Pulse 84 05/17/23 08:07 Resp 21 05/17/23 08:00 BP 177/77 05/17/23 08:00 Pulse Ox 90 L 05/17/23 08:00 FiO2 35 05/17/23 07:34 Intake & Output 05/16/23 05/17/23 05/17/23 18:59 06:59 18:59 Intake Total 540 Output Total 200 150 Balance -200 390 Intake: Oral 540 Output: Urine 200 150 Other: Voiding Method External Catheter External Catheter External Catheter - Exam GENERAL EXAM: Alert, 72-year-old white female, no major Respiratory Distress and the Patient Is on a BiPAP at a Pressure of 12/5 Cm of Water. HEAD: Normocephalic and atraumatic EYES: Normal reaction of pupils, equal size. NOSE: Clear with pink turbinates. THROAT: No erythema or exudates. NECK: No masses, no JVD. CHEST: No chest wall deformity. LUNGS: Equal air entry with expiratory wheezes heard throughout. On BiPAP settings 12/5 and FiO2 50%. No conversational dyspnea or accessory muscle use.. CVS: S1 and S2 normal with no audible murmur, regular rhythm. No extra heart sounds ABDOMEN: No hepatosplenomegaly, active bowel sounds, no guarding or rigidity. SPINE: No scoliosis or deformity SKIN: No rashes CENTRAL NERVOUS SYSTEM: No focal deficits, tone is normal in all 4 extremities. EXTREMITIES: There is no peripheral edema, clubbing, or cyanosis. Peripheral pulses are intact. - Labs CBC & Chem 7: 05/16/23 04:02 05/16/23 04:02 Labs: Abnormal Lab Results - Last 24 Hours (Table) 05/16/23 Range/Units 12:13 ABG pH 7.26 L (7.35-7.45) ABG pCO2 84 H* (35-45) mmHg ABG pO2 69 L (83-108) mmHg ABG HCO3 37 H (21-25) mmol/L ABG Total CO2 40 H (19-24) mmol/L Assessment and Plan Assessment: Acute on chronic hypoxemic and hypercapnic respiratory failure secondary to COPD exacerbation and possible acute bronchitis. Currently on BiPAP. Chest x-ray on arrival shows no acute cardiopulmonary process or evidence of pneumonia. Negative for influenza, RSV, COVID-19. The patient had an acute on top of chronic hypoxic and hypercapnic respiratory failure and her blood gases and the patient is currently on examination bronchodilators and steroids. The patient is also receiving BiPAP for support with a pressure of 12/5 cm of water with FiO2 of 35%. Essential hypertension Hyperlipidemia History of cardiac arrest Chronic hypoxemic respiratory failure, normally on 3 L/m nasal cannula GERD without esophagitis Diverticulosis Osteoarthritis Ex-smoker Plan: Obtain a follow-up blood gas Give the patient brief breaks off the BiPAP. I would rather maintain BiPAP for the most of the dates for today Continue same treatment and the patient is currently on a combination of budesonide, formoterol, DuoNeb's, IV Solu-Medrol Continue empiric antibiotics, and pro-calcitonin level was low Blood cultures are pending and negative thus far Check d-dimer level was low Patient is a DNR/DNI DO NOT RESUSCITATE status. Prognosis is guarded, and we will continue to follow
[2023-05-17 11:15] LABS: ABG Base Excess 11.9 mmol/L; ABG HCO3 39 mmol/L (21-25); ABG Oxygen Saturation 97.9 % (94-97); ABG PH 7.28 (7.35-7.45); ABG PO2 86 mmHg (83-108); ABG TCO2 41 mmol/L (19-24); Allen Test Performed? Yes
[2023-05-17 11:21] LABS: ABG PCO2 83 mmHg (35-45)
[2023-05-17 11:34] LABS: Basophils % (A) 0 %; Eosinophils % (A) 0 %; HCT 45.6 % (34.0-46.0); Hypochromasia Marked; Lymphocytes # (A) 0.5 k/uL (1.0-4.8); Lymphocytes % (A) 6 %; MCH 29.7 pg (25.0-35.0); MCHC 30.7 g/dL (31.0-37.0); MCV 96.7 fL (80.0-100.0); Mean Platelet Volume 7.2; Monocytes # (A) 0.4 k/uL (0-1.0); Monocytes % (A) 5 %; Neutrophils # (A) 6.4 k/uL (1.3-7.7); Neutrophils % (A) 86 %; Platelet Count 163 k/uL (150-450); RBC 4.71 m/uL (3.80-5.40); RDW 12.6 % (11.5-15.5); WBC 7.4 k/uL (3.8-10.6)
[2023-05-17 11:51] LABS: ALT 18 U/L (4-34); AST 41 U/L (14-36); African American GFR (CKD) >90 (>60 ml/min/1.73 sqM); Albumin 3.5 g/dL (3.5-5.0); Alkaline Phosphatase 59 U/L (38-126); Anion Gap 2 mmol/L; Blood Urea Nitrogen 15 mg/dL (7-17); Calcium 7.3 mg/dL (8.4-10.2); Carbon Dioxide 40 mmol/L (22-30); Chloride 90 mmol/L (98-107); Glucose 137 mg/dL (74-99); Non-African American GFR(CKD) >90 (>60 ml/min/1.73 sqM); Potassium 4.3 mmol/L (3.5-5.1); Sodium 132 mmol/L (137-145); Total Bilirubin 0.4 mg/dL (0.2-1.3); Total Protein 6.4 g/dL (6.3-8.2)
--- NOTE | 2023-05-17 13:23 | P.PN ---
Subjective Progress Note Date: 05/17/23 she is a 72-year-old lady with past medical history significant for COPD, chronic hypoxic respiratory failure,cardiac arrest, essential hypertension, hyperlipidemia, osteoporosis, gastroesophageal reflux diseas, C. difficile colitis, and pneumonia presented to the hospital because of worsening shortness of breath. Shortness of breath started 24 hours ago and it was present on rest as well as exertion, it was associated with productive cough and fever. Patient admits to having sick contacts in the family. Denies any chest pain. Because of this worsening shortness of breath patient came to the ER, Initial lab work in the ER showed a PVC 8.2, hemoglobin 14.2, platelet count 185, d-dimer was 0.57, sodium 129, potassium 4.3, BUN 12, creatinine 0.52. Influenza A and B-, RSV negative, COVID-19 negative Chest x-ray done showed no acute cardiac process Patient was admitted to internal medicine service 05/17. Patient seen and examined. Continues to be on BiPAP. States her mouth is dry, wants something to eat REVIEW OF SYSTEMS: CONSTITUTIONAL: No fever, no malaise,. CARDIOVASCULAR: No chest pain, no palpitations, no syncope. PULMONARY: No shortness of breath, no cough, GASTROINTESTINAL: No diarrhea, no nausea, no vomiting, no abdominal pain. NEUROLOGICAL: No headaches, no weakness, PHYSICAL EXAMINATION: GENERAL: The patient is alert and oriented x3, not in any acute distress. Well developed, well nourished. HEENT: Pupils are round and equally reacting to light. EOMI. No scleral icterus. No conjunctival pallor. Normocephalic, atraumatic. No pharyngeal erythema. No thyromegaly. CARDIOVASCULAR: S1 and S2 present. No murmurs, rubs, or gallops. PULMONARY: Tachypneic, coarse breath some bilaterally ABDOMEN: Soft, nontender, nondistended, normoactive bowel sounds. No palpable organomegaly. MUSCULOSKELETAL: No joint swelling or deformity. EXTREMITIES: No cyanosis, clubbing, or pedal edema. NEUROLOGICAL: Gross neurological examination did not reveal any focal deficits. SKIN: No rashes. Assessment and plan Acute on chronic hypoxemic and hypercapnic respiratory failure Acute COPD exacerbation acute bronchitis. Essential hypertension Hyperlipidemia History of cardiac arrest GERD without esophagitis Diverticulosis Osteoarthritis Monitor vital signs Monitor CBC Monitor CMP Continue oxygen supplementation Continues of BiPAP as needed Continue breathing treatments Continue IV Solu-Medrol 60 mg every 6 Continue IV Rocephin and azithromycin Follow-up on pulmonary recommendations Objective - Vital Signs Vital signs: Vital Signs Temp 98 F 05/17/23 11:35 Pulse 90 05/17/23 12:10 Resp 18 05/17/23 12:10 BP 127/79 05/17/23 11:35 Pulse Ox 97 05/17/23 11:35 FiO2 35 05/17/23 12:01 Intake & Output 05/16/23 05/17/23 05/17/23 18:59 06:59 18:59 Intake Total 540 Output Total 200 150 Balance -200 390 Intake: Oral 540 Output: Urine 200 150 Other: Voiding Method External Catheter External Catheter External Catheter - Labs CBC & Chem 7: 05/17/23 10:57 05/17/23 10:57 Labs: Abnormal Lab Results - Last 24 Hours (Table) 05/17/23 05/17/23 05/17/23 Range/Units 10:57 10:57 11:11 MCHC 30.7 L (31.0-37.0) g/dL Lymphocytes # 0.5 L (1.0-4.8) k/uL ABG pH 7.28 L (7.35-7.45) ABG pCO2 83 H* (35-45) mmHg ABG HCO3 39 H (21-25) mmol/L ABG Total CO2 41 H (19-24) mmol/L ABG O2 Saturation 97.9 H (94-97) % Sodium 132 L (137-145) mmol/L Chloride 90 L (98-107) mmol/L Carbon Dioxide 40 H (22-30) mmol/L Creatinine 0.38 L (0.52-1.04) mg/dL Glucose 137 H (74-99) mg/dL Calcium 7.3 L (8.4-10.2) mg/dL AST 41 H (14-36) U/L Microbiology - Last 24 Hours (Table) 05/15/23 15:55 Blood Culture - Preliminary Blood 05/15/23 15:40 Blood Culture - Preliminary Blood
[2023-05-17] MEDS: AZITHROMYCIN 500 MG in SODIUM CHLORIDE 0.9% 250 ML IVPB SCH (19:42)
[2023-05-17] MEDS: ATORVASTATIN 10 MG TAB PO SCH (19:42)
[2023-05-17] MEDS ORDERED: methylPREDNISolone SOD SUCCI 125 MG/2 ML VIAL ONE (23:35)
[2023-05-18] MEDS: IPRATROPIUM-ALBUTEROL 3 ML NEB INHALATION PRN ×2 (00:07→03:46)
[2023-05-18] MEDS: methylPREDNISolone SOD SUCCI 125 MG/2 ML VIAL IV SCH ×5 (05:48→23:32)
[2023-05-18] MEDS: SODIUM CHLORIDE 0.9% 1,000 ML IV SCH ×2 (07:26→20:22)
[2023-05-18] MEDS: FORMOTEROL FUMARATE 20 MCG/2 ML NEBU INHALATION SCH ×2 (07:43→19:35)
[2023-05-18] MEDS: BUDESONIDE 1 MG/2 ML NEBU INHALATION SCH ×2 (07:43→19:35)
[2023-05-18] MEDS: IPRATROPIUM-ALBUTEROL 3 ML NEB INHALATION SCH ×4 (07:43→19:35)
[2023-05-18] MEDS: MEMANTINE 5 MG TAB PO SCH ×2 (08:04→20:24)
[2023-05-18] MEDS: DORZOLAMIDE HCL 2% DROPS 10 ML BTL BOTH EYES SCH ×2 (08:04→20:24)
[2023-05-18] MEDS: GABAPENTIN 300 MG CAP PO SCH ×2 (08:04→20:24)
[2023-05-18] MEDS: DILTIAZEM ORAL 30 MG TAB PO SCH ×2 (08:04→20:24)
[2023-05-18] MEDS: METOPROLOL TARTRATE 12.5 MG TAB PO SCH ×2 (08:04→20:24)
[2023-05-18] MEDS: FAMOTIDINE 20 MG TAB PO SCH ×2 (08:04→20:24)
[2023-05-18 08:52] LABS: Basophils % (A) 0 %; Eosinophils % (A) 0 %; HCT 39.5 % (34.0-46.0); HGB 12.2 gm/dL (11.4-16.0); Hypochromasia Slight; Lymphocytes # (A) 0.5 k/uL (1.0-4.8); Lymphocytes % (A) 8 %; MCH 29.3 pg (25.0-35.0); MCHC 30.9 g/dL (31.0-37.0); MCV 94.6 fL (80.0-100.0); Mean Platelet Volume 7.7; Monocytes # (A) 0.3 k/uL (0-1.0); Monocytes % (A) 5 %; Neutrophils # (A) 4.7 k/uL (1.3-7.7); Neutrophils % (A) 84 %; Platelet Count 183 k/uL (150-450); RBC 4.18 m/uL (3.80-5.40); RDW 12.9 % (11.5-15.5); WBC 5.7 k/uL (3.8-10.6)
[2023-05-18] MEDS: ALPRAZolam 0.5 MG TAB PO PRN ×2 (10:19→20:34)
[2023-05-18 11:47] LABS: T4, Free (Free Thyroxine) 2.04 ng/dL (0.78-2.19)
[2023-05-18 12:50] LABS: ABG Base Excess 14.8 mmol/L; ABG Oxygen Saturation 98.9 % (94-97); ABG PH 7.32 (7.35-7.45); ABG PO2 96 mmHg (83-108); ABG TCO2 43 mmol/L (19-24); Allen Test Performed? Yes
[2023-05-18 12:56] LABS: ABG HCO3 41 mmol/L (21-25); ABG PCO2 79 mmHg (35-45)
--- NOTE | 2023-05-18 13:22 | P.PN ---
Subjective Progress Note Date: 05/18/23 she is a 72-year-old lady with past medical history significant for COPD, chronic hypoxic respiratory failure,cardiac arrest, essential hypertension, hyperlipidemia, osteoporosis, gastroesophageal reflux diseas, C. difficile colitis, and pneumonia presented to the hospital because of worsening shortness of breath. Shortness of breath started 24 hours ago and it was present on rest as well as exertion, it was associated with productive cough and fever. Patient admits to having sick contacts in the family. Denies any chest pain. Because of this worsening shortness of breath patient came to the ER, Initial lab work in the ER showed a PVC 8.2, hemoglobin 14.2, platelet count 185, d-dimer was 0.57, sodium 129, potassium 4.3, BUN 12, creatinine 0.52. Influenza A and B-, RSV negative, COVID-19 negative Chest x-ray done showed no acute cardiac process Patient was admitted to internal medicine service 05/17. Patient seen and examined. Continues to be on BiPAP. States her mouth is dry, wants something to eat 05/18. Patient seen and examined. Complaining of anxiety. Also had a brief run of V. tach. Continues to be on BiPAP. REVIEW OF SYSTEMS: CONSTITUTIONAL: No fever, no malaise,. CARDIOVASCULAR: No chest pain, no palpitations, no syncope. PULMONARY: No shortness of breath, no cough, GASTROINTESTINAL: No diarrhea, no nausea, no vomiting, no abdominal pain. NEUROLOGICAL: No headaches, no weakness, PHYSICAL EXAMINATION: GENERAL: The patient is alert and oriented x3, not in any acute distress. Well developed, well nourished. HEENT: Pupils are round and equally reacting to light. EOMI. No scleral icterus. No conjunctival pallor. Normocephalic, atraumatic. No pharyngeal erythema. No thyromegaly. CARDIOVASCULAR: S1 and S2 present. No murmurs, rubs, or gallops. PULMONARY: Tachypneic, coarse breath some bilaterally ABDOMEN: Soft, nontender, nondistended, normoactive bowel sounds. No palpable organomegaly. MUSCULOSKELETAL: No joint swelling or deformity. EXTREMITIES: No cyanosis, clubbing, or pedal edema. NEUROLOGICAL: Gross neurological examination did not reveal any focal deficits. SKIN: No rashes. Assessment and plan Acute on chronic hypoxemic and hypercapnic respiratory failure Acute COPD exacerbation Nonsustained V. tach acute bronchitis. Essential hypertension Hyperlipidemia History of cardiac arrest GERD without esophagitis Diverticulosis Osteoarthritis Monitor vital signs Monitor CBC Monitor CMP Continue oxygen supplementation Continue telemetry monitoring Continues of BiPAP as needed Continue breathing treatments Continue IV Solu-Medrol 60 mg every 6 Continue IV Rocephin and azithromycin Follow-up on pulmonary recommendations Consult Cardiology Objective - Vital Signs Vital signs: Vital Signs Temp 98.2 F 05/18/23 08:00 Pulse 100 05/18/23 08:15 Resp 18 05/18/23 08:00 BP 158/76 05/18/23 08:00 Pulse Ox 98 05/18/23 08:00 FiO2 35 05/18/23 07:43 Intake & Output 05/17/23 05/18/23 05/18/23 18:59 06:59 18:59 Intake Total 640 Output Total 300 950 Balance -300 640 -950 Intake: Oral 640 Output: Urine 300 950 Other: Voiding Method External Catheter External Catheter External Catheter # Voids 1 - Labs CBC & Chem 7: 05/18/23 07:50 05/17/23 10:57 Labs: Abnormal Lab Results - Last 24 Hours (Table) 05/17/23 05/17/23 05/17/23 Range/Units 10:57 10:57 11:11 MCHC 30.7 L (31.0-37.0) g/dL Lymphocytes # 0.5 L (1.0-4.8) k/uL ABG pH 7.28 L (7.35-7.45) ABG pCO2 83 H* (35-45) mmHg ABG HCO3 39 H (21-25) mmol/L ABG Total CO2 41 H (19-24) mmol/L ABG O2 Saturation 97.9 H (94-97) % Sodium 132 L (137-145) mmol/L Chloride 90 L (98-107) mmol/L Carbon Dioxide 40 H (22-30) mmol/L Creatinine 0.38 L (0.52-1.04) mg/dL Glucose 137 H (74-99) mg/dL Calcium 7.3 L (8.4-10.2) mg/dL AST 41 H (14-36) U/L 05/18/23 Range/Units 07:50 MCHC 30.9 L (31.0-37.0) g/dL Lymphocytes # 0.5 L (1.0-4.8) k/uL ABG pH (7.35-7.45) ABG pCO2 (35-45) mmHg ABG HCO3 (21-25) mmol/L ABG Total CO2 (19-24) mmol/L ABG O2 Saturation (94-97) % Sodium (137-145) mmol/L Chloride (98-107) mmol/L Carbon Dioxide (22-30) mmol/L Creatinine (0.52-1.04) mg/dL Glucose (74-99) mg/dL Calcium (8.4-10.2) mg/dL AST (14-36) U/L Microbiology - Last 24 Hours (Table) 05/15/23 15:55 Blood Culture - Preliminary Blood 05/15/23 15:40 Blood Culture - Preliminary Blood
--- NOTE | 2023-05-18 14:51 | P.CRDCN ---
History of Present Illness Consult date: 05/18/23 Reason for Consult (text): 20 beat VT History of present illness: History of present illness: This is a 72-year-old female patient of Dr. KELL Elizabeth with past medical history of advanced COPD on home oxygen, hypertension, history of respiratory arrest followed by cardiac arrest in 2019 status post cardiac catheterization revealing moderate noncritical CAD, history of mild pulmonary hypertension, history of tobacco use. We have been asked to evaluate the patient for a run of 20 beats of V. tach. Patient was asymptomatic at the time. She is currently running in a sinus tachycardia. She has been admitted to hospital for acute exacerbation of COPD and acute bronchitis. She denies having any chest pain, palpitations, lightheadedness. Telemetry reviewed and patient did have a run of 20 beats of V. tach 1 episode. Patient states overall her breathing status is improving. EKG sinus rhythm at 102 bpm and second EKG sinus at 115 bpm Chest x-ray: No acute abnormality. COPD CBC unremarkable. Sodium 132, potassium 4.3, chloride 90, CO2 40, BUN 15 creatinine 0.38. Troponin negative 1. TSH 0.034 with normal free T4 of 2.05. Glucose 137. AST 41 otherwise liver function tests are normal. Influenza A, influenza B, RSV, Covid 19 not detected. Home cardiac medications: Atorvastatin 10 mg at bedtime, Cardizem 30 mg twice daily, Lopressor 12.5 mg twice daily. Echocardiogram 07/2022 revealed normal LV size with EF 50-55%. Borderline left ventricular hypertrophy. Mild aortic regurgitation. Mild mitral regurgitation, mild tricuspid regurgitation. Pulmonary artery systolic pressure of 40 mmHg. Review Of Systems: At the time of my evaluation: Constitutional: No fever, no chills. No weakness, fatigue or lethargy. EENT: No headache. No dizziness. Lungs: Reports shortness of breath, cough, no sputum production. No wheezing. Cardiovascular: No chest pain, no lower extremity edema. No palpitations. No paroxysmal nocturnal dyspnea. No orthopnea. No lightheadedness or dizziness. No syncopal episodes. Abdominal: No abdominal pain. No nausea, vomiting. No diarrhea. No constipation. No bloody or tarry stools. Musculoskeletal: No myalgias. No muscle weakness, no frequent falls. No back pain. No neck pain. Integumentary: No wounds. No rash. No unusual bruising. Neurologic: No aphasia. No facial droop. No change in mentation. No head injury. No headache. Physical examination: Gen: This is a 72-year-old female resting in bed and appears to be in no acute distress. VS: reviewed HEENT: Head is atraumatic, normocephalic. Pupils equal, round. Sclerae is anicteric. NECK: Supple. No JVD. LUNGS: Clear to auscultation. No wheezes or rhonchi. No intercostal retractions. HEART: Regular rate and rhythm. No murmur. ABDOMEN: Soft No tenderness. EXTREMITIES: No pedal edema. No calf tenderness. NEUROLOGICAL: Patient is awake, alert and oriented x3. Assessment: Nonsustained ventricular tachycardia Advanced COPD Acute on chronic hypoxic and hypercapnic respiratory failure with COPD exacerbat ion and acute bronchitis Hypertension Hyperlipidemia History of pulmonary arrest followed by cardiac arrest Gastroesophageal reflux disease History of tobacco use and dependence Plan: Continue on patient's home cardiac medications Obtain 2-D echocardiogram and Doppler study to assess cardiac structure and function Continue telemetry monitoring Further recommendations to follow based upon clinical course Thank you kindly for this consultation. Nurse practitioner note has been reviewed, I agree with documented findings and plan of care. Patient was seen and examined. Past Medical History Past Medical History: COPD, GERD/Reflux, Hearing Disorder / Deafness, Hypertension, Osteoarthritis (OA), Respiratory Disorder Additional Past Medical History / Comment(s): HX POLYPS, DIVERTICULI. Osteoporosis. ICU - History of Any Multi-Drug Resistant Organisms: C-DIFF Date of last positivie culture/infection: 2013 approx MDRO Source:: stool Past Surgical History: Back Surgery, Bowel Resection, Joint Replacement, Orthopedic Surgery Additional Past Surgical History / Comment(s): RIGHT KNEE REPLACEMENT, LEFT LEG ORIF-removed, LIZZIE CARPAL TUNNEL,. Bilateral cataract surgery,plate rt foot Additional Past Anesthesia/Blood Transfusion Reaction / Comment(s): STATES NO EPIDURALS R/T GETTING SEVERE MIGRAINES Smoking Status: Former smoker - Past Family History Mother Family Medical History: Hypertension Father Family Medical History: Cancer Additional Family Medical History / Comment(s): aneurysms,prostate Medications and Allergies Home Medications Medication Instructions Recorded Confirmed Type Budesonide-Formot 160-4.5 Mcg 2 puff INHALATION RT-BID 04/03/19 05/15/23 History [Symbicort 160-4.5 Mcg Inhaler] Gabapentin [Neurontin] 300 mg PO BID 05/16/19 05/15/23 History Ubidecarenone [Co Q-10] 100 mg PO DAILY 05/16/19 05/15/23 History traMADol HCL [Ultram] 50 mg PO DAILY 05/16/19 05/15/23 History Famotidine [Pepcid] 20 mg PO BID 11/06/19 05/15/23 History HYDROcodone/APAP 10-325MG [Hearne 1 tab PO Q6H 11/06/19 05/15/23 History 10-325] Atorvastatin Calcium [Lipitor] 10 mg PO HS 03/28/22 05/15/23 History Diltiazem Oral [Cardizem*] 30 mg PO BID 03/28/22 05/15/23 History Ergocalciferol [Vitamin D2 (1250 2,500 mcg PO Q30D 03/28/22 05/15/23 History Mcg = [id number] Iu)] Metoprolol Tartrate [Lopressor] 12.5 mg PO BID 03/28/22 05/15/23 History Albuterol Inhaler [Ventolin Hfa 2 puff INHALATION RT-BID 05/15/23 05/15/23 History Inhaler] Dorzolamide 2% [Trusopt 2%] 1 drop BOTH EYES BID 05/15/23 05/15/23 History Memantine [Namenda] 5 mg PO BID 05/15/23 05/15/23 History predniSONE 5 mg PO DAILY 05/15/23 05/15/23 History Allergies Allergy/AdvReac Type Severity Reaction Status Date / Time dextromethorphan Allergy Unknown Verified 05/15/23 18:56 [From Mucinex DM] guaifenesin [From Mucinex DM] Allergy Diarrhea Verified 05/15/23 18:56 diltiazem AdvReac Intermediate Abdominal Verified 05/15/23 18:56 Pain alprazolam [From Xanax] AdvReac Anaphylaxis Verified 05/15/23 18:56 donepezil [From Aricept] AdvReac Nausea & Verified 05/15/23 18:56 Vomiting levofloxacin [From Levaquin] AdvReac Nausea, Verified 05/15/23 18:56 Diarrhea , States she got C-Diff after, Migraines roflumilast [From Daliresp] AdvReac Nausea & Verified 05/15/23 18:56 Vomiting & Diarrhea Physical Exam Vitals: Vital Signs Temp Pulse Pulse Resp BP Pulse Ox FiO2 05/18/23 08:15 100 05/18/23 08:01 104 H 05/18/23 08:00 98.2 F 104 H 103 H 18 158/76 98 05/18/23 07:43 96 35 05/18/23 04:00 98 17 182/95 95 05/18/23 03:47 90 05/18/23 03:46 91 35 05/18/23 00:17 95 05/18/23 00:07 96 35 05/18/23 00:00 84 17 122/67 98 05/17/23 20:53 92 05/17/23 20:41 92 05/17/23 20:40 92 05/17/23 20:31 90 35 05/17/23 20:00 98.1 F 83 17 117/68 98 05/17/23 15:50 97.3 F L 92 23 150/75 97 05/17/23 15:44 88 05/17/23 15:25 92 35 05/17/23 12:10 90 18 05/17/23 12:01 88 18 35 05/17/23 11:35 98 F 79 20 127/79 97 Intake and Output 05/17/23 05/18/23 05/18/23 22:59 06:59 14:59 Intake Total 100 540 Output Total 300 950 Balance -200 540 -950 Intake: Oral 100 540 Output: Urine 300 950 Other: Voiding Method External Catheter External Catheter External Catheter # Voids 1 Results 05/18/23 07:50 05/17/23 10:57 Cardiac Enzymes 05/17/23 Range/Units 10:57 AST 41 H (14-36) U/L CBC 05/17/23 05/18/23 Range/Units 10:57 07:50 WBC 7.4 5.7 (3.8-10.6) k/uL RBC 4.71 4.18 (3.80-5.40) m/uL Hgb 14.0 12.2 (11.4-16.0) gm/dL Hct 45.6 39.5 (34.0-46.0) % Plt Count 163 183 (150-450) k/uL Comprehensive Metabolic Panel 05/17/23 Range/Units 10:57 Sodium 132 L (137-145) mmol/L Potassium 4.3 (3.5-5.1) mmol/L Chloride 90 L (98-107) mmol/L Carbon Dioxide 40 H (22-30) mmol/L BUN 15 (7-17) mg/dL Creatinine 0.38 L (0.52-1.04) mg/dL Glucose 137 H (74-99) mg/dL Calcium 7.3 L (8.4-10.2) mg/dL AST 41 H (14-36) U/L ALT 18 (4-34) U/L Alkaline Phosphatase 59 (38-126) U/L Total Protein 6.4 (6.3-8.2) g/dL Albumin 3.5 (3.5-5.0) g/dL Current Medications Generic Name Dose Route Start Last Admin Trade Name Freq PRN Reason Stop Dose Admin Acetaminophen 650 mg 05/15/23 21:55 Acetaminophen Tab 325 Mg Tab PO Q6HR PRN Fever and/ or Pain Hydrocodone Bitart/Acetaminophen 1 each 05/15/23 22:29 Hydrocodone/Apap 10-325mg 1 Each Tab PO Q6H PRN FOR PAIN Albuterol/Ipratropium 3 ml 05/16/23 08:00 05/18/23 07:43 Ipratropium-Albuterol 3 Ml Neb INHALATION 3 ml RT-QID BRANDON Administration Albuterol/Ipratropium 3 ml 05/16/23 00:16 05/18/23 03:46 Ipratropium-Albuterol 3 Ml Neb INHALATION 3 ml RT-Q2H PRN Administration Shortness Of Breath Or Wheezing Alprazolam 0.5 mg 05/18/23 08:12 Alprazolam 0.5 Mg Tab PO TID PRN Anxiety Atorvastatin Calcium 10 mg 05/15/23 22:00 05/17/23 19:42 Atorvastatin 10 Mg Tab PO 10 mg HS BRANDON Administration Benzocaine/Menthol 1 each 05/15/23 21:56 Benzocaine/Menthol Lozeng 1 Each Lozenge MUCOUS MEM Q4HR PRN Cough Budesonide 1 mg 05/16/23 08:00 05/18/23 07:43 Budesonide 1 Mg/2 Ml Nebu INHALATION 1 mg RT-BID BRANDON Administration Diltiazem HCl 30 mg 05/15/23 22:00 05/18/23 08:04 Diltiazem Oral 30 Mg Tab PO 30 mg BID BRANDON Administration Dorzolamide HCl 1 drops 05/15/23 22:00 05/18/23 08:04 Dorzolamide Hcl 2% Drops 10 Ml Btl BOTH EYES 1 drops BID BRANDON Administration Famotidine 20 mg 05/15/23 22:00 05/18/23 08:04 Famotidine 20 Mg Tab PO 20 mg BID BRANDON Administration Formoterol Fumarate 20 mcg 05/16/23 08:00 05/18/23 07:43 Formoterol Fumarate 20 Mcg/2 Ml Nebu INHALATION 20 mcg RT-BID BRANDON Administration Gabapentin 300 mg 05/15/23 22:00 05/18/23 08:04 Gabapentin 300 Mg Cap PO 300 mg BID BRANDON Administration Ceftriaxone Sodium 2 gm/ 50 mls @ 100 mls/hr 05/16/23 21:00 05/17/23 20:43 Sodium Chloride IVPB 100 mls/hr Q24H BRANDON Administration Protocol Azithromycin 500 mg/ Sodium 250 mls @ 250 mls/hr 05/16/23 19:00 05/17/23 19:42 Chloride IVPB 05/18/23 19:59 250 mls/hr DAILY@1900 BRANDON Administration Protocol Sodium Chloride 1,000 mls @ 75 mls/hr 05/15/23 20:15 05/18/23 07:26 Saline 0.9% IV Not Given .[id number] BRANDON Memantine 5 mg 05/15/23 22:00 05/18/23 08:04 Memantine 5 Mg Tab PO 5 mg BID BRANDON Administration Methylprednisolone Sodium Succinate 60 mg 05/16/23 00:30 05/18/23 07:26 Methylprednisolone Sod Succi 125 Mg/2 Ml Vial IV Not Given Q6HR BRANDON Metoprolol Tartrate 12.5 mg 05/15/23 22:00 05/18/23 08:04 Metoprolol Tartrate 12.5 Mg Tab PO 12.5 mg BID BRANDON Administration Miscellaneous Information 1 each 05/15/23 21:53 Magnesium Replacement Protocol 1 Each Misc MISCELLANE DAILY PRN Per Protocol Protocol Naloxone HCl 0.2 mg 05/15/23 20:10 Naloxone 0.4 Mg/Ml 1 Ml Vial IV Q2M PRN Opioid Reversal Nitroglycerin 0.4 mg 05/16/23 00:00 05/16/23 00:02 Nitroglycerin Sl Tabs 0.4 Mg Tab SUBLINGUAL 0.4 mg Q5M PRN Administration Chest Pain Ondansetron HCl 4 mg 05/15/23 21:55 Ondansetron 4 Mg/2 Ml Vial IVP Q6HR PRN Nausea And Vomiting Tramadol HCl 50 mg 05/15/23 22:47 Tramadol 50 Mg Tab PO DAILY PRN Pain Intake and Output 05/17/23 05/18/23 05/18/23 22:59 06:59 14:59 Intake Total 100 540 Output Total 300 950 Balance -200 540 -950 Intake: Oral 100 540 Output: Urine 300 950 Other: Voiding Method External Catheter External Catheter External Catheter # Voids 1 05/18/23 07:50 05/17/23 10:57
--- NOTE | 2023-05-18 16:01 | P.PN ---
Subjective Progress Note Date: 05/18/23 I am seeing this patient in new consultation today 05/16/2023 for a suspected a cute exacerbation of COPD. Patient is a 72-year-old female with history of severe/stage IV COPD with an FEV1 is 30% of predicted. In addition, she has a history of cardiac arrest, essential hypertension, hyperlipidemia, osteoporosis, gastroesophageal reflux diseas, C. difficile colitis, and pneumonia. Patient does follow with Dr. Robles in the outpatient setting. She is chronically steroid and oxygen dependent on 3 L/m nasal cannula. She normally manages her COPD with Symbicort, Yupelri, and when necessary albuterol inhaler. Patient presented to the emergency room yesterday afternoon with chief complaint of shortness of breath starting approximately 24 hours ago. She also had symptoms of mild fever and productive cough with clear sputum. She states that she was recently exposed to her sick grandchildren. She denies any chest pain or hemoptysis. She is currently sitting up in bed, on BiPAP with settings of 10/5 and FiO2 of 50%. She is some moderate respiratory distress, breathing at a rate of 40 breaths per minute, and is in a tripod position. She is oxygenating at 98% on these settings. She is achieving tidal volumes of only 100-200 ml. Chest x-ray on arrival shows no focal consolidation or evidence of pneumonia. She did have a fever on arrival 100.5 degrees Fahrenheit. She is empirically covered on a combination of azithromycin and Rocephin. She was negative for influenza, RSV, COVID-19. CBC on arrival was unremarkable. BMP shows a sodium of 129, potassium 4.3, chloride 86, serum bicarbonate chronically elevated at 37, BUN 12, creatinine 0.52, glucose 111. No IV fluids are currently infusing. Troponin 1 was negative. NT proBNP was low. Patient will be admitted to the cardiac stepdown unit. Today's evaluation of 05/17/2023, the patient is being seen for a follow-up. She is awake and alert and communicating. She is on a BiPAP at a pressure of 12/5 cm of water. She generating a tidal volume of around 300 mL and a minute ventilation of 8.4 L. She seems to be slightly more comfortable compared to yesterday. However, on examination, she remains bronchospastic and wheezy. She remains on a combination of bronchodilators and steroids for now.On her blood work, the blood gas was done yesterday that showed a pH of 7.26 with a pCO2 of 84 and pO2 of 69. The repeat blood gas will be done today. No other labs are available. Pro-calcitonin level level was low at 0.05. Patient is on IV fluids at 75 mL an hour. On today's evaluation of 05/18/2023, the patient remains on BiPAP. Less bronchospastic and lives wheezy and there is no signs of active CO2 narcosis. The repeat blood gas was done and the patient was showing improvement in acid base status. Blood gases that was done today shows improvement and a pH was up to 7.32 with a pCO2 is down to 79 with a pO2 of 96 and this was done on a BiPAP pressure of 12/5 with an FiO2 of 35%. She is a smoker spastic and wheezing on today's examination. No new specific complaints. WBC count remains low at 5.7 with a hemoglobin of 4.2 and a platelet count of 183. Troponins are negative. Pro-calcitonin level has not been checked. She remains on bronchodilators. She remains on steroids. She remains on IV fluids. Objective - Vital Signs Vital signs: Vital Signs Temp 98.2 F 05/18/23 08:00 Pulse 98 05/18/23 15:50 Resp 17 05/18/23 15:50 BP 146/75 05/18/23 15:50 Pulse Ox 87 L 05/18/23 15:50 FiO2 35 05/18/23 15:37 Intake & Output 05/17/23 05/18/23 05/18/23 18:59 06:59 18:59 Intake Total 640 Output Total 300 950 Balance -300 640 -950 Intake: Oral 640 Output: Urine 300 950 Other: Voiding Method External Catheter External Catheter External Catheter # Voids 1 - Exam GENERAL EXAM: Alert, 72-year-old white female, no major Respiratory Distress and the Patient Is on a BiPAP at a Pressure of 12/5 Cm of Water. HEAD: Normocephalic and atraumatic EYES: Normal reaction of pupils, equal size. NOSE: Clear with pink turbinates. THROAT: No erythema or exudates. NECK: No masses, no JVD. CHEST: No chest wall deformity. LUNGS: Equal air entry with expiratory wheezes heard throughout. On BiPAP settings 12/5 and FiO2 50%. No conversational dyspnea or accessory muscle use.. CVS: S1 and S2 normal with no audible murmur, regular rhythm. No extra heart sounds ABDOMEN: No hepatosplenomegaly, active bowel sounds, no guarding or rigidity. SPINE: No scoliosis or deformity SKIN: No rashes CENTRAL NERVOUS SYSTEM: No focal deficits, tone is normal in all 4 extremities. EXTREMITIES: There is no peripheral edema, clubbing, or cyanosis. Peripheral pulses are intact. - Labs CBC & Chem 7: 05/18/23 07:50 05/17/23 10:57 Labs: Abnormal Lab Results - Last 24 Hours (Table) 05/17/23 05/18/23 05/18/23 Range/Units 10:57 07:50 12:42 MCHC 30.9 L (31.0-37.0) g/dL Lymphocytes # 0.5 L (1.0-4.8) k/uL ABG pH 7.32 L (7.35-7.45) ABG pCO2 79 H* (35-45) mmHg ABG HCO3 41 H* (21-25) mmol/L ABG Total CO2 43 H (19-24) mmol/L ABG O2 Saturation 98.9 H (94-97) % TSH 0.034 L (0.465-4.680) mIU/L Microbiology - Last 24 Hours (Table) 05/15/23 15:55 Blood Culture - Preliminary Blood 05/15/23 15:40 Blood Culture - Preliminary Blood Assessment and Plan Assessment: Acute on chronic hypoxemic and hypercapnic respiratory failure secondary to COPD exacerbation and possible acute bronchitis. Currently on BiPAP. Chest x-ray on arrival shows no acute cardiopulmonary process or evidence of pneumonia. Negative for influenza, RSV, COVID-19. The patient had an acute on top of chronic hypoxic and hypercapnic respiratory failure and her blood gases and the patient is currently on examination bronchodilators and steroids. The patient is also receiving BiPAP for support with a pressure of 12/5 cm of water with FiO2 of 35%. Clinically improving less spastic and wheezing less short of breath compared to yesterday. No signs of any CO2 narcosis and the patient is awake and alert and communicating. Essential hypertension Hyperlipidemia History of cardiac arrest Chronic hypoxemic respiratory failure, normally on 3 L/m nasal cannula GERD without esophagitis Diverticulosis Osteoarthritis Ex-smoker Plan: The patient is clinically improving and the blood gases are also improving Follow-up blood gas shows improvement in acid-base status Continue BiPAP for today and the patient should be able to get breaks off the BiPAP for feeding Continue same treatment and the patient is currently on a combination of budesonide, formoterol, DuoNeb's, IV Solu-Medrol Continue empiric antibiotics, and pro-calcitonin level was low Blood culture are negative d-dimer level was low Patient is a DNR/DNI DO NOT RESUSCITATE status. Prognosis is guarded, and we will continue to follow
[2023-05-18] MEDS: AZITHROMYCIN 500 MG in SODIUM CHLORIDE 0.9% 250 ML IVPB SCH (20:23)
[2023-05-18] MEDS: ATORVASTATIN 10 MG TAB PO SCH (20:24)
[2023-05-19] MEDS: SODIUM CHLORIDE 0.9% 1,000 ML IV SCH ×2 (03:58→17:00)
[2023-05-19] MEDS: methylPREDNISolone SOD SUCCI 125 MG/2 ML VIAL IV SCH ×4 (05:32→23:36)
[2023-05-19] MEDS: IPRATROPIUM-ALBUTEROL 3 ML NEB INHALATION SCH ×4 (09:01→20:48)
[2023-05-19] MEDS: BUDESONIDE 1 MG/2 ML NEBU INHALATION SCH ×2 (09:01→20:47)
[2023-05-19] MEDS: FORMOTEROL FUMARATE 20 MCG/2 ML NEBU INHALATION SCH ×2 (09:01→20:48)
[2023-05-19] MEDS: DORZOLAMIDE HCL 2% DROPS 10 ML BTL BOTH EYES SCH ×2 (09:29→20:48)
[2023-05-19] MEDS: METOPROLOL TARTRATE 12.5 MG TAB PO SCH ×2 (09:29→20:48)
[2023-05-19] MEDS: MEMANTINE 5 MG TAB PO SCH ×2 (09:29→20:48)
[2023-05-19] MEDS: FAMOTIDINE 20 MG TAB PO SCH ×2 (09:29→20:48)
[2023-05-19] MEDS: GABAPENTIN 300 MG CAP PO SCH ×2 (09:29→20:48)
[2023-05-19] MEDS: DILTIAZEM ORAL 30 MG TAB PO SCH ×2 (09:29→20:48)
[2023-05-19] MEDS: ALPRAZolam 0.5 MG TAB PO PRN (09:34)
[2023-05-19 09:46] LABS: ALT 17 U/L (4-34); AST 30 U/L (14-36); African American GFR (CKD) >90 (>60 ml/min/1.73 sqM); Albumin 3.2 g/dL (3.5-5.0); Alkaline Phosphatase 54 U/L (38-126); Blood Urea Nitrogen 23 mg/dL (7-17); Chloride 94 mmol/L (98-107); Glucose 119 mg/dL (74-99); Magnesium 2.5 mg/dL (1.6-2.3); Non-African American GFR(CKD) >90 (>60 ml/min/1.73 sqM); Potassium 3.8 mmol/L (3.5-5.1); Sodium 137 mmol/L (137-145); Total Bilirubin 0.5 mg/dL (0.2-1.3); Total Protein 5.8 g/dL (6.3-8.2)
[2023-05-19 09:50] LABS: Basophils % (A) 0 %; Eosinophils % (A) 0 %; HCT 44.4 % (34.0-46.0); HGB 13.3 gm/dL (11.4-16.0); Hypochromasia Marked; Lymphocytes # (A) 0.5 k/uL (1.0-4.8); Lymphocytes % (A) 9 %; MCH 28.8 pg (25.0-35.0); MCHC 29.9 g/dL (31.0-37.0); MCV 96.3 fL (80.0-100.0); Mean Platelet Volume 7.6; Monocytes # (A) 0.3 k/uL (0-1.0); Monocytes % (A) 6 %; Neutrophils # (A) 4.4 k/uL (1.3-7.7); Neutrophils % (A) 82 %; Platelet Count 174 k/uL (150-450); RBC 4.61 m/uL (3.80-5.40); RDW 12.9 % (11.5-15.5); WBC 5.4 k/uL (3.8-10.6)
[2023-05-19 09:53] LABS: Anion Gap 5 mmol/L
[2023-05-19 09:58] LABS: Carbon Dioxide 38 mmol/L (22-30)
[2023-05-19 11:37] LABS: ABG Base Excess 15.8 mmol/L; ABG Oxygen Saturation 99.4 % (94-97); ABG PH 7.34 (7.35-7.45); ABG PO2 109 mmHg (83-108); ABG TCO2 44 mmol/L (19-24); Allen Test Performed? Yes
[2023-05-19 11:43] LABS: ABG HCO3 42 mmol/L (21-25); ABG PCO2 78 mmHg (35-45)
--- NOTE | 2023-05-19 12:18 | P.PN ---
Subjective Progress Note Date: 05/19/23 History of present illness: This is a 72-year-old female patient of Dr. KELL Elizabeth with past medical history of advanced COPD on home oxygen, hypertension, history of respiratory arrest followed by cardiac arrest in 2019 status post cardiac catheterization revealing moderate noncritical CAD, history of mild pulmonary hypertension, history of tobacco use. We have been asked to evaluate the patient for a run of 20 beats of V. tach. Patient was asymptomatic at the time. She is currently running in a sinus tachycardia. She has been admitted to hospital for acute exacerbation of COPD and acute bronchitis. She denies having any chest pain, palpitations, lightheadedness. Telemetry reviewed and patient did have a run of 20 beats of V. tach 1 episode. Patient states overall her breathing status is improving. EKG sinus rhythm at 102 bpm and second EKG sinus at 115 bpm Chest x-ray: No acute abnormality. COPD CBC unremarkable. Sodium 132, potassium 4.3, chloride 90, CO2 40, BUN 15 creatinine 0.38. Troponin negative 1. TSH 0.034 with normal free T4 of 2.05. Glucose 137. AST 41 otherwise liver function tests are normal. Influenza A, influenza B, RSV, Covid 19 not detected. Home cardiac medications: Atorvastatin 10 mg at bedtime, Cardizem 30 mg twice daily, Lopressor 12.5 mg twice daily. Echocardiogram 07/2022 revealed normal LV size with EF 50-55%. Borderline left ventricular hypertrophy. Mild aortic regurgitation. Mild mitral regurgitation, mild tricuspid regurgitation. Pulmonary artery systolic pressure of 40 mmHg. 05/19 Patient is seen today in follow-up. She continues to be on BiPAP and lung sounds are worse today. Heart rate is running 70s and 90s, blood pressure 139 /71. Physical examination: Gen: This is a 72-year-old female resting in bed and appears to be in no acute distress. VS: reviewed HEENT: Head is atraumatic, normocephalic. Pupils equal, round. Sclerae is anicteric. NECK: Supple. No JVD. LUNGS: Clear to auscultation. No wheezes or rhonchi. No intercostal retractions. HEART: Regular rate and rhythm. No murmur. ABDOMEN: Soft No tenderness. EXTREMITIES: No pedal edema. No calf tenderness. NEUROLOGICAL: Patient is awake, alert and oriented x3. Assessment: Nonsustained ventricular tachycardia Advanced COPD Acute on chronic hypoxic and hypercapnic respiratory failure with COPD exacerbation and acute bronchitis Hypertension Hyperlipidemia History of pulmonary arrest followed by cardiac arrest Gastroesophageal reflux disease History of tobacco use and dependence Plan: Continue on patient's home cardiac medications No further cardiac workup at this time. Cardiology will sign off and follow on an as-needed basis.. Nurse practitioner note has been reviewed, I agree with documented findings and plan of care. Patient was seen and examined. Objective - Vital Signs Vital signs: Vital Signs Temp 97.7 F 05/19/23 08:20 Pulse 96 05/19/23 09:18 Resp 20 05/19/23 08:20 BP 139/71 05/19/23 08:20 Pulse Ox 99 05/19/23 08:20 FiO2 35 05/19/23 09:01 Intake & Output 05/18/23 05/19/23 05/19/23 18:59 06:59 18:59 Intake Total 50 Output Total 950 100 Balance -950 -50 Intake: Oral 50 Output: Urine 950 100 Other: Voiding Method External Catheter External Catheter - Labs CBC & Chem 7: 05/19/23 08:40 05/19/23 08:40 Labs: Abnormal Lab Results - Last 24 Hours (Table) 05/17/23 05/18/23 Range/Units 10:57 12:42 ABG pH 7.32 L (7.35-7.45) ABG pCO2 79 H* (35-45) mmHg ABG HCO3 41 H* (21-25) mmol/L ABG Total CO2 43 H (19-24) mmol/L ABG O2 Saturation 98.9 H (94-97) % TSH 0.034 L (0.465-4.680) mIU/L Microbiology - Last 24 Hours (Table) 05/15/23 15:55 Blood Culture - Preliminary Blood 05/15/23 15:40 Blood Culture - Preliminary Blood
--- NOTE | 2023-05-19 12:37 | P.PN ---
Subjective Progress Note Date: 05/19/23 she is a 72-year-old lady with past medical history significant for COPD, chronic hypoxic respiratory failure,cardiac arrest, essential hypertension, hyperlipidemia, osteoporosis, gastroesophageal reflux diseas, C. difficile colitis, and pneumonia presented to the hospital because of worsening shortness of breath. Shortness of breath started 24 hours ago and it was present on rest as well as exertion, it was associated with productive cough and fever. Patient admits to having sick contacts in the family. Denies any chest pain. Because of this worsening shortness of breath patient came to the ER, Initial lab work in the ER showed a PVC 8.2, hemoglobin 14.2, platelet count 185, d-dimer was 0.57, sodium 129, potassium 4.3, BUN 12, creatinine 0.52. Influenza A and B-, RSV negative, COVID-19 negative Chest x-ray done showed no acute cardiac process Patient was admitted to internal medicine service 05/17. Patient seen and examined. Continues to be on BiPAP. States her mouth is dry, wants something to eat 05/18. Patient seen and examined. Complaining of anxiety. Also had a brief run of V. tach. Continues to be on BiPAP. 05/19. Patient seen and examined. Labs done this morning showed white count 5.4, hemoglobin 13.3, sodium 137, potassium 3.8, BUN 23, creatinine 0.41. Repeat ABGs ordered. Patient gets short of breath on exertion REVIEW OF SYSTEMS: Review of systems cannot be obtained as patient is on BiPAP PHYSICAL EXAMINATION: GENERAL: The patient is alert and oriented x3, not in any acute distress. Well developed, well nourished. HEENT: Pupils are round and equally reacting to light. EOMI. No scleral icterus. No conjunctival pallor. Normocephalic, atraumatic. No pharyngeal erythema. No thyromegaly. CARDIOVASCULAR: S1 and S2 present. No murmurs, rubs, or gallops. PULMONARY: coarse breath some bilaterally ABDOMEN: Soft, nontender, nondistended, normoactive bowel sounds. No palpable organomegaly. MUSCULOSKELETAL: No joint swelling or deformity. EXTREMITIES: No cyanosis, clubbing, or pedal edema. NEUROLOGICAL: Gross neurological examination did not reveal any focal deficits. SKIN: No rashes. Assessment and plan Acute on chronic hypoxemic and hypercapnic respiratory failure Acute COPD exacerbation Nonsustained V. tach acute bronchitis. Essential hypertension Hyperlipidemia History of cardiac arrest GERD without esophagitis Diverticulosis Osteoarthritis Monitor vital signs Monitor CBC Monitor CMP Continue oxygen supplementation Continue telemetry monitoring Continues of BiPAP as needed Repeat ABG ordered Continue breathing treatments Continue IV Solu-Medrol 60 mg every 6 Continue IV Rocephin and azithromycin Follow-up on pulmonary recommendations Cardiology SIGNED off Objective - Vital Signs Vital signs: Vital Signs Temp 97.7 F 05/19/23 08:20 Pulse 96 05/19/23 09:31 Resp 20 05/19/23 08:20 BP 139/71 05/19/23 08:20 Pulse Ox 99 05/19/23 08:20 FiO2 35 05/19/23 09:01 Intake & Output 05/18/23 05/19/23 05/19/23 18:59 06:59 18:59 Intake Total 50 Output Total 950 100 Balance -950 -50 Intake: Oral 50 Output: Urine 950 100 Other: Voiding Method External Catheter External Catheter - Labs CBC & Chem 7: 05/19/23 08:40 05/19/23 08:40 Labs: Abnormal Lab Results - Last 24 Hours (Table) 05/17/23 05/18/23 05/19/23 Range/Units 10:57 12:42 08:40 MCHC 29.9 L (31.0-37.0) g/dL Lymphocytes # 0.5 L (1.0-4.8) k/uL ABG pH 7.32 L (7.35-7.45) ABG pCO2 79 H* (35-45) mmHg ABG HCO3 41 H* (21-25) mmol/L ABG Total CO2 43 H (19-24) mmol/L ABG O2 Saturation 98.9 H (94-97) % Chloride (98-107) mmol/L Carbon Dioxide (22-30) mmol/L BUN (7-17) mg/dL Creatinine (0.52-1.04) mg/dL Glucose (74-99) mg/dL Calcium (8.4-10.2) mg/dL Magnesium (1.6-2.3) mg/dL Total Protein (6.3-8.2) g/dL Albumin (3.5-5.0) g/dL TSH 0.034 L (0.465-4.680) mIU/L 05/19/23 Range/Units 08:40 MCHC (31.0-37.0) g/dL Lymphocytes # (1.0-4.8) k/uL ABG pH (7.35-7.45) ABG pCO2 (35-45) mmHg ABG HCO3 (21-25) mmol/L ABG Total CO2 (19-24) mmol/L ABG O2 Saturation (94-97) % Chloride 94 L (98-107) mmol/L Carbon Dioxide 38 H (22-30) mmol/L BUN 23 H (7-17) mg/dL Creatinine 0.41 L (0.52-1.04) mg/dL Glucose 119 H (74-99) mg/dL Calcium 7.0 L (8.4-10.2) mg/dL Magnesium 2.5 H (1.6-2.3) mg/dL Total Protein 5.8 L (6.3-8.2) g/dL Albumin 3.2 L (3.5-5.0) g/dL TSH (0.465-4.680) mIU/L Microbiology - Last 24 Hours (Table) 05/15/23 15:55 Blood Culture - Preliminary Blood 05/15/23 15:40 Blood Culture - Preliminary Blood
--- NOTE | 2023-05-19 14:17 | XR ---
EXAMINATION TYPE: XR chest 1V DATE OF EXAM: 05/19/2023 COMPARISON: NONE HISTORY: COPD TECHNIQUE: Single frontal view of the chest is obtained. FINDINGS: There is no focal air space opacity, pleural effusion, or pneumothorax seen. The cardiac silhouette size is within normal limits. The osseous structures are intact. Question bilateral cerv ical ribs. Hyperinflation suggests COPD. Diffuse osteopenia and AC joint arthropathy. Atherosclerotic change aorta. IMPRESSION: No acute process. Correlate for COPD.
--- NOTE | 2023-05-19 15:41 | P.PN ---
Subjective Progress Note Date: 05/19/23 I am seeing this patient in new consultation today 05/16/2023 for a suspected a cute exacerbation of COPD. Patient is a 72-year-old female with history of severe/stage IV COPD with an FEV1 is 30% of predicted. In addition, she has a history of cardiac arrest, essential hypertension, hyperlipidemia, osteoporosis, gastroesophageal reflux diseas, C. difficile colitis, and pneumonia. Patient does follow with Dr. Robles in the outpatient setting. She is chronically steroid and oxygen dependent on 3 L/m nasal cannula. She normally manages her COPD with Symbicort, Yupelri, and when necessary albuterol inhaler. Patient presented to the emergency room yesterday afternoon with chief complaint of shortness of breath starting approximately 24 hours ago. She also had symptoms of mild fever and productive cough with clear sputum. She states that she was recently exposed to her sick grandchildren. She denies any chest pain or hemoptysis. She is currently sitting up in bed, on BiPAP with settings of 10/5 and FiO2 of 50%. She is some moderate respiratory distress, breathing at a rate of 40 breaths per minute, and is in a tripod position. She is oxygenating at 98% on these settings. She is achieving tidal volumes of only 100-200 ml. Chest x-ray on arrival shows no focal consolidation or evidence of pneumonia. She did have a fever on arrival 100.5 degrees Fahrenheit. She is empirically covered on a combination of azithromycin and Rocephin. She was negative for influenza, RSV, COVID-19. CBC on arrival was unremarkable. BMP shows a sodium of 129, potassium 4.3, chloride 86, serum bicarbonate chronically elevated at 37, BUN 12, creatinine 0.52, glucose 111. No IV fluids are currently infusing. Troponin 1 was negative. NT proBNP was low. Patient will be admitted to the cardiac stepdown unit. Today's evaluation of 05/17/2023, the patient is being seen for a follow-up. She is awake and alert and communicating. She is on a BiPAP at a pressure of 12/5 cm of water. She generating a tidal volume of around 300 mL and a minute ventilation of 8.4 L. She seems to be slightly more comfortable compared to yesterday. However, on examination, she remains bronchospastic and wheezy. She remains on a combination of bronchodilators and steroids for now.On her blood work, the blood gas was done yesterday that showed a pH of 7.26 with a pCO2 of 84 and pO2 of 69. The repeat blood gas will be done today. No other labs are available. Pro-calcitonin level level was low at 0.05. Patient is on IV fluids at 75 mL an hour. On today's evaluation of 05/18/2023, the patient remains on BiPAP. Less bronchospastic and lives wheezy and there is no signs of active CO2 narcosis. The repeat blood gas was done and the patient was showing improvement in acid base status. Blood gases that was done today shows improvement and a pH was up to 7.32 with a pCO2 is down to 79 with a pO2 of 96 and this was done on a BiPAP pressure of 12/5 with an FiO2 of 35%. She is a smoker spastic and wheezing on today's examination. No new specific complaints. WBC count remains low at 5.7 with a hemoglobin of 4.2 and a platelet count of 183. Troponins are negative. Pro-calcitonin level has not been checked. She remains on bronchodilators. She remains on steroids. She remains on IV fluids. On 05/19/2023, I found the patient slightly more lethargic. I repeated a blood gases in the blood gas findings of essentially unchanged compared to yesterday. The patient carries a pH of 7.34 with a pCO2 of 78 and pO2 of 109. She remains on a BiPAP pressure of 12/5 cm of water with FiO2 of 35%. The echoes of 5.4 with a hemoglobin 15.3 and a platelet count of 174. BUN is 23 with a creatinine of 0.4 and sodium levels of 137. No other significant events overn ight. The patient remains bronchospastic and wheezy. A repeat chest x-ray was done that showed no acute abnormalities. Objective - Vital Signs Vital signs: Vital Signs Temp 97.7 F 05/19/23 08:20 Pulse 96 05/19/23 09:31 Resp 20 05/19/23 08:20 BP 139/71 05/19/23 08:20 Pulse Ox 99 05/19/23 08:20 FiO2 35 05/19/23 09:01 Intake & Output 06/21/23 06/22/23 06/22/23 18:59 06:59 18:59 Intake Total 50 Output Total 950 100 Balance -950 -50 Intake: Oral 50 Output: Urine 950 100 Other: Voiding Method External Catheter External Catheter - Exam GENERAL EXAM: Alert, 72-year-old white female, no major Respiratory Distress and the Patient Is on a BiPAP at a Pressure of 12/5 Cm of Water. HEAD: Normocephalic and atraumatic EYES: Normal reaction of pupils, equal size. NOSE: Clear with pink turbinates. THROAT: No erythema or exudates. NECK: No masses, no JVD. CHEST: No chest wall deformity. LUNGS: Equal air entry with expiratory wheezes heard throughout. On BiPAP settings 12/5 and FiO2 50%. No conversational dyspnea or accessory muscle use.. CVS: S1 and S2 normal with no audible murmur, regular rhythm. No extra heart lisa nds ABDOMEN: No hepatosplenomegaly, active bowel sounds, no guarding or rigidity. SPINE: No scoliosis or deformity SKIN: No rashes CENTRAL NERVOUS SYSTEM: No focal deficits, tone is normal in all 4 extremities. EXTREMITIES: There is no peripheral edema, clubbing, or cyanosis. Peripheral pulses are intact. - Labs CBC & Chem 7: 05/19/23 08:40 05/19/23 08:40 Labs: Abnormal Lab Results - Last 24 Hours (Table) 05/17/23 05/18/23 05/19/23 Range/Units 10:57 12:42 08:40 MCHC 29.9 L (31.0-37.0) g/dL Lymphocytes # 0.5 L (1.0-4.8) k/uL ABG pH 7.32 L (7.35-7.45) ABG pCO2 79 H* (35-45) mmHg ABG HCO3 41 H* (21-25) mmol/L ABG Total CO2 43 H (19-24) mmol/L ABG O2 Saturation 98.9 H (94-97) % Chloride (98-107) mmol/L Carbon Dioxide (22-30) mmol/L BUN (7-17) mg/dL Creatinine (0.52-1.04) mg/dL Glucose (74-99) mg/dL Calcium (8.4-10.2) mg/dL Magnesium (1.6-2.3) mg/dL Total Protein (6.3-8.2) g/dL Albumin (3.5-5.0) g/dL TSH 0.034 L (0.465-4.680) mIU/L 05/19/23 Range/Units 08:40 MCHC (31.0-37.0) g/dL Lymphocytes # (1.0-4.8) k/uL ABG pH (7.35-7.45) ABG pCO2 (35-45) mmHg ABG HCO3 (21-25) mmol/L ABG Total CO2 (19-24) mmol/L ABG O2 Saturation (94-97) % Chloride 94 L (98-107) mmol/L Carbon Dioxide 38 H (22-30) mmol/L BUN 23 H (7-17) mg/dL Creatinine 0.41 L (0.52-1.04) mg/dL Glucose 119 H (74-99) mg/dL Calcium 7.0 L (8.4-10.2) mg/dL Magnesium 2.5 H (1.6-2.3) mg/dL Total Protein 5.8 L (6.3-8.2) g/dL Albumin 3.2 L (3.5-5.0) g/dL TSH (0.465-4.680) mIU/L Microbiology - Last 24 Hours (Table) 05/15/23 15:55 Blood Culture - Preliminary Blood 05/15/23 15:40 Blood Culture - Preliminary Blood Assessment and Plan Assessment: Acute on chronic hypoxemic and hypercapnic respiratory failure secondary to COPD exacerbation and possible acute bronchitis. Currently on BiPAP. Chest x-ray on arrival shows no acute cardiopulmonary process or evidence of pneumonia. Negative for influenza, RSV, COVID-19. The patient had an acute on top of chronic hypoxic and hypercapnic respiratory failure and her blood gases and the patient is currently on examination bronchodilators and steroids. The patient is also receiving BiPAP for support with a pressure of 12/5 cm of water with FiO2 of 35%. Mild signs of CO2 narcosis and the patient is awake and alert and communicating. The patient has acute on top of chronic respiratory acidosis and the blood. Is essentially unchanged compared to yesterday. Still bronchospastic and wheezy. Essential hypertension Hyperlipidemia History of cardiac arrest Chronic hypoxemic respiratory failure, normally on 3 L/m nasal cannula GERD without esophagitis Diverticulosis Osteoarthritis Ex-smoker Plan: Clinically unchanged compared to yesterday and the blood gases and the chest and the findings are also unchanged The patient is noted to be slightly more lethargic compared to yesterday and overall she is improving Continue BiPAP for today and the patient should be able to get breaks off the BiPAP for feeding Continue same treatment and the patient is currently on a combination of bu desonide, formoterol, DuoNeb's, IV Solu-Medrol Continue empiric antibiotics, and pro-calcitonin level was low Blood culture are negative d-dimer level was low Patient is a DNR/DNI DO NOT RESUSCITATE status. Prognosis is guarded, and we will continue to follow
--- NOTE | 2023-05-19 16:23 | CA ---
Transthoracic Echo Report Name: Juju Forte Age: 72 Gender: F : 1950 Exam Date: 05/19/2023 07:31 Exam Location: [facility] Ht (in): 63 Wt (lb): 129 Ordering Physician: Vivien Amos Attending/Referring Phys: [id number], Dandre Hand Twister [facility] Procedure CPT: Indications: LVF Cardiac Hx: Technical Quality: Technically difficult study Contrast 1: Total Dose (mL): Contrast 2: Total Dose (mL): MEASUREMENTS (Male / Female) Normal Values 2D ECHO LV Diastolic Diameter PLAX 4.3 cm 4.2 - 5.9 / 3.9 - 5.3 cm LV Systolic Diameter PLAX 2.9 cm IVS Diastolic Thickness 1.0 cm 0.6 - 1.0 / 0.6 - 0.9 cm LVPW Diastolic Thickness 1.0 cm 0.6 - 1.0 / 0.6 - 0.9 cm LV Relative Wall Thickness 0.5 LVOT Diameter 2.0 cm M-MODE Aortic Root Diameter MM 3.4 cm LA Systolic Diameter MM 3.0 cm LA Ao Ratio MM 0.9 AV Cusp Separation MM 1.5 cm DOPPLER AV Peak Velocity 140.4 cm/s AV Peak Gradient 7.9 mmHg AV Mean Velocity 100.9 cm/s AV Mean Gradient 4.5 mmHg AV Velocity Time Integral 34.6 cm LVOT Peak Velocity 99.1 cm/s LVOT Peak Gradient 3.9 mmHg LVOT Velocity Time Integral 21.5 cm LVOT Stroke Volume 66.0 cm??? LVOT Stroke Volume Index 41.1 ml/m??? LVOT Cardiac Index 2896.9 cm???/min???m??? AV Area Cont Eq vti 1.9 cm??? AV Area Cont Eq pk 2.2 cm??? Mitral E Point Velocity 82.2 cm/s Mitral A Point Velocity 84.2 cm/s Mitral E to A Ratio 1.0 MV Deceleration Time 152.2 ms LV E' Lateral Velocity 10.4 cm/s Mitral E to LV E' Lateral Ratio 7.9 LV E' Septal Velocity 8.4 cm/s Mitral E to LV E' Septal Ratio 9.8 Right Atrial Pressure 15.0 mmHg FINDINGS Left Ventricle Mildly increased left ventricular wall thickness. Left ventricular cavity size normal. No obvious regional wall motion abnormalities. Left ventricular ejection fraction is estimated at 55%. Right Ventricle Mild right ventricular dilatation. Right Atrium Normal right atrial size. Left Atrium Normal left atrial size. Mitral Valve Structurally normal mitral valve. Trace mitral regurgitation. Aortic Valve Trileaflet aortic valve. Mildly thickened aortic valve leaflets. Trace aortic regurgitation. Tricuspid Valve Structurally normal tricuspid valve. No tricuspid regurgitation. Pulmonic Valve Pulmonic valve not well visualized. No pulmonic regurgitation. Pericardium No pericardial effusion. Aorta Normal size aortic root and proximal ascending aorta. CONCLUSIONS Left ventricular ejection fraction 55% Mild increased left ventricular wall thickness Trace mitral regurgitation No pericardial effusion Previewed by: Dr. Parvez Boss DO (Electronically Signed) Final Date: 19 May 2023 16:22
[2023-05-19] MEDS: ATORVASTATIN 10 MG TAB PO SCH (20:48)
[2023-05-20] MEDS: methylPREDNISolone SOD SUCCI 125 MG/2 ML VIAL IV SCH ×3 (06:11→17:21)
[2023-05-20] MEDS: SODIUM CHLORIDE 0.9% 1,000 ML IV SCH ×2 (06:11→20:25)
[2023-05-20 07:54] LABS: Basophils % (A) 0 %; Eosinophils # (A) 0.1 k/uL (0-0.7); Eosinophils % (A) 1 %; HCT 45.1 % (34.0-46.0); HGB 13.7 gm/dL (11.4-16.0); Hypochromasia Moderate; Lymphocytes # (A) 0.4 k/uL (1.0-4.8); Lymphocytes % (A) 8 %; MCH 29.1 pg (25.0-35.0); MCHC 30.4 g/dL (31.0-37.0); MCV 95.7 fL (80.0-100.0); Mean Platelet Volume 7.6; Monocytes # (A) 0.3 k/uL (0-1.0); Monocytes % (A) 6 %; Neutrophils # (A) 4.2 k/uL (1.3-7.7); Neutrophils % (A) 83 %; Platelet Count 184 k/uL (150-450); RBC 4.72 m/uL (3.80-5.40); RDW 12.8 % (11.5-15.5)
[2023-05-20 08:21] LABS: ALT 17 U/L (4-34); AST 25 U/L (14-36); African American GFR (CKD) >90 (>60 ml/min/1.73 sqM); Albumin 3.1 g/dL (3.5-5.0); Alkaline Phosphatase 50 U/L (38-126); Blood Urea Nitrogen 24 mg/dL (7-17); Calcium 7.2 mg/dL (8.4-10.2); Chloride 95 mmol/L (98-107); Glucose 132 mg/dL (74-99); Non-African American GFR(CKD) >90 (>60 ml/min/1.73 sqM); Sodium 137 mmol/L (137-145); Total Bilirubin 0.4 mg/dL (0.2-1.3); Total Protein 5.8 g/dL (6.3-8.2)
[2023-05-20 08:28] LABS: Anion Gap 5 mmol/L; Carbon Dioxide 37 mmol/L (22-30)
[2023-05-20] MEDS: ALPRAZolam 0.5 MG TAB PO PRN ×2 (08:29→17:21)
[2023-05-20] MEDS: DILTIAZEM ORAL 30 MG TAB PO SCH ×2 (08:29→20:25)
[2023-05-20] MEDS: METOPROLOL TARTRATE 12.5 MG TAB PO SCH ×2 (08:29→20:26)
[2023-05-20] MEDS: GABAPENTIN 300 MG CAP PO SCH ×2 (08:29→20:26)
[2023-05-20] MEDS: MEMANTINE 5 MG TAB PO SCH ×2 (08:30→20:26)
[2023-05-20] MEDS: FAMOTIDINE 20 MG TAB PO SCH ×2 (08:30→20:25)
[2023-05-20] MEDS: DORZOLAMIDE HCL 2% DROPS 10 ML BTL BOTH EYES SCH ×2 (08:30→20:26)
[2023-05-20 08:44] LABS: Potassium 3.7 mmol/L (3.5-5.1)
[2023-05-20] MEDS: FORMOTEROL FUMARATE 20 MCG/2 ML NEBU INHALATION SCH ×2 (09:11→21:13)
[2023-05-20] MEDS: IPRATROPIUM-ALBUTEROL 3 ML NEB INHALATION SCH ×4 (09:11→21:13)
[2023-05-20] MEDS: BUDESONIDE 1 MG/2 ML NEBU INHALATION SCH ×2 (09:11→21:13)
[2023-05-20] MEDS ORDERED: FUROSEMIDE 10 MG/ML 2 ML VIAL IV ONE (11:59)
[2023-05-20 13:28] VITALS: BMI 22.8
--- NOTE | 2023-05-20 13:29 | P.PN ---
Subjective Progress Note Date: 05/20/23 she is a 72-year-old lady with past medical history significant for COPD, chronic hypoxic respiratory failure,cardiac arrest, essential hypertension, hyperlipidemia, osteoporosis, gastroesophageal reflux diseas, C. difficile colitis, and pneumonia presented to the hospital because of worsening shortness of breath. Shortness of breath started 24 hours ago and it was present on rest as well as exertion, it was associated with productive cough and fever. Patient admits to having sick contacts in the family. Denies any chest pain. Because of this worsening shortness of breath patient came to the ER, Initial lab work in the ER showed a PVC 8.2, hemoglobin 14.2, platelet count 185, d-dimer was 0.57, sodium 129, potassium 4.3, BUN 12, creatinine 0.52. Influenza A and B-, RSV negative, COVID-19 negative Chest x-ray done showed no acute cardiac process Patient was admitted to internal medicine service 05/17. Patient seen and examined. Continues to be on BiPAP. States her mouth is dry, wants something to eat 05/18. Patient seen and examined. Complaining of anxiety. Also had a brief run of V. tach. Continues to be on BiPAP. 05/19. Patient seen and examined. Labs done this morning showed white count 5.4, hemoglobin 13.3, sodium 137, potassium 3.8, BUN 23, creatinine 0.41. Repeat ABGs ordered. Patient gets short of breath on exertion 05/20. Patient seen and examined.lab work done this morning showed white count of 5, hemoglobin 13.7, platelet count 184, sodium 137, potassium 3.7,. Patient continues to be on BiPAP, was given breaks for dinnertime last night and for breakfast this morning Family at the bedside REVIEW OF SYSTEMS: Review of systems cannot be obtained as patient is on BiPAP PHYSICAL EXAMINATION: GENERAL: The patient is alert and oriented x3, not in any acute distress. Well developed, well nourished. HEENT: Pupils are round and equally reacting to light. EOMI. No scleral icterus. No conjunctival pallor. Normocephalic, atraumatic. No pharyngeal erythema. No thyromegaly. CARDIOVASCULAR: S1 and S2 present. No murmurs, rubs, or gallops. PULMONARY: coarse breath some bilaterally ABDOMEN: Soft, nontender, nondistended, normoactive bowel sounds. No palpable organomegaly. MUSCULOSKELETAL: No joint swelling or deformity. EXTREMITIES: No cyanosis, clubbing, or pedal edema. NEUROLOGICAL: Gross neurological examination did not reveal any focal deficits. SKIN: No rashes. Assessment and plan Acute on chronic hypoxemic and hypercapnic respiratory failure Acute COPD exacerbation Nonsustained V. tach acute bronchitis. Essential hypertension Hyperlipidemia History of cardiac arrest GERD without esophagitis Diverticulosis Osteoarthritis Monitor vital signs Monitor CBC Monitor CMP Continue oxygen supplementation Continue telemetry monitoring Continues of BiPAP as needed Continue breathing treatments Continue IV Solu-Medrol 60 mg every 6 Continue IV Rocephin today is the fifth day of antibiotics Follow-up on pulmonary recommendations Cardiology SIGNED off Objective - Vital Signs Vital signs: Vital Signs Temp 98.1 F 05/20/23 07:50 Pulse 84 05/20/23 09:32 Resp 24 05/20/23 07:50 BP 181/71 05/20/23 07:50 Pulse Ox 98 05/20/23 07:50 FiO2 28 05/20/23 09:11 Intake & Output 05/19/23 05/20/23 05/20/23 18:59 06:59 18:59 Intake Total 225 Output Total 900 300 Balance -675 -300 Intake: Intake, IV Titration 225 Amount Sodium Chloride 0.9% 1, 225 000 ml @ 75 mls/hr IV . [id number] [facility] Rx#:[id number] Output: Urine 900 300 Other: Voiding Method External Catheter External Catheter - Labs CBC & Chem 7: 05/20/23 07:28 05/20/23 07:28 Labs: Abnormal Lab Results - Last 24 Hours (Table) 05/19/23 05/20/23 05/20/23 Range/Units 11:30 07:28 07:28 MCHC 30.4 L (31.0-37.0) g/dL Lymphocytes # 0.4 L (1.0-4.8) k/uL ABG pH 7.34 L (7.35-7.45) ABG pCO2 78 H* (35-45) mmHg ABG pO2 109 H (83-108) mmHg ABG HCO3 42 H* (21-25) mmol/L ABG Total CO2 44 H (19-24) mmol/L ABG O2 Saturation 99.4 H (94-97) % Chloride 95 L (98-107) mmol/L Carbon Dioxide 37 H (22-30) mmol/L BUN 24 H (7-17) mg/dL Creatinine 0.44 L (0.52-1.04) mg/dL Glucose 132 H (74-99) mg/dL Calcium 7.2 L (8.4-10.2) mg/dL Total Protein 5.8 L (6.3-8.2) g/dL Albumin 3.1 L (3.5-5.0) g/dL Microbiology - Last 24 Hours (Table) 05/15/23 15:55 Blood Culture - Preliminary Blood 05/15/23 15:40 Blood Culture - Preliminary Blood
--- NOTE | 2023-05-20 14:25 | P.PN ---
Subjective Progress Note Date: 05/20/23 I am seeing this patient in new consultation today 05/16/2023 for a suspected a cute exacerbation of COPD. Patient is a 72-year-old female with history of severe/stage IV COPD with an FEV1 is 30% of predicted. In addition, she has a history of cardiac arrest, essential hypertension, hyperlipidemia, osteoporosis, gastroesophageal reflux diseas, C. difficile colitis, and pneumonia. Patient does follow with Dr. Robles in the outpatient setting. She is chronically steroid and oxygen dependent on 3 L/m nasal cannula. She normally manages her COPD with Symbicort, Yupelri, and when necessary albuterol inhaler. Patient presented to the emergency room yesterday afternoon with chief complaint of shortness of breath starting approximately 24 hours ago. She also had symptoms of mild fever and productive cough with clear sputum. She states that she was recently exposed to her sick grandchildren. She denies any chest pain or hemoptysis. She is currently sitting up in bed, on BiPAP with settings of 10/5 and FiO2 of 50%. She is some moderate respiratory distress, breathing at a rate of 40 breaths per minute, and is in a tripod position. She is oxygenating at 98% on these settings. She is achieving tidal volumes of only 100-200 ml. Chest x-ray on arrival shows no focal consolidation or evidence of pneumonia. She did have a fever on arrival 100.5 degrees Fahrenheit. She is empirically covered on a combination of azithromycin and Rocephin. She was negative for influenza, RSV, COVID-19. CBC on arrival was unremarkable. BMP shows a sodium of 129, potassium 4.3, chloride 86, serum bicarbonate chronically elevated at 37, BUN 12, creatinine 0.52, glucose 111. No IV fluids are currently infusing. Troponin 1 was negative. NT proBNP was low. Patient will be admitted to the cardiac stepdown unit. Today's evaluation of 05/17/2023, the patient is being seen for a follow-up. She is awake and alert and communicating. She is on a BiPAP at a pressure of 12/5 cm of water. She generating a tidal volume of around 300 mL and a minute ventilation of 8.4 L. She seems to be slightly more comfortable compared to yesterday. However, on examination, she remains bronchospastic and wheezy. She remains on a combination of bronchodilators and steroids for now.On her blood work, the blood gas was done yesterday that showed a pH of 7.26 with a pCO2 of 84 and pO2 of 69. The repeat blood gas will be done today. No other labs are available. Pro-calcitonin level level was low at 0.05. Patient is on IV fluids at 75 mL an hour. On today's evaluation of 05/18/2023, the patient remains on BiPAP. Less bronchospastic and lives wheezy and there is no signs of active CO2 narcosis. The repeat blood gas was done and the patient was showing improvement in acid base status. Blood gases that was done today shows improvement and a pH was up to 7.32 with a pCO2 is down to 79 with a pO2 of 96 and this was done on a BiPAP pressure of 12/5 with an FiO2 of 35%. She is a smoker spastic and wheezing on today's examination. No new specific complaints. WBC count remains low at 5.7 with a hemoglobin of 4.2 and a platelet count of 183. Troponins are negative. Pro-calcitonin level has not been checked. She remains on bronchodilators. She remains on steroids. She remains on IV fluids. On 05/19/2023, I found the patient slightly more lethargic. I repeated a blood gases in the blood gas findings of essentially unchanged compared to yesterday. The patient carries a pH of 7.34 with a pCO2 of 78 and pO2 of 109. She remains on a BiPAP pressure of 12/5 cm of water with FiO2 of 35%. The echoes of 5.4 with a hemoglobin 15.3 and a platelet count of 174. BUN is 23 with a creatinine of 0.4 and sodium levels of 137. No other significant events overn ight. The patient remains bronchospastic and wheezy. A repeat chest x-ray was done that showed no acute abnormalities. On 05/20/2023, the patient is still on a BiPAP at a pressure of 12/5 cm of anastasiya er. She is synchronous. Although she is getting tired and overall discouraged because of her advanced COPD and her ongoing shortness of breath and lack of clinical response. She is being given brief breaks off the BiPAP for oral feeds. Family the bedside. At one point, she was considering to go hospice care. I think we will going to continue the treatment for another 24 hours. The patient remains on the same treatment of DuoNeb nebulized treatments [id number], IV Solu-Medrol, Perforomist and Pulmicort updrafts twice a day. No blood gas from today. Nevertheless, her blood work is essentially stable. BUN is at 24 with a creatinine of 0.4. Sodium is at 137. The white cell count is at 5 with a hemoglobin 15.7 and a platelet count of 184. She is a bit anxious and she is taking Xanax on an as-needed basis. She remains on IV Rocephin. Objective - Vital Signs Vital signs: Vital Signs Temp 98.1 F 05/20/23 07:50 Pulse 84 05/20/23 09:32 Resp 24 05/20/23 07:50 BP 181/71 05/20/23 07:50 Pulse Ox 98 05/20/23 07:50 FiO2 28 05/20/23 09:11 Intake & Output 05/19/23 05/20/23 05/20/23 18:59 06:59 18:59 Intake Total 225 225 Output Total 900 300 Balance -675 -300 225 Intake: Intake, IV Titration 225 225 Amount Sodium Chloride 0.9% 1, 225 225 000 ml @ 75 mls/hr IV . [id number] [facility] Rx#:[id number] Output: Urine 900 300 Other: Voiding Method External Catheter External Catheter External Catheter - Exam GENERAL EXAM: Alert, 72-year-old white female, no major Respiratory Distress and the Patient Is on a BiPAP at a Pressure of 12/5 Cm of Water. HEAD: Normocephalic and atraumatic EYES: Normal reaction of pupils, equal size. NOSE: Clear with pink turbinates. THROAT: No erythema or exudates. NECK: No masses, no JVD. CHEST: No chest wall deformity. LUNGS: Equal air entry with expiratory wheezes heard throughout. On BiPAP settings 12/5 and FiO2 50%. No conversational dyspnea or accessory muscle use.. CVS: S1 and S2 normal with no audible murmur, regular rhythm. No extra heart s ounds ABDOMEN: No hepatosplenomegaly, active bowel sounds, no guarding or rigidity. SPINE: No scoliosis or deformity SKIN: No rashes CENTRAL NERVOUS SYSTEM: No focal deficits, tone is normal in all 4 extremities. EXTREMITIES: There is no peripheral edema, clubbing, or cyanosis. Peripheral pulses are intact. - Labs CBC & Chem 7: 05/20/23 07:28 05/20/23 07:28 Labs: Abnormal Lab Results - Last 24 Hours (Table) 05/19/23 05/20/23 05/20/23 Range/Units 11:30 07:28 07:28 MCHC 30.4 L (31.0-37.0) g/dL Lymphocytes # 0.4 L (1.0-4.8) k/uL ABG pH 7.34 L (7.35-7.45) ABG pCO2 78 H* (35-45) mmHg ABG pO2 109 H (83-108) mmHg ABG HCO3 42 H* (21-25) mmol/L ABG Total CO2 44 H (19-24) mmol/L ABG O2 Saturation 99.4 H (94-97) % Chloride 95 L (98-107) mmol/L Carbon Dioxide 37 H (22-30) mmol/L BUN 24 H (7-17) mg/dL Creatinine 0.44 L (0.52-1.04) mg/dL Glucose 132 H (74-99) mg/dL Calcium 7.2 L (8.4-10.2) mg/dL Total Protein 5.8 L (6.3-8.2) g/dL Albumin 3.1 L (3.5-5.0) g/dL Microbiology - Last 24 Hours (Table) 05/15/23 15:55 Blood Culture - Preliminary Blood 05/15/23 15:40 Blood Culture - Preliminary Blood Assessment and Plan Assessment: Acute on chronic hypoxemic and hypercapnic respiratory failure secondary to COPD exacerbation and possible acute bronchitis. Currently on BiPAP. Chest x-ray on arrival shows no acute cardiopulmonary process or evidence of pneumonia. Negative for influenza, RSV, COVID-19. The patient had an acute on top of chronic hypoxic and hypercapnic respiratory failure and her blood gases and the patient is currently on examination bronchodilators and steroids. The patient is also receiving BiPAP for support with a pressure of 12/5 cm of water with FiO2 of 35%. On today's evaluation, the patient is awake and alert and communicating. She is a bit lethargic still. Family was at the bedside. She is not doing a whole lot of progress. There was some limited improvement in her acid base status. Nevertheless, the patient is unable to come off the BiPAP for longer period of time and she is taking only brief BiPAP breaks. Essential hypertension Hyperlipidemia History of cardiac arrest Chronic hypoxemic respiratory failure, normally on 3 L/m nasal cannula GERD without esophagitis Diverticulosis Osteoarthritis Ex-smoker Plan: This patient has advanced COPD and obviously a poor prognosis Responses been slow The patient continues to be short of breath and unable to come off the BiPAP I encouraged to continue the treatment for another 24-48 hours. The patient is interested in end of life care no improvement. Continue same treatment and the patient is currently on a combination of budesonide, formoterol, DuoNeb's, IV Solu-Medrol Continue empiric antibiotics, and pro-calcitonin level was low Blood culture are negative d-dimer level was low Patient is a DNR/DNI DO NOT RESUSCITATE status. Prognosis poor.
[2023-05-20] MEDS: ATORVASTATIN 10 MG TAB PO SCH (20:25)
[2023-05-21] MEDS: methylPREDNISolone SOD SUCCI 125 MG/2 ML VIAL IV SCH ×4 (00:02→18:40)
[2023-05-21] MEDS: IPRATROPIUM-ALBUTEROL 3 ML NEB INHALATION PRN ×2 (00:18→04:09)
[2023-05-21] MEDS: FORMOTEROL FUMARATE 20 MCG/2 ML NEBU INHALATION SCH ×2 (08:42→20:17)
[2023-05-21] MEDS: IPRATROPIUM-ALBUTEROL 3 ML NEB INHALATION SCH ×4 (08:42→20:17)
[2023-05-21] MEDS: BUDESONIDE 1 MG/2 ML NEBU INHALATION SCH ×2 (08:42→20:17)
[2023-05-21 10:01] LABS: Basophils % (A) 0 %; Eosinophils % (A) 0 %; HCT 50.1 % (34.0-46.0); Hypochromasia Marked; Lymphocytes # (A) 0.4 k/uL (1.0-4.8); Lymphocytes % (A) 6 %; MCH 29.1 pg (25.0-35.0); MCHC 29.9 g/dL (31.0-37.0); MCV 97.3 fL (80.0-100.0); Mean Platelet Volume 7.4; Monocytes # (A) 0.2 k/uL (0-1.0); Monocytes % (A) 4 %; Neutrophils # (A) 5.4 k/uL (1.3-7.7); Neutrophils % (A) 89 %; Platelet Count 214 k/uL (150-450); RBC 5.15 m/uL (3.80-5.40); RDW 12.8 % (11.5-15.5); WBC 6.1 k/uL (3.8-10.6)
[2023-05-21 10:11] LABS: ALT 22 U/L (4-34); AST 28 U/L (14-36); African American GFR (CKD) >90 (>60 ml/min/1.73 sqM); Albumin 3.4 g/dL (3.5-5.0); Alkaline Phosphatase 53 U/L (38-126); Blood Urea Nitrogen 22 mg/dL (7-17); Calcium 7.8 mg/dL (8.4-10.2); Chloride 91 mmol/L (98-107); Glucose 184 mg/dL (74-99); Non-African American GFR(CKD) >90 (>60 ml/min/1.73 sqM); Potassium 3.6 mmol/L (3.5-5.1); Sodium 139 mmol/L (137-145); Total Bilirubin 0.5 mg/dL (0.2-1.3); Total Protein 6.4 g/dL (6.3-8.2)
[2023-05-21] MEDS: GABAPENTIN 300 MG CAP PO SCH ×2 (10:14→21:55)
[2023-05-21] MEDS: METOPROLOL TARTRATE 12.5 MG TAB PO SCH ×2 (10:14→21:55)
[2023-05-21] MEDS: ALPRAZolam 0.5 MG TAB PO PRN (10:14)
[2023-05-21] MEDS: MEMANTINE 5 MG TAB PO SCH ×2 (10:14→21:55)
[2023-05-21] MEDS: FAMOTIDINE 20 MG TAB PO SCH ×2 (10:15→21:55)
[2023-05-21] MEDS: DILTIAZEM ORAL 30 MG TAB PO SCH ×2 (10:15→21:55)
[2023-05-21 10:17] LABS: Anion Gap 3 mmol/L
[2023-05-21] MEDS: DORZOLAMIDE HCL 2% DROPS 10 ML BTL BOTH EYES SCH ×2 (10:17→21:55)
[2023-05-21 10:28] LABS: Carbon Dioxide 45 mmol/L (22-30)
[2023-05-21] MEDS ORDERED: DEXTROSE 50% SYRINGE 50 ML IVP PRN ×2 (11:30)
[2023-05-21 12:04] LABS: Glucose,Whole Blood 118 mg/dL (70-110)
[2023-05-21] MEDS: INSULIN ASPART (NovoLOG) 100 UNIT/ML VIAL SQ SCH ×3 (12:42→21:55)
--- NOTE | 2023-05-21 13:30 | P.PN ---
Subjective Progress Note Date: 05/21/23 I am seeing this patient in new consultation today 05/16/2023 for a suspected a cute exacerbation of COPD. Patient is a 72-year-old female with history of severe/stage IV COPD with an FEV1 is 30% of predicted. In addition, she has a history of cardiac arrest, essential hypertension, hyperlipidemia, osteoporosis, gastroesophageal reflux diseas, C. difficile colitis, and pneumonia. Patient does follow with Dr. Robles in the outpatient setting. She is chronically steroid and oxygen dependent on 3 L/m nasal cannula. She normally manages her COPD with Symbicort, Yupelri, and when necessary albuterol inhaler. Patient presented to the emergency room yesterday afternoon with chief complaint of shortness of breath starting approximately 24 hours ago. She also had symptoms of mild fever and productive cough with clear sputum. She states that she was recently exposed to her sick grandchildren. She denies any chest pain or hemoptysis. She is currently sitting up in bed, on BiPAP with settings of 10/5 and FiO2 of 50%. She is some moderate respiratory distress, breathing at a rate of 40 breaths per minute, and is in a tripod position. She is oxygenating at 98% on these settings. She is achieving tidal volumes of only 100-200 ml. Chest x-ray on arrival shows no focal consolidation or evidence of pneumonia. She did have a fever on arrival 100.5 degrees Fahrenheit. She is empirically covered on a combination of azithromycin and Rocephin. She was negative for influenza, RSV, COVID-19. CBC on arrival was unremarkable. BMP shows a sodium of 129, potassium 4.3, chloride 86, serum bicarbonate chronically elevated at 37, BUN 12, creatinine 0.52, glucose 111. No IV fluids are currently infusing. Troponin 1 was negative. NT proBNP was low. Patient will be admitted to the cardiac stepdown unit. Today's evaluation of 05/17/2023, the patient is being seen for a follow-up. She is awake and alert and communicating. She is on a BiPAP at a pressure of 12/5 cm of water. She generating a tidal volume of around 300 mL and a minute ventilation of 8.4 L. She seems to be slightly more comfortable compared to yesterday. However, on examination, she remains bronchospastic and wheezy. She remains on a combination of bronchodilators and steroids for now.On her blood work, the blood gas was done yesterday that showed a pH of 7.26 with a pCO2 of 84 and pO2 of 69. The repeat blood gas will be done today. No other labs are available. Pro-calcitonin level level was low at 0.05. Patient is on IV fluids at 75 mL an hour. On today's evaluation of 05/18/2023, the patient remains on BiPAP. Less bronchospastic and lives wheezy and there is no signs of active CO2 narcosis. The repeat blood gas was done and the patient was showing improvement in acid base status. Blood gases that was done today shows improvement and a pH was up to 7.32 with a pCO2 is down to 79 with a pO2 of 96 and this was done on a BiPAP pressure of 12/5 with an FiO2 of 35%. She is a smoker spastic and wheezing on today's examination. No new specific complaints. WBC count remains low at 5.7 with a hemoglobin of 4.2 and a platelet count of 183. Troponins are negative. Pro-calcitonin level has not been checked. She remains on bronchodilators. She remains on steroids. She remains on IV fluids. On 05/19/2023, I found the patient slightly more lethargic. I repeated a blood gases in the blood gas findings of essentially unchanged compared to yesterday. The patient carries a pH of 7.34 with a pCO2 of 78 and pO2 of 109. She remains on a BiPAP pressure of 12/5 cm of water with FiO2 of 35%. The echoes of 5.4 with a hemoglobin 15.3 and a platelet count of 174. BUN is 23 with a creatinine of 0.4 and sodium levels of 137. No other significant events overn ight. The patient remains bronchospastic and wheezy. A repeat chest x-ray was done that showed no acute abnormalities. On 05/20/2023, the patient is still on a BiPAP at a pressure of 12/5 cm of anastasiya er. She is synchronous. Although she is getting tired and overall discouraged because of her advanced COPD and her ongoing shortness of breath and lack of clinical response. She is being given brief breaks off the BiPAP for oral feeds. Family the bedside. At one point, she was considering to go hospice care. I think we will going to continue the treatment for another 24 hours. The patient remains on the same treatment of DuoNeb nebulized treatments [id number], IV Solu-Medrol, Perforomist and Pulmicort updrafts twice a day. No blood gas from today. Nevertheless, her blood work is essentially stable. BUN is at 24 with a creatinine of 0.4. Sodium is at 137. The white cell count is at 5 with a hemoglobin 15.7 and a platelet count of 184. She is a bit anxious and she is taking Xanax on an as-needed basis. She remains on IV Rocephin. On 05/21/2023, the patient seems to be slightly improved. The patient is able to tolerate longer time off the BiPAP. This morning she was seen on a BiPAP and she is awake and alert and communicating. On her blood work, the patient devel oped some metabolic alkalosis. The serum bicarbs of 45 and sodium levels of 139 with a potassium level of 3.6. The WBC count is at 6.4 with a hemoglobin 15.5. She remains on same regimen of bronchodilators and IV Solu-Medrol. Objective - Vital Signs Vital signs: Vital Signs Temp 98.1 F 05/21/23 10:00 Pulse 100 05/21/23 10:00 Resp 23 05/21/23 10:00 BP 154/83 05/21/23 10:00 Pulse Ox 100 05/21/23 08:45 FiO2 28 05/21/23 10:00 Intake & Output 05/20/23 05/21/23 05/21/23 18:59 06:59 18:59 Intake Total 225 240 Output Total 600 350 Balance -375 -350 240 Weight 58.513 kg Intake: Intake, IV Titration 225 Amount Sodium Chloride 0.9% 1, 225 000 ml @ 75 mls/hr IV . [id number] [facility] Rx#:[id number] Oral 240 Output: Urine 600 350 Other: Voiding Method External Catheter External Catheter # Bowel Movements 1 - Exam GENERAL EXAM: Alert, 72-year-old white female, no major Respiratory Distress and the Patient Is on a BiPAP at a Pressure of 12/5 Cm of Water. HEAD: Normocephalic and atraumatic EYES: Normal reaction of pupils, equal size. NOSE: Clear with pink turbinates. THROAT: No erythema or exudates. NECK: No masses, no JVD. CHEST: No chest wall deformity. LUNGS: Equal air entry with expiratory wheezes heard throughout. On BiPAP settings 12/5 and FiO2 50%. No conversational dyspnea or accessory muscle use.. CVS: S1 and S2 normal with no audible murmur, regular rhythm. No extra heart sounds ABDOMEN: No hepatosplenomegaly, active bowel sounds, no guarding or rigidity. SPINE: No scoliosis or deformity SKIN: No rashes CENTRAL NERVOUS SYSTEM: No focal deficits, tone is normal in all 4 extremities. EXTREMITIES: There is no peripheral edema, clubbing, or cyanosis. Peripheral pulses are intact. - Labs CBC & Chem 7: 05/21/23 09:30 05/21/23 09:30 Labs: Abnormal Lab Results - Last 24 Hours (Table) 05/21/23 05/21/23 Range/Units 09:30 09:30 Hct 50.1 H (34.0-46.0) % MCHC 29.9 L (31.0-37.0) g/dL Lymphocytes # 0.4 L (1.0-4.8) k/uL Chloride 91 L (98-107) mmol/L Carbon Dioxide 45 H* (22-30) mmol/L BUN 22 H (7-17) mg/dL Glucose 184 H (74-99) mg/dL Calcium 7.8 L (8.4-10.2) mg/dL Albumin 3.4 L (3.5-5.0) g/dL Assessment and Plan Assessment: Acute on chronic hypoxemic and hypercapnic respiratory failure secondary to COPD exacerbation and possible acute bronchitis. Currently on BiPAP. Chest x-ray on arrival shows no acute cardiopulmonary process or evidence of pneumonia. Negative for influenza, RSV, COVID-19. The patient had an acute on top of chronic hypoxic and hypercapnic respiratory failure and her blood gases and the patient is currently on examination bronchodilators and steroids. The patient is also receiving BiPAP for support with a pressure of 12/5 cm of water with FiO2 of 35%. On today's evaluation, the patient is awake and alert and communicating. She is stable, slightly improved compared to yesterday and she is able to tolerate longer time off the BiPAP Essential hypertension Hyperlipidemia History of cardiac arrest Chronic hypoxemic respiratory failure, normally on 3 L/m nasal cannula GERD without esophagitis Diverticulosis Osteoarthritis Ex-smoker Plan: Clinically stable and the patient is tolerating longer time off the BiPAP We'll give the patient 2 doses of Diamox 500 mg IV 2 to counteract the metabolic alkalosis This patient has advanced COPD and obviously a poor prognosis I encouraged to continue the treatment for another 24-48 hours. The patient is interested in end of life care no improvement. Continue same treatment and the patient is currently on a combination of budesonide, formoterol, DuoNeb's, IV Solu-Medrol Continue empiric antibiotics, and pro-calcitonin level was low Blood culture are negative d-dimer level was low Patient is a DNR/DNI DO NOT RESUSCITATE status. Prognosis poor.
[2023-05-21] MEDS: SODIUM CHLORIDE 0.9% 1,000 ML IV SCH ×2 (13:59→21:55)
--- NOTE | 2023-05-21 14:43 | P.PN ---
Subjective Progress Note Date: 05/21/23 she is a 72-year-old lady with past medical history significant for COPD, chronic hypoxic respiratory failure,cardiac arrest, essential hypertension, hyperlipidemia, osteoporosis, gastroesophageal reflux diseas, C. difficile colitis, and pneumonia presented to the hospital because of worsening shortness of breath. Shortness of breath started 24 hours ago and it was present on rest as well as exertion, it was associated with productive cough and fever. Patient admits to having sick contacts in the family. Denies any chest pain. Because of this worsening shortness of breath patient came to the ER, Initial lab work in the ER showed a PVC 8.2, hemoglobin 14.2, platelet count 185, d-dimer was 0.57, sodium 129, potassium 4.3, BUN 12, creatinine 0.52. Influenza A and B-, RSV negative, COVID-19 negative Chest x-ray done showed no acute cardiac process Patient was admitted to internal medicine service 05/17. Patient seen and examined. Continues to be on BiPAP. States her mouth is dry, wants something to eat 05/18. Patient seen and examined. Complaining of anxiety. Also had a brief run of V. tach. Continues to be on BiPAP. 05/19. Patient seen and examined. Labs done this morning showed white count 5.4, hemoglobin 13.3, sodium 137, potassium 3.8, BUN 23, creatinine 0.41. Repeat ABGs ordered. Patient gets short of breath on exertion 05/20. Patient seen and examined.lab work done this morning showed white count of 5, hemoglobin 13.7, platelet count 184, sodium 137, potassium 3.7,. Patient continues to be on BiPAP, was given breaks for dinnertime last night and for breakfast this morning Family at the bedside 05/21. Patient seen and examined. States she feels better than yesterday. Currently on BiPAP with FiO2 of 28% REVIEW OF SYSTEMS: Review of systems cannot be obtained as patient is on BiPAP PHYSICAL EXAMINATION: GENERAL: The patient is alert and oriented x3, not in any acute distress. Well developed, well nourished. HEENT: Pupils are round and equally reacting to light. EOMI. No scleral icterus. No conjunctival pallor. Normocephalic, atraumatic. No pharyngeal erythema. No thyromegaly. CARDIOVASCULAR: S1 and S2 present. No murmurs, rubs, or gallops. PULMONARY: coarse breath some bilaterally ABDOMEN: Soft, nontender, nondistended, normoactive bowel sounds. No palpable organomegaly. MUSCULOSKELETAL: No joint swelling or deformity. EXTREMITIES: No cyanosis, clubbing, or pedal edema. NEUROLOGICAL: Gross neurological examination did not reveal any focal deficits. SKIN: No rashes. Assessment and plan Acute on chronic hypoxemic and hypercapnic respiratory failure Acute COPD exacerbation Nonsustained V. tach acute bronchitis. Essential hypertension Hyperlipidemia History of cardiac arrest GERD without esophagitis Diverticulosis Osteoarthritis Monitor vital signs Monitor CBC Monitor CMP Continue oxygen supplementation Continue telemetry monitoring Continues of BiPAP as needed Continue breathing treatments Continue IV Solu-Medrol 60 mg every 6 Completed course of antibiotics Follow-up on pulmonary recommendations Cardiology SIGNED off Objective - Vital Signs Vital signs: Vital Signs Temp 98.1 F 05/21/23 10:00 Pulse 64 05/21/23 11:53 Resp 23 05/21/23 10:00 BP 154/83 05/21/23 10:00 Pulse Ox 100 05/21/23 08:45 FiO2 28 05/21/23 11:40 Intake & Output 05/20/23 05/21/23 05/21/23 18:59 06:59 18:59 Intake Total 225 240 Output Total 600 350 Balance -375 -350 240 Weight 58.513 kg Intake: Intake, IV Titration 225 Amount Sodium Chloride 0.9% 1, 225 000 ml @ 75 mls/hr IV . [id number] [facility] Rx#:[id number] Oral 240 Output: Urine 600 350 Other: Voiding Method External Catheter External Catheter # Bowel Movements 1 - Labs CBC & Chem 7: 05/21/23 09:30 05/21/23 09:30 Labs: Abnormal Lab Results - Last 24 Hours (Table) 05/21/23 05/21/23 05/21/23 Range/Units 09:30 09:30 12:02 Hct 50.1 H (34.0-46.0) % MCHC 29.9 L (31.0-37.0) g/dL Lymphocytes # 0.4 L (1.0-4.8) k/uL Chloride 91 L (98-107) mmol/L Carbon Dioxide 45 H* (22-30) mmol/L BUN 22 H (7-17) mg/dL Glucose 184 H (74-99) mg/dL POC Glucose (mg/dL) 118 H (70-110) mg/dL Calcium 7.8 L (8.4-10.2) mg/dL Albumin 3.4 L (3.5-5.0) g/dL Microbiology - Last 24 Hours (Table) 05/15/23 15:55 Blood Culture - Final Blood 05/15/23 15:40 Blood Culture - Final Blood
[2023-05-21 16:49] LABS: Glucose,Whole Blood 146 mg/dL (70-110)
[2023-05-21 20:13] LABS: Glucose,Whole Blood 141 mg/dL (70-110)
[2023-05-21] MEDS: ATORVASTATIN 10 MG TAB PO SCH (21:55)
[2023-05-22] MEDS: IPRATROPIUM-ALBUTEROL 3 ML NEB INHALATION PRN ×2 (00:41→05:08)
[2023-05-22] MEDS: methylPREDNISolone SOD SUCCI 125 MG/2 ML VIAL IV SCH ×4 (00:48→18:43)
[2023-05-22 06:19] LABS: Glucose,Whole Blood 123 mg/dL (70-110)
[2023-05-22] MEDS: INSULIN ASPART (NovoLOG) 100 UNIT/ML VIAL SQ SCH ×4 (06:27→20:26)
[2023-05-22] MEDS: METOPROLOL TARTRATE 12.5 MG TAB PO SCH (08:37)
[2023-05-22] MEDS: GABAPENTIN 300 MG CAP PO SCH ×2 (08:37→20:31)
[2023-05-22] MEDS: MEMANTINE 5 MG TAB PO SCH ×2 (08:37→20:31)
[2023-05-22] MEDS: DILTIAZEM ORAL 30 MG TAB PO SCH ×2 (08:38→20:31)
[2023-05-22] MEDS: FAMOTIDINE 20 MG TAB PO SCH ×2 (08:38→20:31)
[2023-05-22] MEDS: DORZOLAMIDE HCL 2% DROPS 10 ML BTL BOTH EYES SCH ×2 (08:39→20:31)
[2023-05-22] MEDS: FORMOTEROL FUMARATE 20 MCG/2 ML NEBU INHALATION SCH ×2 (08:47→21:23)
[2023-05-22] MEDS: BUDESONIDE 1 MG/2 ML NEBU INHALATION SCH ×2 (08:47→21:23)
[2023-05-22] MEDS: IPRATROPIUM-ALBUTEROL 3 ML NEB INHALATION SCH ×4 (08:47→21:23)
[2023-05-22 11:42] LABS: Glucose,Whole Blood 134 mg/dL (70-110)
--- NOTE | 2023-05-22 12:39 | P.PN ---
Subjective Progress Note Date: 05/22/23 I am seeing this patient in new consultation today 05/16/2023 for a suspected a cute exacerbation of COPD. Patient is a 72-year-old female with history of severe/stage IV COPD with an FEV1 is 30% of predicted. In addition, she has a history of cardiac arrest, essential hypertension, hyperlipidemia, osteoporosis, gastroesophageal reflux diseas, C. difficile colitis, and pneumonia. Patient does follow with Dr. Robles in the outpatient setting. She is chronically steroid and oxygen dependent on 3 L/m nasal cannula. She normally manages her COPD with Symbicort, Yupelri, and when necessary albuterol inhaler. Patient presented to the emergency room yesterday afternoon with chief complaint of shortness of breath starting approximately 24 hours ago. She also had symptoms of mild fever and productive cough with clear sputum. She states that she was recently exposed to her sick grandchildren. She denies any chest pain or hemoptysis. She is currently sitting up in bed, on BiPAP with settings of 10/5 and FiO2 of 50%. She is some moderate respiratory distress, breathing at a rate of 40 breaths per minute, and is in a tripod position. She is oxygenating at 98% on these settings. She is achieving tidal volumes of only 100-200 ml. Chest x-ray on arrival shows no focal consolidation or evidence of pneumonia. She did have a fever on arrival 100.5 degrees Fahrenheit. She is empirically covered on a combination of azithromycin and Rocephin. She was negative for influenza, RSV, COVID-19. CBC on arrival was unremarkable. BMP shows a sodium of 129, potassium 4.3, chloride 86, serum bicarbonate chronically elevated at 37, BUN 12, creatinine 0.52, glucose 111. No IV fluids are currently infusing. Troponin 1 was negative. NT proBNP was low. Patient will be admitted to the cardiac stepdown unit. Today's evaluation of 05/17/2023, the patient is being seen for a follow-up. She is awake and alert and communicating. She is on a BiPAP at a pressure of 12/5 cm of water. She generating a tidal volume of around 300 mL and a minute ventilation of 8.4 L. She seems to be slightly more comfortable compared to yesterday. However, on examination, she remains bronchospastic and wheezy. She remains on a combination of bronchodilators and steroids for now.On her blood work, the blood gas was done yesterday that showed a pH of 7.26 with a pCO2 of 84 and pO2 of 69. The repeat blood gas will be done today. No other labs are available. Pro-calcitonin level level was low at 0.05. Patient is on IV fluids at 75 mL an hour. On today's evaluation of 05/18/2023, the patient remains on BiPAP. Less bronchospastic and lives wheezy and there is no signs of active CO2 narcosis. The repeat blood gas was done and the patient was showing improvement in acid base status. Blood gases that was done today shows improvement and a pH was up to 7.32 with a pCO2 is down to 79 with a pO2 of 96 and this was done on a BiPAP pressure of 12/5 with an FiO2 of 35%. She is a smoker spastic and wheezing on today's examination. No new specific complaints. WBC count remains low at 5.7 with a hemoglobin of 4.2 and a platelet count of 183. Troponins are negative. Pro-calcitonin level has not been checked. She remains on bronchodilators. She remains on steroids. She remains on IV fluids. On 05/19/2023, I found the patient slightly more lethargic. I repeated a blood gases in the blood gas findings of essentially unchanged compared to yesterday. The patient carries a pH of 7.34 with a pCO2 of 78 and pO2 of 109. She remains on a BiPAP pressure of 12/5 cm of water with FiO2 of 35%. The echoes of 5.4 with a hemoglobin 15.3 and a platelet count of 174. BUN is 23 with a creatinine of 0.4 and sodium levels of 137. No other significant events overn ight. The patient remains bronchospastic and wheezy. A repeat chest x-ray was done that showed no acute abnormalities. On 05/20/2023, the patient is still on a BiPAP at a pressure of 12/5 cm of anastasiya er. She is synchronous. Although she is getting tired and overall discouraged because of her advanced COPD and her ongoing shortness of breath and lack of clinical response. She is being given brief breaks off the BiPAP for oral feeds. Family the bedside. At one point, she was considering to go hospice care. I think we will going to continue the treatment for another 24 hours. The patient remains on the same treatment of DuoNeb nebulized treatments [id number], IV Solu-Medrol, Perforomist and Pulmicort updrafts twice a day. No blood gas from today. Nevertheless, her blood work is essentially stable. BUN is at 24 with a creatinine of 0.4. Sodium is at 137. The white cell count is at 5 with a hemoglobin 15.7 and a platelet count of 184. She is a bit anxious and she is taking Xanax on an as-needed basis. She remains on IV Rocephin. On 05/21/2023, the patient seems to be slightly improved. The patient is able to tolerate longer time off the BiPAP. This morning she was seen on a BiPAP and she is awake and alert and communicating. On her blood work, the patient devel oped some metabolic alkalosis. The serum bicarbs of 45 and sodium levels of 139 with a potassium level of 3.6. The WBC count is at 6.4 with a hemoglobin 15.5. She remains on same regimen of bronchodilators and IV Solu-Medrol. On 05/22/2023, the patient remains on BiPAP. Doing well. Communicating. She is able to come off the BiPAP for feeding purposes. No new labs are available from today. Remains on same regimen of bronchodilators and steroids. Objective - Vital Signs Vital signs: Vital Signs Temp 98.2 F 05/22/23 08:15 Pulse 60 05/22/23 09:08 Resp 22 05/22/23 08:15 BP 166/75 05/22/23 08:15 Pulse Ox 98 05/22/23 08:49 FiO2 28 05/22/23 08:49 Intake & Output 05/21/23 05/22/23 05/22/23 18:59 06:59 18:59 Intake Total 358 Output Total 450 900 Balance -92 -900 Intake: Oral 358 Output: Urine 450 900 Other: Voiding Method External Catheter External Catheter # Bowel Movements 1 - Exam GENERAL EXAM: Alert, 72-year-old white female, no major Respiratory Distress and the Patient Is on a BiPAP at a Pressure of 12/5 Cm of Water. HEAD: Normocephalic and atraumatic EYES: Normal reaction of pupils, equal size. NOSE: Clear with pink turbinates. THROAT: No erythema or exudates. NECK: No masses, no JVD. CHEST: No chest wall deformity. LUNGS: Equal air entry with expiratory wheezes heard throughout. On BiPAP settings 12/5 and FiO2 50%. No conversational dyspnea or accessory muscle use.. CVS: S1 and S2 normal with no audible murmur, regular rhythm. No extra heart sounds ABDOMEN: No hepatosplenomegaly, active bowel sounds, no guarding or rigidity. SPINE: No scoliosis or deformity SKIN: No rashes CENTRAL NERVOUS SYSTEM: No focal deficits, tone is normal in all 4 extremities. EXTREMITIES: There is no peripheral edema, clubbing, or cyanosis. Peripheral pulses are intact. - Labs CBC & Chem 7: 05/21/23 09:30 05/21/23 09:30 Labs: Abnormal Lab Results - Last 24 Hours (Table) 05/21/23 05/21/23 05/21/23 Range/Units 09:30 12:02 16:46 Chloride 91 L (98-107) mmol/L Carbon Dioxide 45 H* (22-30) mmol/L BUN 22 H (7-17) mg/dL Glucose 184 H (74-99) mg/dL POC Glucose (mg/dL) 118 H 146 H (70-110) mg/dL Calcium 7.8 L (8.4-10.2) mg/dL Albumin 3.4 L (3.5-5.0) g/dL 05/21/23 05/22/23 Range/Units 20:11 06:18 Chloride (98-107) mmol/L Carbon Dioxide (22-30) mmol/L BUN (7-17) mg/dL Glucose (74-99) mg/dL POC Glucose (mg/dL) 141 H 123 H (70-110) mg/dL Calcium (8.4-10.2) mg/dL Albumin (3.5-5.0) g/dL Microbiology - Last 24 Hours (Table) 05/15/23 15:55 Blood Culture - Final Blood 05/15/23 15:40 Blood Culture - Final Blood Assessment and Plan Assessment: Acute on chronic hypoxemic and hypercapnic respiratory failure secondary to COPD exacerbation and possible acute bronchitis. Currently on BiPAP. Chest x-ray on arrival shows no acute cardiopulmonary process or evidence of pneumonia. Negative for influenza, RSV, COVID-19. The patient had an acute on top of chronic hypoxic and hypercapnic respiratory failure and her blood gases and the patient is currently on examination bronchodilators and steroids. The patient is also receiving BiPAP for support with a pressure of 12/5 cm of water with FiO2 of 35%. On today's evaluation, the patient is awake and alert and communicating. She is stable, slightly improved compared to yesterday and she is able to tolerate longer time off the BiPAP. As mentioned, the patient continues to show ongoing slow improvements. She is awake and she is communicating and she is giving herself time off the BiPAP for feeding purposes. Essential hypertension Hyperlipidemia History of cardiac arrest Chronic hypoxemic respiratory failure, normally on 3 L/m nasal cannula GERD without esophagitis Diverticulosis Osteoarthritis Ex-smoker Plan: Clinically stable and the patient is tolerating longer time off the BiPAP Repeat electrolytes today This patient has advanced COPD and obviously a poor prognosis The patient is interested in end of life care no improvement. I suggested to her to continue treatment and continue our efforts to optimize her COPD as the patient is showing small but ongoing steady improvement Continue same treatment and the patient is currently on a combination of bu desonide, formoterol, DuoNeb's, IV Solu-Medrol Continue empiric antibiotics, and pro-calcitonin level was low Blood culture are negative d-dimer level was low Patient is a DNR/DNI DO NOT RESUSCITATE status. Prognosis poor.
[2023-05-22] MEDS ORDERED: METOPROLOL TARTRATE 25 MG TAB PO STA (13:34)
--- NOTE | 2023-05-22 13:52 | P.PN ---
Subjective Progress Note Date: 05/22/23 she is a 72-year-old lady with past medical history significant for COPD, chronic hypoxic respiratory failure,cardiac arrest, essential hypertension, hyperlipidemia, osteoporosis, gastroesophageal reflux diseas, C. difficile colitis, and pneumonia presented to the hospital because of worsening shortness of breath. Shortness of breath started 24 hours ago and it was present on rest as well as exertion, it was associated with productive cough and fever. Patient admits to having sick contacts in the family. Denies any chest pain. Because of this worsening shortness of breath patient came to the ER, Initial lab work in the ER showed a PVC 8.2, hemoglobin 14.2, platelet count 185, d-dimer was 0.57, sodium 129, potassium 4.3, BUN 12, creatinine 0.52. Influenza A and B-, RSV negative, COVID-19 negative Chest x-ray done showed no acute cardiac process Patient was admitted to internal medicine service 05/17. Patient seen and examined. Continues to be on BiPAP. States her mouth is dry, wants something to eat 05/18. Patient seen and examined. Complaining of anxiety. Also had a brief run of V. tach. Continues to be on BiPAP. 05/19. Patient seen and examined. Labs done this morning showed white count 5.4, hemoglobin 13.3, sodium 137, potassium 3.8, BUN 23, creatinine 0.41. Repeat ABGs ordered. Patient gets short of breath on exertion 05/20. Patient seen and examined.lab work done this morning showed white count of 5, hemoglobin 13.7, platelet count 184, sodium 137, potassium 3.7,. Patient continues to be on BiPAP, was given breaks for dinnertime last night and for breakfast this morning Family at the bedside 05/21. Patient seen and examined. States she feels better than yesterday. Currently on BiPAP with FiO2 of 28% 05/22. Patient seen and examined.. Sitting upright in the bed, continues to be on BiPAP, patient is getting breaks from BiPAP to eat. REVIEW OF SYSTEMS: Review of systems cannot be obtained as patient is on BiPAP PHYSICAL EXAMINATION: GENERAL: The patient is alert and oriented x3, not in any acute distress. Well developed, well nourished. HEENT: Pupils are round and equally reacting to light. EOMI. No scleral icterus. No conjunctival pallor. Normocephalic, atraumatic. No pharyngeal erythema. No thyromegaly. CARDIOVASCULAR: S1 and S2 present. No murmurs, rubs, or gallops. PULMONARY: coarse breath some bilaterally ABDOMEN: Soft, nontender, nondistended, normoactive bowel sounds. No palpable organomegaly. MUSCULOSKELETAL: No joint swelling or deformity. EXTREMITIES: No cyanosis, clubbing, or pedal edema. NEUROLOGICAL: Gross neurological examination did not reveal any focal deficits. SKIN: No rashes. Assessment and plan Acute on chronic hypoxemic and hypercapnic respiratory failure Acute COPD exacerbation Nonsustained V. tach acute bronchitis. Essential hypertension Hyperlipidemia History of cardiac arrest GERD without esophagitis Diverticulosis Osteoarthritis Monitor vital signs Monitor CBC Monitor CMP Continue oxygen supplementation Continue telemetry monitoring Continues of BiPAP as needed Continue breathing treatments Continue IV Solu-Medrol 60 mg every 6 Follow-up on pulmonary recommendations Cardiology SIGNED off Objective - Vital Signs Vital signs: Vital Signs Temp 98.2 F 05/22/23 08:15 Pulse 60 05/22/23 09:08 Resp 22 05/22/23 08:15 BP 166/75 05/22/23 08:15 Pulse Ox 98 05/22/23 08:49 FiO2 28 05/22/23 08:49 Intake & Output 05/21/23 05/22/23 05/22/23 18:59 06:59 18:59 Intake Total 358 Output Total 450 900 Balance -92 -900 Intake: Oral 358 Output: Urine 450 900 Other: Voiding Method External Catheter External Catheter # Bowel Movements 1 - Labs CBC & Chem 7: 05/21/23 09:30 05/21/23 09:30 Labs: Abnormal Lab Results - Last 24 Hours (Table) 05/21/23 05/21/23 05/21/23 Range/Units 12:02 16:46 20:11 POC Glucose (mg/dL) 118 H 146 H 141 H (70-110) mg/dL 05/22/23 Range/Units 06:18 POC Glucose (mg/dL) 123 H (70-110) mg/dL Microbiology - Last 24 Hours (Table) 05/15/23 15:55 Blood Culture - Final Blood 05/15/23 15:40 Blood Culture - Final Blood
[2023-05-22] MEDS: SODIUM CHLORIDE 0.9% 1,000 ML IV SCH (14:01)
[2023-05-22 16:39] LABS: Glucose,Whole Blood 117 mg/dL (70-110)
[2023-05-22] MEDS ORDERED: HEPARIN SODIUM 1,000 UN/ML (10ML VL) IV PRN (17:09)
[2023-05-22] MEDS ORDERED: HEPARIN SODIUM 1,000 UN/ML (10ML VL) IV ONE (17:09)
[2023-05-22] MEDS ORDERED: HEPARIN SOD,PORK IN 0.45% NACL 25,000 UNIT in 0.45% NACL 1 250ML.BAG IV SCH (17:15)
[2023-05-22 18:28] LABS: Basophils % (A) 0 %; Eosinophils % (A) 0 %; HCT 48.1 % (34.0-46.0); HGB 14.4 gm/dL (11.4-16.0); Hypochromasia Marked; Lymphocytes # (A) 0.3 k/uL (1.0-4.8); Lymphocytes % (A) 3 %; MCHC 29.9 g/dL (31.0-37.0); Mean Platelet Volume 7.6; Monocytes # (A) 0.4 k/uL (0-1.0); Monocytes % (A) 4 %; Neutrophils # (A) 9.8 k/uL (1.3-7.7); Neutrophils % (A) 92 %; Platelet Count 170 k/uL (150-450); RBC 4.95 m/uL (3.80-5.40); RDW 12.8 % (11.5-15.5); WBC 10.6 k/uL (3.8-10.6)
[2023-05-22 18:39] LABS: INR 1.2 (<1.2); Partial Thromboplastin Time 24.8 sec (22.0-30.0); Prothrombin Time 12.1 sec (9.0-12.0)
[2023-05-22 20:07] LABS: Glucose,Whole Blood 129 mg/dL (70-110)
[2023-05-22] MEDS: METOPROLOL TARTRATE 25 MG TAB PO SCH (20:31)
[2023-05-22] MEDS: ATORVASTATIN 10 MG TAB PO SCH (20:31)
[2023-05-23] MEDS: methylPREDNISolone SOD SUCCI 125 MG/2 ML VIAL IV SCH ×4 (00:46→17:34)
[2023-05-23 02:57] LABS: INR 1.2 (<1.2); Partial Thromboplastin Time 93.2 sec (22.0-30.0); Prothrombin Time 12.5 sec (9.0-12.0)
[2023-05-23 06:18] LABS: Glucose,Whole Blood 108 mg/dL (70-110)
[2023-05-23] MEDS: INSULIN ASPART (NovoLOG) 100 UNIT/ML VIAL SQ SCH ×4 (06:20→20:43)
[2023-05-23] MEDS: DILTIAZEM ORAL 30 MG TAB PO SCH ×2 (08:17→21:09)
[2023-05-23] MEDS: GABAPENTIN 300 MG CAP PO SCH ×2 (08:17→21:08)
[2023-05-23] MEDS: METOPROLOL TARTRATE 25 MG TAB PO SCH ×2 (08:17→21:08)
[2023-05-23] MEDS: FAMOTIDINE 20 MG TAB PO SCH ×2 (08:17→21:09)
[2023-05-23] MEDS: MEMANTINE 5 MG TAB PO SCH ×2 (08:17→21:09)
[2023-05-23] MEDS: DORZOLAMIDE HCL 2% DROPS 10 ML BTL BOTH EYES SCH ×2 (08:18→21:09)
[2023-05-23] MEDS: BUDESONIDE 1 MG/2 ML NEBU INHALATION SCH ×2 (08:34→21:47)
[2023-05-23] MEDS: FORMOTEROL FUMARATE 20 MCG/2 ML NEBU INHALATION SCH ×2 (08:34→21:47)
[2023-05-23] MEDS: IPRATROPIUM-ALBUTEROL 3 ML NEB INHALATION SCH ×4 (08:34→21:47)
[2023-05-23] MEDS: ALPRAZolam 0.5 MG TAB PO PRN (09:27)
[2023-05-23 09:36] LABS: Basophils % (A) 0 %; Eosinophils # (A) 0.1 k/uL (0-0.7); Eosinophils % (A) 1 %; HCT 48.5 % (34.0-46.0); HGB 14.7 gm/dL (11.4-16.0); Hypochromasia Slight; Lymphocytes # (A) 0.7 k/uL (1.0-4.8); Lymphocytes % (A) 5 %; MCH 28.4 pg (25.0-35.0); MCHC 30.3 g/dL (31.0-37.0); MCV 93.7 fL (80.0-100.0); Monocytes # (A) 0.5 k/uL (0-1.0); Monocytes % (A) 4 %; Neutrophils % (A) 90 %; Platelet Count 204 k/uL (150-450); RBC 5.17 m/uL (3.80-5.40); WBC 13.4 k/uL (3.8-10.6)
[2023-05-23 09:51] LABS: ALT 24 U/L (4-34); AST 26 U/L (14-36); African American GFR (CKD) >90 (>60 ml/min/1.73 sqM); Albumin 3.2 g/dL (3.5-5.0); Alkaline Phosphatase 66 U/L (38-126); Anion Gap 4 mmol/L; Blood Urea Nitrogen 24 mg/dL (7-17); Calcium 8.3 mg/dL (8.4-10.2); Carbon Dioxide 30 mmol/L (22-30); Chloride 101 mmol/L (98-107); Glucose 148 mg/dL (74-99); Non-African American GFR(CKD) >90 (>60 ml/min/1.73 sqM); Potassium 3.8 mmol/L (3.5-5.1); Sodium 135 mmol/L (137-145); Total Bilirubin 0.7 mg/dL (0.2-1.3); Total Protein 5.9 g/dL (6.3-8.2)
--- NOTE | 2023-05-23 11:31 | P.PN ---
Subjective HISTORY OF PRESENT ILLNESS: This is 72-year-old female who follows in the office with Dr. Elizabeth. Patient is admitted to the hospital secondary to respiratory failure, COPD exacerbation, and possible acute bronchitis. Cardiology was initially consulted for ventricular tachycardia. She was evaluated last week by Dr. Hernández and cardiology signed off. Cardiology was reconsulted to evaluate patient due to new onset atrial fibrillation. Patient states that she has a known history of irregular heart rhythm which she believes is just "extra beats" but denies history of atrial fibrillation. EKG performed yesterday reveals atrial fibrillation with mild RVR with heart rate of 106. Patient is maintaining sinus mechanism this morning. She denies chest pain or pressure. She reports shortness of breath. She is currently on a BiPAP at the time of examination. She is on a heparin drip at this time. Patient underwent echocardiogram on 05/19/2023 revealing ejection fraction 55% with trace mitral regurgitation. PHYSICAL EXAM: VITAL SIGNS: Reviewed. GENERAL: Well-developed in no acute distress. NECK: Supple. No JVD or thyromegaly LUNGS: Respirations even and unlabored. Lungs essentially clear to auscultation bilaterally. HEART: Regular rate and rhythm. S1 and S2 heard. EXTREMITIES: Normal range of motion. No clubbing or cyanosis. Peripheral pulses intact. No lower extremity edema ASSESSMENT: Shortness of breath Acute on chronic hypoxic and hypercapnic respiratory failure Acute COPD exacerbation Acute bronchitis New onset paroxysmal atrial fibrillation, currently maintaining sinus mechanism History of pulmonary arrest followed by cardiac arrest, 2019, with subsequent cardiac catheterization revealing nonobstructive coronary artery disease with 40% proximal RCA and 35% mid circumflex Hypertension Hyperlipidemia GERD Nicotine dependence PLAN: Discontinue IV heparin Begin Eliquis 5mg BID Continue additional cardiac medications Check TSH Continue telemetry monitoring Further recommendations pending patient course Nurse practitioner note has been reviewed by physician. Signing provider agrees with the documented findings, assessment, and plan of care. Objective - Vital Signs Vital signs: Vital Signs Temp 97.8 F 05/23/23 08:13 Pulse 98 05/23/23 08:54 Resp 20 05/23/23 08:13 BP 144/77 05/23/23 08:13 Pulse Ox 98 05/23/23 08:35 FiO2 28 05/23/23 03:38 Intake & Output 05/22/23 05/23/23 05/23/23 18:59 06:59 18:59 Intake Total 100 151.261 90 Output Total 300 Balance 100 -148.739 90 Intake: Intake, IV Titration 51.261 Amount Heparin Sod,Pork in 0.45% 51.261 NaCl 25,000 unit In 0.45 % NaCl 1 250ml.bag @ 12 UNITS/KG/HR 7.022 mls/hr IV .[facility]H [facility] Rx#: [id number] Oral 100 100 90 Output: Urine 300 Other: Voiding Method External Catheter External Catheter External Catheter # Bowel Movements 1 - Labs CBC & Chem 7: 05/23/23 09:21 05/23/23 09:21 Labs: Abnormal Lab Results - Last 24 Hours (Table) 05/22/23 05/22/23 05/22/23 Range/Units 11:35 16:37 17:27 WBC (3.8-10.6) k/uL Hct 48.1 H (34.0-46.0) % MCHC 29.9 L (31.0-37.0) g/dL Neutrophils # 9.8 H (1.3-7.7) k/uL Lymphocytes # 0.3 L (1.0-4.8) k/uL PT (9.0-12.0) sec INR (<1.2) APTT (22.0-30.0) sec Sodium (137-145) mmol/L BUN (7-17) mg/dL Creatinine (0.52-1.04) mg/dL Glucose (74-99) mg/dL POC Glucose (mg/dL) 134 H 117 H (70-110) mg/dL Calcium (8.4-10.2) mg/dL Total Protein (6.3-8.2) g/dL Albumin (3.5-5.0) g/dL 05/22/23 05/22/23 05/23/23 Range/Units 17:27 20:06 01:55 WBC (3.8-10.6) k/uL Hct (34.0-46.0) % MCHC (31.0-37.0) g/dL Neutrophils # (1.3-7.7) k/uL Lymphocytes # (1.0-4.8) k/uL PT 12.1 H 12.5 H (9.0-12.0) sec INR 1.2 H 1.2 H (<1.2) APTT 93.2 H (22.0-30.0) sec Sodium (137-145) mmol/L BUN (7-17) mg/dL Creatinine (0.52-1.04) mg/dL Glucose (74-99) mg/dL POC Glucose (mg/dL) 129 H (70-110) mg/dL Calcium (8.4-10.2) mg/dL Total Protein (6.3-8.2) g/dL Albumin (3.5-5.0) g/dL 05/23/23 05/23/23 05/23/23 Range/Units 09:21 09:21 09:21 WBC 13.4 H (3.8-10.6) k/uL Hct 48.5 H (34.0-46.0) % MCHC 30.3 L (31.0-37.0) g/dL Neutrophils # 12.0 H (1.3-7.7) k/uL Lymphocytes # 0.7 L (1.0-4.8) k/uL PT (9.0-12.0) sec INR (<1.2) APTT 46.0 H (22.0-30.0) sec Sodium 135 L (137-145) mmol/L BUN 24 H (7-17) mg/dL Creatinine 0.47 L (0.52-1.04) mg/dL Glucose 148 H (74-99) mg/dL POC Glucose (mg/dL) (70-110) mg/dL Calcium 8.3 L (8.4-10.2) mg/dL Total Protein 5.9 L (6.3-8.2) g/dL Albumin 3.2 L (3.5-5.0) g/dL
[2023-05-23 11:41] LABS: Glucose,Whole Blood 97 mg/dL (70-110)
[2023-05-23] MEDS: APIXABAN 5 MG TAB PO SCH ×2 (12:29→21:08)
--- NOTE | 2023-05-23 14:37 | P.PN ---
Subjective Progress Note Date: 05/23/23 she is a 72-year-old lady with past medical history significant for COPD, chronic hypoxic respiratory failure,cardiac arrest, essential hypertension, hyperlipidemia, osteoporosis, gastroesophageal reflux diseas, C. difficile colitis, and pneumonia presented to the hospital because of worsening shortness of breath. Shortness of breath started 24 hours ago and it was present on rest as well as exertion, it was associated with productive cough and fever. Patient admits to having sick contacts in the family. Denies any chest pain. Because of this worsening shortness of breath patient came to the ER, Initial lab work in the ER showed a PVC 8.2, hemoglobin 14.2, platelet count 185, d-dimer was 0.57, sodium 129, potassium 4.3, BUN 12, creatinine 0.52. Influenza A and B-, RSV negative, COVID-19 negative Chest x-ray done showed no acute cardiac process Patient was admitted to internal medicine service 05/17. Patient seen and examined. Continues to be on BiPAP. States her mouth is dry, wants something to eat 05/18. Patient seen and examined. Complaining of anxiety. Also had a brief run of V. tach. Continues to be on BiPAP. 05/19. Patient seen and examined. Labs done this morning showed white count 5.4, hemoglobin 13.3, sodium 137, potassium 3.8, BUN 23, creatinine 0.41. Repeat ABGs ordered. Patient gets short of breath on exertion 05/20. Patient seen and examined.lab work done this morning showed white count of 5, hemoglobin 13.7, platelet count 184, sodium 137, potassium 3.7,. Patient continues to be on BiPAP, was given breaks for dinnertime last night and for breakfast this morning Family at the bedside 05/21. Patient seen and examined. States she feels better than yesterday. Currently on BiPAP with FiO2 of 28% 05/22. Patient seen and examined.. Sitting upright in the bed, continues to be on BiPAP, patient is getting breaks from BiPAP to eat. 05/23. Patient seen and examined. Patient continues to improve slowly. States breathing is improving. She went into A. fib yesterday, currently rate controlled. Patient requests continuous BiPAP and intermediate level of care and requires telemetry REVIEW OF SYSTEMS: Denies any chest pain. Denies any nausea or vomiting. Denies any urinary retention PHYSICAL EXAMINATION: GENERAL: The patient is alert and oriented x3, not in any acute distress. Well developed, well nourished. HEENT: Pupils are round and equally reacting to light. EOMI. No scleral icterus. No conjunctival pallor. Normocephalic, atraumatic. No pharyngeal erythema. No thyromegaly. CARDIOVASCULAR: S1 and S2 present. No murmurs, rubs, or gallops. PULMONARY: coarse breath some bilaterally ABDOMEN: Soft, nontender, nondistended, normoactive bowel sounds. No palpable organomegaly. MUSCULOSKELETAL: No joint swelling or deformity. EXTREMITIES: No cyanosis, clubbing, or pedal edema. NEUROLOGICAL: Gross neurological examination did not reveal any focal deficits. SKIN: No rashes. Assessment and plan Acute on chronic hypoxemic and hypercapnic respiratory failure Acute COPD exacerbation Nonsustained V. tach acute bronchitis. Essential hypertension Hyperlipidemia History of cardiac arrest GERD without esophagitis Diverticulosis Osteoarthritis Monitor vital signs Monitor CBC Monitor CMP Continue oxygen supplementation Continue telemetry monitoring Continues of BiPAP as needed Continue breathing treatments Continue IV Solu-Medrol 60 mg every 6 Started on heparin drip by cardiology initially, later switched to Eliquis, continue Cardizem Follow-up on pulmonary recommendations Cardiology following Objective - Vital Signs Vital signs: Vital Signs Temp 97.8 F 05/23/23 08:13 Pulse 98 05/23/23 08:54 Resp 20 05/23/23 08:13 BP 144/77 05/23/23 08:13 Pulse Ox 98 05/23/23 08:35 FiO2 28 05/23/23 03:38 Intake & Output 05/22/23 05/23/23 05/23/23 18:59 06:59 18:59 Intake Total 100 151.261 90 Output Total 300 Balance 100 -148.739 90 Intake: Intake, IV Titration 51.261 Amount Heparin Sod,Pork in 0.45% 51.261 NaCl 25,000 unit In 0.45 % NaCl 1 250ml.bag @ 12 UNITS/KG/HR 7.022 mls/hr IV .Q24H [facility] Rx#: [id number] Oral 100 100 90 Output: Urine 300 Other: Voiding Method External Catheter External Catheter # Bowel Movements 1 - Labs CBC & Chem 7: 05/23/23 09:21 05/23/23 09:21 Labs: Abnormal Lab Results - Last 24 Hours (Table) 05/22/23 05/22/23 05/22/23 Range/Units 11:35 16:37 17:27 Hct 48.1 H (34.0-46.0) % MCHC 29.9 L (31.0-37.0) g/dL Neutrophils # 9.8 H (1.3-7.7) k/uL Lymphocytes # 0.3 L (1.0-4.8) k/uL PT (9.0-12.0) sec INR (<1.2) APTT (22.0-30.0) sec POC Glucose (mg/dL) 134 H 117 H (70-110) mg/dL 05/22/23 05/22/23 05/23/23 Range/Units 17:27 20:06 01:55 Hct (34.0-46.0) % MCHC (31.0-37.0) g/dL Neutrophils # (1.3-7.7) k/uL Lymphocytes # (1.0-4.8) k/uL PT 12.1 H 12.5 H (9.0-12.0) sec INR 1.2 H 1.2 H (<1.2) APTT 93.2 H (22.0-30.0) sec POC Glucose (mg/dL) 129 H (70-110) mg/dL
--- NOTE | 2023-05-23 14:50 | P.PN ---
Subjective Progress Note Date: 05/23/23 Principal diagnosis: Acute on chronic hypoxic and hypercapnic respiratory failure secondary to acute exacerbation of COPD I am seeing this patient in new consultation today 05/16/2023 for a suspected acute exacerbation of COPD. Patient is a 72-year-old female with history of sev ere/stage IV COPD with an FEV1 is 30% of predicted. In addition, she has a history of cardiac arrest, essential hypertension, hyperlipidemia, osteoporosis, gastroesophageal reflux diseas, C. difficile colitis, and pneumonia. Patient does follow with Dr. Robles in the outpatient setting. She is chronically steroid and oxygen dependent on 3 L/m nasal cannula. She normally manages her COPD with Symbicort, Yupelri, and when necessary albuterol inhaler. Patient presented to the emergency room yesterday afternoon with chief complaint of shortness of breath starting approximately 24 hours ago. She also had symptoms of mild fever and productive cough with clear sputum. She states that she was recently exposed to her sick grandchildren. She denies any chest pain or hemoptysis. She is currently sitting up in bed, on BiPAP with settings of 10/5 and FiO2 of 50%. She is some moderate respiratory distress, breathing at a rate of 40 breaths per minute, and is in a tripod position. She is oxygenating at 98% on these settings. She is achieving tidal volumes of only 100-200 ml. Chest x-ray on arrival shows no focal consolidation or evidence of pneumonia. She did have a fever on arrival 100.5 degrees Fahrenheit. She is empirically covered on a combination of azithromycin and Rocephin. She was negative for influenza, RSV, COVID-19. CBC on arrival was unremarkable. BMP shows a sodium of 129, potassium 4.3, chloride 86, serum bicarbonate chronically elevated at 37, BUN 12, creatinine 0.52, glucose 111. No IV fluids are currently infusing. Troponin 1 was negative. NT proBNP was low. Patient will be admitted to the cardiac stepdown unit. Today's evaluation of 05/17/2023, the patient is being seen for a follow-up. She is awake and alert and communicating. She is on a BiPAP at a pressure of 12/5 cm of water. She generating a tidal volume of around 300 mL and a minute ventilation of 8.4 L. She seems to be slightly more comfortable compared to yesterday. However, on examination, she remains bronchospastic and wheezy. She remains on a combination of bronchodilators and steroids for now.On her blood work, the blood gas was done yesterday that showed a pH of 7.26 with a pCO2 of 84 and pO2 of 69. The repeat blood gas will be done today. No other labs are available. Pro-calcitonin level level was low at 0.05. Patient is on IV fluids at 75 mL an hour. On today's evaluation of 05/18/2023, the patient remains on BiPAP. Less bronchospastic and lives wheezy and there is no signs of active CO2 narcosis. The repeat blood gas was done and the patient was showing improvement in acid base status. Blood gases that was done today shows improvement and a pH was up to 7.32 with a pCO2 is down to 79 with a pO2 of 96 and this was done on a BiPAP pressure of 12/5 with an FiO2 of 35%. She is a smoker spastic and wheezing on today's examination. No new specific complaints. WBC count remains low at 5.7 with a hemoglobin of 4.2 and a platelet count of 183. Troponins are negative. Pro-calcitonin level has not been checked. She remains on bronchodilators. She remains on steroids. She remains on IV fluids. On 05/19/2023, I found the patient slightly more lethargic. I repeated a blood gases in the blood gas findings of essentially unchanged compared to yesterday. The patient carries a pH of 7.34 with a pCO2 of 78 and pO2 of 109. She remains on a BiPAP pressure of 12/5 cm of water with FiO2 of 35%. The echoes of 5.4 with a hemoglobin 15.3 and a platelet count of 174. BUN is 23 with a creatinine of 0.4 and sodium levels of 137. No other significant events overnight. The patient remains bronchospastic and wheezy. A repeat chest x-ray was done that showed no acute abnormalities. On 05/20/2023, the patient is still on a BiPAP at a pressure of 12/5 cm of water. She is synchronous. Although she is getting tired and overall discouraged because of her advanced COPD and her ongoing shortness of breath and lack of clinical response. She is being given brief breaks off the BiPAP for oral feeds. Family the bedside. At one point, she was considering to go hospice care. I think we will going to continue the treatment for another 24 hours. The patient remains on the same treatment of DuoNeb nebulized treatments [id number], IV Solu-Medrol, Perforomist and Pulmicort updrafts twice a day. No blood gas from today. Nevertheless, her blood work is essentially stable. BUN is at 24 with a creatinine of 0.4. Sodium is at 137. The white cell count is at 5 with a hemoglobin 15.7 and a platelet count of 184. She is a bit anxious and she is taking Xanax on an as-needed basis. She remains on IV Rocephin. On 05/21/2023, the patient seems to be slightly improved. The patient is able to tolerate longer time off the BiPAP. This morning she was seen on a BiPAP and she is awake and alert and communicating. On her blood work, the patient developed some metabolic alkalosis. The serum bicarbs of 45 and sodium levels of 139 with a potassium level of 3.6. The WBC count is at 6.4 with a hemoglobin 15.5. She remains on same regimen of bronchodilators and IV Solu-Medrol. On 05/22/2023, the patient remains on BiPAP. Doing well. Communicating. She is able to come off the BiPAP for feeding purposes. No new labs are available from today. Remains on same regimen of bronchodilators and steroids. Patient was reevaluated today on 05/23/2023, remains on BiPAP, seems to be very comfortable on BiPAP. Not in distress, workup is in progress for possible arrangements for the patient to go to LTAC. If she does go to LTAC, patient could go on BiPAP while at LTAC. However if she does go home, we'll try to arrange for possible TRILOGY device at home. Objective - Vital Signs Vital signs: Vital Signs Temp 97.4 F L 05/23/23 11:55 Pulse 94 05/23/23 11:56 Resp 20 05/23/23 11:55 BP 138/72 05/23/23 11:55 Pulse Ox 100 05/23/23 12:01 FiO2 28 05/23/23 11:55 Intake & Output 05/22/23 05/23/23 05/23/23 18:59 06:59 18:59 Intake Total 100 151.261 90 Output Total 300 Balance 100 -148.739 90 Weight 58.513 kg Intake: Intake, IV Titration 51.261 Amount Heparin Sod,Pork in 0.45% 51.261 NaCl 25,000 unit In 0.45 % NaCl 1 250ml.bag @ 12 UNITS/KG/HR 7.022 mls/hr IV .Q24H [facility] Rx#: [id number] Oral 100 100 90 Output: Urine 300 Other: Voiding Method External Catheter External Catheter External Catheter # Bowel Movements 1 - Exam GENERAL EXAM: Alert, 72-year-old white female, on BiPAP, 11/01/%. HEAD: Normocephalic and atraumatic EYES: Normal reaction of pupils, equal size. NOSE: Clear with pink turbinates. THROAT: No erythema or exudates. NECK: No masses, no JVD. CHEST: No chest wall deformity. LUNGS: Carried rhonchi and wheezes noted bilaterally. CVS: S1 and S2 normal with no audible murmur, regular rhythm. No extra heart sounds ABDOMEN: Soft nontender no megaly no rebound no guarding. SKIN: No rashes CENTRAL NERVOUS SYSTEM: Alert and oriented 3 focal deficit EXTREMITIES: There is no peripheral edema, clubbing, or cyanosis. Peripheral pulses are intact. - Labs CBC & Chem 7: 05/23/23 09:21 05/23/23 09:21 Labs: Abnormal Lab Results - Last 24 Hours (Table) 05/22/23 05/22/23 05/22/23 Range/Units 16:37 17:27 17:27 WBC (3.8-10.6) k/uL Hct 48.1 H (34.0-46.0) % MCHC 29.9 L (31.0-37.0) g/dL Neutrophils # 9.8 H (1.3-7.7) k/uL Lymphocytes # 0.3 L (1.0-4.8) k/uL PT 12.1 H (9.0-12.0) sec INR 1.2 H (<1.2) APTT (22.0-30.0) sec Sodium (137-145) mmol/L BUN (7-17) mg/dL Creatinine (0.52-1.04) mg/dL Glucose (74-99) mg/dL POC Glucose (mg/dL) 117 H (70-110) mg/dL Calcium (8.4-10.2) mg/dL Total Protein (6.3-8.2) g/dL Albumin (3.5-5.0) g/dL 05/22/23 05/23/23 05/23/23 Range/Units 20:06 01:55 09:21 WBC (3.8-10.6) k/uL Hct (34.0-46.0) % MCHC (31.0-37.0) g/dL Neutrophils # (1.3-7.7) k/uL Lymphocytes # (1.0-4.8) k/uL PT 12.5 H (9.0-12.0) sec INR 1.2 H (<1.2) APTT 93.2 H (22.0-30.0) sec Sodium 135 L (137-145) mmol/L BUN 24 H (7-17) mg/dL Creatinine 0.47 L (0.52-1.04) mg/dL Glucose 148 H (74-99) mg/dL POC Glucose (mg/dL) 129 H (70-110) mg/dL Calcium 8.3 L (8.4-10.2) mg/dL Total Protein 5.9 L (6.3-8.2) g/dL Albumin 3.2 L (3.5-5.0) g/dL 05/23/23 05/23/23 Range/Units 09:21 09:21 WBC 13.4 H (3.8-10.6) k/uL Hct 48.5 H (34.0-46.0) % MCHC 30.3 L (31.0-37.0) g/dL Neutrophils # 12.0 H (1.3-7.7) k/uL Lymphocytes # 0.7 L (1.0-4.8) k/uL PT (9.0-12.0) sec INR (<1.2) APTT 46.0 H (22.0-30.0) sec Sodium (137-145) mmol/L BUN (7-17) mg/dL Creatinine (0.52-1.04) mg/dL Glucose (74-99) mg/dL POC Glucose (mg/dL) (70-110) mg/dL Calcium (8.4-10.2) mg/dL Total Protein (6.3-8.2) g/dL Albumin (3.5-5.0) g/dL Assessment and Plan Assessment: Impression: Acute on chronic hypoxic and hypercapnic respiratory failure secondary to acute exacerbation of COPD Benign essential hypertension Chronic hypoxic respiratory failure Degenerative joint disease Ex-smoker History of cardiac arrest Recommendation: Continue BiPAP Continue bronchodilators Continue empiric antibiotics DO NOT RESUSCITATE CODE STATUS Arrange for LTAC placement. We will continue to Time with Patient: Less than 30
[2023-05-23 16:49] LABS: Glucose,Whole Blood 118 mg/dL (70-110)
[2023-05-23 20:39] LABS: Glucose,Whole Blood 142 mg/dL (70-110)
[2023-05-23] MEDS: ATORVASTATIN 10 MG TAB PO SCH (21:09)
[2023-05-24] MEDS: methylPREDNISolone SOD SUCCI 125 MG/2 ML VIAL IV SCH ×2 (00:19→06:14)
[2023-05-24 06:27] LABS: Glucose,Whole Blood 116 mg/dL (70-110)
[2023-05-24] MEDS: INSULIN ASPART (NovoLOG) 100 UNIT/ML VIAL SQ SCH ×4 (06:36→20:18)
[2023-05-24] MEDS: FORMOTEROL FUMARATE 20 MCG/2 ML NEBU INHALATION SCH ×2 (08:18→21:46)
[2023-05-24] MEDS: BUDESONIDE 1 MG/2 ML NEBU INHALATION SCH ×2 (08:18→21:46)
[2023-05-24] MEDS: IPRATROPIUM-ALBUTEROL 3 ML NEB INHALATION SCH ×4 (08:18→21:46)
[2023-05-24] MEDS: FAMOTIDINE 20 MG TAB PO SCH ×2 (09:26→20:17)
[2023-05-24] MEDS: MEMANTINE 5 MG TAB PO SCH ×2 (09:26→20:18)
[2023-05-24] MEDS: METOPROLOL TARTRATE 25 MG TAB PO SCH ×2 (09:26→20:18)
[2023-05-24] MEDS: DILTIAZEM ORAL 30 MG TAB PO SCH ×2 (09:26→20:18)
[2023-05-24] MEDS: GABAPENTIN 300 MG CAP PO SCH ×2 (09:26→20:17)
[2023-05-24] MEDS: APIXABAN 5 MG TAB PO SCH ×2 (09:26→20:17)
[2023-05-24] MEDS: DORZOLAMIDE HCL 2% DROPS 10 ML BTL BOTH EYES SCH ×2 (09:27→20:18)
--- NOTE | 2023-05-24 11:10 | P.PN ---
Subjective HISTORY OF PRESENT ILLNESS: This is 72-year-old female who follows in the office with Dr. Elizabeth. Patient is admitted to the hospital secondary to respiratory failure, COPD exacerbation, and possible acute bronchitis. Cardiology was initially consulted for ventricular tachycardia. She was evaluated last week by Dr. Hernández and cardiology signed off. Cardiology was reconsulted to evaluate patient due to new onset atrial fibrillation. Patient states that she has a known history of irregular heart rhythm which she believes is just "extra beats" but denies history of atrial fibrillation. EKG performed yesterday reveals atrial fibrillation with mild RVR with heart rate of 106. Patient is maintaining sinus mechanism this morning. She denies chest pain or pressure. She reports shortness of breath. She is currently on a BiPAP at the time of examination. She is on a heparin drip at this time. Patient underwent echocardiogram on 05/19/2023 revealing ejection fraction 55% with trace mitral regurgitation. 05/24/2023 Patient examined this morning at the bedside. Patient denies chest pain or pressure. She currently denies shortness of breath. She is wearing a BiPAP. She states that she feels significantly improved from yesterday. Telemetry reveals sinus mechanism.TSH 0.594. PHYSICAL EXAM: VITAL SIGNS: Reviewed. GENERAL: Well-developed in no acute distress. NECK: Supple. No JVD or thyromegaly LUNGS: Respirations even and unlabored. Lungs essentially clear to auscultation bilaterally. HEART: Regular rate and rhythm. S1 and S2 heard. EXTREMITIES: Normal range of motion. No clubbing or cyanosis. Peripheral pulses intact. No lower extremity edema ASSESSMENT: Shortness of breath Acute on chronic hypoxic and hypercapnic respiratory failure Acute COPD exacerbation Acute bronchitis New onset paroxysmal atrial fibrillation, currently maintaining sinus mechanism History of pulmonary arrest followed by cardiac arrest, 2019, with subsequent cardiac catheterization revealing nonobstructive coronary artery disease with 40% proximal RCA and 35% mid circumflex Hypertension Hyperlipidemia GERD Nicotine dependence PLAN: continue current cardiac medications Continue telemetry monitoring Patient is stable from a cardiac standpoint Further recommendations pending patient course Nurse practitioner note has been reviewed by physician. Signing provider agrees with the documented findings, assessment, and plan of care. Objective - Vital Signs Vital signs: Vital Signs Temp 97.3 F L 05/24/23 08:00 Pulse 80 05/24/23 08:42 Resp 20 05/24/23 08:00 BP 144/68 05/24/23 08:00 Pulse Ox 94 L 05/24/23 08:00 FiO2 28 05/24/23 08:00 Intake & Output 05/23/23 05/24/23 05/24/23 18:59 06:59 18:59 Intake Total 113.4 Output Total 200 300 525 Balance -86.6 -300 -525 Weight 58.513 kg Intake: IV 23.4 Heparin Sod,Pork in 0.45% 23.4 NaCl 25,000 unit In 0.45 % NaCl 1 250ml.bag @ 12 UNITS/KG/HR 7.022 mls/hr IV .Q24H [facility] Rx#: [id number] Oral 90 Output: Urine 200 300 525 Other: Voiding Method External Catheter External Catheter External Catheter - Labs CBC & Chem 7: 05/23/23 09:21 05/23/23 09:21 Labs: Abnormal Lab Results - Last 24 Hours (Table) 05/23/23 05/23/23 05/24/23 Range/Units 16:46 20:08 06:25 POC Glucose (mg/dL) 118 H 142 H 116 H (70-110) mg/dL
[2023-05-24 11:41] LABS: Glucose,Whole Blood 141 mg/dL (70-110)
--- NOTE | 2023-05-24 13:54 | P.PN ---
Subjective Progress Note Date: 05/24/23 Principal diagnosis: Acute on chronic hypoxic and hypercapnic respiratory failure secondary to acute exacerbation of COPD I am seeing this patient in new consultation today 05/16/2023 for a suspected acute exacerbation of COPD. Patient is a 72-year-old female with history of sev ere/stage IV COPD with an FEV1 is 30% of predicted. In addition, she has a history of cardiac arrest, essential hypertension, hyperlipidemia, osteoporosis, gastroesophageal reflux diseas, C. difficile colitis, and pneumonia. Patient does follow with Dr. Robles in the outpatient setting. She is chronically steroid and oxygen dependent on 3 L/m nasal cannula. She normally manages her COPD with Symbicort, Yupelri, and when necessary albuterol inhaler. Patient presented to the emergency room yesterday afternoon with chief complaint of shortness of breath starting approximately 24 hours ago. She also had symptoms of mild fever and productive cough with clear sputum. She states that she was recently exposed to her sick grandchildren. She denies any chest pain or hemoptysis. She is currently sitting up in bed, on BiPAP with settings of 10/5 and FiO2 of 50%. She is some moderate respiratory distress, breathing at a rate of 40 breaths per minute, and is in a tripod position. She is oxygenating at 98% on these settings. She is achieving tidal volumes of only 100-200 ml. Chest x-ray on arrival shows no focal consolidation or evidence of pneumonia. She did have a fever on arrival 100.5 degrees Fahrenheit. She is empirically covered on a combination of azithromycin and Rocephin. She was negative for influenza, RSV, COVID-19. CBC on arrival was unremarkable. BMP shows a sodium of 129, potassium 4.3, chloride 86, serum bicarbonate chronically elevated at 37, BUN 12, creatinine 0.52, glucose 111. No IV fluids are currently infusing. Troponin 1 was negative. NT proBNP was low. Patient will be admitted to the cardiac stepdown unit. Today's evaluation of 05/17/2023, the patient is being seen for a follow-up. She is awake and alert and communicating. She is on a BiPAP at a pressure of 12/5 cm of water. She generating a tidal volume of around 300 mL and a minute ventilation of 8.4 L. She seems to be slightly more comfortable compared to yesterday. However, on examination, she remains bronchospastic and wheezy. She remains on a combination of bronchodilators and steroids for now.On her blood work, the blood gas was done yesterday that showed a pH of 7.26 with a pCO2 of 84 and pO2 of 69. The repeat blood gas will be done today. No other labs are available. Pro-calcitonin level level was low at 0.05. Patient is on IV fluids at 75 mL an hour. On today's evaluation of 05/18/2023, the patient remains on BiPAP. Less bronchospastic and lives wheezy and there is no signs of active CO2 narcosis. The repeat blood gas was done and the patient was showing improvement in acid base status. Blood gases that was done today shows improvement and a pH was up to 7.32 with a pCO2 is down to 79 with a pO2 of 96 and this was done on a BiPAP pressure of 12/5 with an FiO2 of 35%. She is a smoker spastic and wheezing on today's examination. No new specific complaints. WBC count remains low at 5.7 with a hemoglobin of 4.2 and a platelet count of 183. Troponins are negative. Pro-calcitonin level has not been checked. She remains on bronchodilators. She remains on steroids. She remains on IV fluids. On 05/19/2023, I found the patient slightly more lethargic. I repeated a blood gases in the blood gas findings of essentially unchanged compared to yesterday. The patient carries a pH of 7.34 with a pCO2 of 78 and pO2 of 109. She remains on a BiPAP pressure of 12/5 cm of water with FiO2 of 35%. The echoes of 5.4 with a hemoglobin 15.3 and a platelet count of 174. BUN is 23 with a creatinine of 0.4 and sodium levels of 137. No other significant events overnight. The patient remains bronchospastic and wheezy. A repeat chest x-ray was done that showed no acute abnormalities. On 05/20/2023, the patient is still on a BiPAP at a pressure of 12/5 cm of water. She is synchronous. Although she is getting tired and overall discouraged because of her advanced COPD and her ongoing shortness of breath and lack of clinical response. She is being given brief breaks off the BiPAP for oral feeds. Family the bedside. At one point, she was considering to go hospice care. I think we will going to continue the treatment for another 24 hours. The patient remains on the same treatment of DuoNeb nebulized treatments [id number], IV Solu-Medrol, Perforomist and Pulmicort updrafts twice a day. No blood gas from today. Nevertheless, her blood work is essentially stable. BUN is at 24 with a creatinine of 0.4. Sodium is at 137. The white cell count is at 5 with a hemoglobin 15.7 and a platelet count of 184. She is a bit anxious and she is taking Xanax on an as-needed basis. She remains on IV Rocephin. On 05/21/2023, the patient seems to be slightly improved. The patient is able to tolerate longer time off the BiPAP. This morning she was seen on a BiPAP and she is awake and alert and communicating. On her blood work, the patient developed some metabolic alkalosis. The serum bicarbs of 45 and sodium levels of 139 with a potassium level of 3.6. The WBC count is at 6.4 with a hemoglobin 15.5. She remains on same regimen of bronchodilators and IV Solu-Medrol. On 05/22/2023, the patient remains on BiPAP. Doing well. Communicating. She is able to come off the BiPAP for feeding purposes. No new labs are available from today. Remains on same regimen of bronchodilators and steroids. Patient was reevaluated today on 05/23/2023, remains on BiPAP, seems to be very comfortable on BiPAP. Not in distress, workup is in progress for possible arrangements for the patient to go to LTAC. If she does go to LTAC, patient could go on BiPAP while at LTAC. However if she does go home, we'll try to arrange for possible TRILOGY device at home. Reevaluated today on , patient is feeling much better today, she is off BiPAP, presently on nasal cannula. Denies any chest pain or cough or wheezing. She was on BiPAP last night. Patient is being worked up for possible transfer to LTAC or rehab facility tells me today that she may be going to [facility]. Objective - Vital Signs Vital signs: Vital Signs Temp 97.3 F L 05/24/23 08:00 Pulse 84 05/24/23 13:17 Resp 20 06/27/23 08:00 BP 144/68 05/24/23 08:00 Pulse Ox 94 L 05/24/23 08:00 FiO2 28 05/24/23 08:00 Intake & Output 05/23/23 05/24/23 05/24/23 18:59 06:59 18:59 Intake Total 113.4 110 Output Total 200 300 525 Balance -86.6 -300 -415 Weight 58.513 kg Intake: IV 23.4 Heparin Sod,Pork in 0.45% 23.4 NaCl 25,000 unit In 0.45 % NaCl 1 250ml.bag @ 12 UNITS/KG/HR 7.022 mls/hr IV .Q24H [facility] Rx#: [id number] Oral 90 110 Output: Urine 200 300 525 Other: Voiding Method External Catheter External Catheter External Catheter - Exam GENERAL EXAM: Alert, 72-year-old white female, on nasal cannula, not in distress HEAD: Normocephalic and atraumatic EYES: Normal reaction of pupils, equal size. NOSE: Clear with pink turbinates. THROAT: No erythema or exudates. NECK: No masses, no JVD. CHEST: No chest wall deformity. LUNGS: Scattered rhonchi noted bilaterally, no wheezing CVS: S1 and S2 normal with no audible murmur, regular rhythm. No extra heart sounds ABDOMEN: Soft nontender no megaly no rebound no guarding. SKIN: No rashes CENTRAL NERVOUS SYSTEM: Alert and oriented 3 focal deficit EXTREMITIES: There is no peripheral edema, clubbing, or cyanosis. Peripheral pulses are intact. - Labs CBC & Chem 7: 05/23/23 09:21 05/23/23 09:21 Labs: Abnormal Lab Results - Last 24 Hours (Table) 05/23/23 05/23/23 05/24/23 Range/Units 16:46 20:08 06:25 POC Glucose (mg/dL) 118 H 142 H 116 H (70-110) mg/dL 05/24/23 Range/Units 11:39 POC Glucose (mg/dL) 141 H (70-110) mg/dL Assessment and Plan Assessment: Impression: Acute on chronic hypoxic and hypercapnic respiratory failure secondary to acute exacerbation of COPD Benign essential hypertension Chronic hypoxic respiratory failure Degenerative joint disease Ex-smoker History of cardiac arrest Recommendation: Continue bronchodilators Continue empiric antibiotics DO NOT RESUSCITATE CODE STATUS Arrange for LTAC placement. Or rehab placement We will continue to follow Time with Patient: Less than 30
--- NOTE | 2023-05-24 14:30 | P.PN ---
Subjective Progress Note Date: 05/24/23 she is a 72-year-old lady with past medical history significant for COPD, chronic hypoxic respiratory failure,cardiac arrest, essential hypertension, hyperlipidemia, osteoporosis, gastroesophageal reflux diseas, C. difficile colitis, and pneumonia presented to the hospital because of worsening shortness of breath. Shortness of breath started 24 hours ago and it was present on rest as well as exertion, it was associated with productive cough and fever. Patient admits to having sick contacts in the family. Denies any chest pain. Because of this worsening shortness of breath patient came to the ER, Initial lab work in the ER showed a PVC 8.2, hemoglobin 14.2, platelet count 185, d-dimer was 0.57, sodium 129, potassium 4.3, BUN 12, creatinine 0.52. Influenza A and B-, RSV negative, COVID-19 negative Chest x-ray done showed no acute cardiac process Patient was admitted to internal medicine service 05/17. Patient seen and examined. Continues to be on BiPAP. States her mouth is dry, wants something to eat 05/18. Patient seen and examined. Complaining of anxiety. Also had a brief run of V. tach. Continues to be on BiPAP. 05/19. Patient seen and examined. Labs done this morning showed white count 5.4, hemoglobin 13.3, sodium 137, potassium 3.8, BUN 23, creatinine 0.41. Repeat ABGs ordered. Patient gets short of breath on exertion 05/20. Patient seen and examined.lab work done this morning showed white count of 5, hemoglobin 13.7, platelet count 184, sodium 137, potassium 3.7,. Patient continues to be on BiPAP, was given breaks for dinnertime last night and for breakfast this morning Family at the bedside 05/21. Patient seen and examined. States she feels better than yesterday. Currently on BiPAP with FiO2 of 28% 05/22. Patient seen and examined.. Sitting upright in the bed, continues to be on BiPAP, patient is getting breaks from BiPAP to eat. 05/23. Patient seen and examined. Patient continues to improve slowly. States breathing is improving. She went into A. fib yesterday, currently rate controlled. Patient requests continuous BiPAP and intermediate level of care and requires telemetry 05/24. Patient seen and examined. No acute issues overnight. Patient currently off the BiPAP, currently on 2 L of oxygen. Waiting on discharge to rehab REVIEW OF SYSTEMS: Denies any chest pain. Denies any nausea or vomiting. Denies any urinary retention PHYSICAL EXAMINATION: GENERAL: The patient is alert and oriented x3, not in any acute distress. Well developed, well nourished. HEENT: Pupils are round and equally reacting to light. EOMI. No scleral icterus. No conjunctival pallor. Normocephalic, atraumatic. No pharyngeal erythema. No thyromegaly. CARDIOVASCULAR: S1 and S2 present. No murmurs, rubs, or gallops. PULMONARY: coarse breath some bilaterally ABDOMEN: Soft, nontender, nondistended, normoactive bowel sounds. No palpable organomegaly. MUSCULOSKELETAL: No joint swelling or deformity. EXTREMITIES: No cyanosis, clubbing, or pedal edema. NEUROLOGICAL: Gross neurological examination did not reveal any focal deficits. SKIN: No rashes. Assessment and plan Acute on chronic hypoxemic and hypercapnic respiratory failure Acute COPD exacerbation New onset paroxysmal atrial fibrillation Nonsustained V. tach acute bronchitis. Essential hypertension Hyperlipidemia History of cardiac arrest GERD without esophagitis Diverticulosis Osteoarthritis Monitor vital signs Monitor CBC Monitor CMP Continue oxygen supplementation Continue telemetry monitoring Continues of BiPAP as needed Continue breathing treatments Decreased IV Solu-medrol 40 mg every 8 Continue Eliquis, continue Cardizem Follow-up on pulmonary recommendations Cardiology following Case management on board, working on placement to rehab Objective - Vital Signs Vital signs: Vital Signs Temp 97.8 F 05/24/23 04:16 Pulse 80 05/24/23 08:42 Resp 21 05/24/23 04:16 BP 148/74 05/24/23 04:16 Pulse Ox 98 05/24/23 04:16 FiO2 28 05/24/23 03:57 Intake & Output 05/23/23 05/24/23 05/24/23 18:59 06:59 18:59 Intake Total 113.4 Output Total 200 300 525 Balance -86.6 -300 -525 Weight 58.513 kg Intake: IV 23.4 Heparin Sod,Pork in 0.45% 23.4 NaCl 25,000 unit In 0.45 % NaCl 1 250ml.bag @ 12 UNITS/KG/HR 7.022 mls/hr IV .Q24H [facility] Rx#: [id number] Oral 90 Output: Urine 200 300 525 Other: Voiding Method External Catheter External Catheter - Labs CBC & Chem 7: 05/23/23 09:21 05/23/23 09:21 Labs: Abnormal Lab Results - Last 24 Hours (Table) 05/23/23 05/23/23 05/23/23 Range/Units 09:21 16:46 20:08 APTT 46.0 H (22.0-30.0) sec POC Glucose (mg/dL) 118 H 142 H (70-110) mg/dL 05/24/23 Range/Units 06:25 APTT (22.0-30.0) sec POC Glucose (mg/dL) 116 H (70-110) mg/dL
[2023-05-24 17:00] LABS: Glucose,Whole Blood 124 mg/dL (70-110)
[2023-05-24] MEDS: methylPREDNISolone SOD SUCCI 40 MG/ML 1 ML VIAL IV SCH ×2 (17:48→23:14)
[2023-05-24 20:01] LABS: Glucose,Whole Blood 154 mg/dL (70-110)
[2023-05-24] MEDS: ATORVASTATIN 10 MG TAB PO SCH (20:17)
[2023-05-25] MEDS: IPRATROPIUM-ALBUTEROL 3 ML NEB INHALATION PRN ×2 (01:05→04:23)
[2023-05-25 06:13] LABS: Glucose,Whole Blood 153 mg/dL (70-110)
[2023-05-25] MEDS: INSULIN ASPART (NovoLOG) 100 UNIT/ML VIAL SQ SCH ×3 (06:14→17:02)
[2023-05-25 07:51] LABS: Basophils % (A) 0 %; Eosinophils # (A) 0.1 k/uL (0-0.7); Eosinophils % (A) 0 %; HCT 43.6 % (34.0-46.0); HGB 13.8 gm/dL (11.4-16.0); Hypochromasia Slight; Lymphocytes # (A) 0.4 k/uL (1.0-4.8); Lymphocytes % (A) 3 %; MCH 29.3 pg (25.0-35.0); MCHC 31.5 g/dL (31.0-37.0); Monocytes # (A) 0.5 k/uL (0-1.0); Monocytes % (A) 4 %; Neutrophils % (A) 92 %; Platelet Count 169 k/uL (150-450); RBC 4.69 m/uL (3.80-5.40)
[2023-05-25 08:12] LABS: ALT 35 U/L (4-34); AST 29 U/L (14-36); African American GFR (CKD) >90 (>60 ml/min/1.73 sqM); Albumin 2.8 g/dL (3.5-5.0); Alkaline Phosphatase 89 U/L (38-126); Anion Gap 2 mmol/L; Blood Urea Nitrogen 24 mg/dL (7-17); Calcium 8.6 mg/dL (8.4-10.2); Carbon Dioxide 37 mmol/L (22-30); Chloride 91 mmol/L (98-107); Glucose 142 mg/dL (74-99); Non-African American GFR(CKD) >90 (>60 ml/min/1.73 sqM); Potassium 4.6 mmol/L (3.5-5.1); Sodium 130 mmol/L (137-145); Total Bilirubin 0.6 mg/dL (0.2-1.3); Total Protein 5.1 g/dL (6.3-8.2)
[2023-05-25] MEDS: DILTIAZEM ORAL 30 MG TAB PO SCH (08:46)
[2023-05-25] MEDS: APIXABAN 5 MG TAB PO SCH (08:46)
[2023-05-25] MEDS: FAMOTIDINE 20 MG TAB PO SCH (08:46)
[2023-05-25] MEDS: METOPROLOL TARTRATE 25 MG TAB PO SCH (08:47)
[2023-05-25] MEDS: methylPREDNISolone SOD SUCCI 40 MG/ML 1 ML VIAL IV SCH ×2 (08:47→15:39)
[2023-05-25] MEDS: MEMANTINE 5 MG TAB PO SCH (08:47)
[2023-05-25] MEDS: GABAPENTIN 300 MG CAP PO SCH (08:47)
[2023-05-25] MEDS: DORZOLAMIDE HCL 2% DROPS 10 ML BTL BOTH EYES SCH (08:47)
[2023-05-25 10:39] LABS: Glucose,Whole Blood 140 mg/dL (70-110)
[2023-05-25] MEDS: IPRATROPIUM-ALBUTEROL 3 ML NEB INHALATION SCH ×3 (10:53→15:44)
[2023-05-25] MEDS: FORMOTEROL FUMARATE 20 MCG/2 ML NEBU INHALATION SCH (10:53)
[2023-05-25] MEDS: BUDESONIDE 1 MG/2 ML NEBU INHALATION SCH (10:53)
[2023-05-25 11:59] VITALS: RESP 16
--- NOTE | 2023-05-25 12:10 | P.PN ---
Subjective Progress Note Date: 05/25/23 Principal diagnosis: Acute on chronic hypoxic and hypercapnic respiratory failure secondary to acute exacerbation of COPD I am seeing this patient in new consultation today 05/16/2023 for a suspected acute exacerbation of COPD. Patient is a 72-year-old female with history of sev ere/stage IV COPD with an FEV1 is 30% of predicted. In addition, she has a history of cardiac arrest, essential hypertension, hyperlipidemia, osteoporosis, gastroesophageal reflux diseas, C. difficile colitis, and pneumonia. Patient does follow with Dr. Robles in the outpatient setting. She is chronically steroid and oxygen dependent on 3 L/m nasal cannula. She normally manages her COPD with Symbicort, Yupelri, and when necessary albuterol inhaler. Patient presented to the emergency room yesterday afternoon with chief complaint of shortness of breath starting approximately 24 hours ago. She also had symptoms of mild fever and productive cough with clear sputum. She states that she was recently exposed to her sick grandchildren. She denies any chest pain or hemoptysis. She is currently sitting up in bed, on BiPAP with settings of 10/5 and FiO2 of 50%. She is some moderate respiratory distress, breathing at a rate of 40 breaths per minute, and is in a tripod position. She is oxygenating at 98% on these settings. She is achieving tidal volumes of only 100-200 ml. Chest x-ray on arrival shows no focal consolidation or evidence of pneumonia. She did have a fever on arrival 100.5 degrees Fahrenheit. She is empirically covered on a combination of azithromycin and Rocephin. She was negative for influenza, RSV, COVID-19. CBC on arrival was unremarkable. BMP shows a sodium of 129, potassium 4.3, chloride 86, serum bicarbonate chronically elevated at 37, BUN 12, creatinine 0.52, glucose 111. No IV fluids are currently infusing. Troponin 1 was negative. NT proBNP was low. Patient will be admitted to the cardiac stepdown unit. Today's evaluation of 05/17/2023, the patient is being seen for a follow-up. She is awake and alert and communicating. She is on a BiPAP at a pressure of 12/5 cm of water. She generating a tidal volume of around 300 mL and a minute ventilation of 8.4 L. She seems to be slightly more comfortable compared to yesterday. However, on examination, she remains bronchospastic and wheezy. She remains on a combination of bronchodilators and steroids for now.On her blood work, the blood gas was done yesterday that showed a pH of 7.26 with a pCO2 of 84 and pO2 of 69. The repeat blood gas will be done today. No other labs are available. Pro-calcitonin level level was low at 0.05. Patient is on IV fluids at 75 mL an hour. On today's evaluation of 05/18/2023, the patient remains on BiPAP. Less bronchospastic and lives wheezy and there is no signs of active CO2 narcosis. The repeat blood gas was done and the patient was showing improvement in acid base status. Blood gases that was done today shows improvement and a pH was up to 7.32 with a pCO2 is down to 79 with a pO2 of 96 and this was done on a BiPAP pressure of 12/5 with an FiO2 of 35%. She is a smoker spastic and wheezing on today's examination. No new specific complaints. WBC count remains low at 5.7 with a hemoglobin of 4.2 and a platelet count of 183. Troponins are negative. Pro-calcitonin level has not been checked. She remains on bronchodilators. She remains on steroids. She remains on IV fluids. On 05/19/2023, I found the patient slightly more lethargic. I repeated a blood gases in the blood gas findings of essentially unchanged compared to yesterday. The patient carries a pH of 7.34 with a pCO2 of 78 and pO2 of 109. She remains on a BiPAP pressure of 12/5 cm of water with FiO2 of 35%. The echoes of 5.4 with a hemoglobin 15.3 and a platelet count of 174. BUN is 23 with a creatinine of 0.4 and sodium levels of 137. No other significant events overnight. The patient remains bronchospastic and wheezy. A repeat chest x-ray was done that showed no acute abnormalities. On 05/20/2023, the patient is still on a BiPAP at a pressure of 12/5 cm of water. She is synchronous. Although she is getting tired and overall discouraged because of her advanced COPD and her ongoing shortness of breath and lack of clinical response. She is being given brief breaks off the BiPAP for oral feeds. Family the bedside. At one point, she was considering to go hospice care. I think we will going to continue the treatment for another 24 hours. The patient remains on the same treatment of DuoNeb nebulized treatments [id number], IV Solu-Medrol, Perforomist and Pulmicort updrafts twice a day. No blood gas from today. Nevertheless, her blood work is essentially stable. BUN is at 24 with a creatinine of 0.4. Sodium is at 137. The white cell count is at 5 with a hemoglobin 15.7 and a platelet count of 184. She is a bit anxious and she is taking Xanax on an as-needed basis. She remains on IV Rocephin. On 05/21/2023, the patient seems to be slightly improved. The patient is able to tolerate longer time off the BiPAP. This morning she was seen on a BiPAP and she is awake and alert and communicating. On her blood work, the patient developed some metabolic alkalosis. The serum bicarbs of 45 and sodium levels of 139 with a potassium level of 3.6. The WBC count is at 6.4 with a hemoglobin 15.5. She remains on same regimen of bronchodilators and IV Solu-Medrol. On 05/22/2023, the patient remains on BiPAP. Doing well. Communicating. She is able to come off the BiPAP for feeding purposes. No new labs are available from today. Remains on same regimen of bronchodilators and steroids. Patient was reevaluated today on 05/23/2023, remains on BiPAP, seems to be very comfortable on BiPAP. Not in distress, workup is in progress for possible arrangements for the patient to go to LTAC. If she does go to LTAC, patient could go on BiPAP while at LTAC. However if she does go home, we'll try to arrange for possible TRILOGY device at home. Reevaluated today on , patient is feeling much better today, she is off BiPAP, presently on nasal cannula. Denies any chest pain or cough or wheezing. She was on BiPAP last night. Patient is being worked up for possible transfer to LTAC or rehab facility tells me today that she may be going to [facility]. Reevaluated today on 05/25/2023, patient is on few liters nasal cannula, doing well, relatively asymptomatic, hardly any pulmonary symptoms, patient is feeling great. Labs from today including CBC and basic metabolic profile are basically unremarkable except for low sodium of 130 patient is on 3 L nasal cannula with O2 saturation 97% Objective - Vital Signs Vital signs: Vital Signs Temp 97.8 F 05/25/23 11:58 Pulse 78 05/25/23 11:58 Resp 16 05/25/23 11:58 BP 134/68 05/25/23 11:58 Pulse Ox 97 05/25/23 11:58 FiO2 28 05/25/23 04:15 Intake & Output 05/24/23 05/25/23 05/25/23 18:59 06:59 18:59 Intake Total 470 540 Output Total 875 300 200 Balance -405 -300 340 Intake: Oral 470 540 Output: Urine 875 300 200 Other: Voiding Method External Catheter External Catheter External Catheter - Exam GENERAL EXAM: Alert, 72-year-old white female, on 3 L nasal cannula, not in distress HEAD: Normocephalic and atraumatic EYES: Normal reaction of pupils, equal size. NOSE: Clear with pink turbinates. THROAT: No erythema or exudates. NECK: No masses, no JVD. CHEST: No chest wall deformity. LUNGS: Diminished breath sound bilaterally no rhonchi no wheezes CVS: S1 and S2 normal with no audible murmur, regular rhythm. No extra heart sounds ABDOMEN: Soft nontender no megaly no rebound no guarding. SKIN: No rashes CENTRAL NERVOUS SYSTEM: Alert and oriented 3 focal deficit EXTREMITIES: There is no peripheral edema, clubbing, or cyanosis. Peripheral pulses are intact. - Labs CBC & Chem 7: 05/25/23 07:21 05/25/23 07:21 Labs: Abnormal Lab Results - Last 24 Hours (Table) 05/24/23 05/24/23 05/25/23 Range/Units 16:54 19:59 06:10 WBC (3.8-10.6) k/uL Neutrophils # (1.3-7.7) k/uL Lymphocytes # (1.0-4.8) k/uL Sodium (137-145) mmol/L Chloride (98-107) mmol/L Carbon Dioxide (22-30) mmol/L BUN (7-17) mg/dL Creatinine (0.52-1.04) mg/dL Glucose (74-99) mg/dL POC Glucose (mg/dL) 124 H 154 H 153 H (70-110) mg/dL ALT (4-34) U/L Total Protein (6.3-8.2) g/dL Albumin (3.5-5.0) g/dL 05/25/23 05/25/23 05/25/23 Range/Units 07:21 07:21 10:37 WBC 13.0 H (3.8-10.6) k/uL Neutrophils # 12.0 H (1.3-7.7) k/uL Lymphocytes # 0.4 L (1.0-4.8) k/uL Sodium 130 L (137-145) mmol/L Chloride 91 L (98-107) mmol/L Carbon Dioxide 37 H (22-30) mmol/L BUN 24 H (7-17) mg/dL Creatinine 0.41 L (0.52-1.04) mg/dL Glucose 142 H (74-99) mg/dL POC Glucose (mg/dL) 140 H (70-110) mg/dL ALT 35 H (4-34) U/L Total Protein 5.1 L (6.3-8.2) g/dL Albumin 2.8 L (3.5-5.0) g/dL Assessment and Plan Assessment: Impression: Acute on chronic hypoxic and hypercapnic respiratory failure secondary to acute exacerbation of COPD Benign essential hypertension Chronic hypoxic respiratory failure Degenerative joint disease Ex-smoker History of cardiac arrest Recommendation: Continue bronchodilators Continue empiric antibiotics DO NOT RESUSCITATE CODE STATUS Arrange for LTAC placement. Or rehab placement We'll clear the patient for discharge if cleared by other physicians on the case We will continue to follow Time with Patient: Less than 30
--- NOTE | 2023-05-25 13:01 | P.DS ---
Providers Date of admission: 05/15/23 20:11 Expected date of discharge: 05/25/23 Attending physician: Erinn Vance Consults: 05/15/23 20:10 Consult Physician Routine Consulting Provider: Jason Robles Consult Reason/Comments: known Do you want consulting provider notified?: Yes 05/18/23 07:56 Consult Physician Routine Consulting Provider: Douglas Hernández Consult Reason/Comments: 20 beat run vtach Do you want consulting provider notified?: Yes 05/23/23 09:21 Consult Physician Routine Consulting Provider: Graham Melendez Consult Reason/Comments: afib Do you want consulting provider notified?: Yes Primary care physician: Vern Rodriguez Hospital Course: Final diagnosis Acute on chronic hypoxemic and hypercapnic respiratory failure Acute COPD exacerbation New onset paroxysmal atrial fibrillation Nonsustained V. tach acute bronchitis, present on admission Essential hypertension Hyperlipidemia History of cardiac arrest GERD without esophagitis Diverticulosis Osteoarthritis GI prophylaxis DVT prophylaxis No code Discharge disposition Patient is being discharged in a stable condition with guarded prognosis to [facility]. Patient will follow-up with Dr. Rodriguez in the outpatient setting upon discharge. Patient is to continue with DuoNeb treatments along with steroid taper and close outpatient follow-up with pulmonary Dr. Robles as scheduled. Total time taken is greater than 35 minutes. Hospital course This is a 72-year-old female who was recently admitted with increasing shortness of breath and acute on chronic hypoxic respiratory failure requiring BiPAP. Patient is currently maintained on 3 L nasal cannula and has not required BiPAP for 2 nights per respiratory therapy. Patient will continue on BiPAP as needed at night and prescriptions was provided. Patient currently maintained on 3 L and will continue along with DuoNeb treatments 4 times a day and as needed as well as Symbicort inhaler and a prednisone taper on discharge. Patient to follow closely with pulmonary in the outpatient setting. Patient has been cleared by consultation for discharge. Please refer to consultation note for further HPI. Currently no reports of chest pain, worsening shortness of breath, or palpitations. Patient is afebrile. No reports of nausea or vomiting and patient is tolerating diet. Patient will be going to [facility] today. Physical exam: Gen: This is a 72-year-old female who is awake, alert and oriented 3, well- developed, well-nourished. HEENT: Head is atraumatic, normocephalic. Pupils equal, round. Sclerae is anicteric. NECK: Supple. No JVD. No lymphadenopathy. No thyromegaly. LUNGS: Diminished breath sounds bilaterally with some scattered rhonchi. There is faint expiratory wheezing noted at the bases bilaterally. No intercostal retractions. HEART: Regular rate and rhythm. No murmur. ABDOMEN: Soft. Bowel sounds are present. No masses. No tenderness. EXTREMITIES: No pedal edema. No calf tenderness. NEUROLOGICAL: Patient is awake, alert and oriented x3. Cranial nerves 2 through 12 are grossly intact. Diffusely weak Please refer to medication reconciliation sheet for a list of medications. The impression and plan of care has been dictated by Bren Norris, Nurse Practitioner as directed. Dr. New MD I have performed a history and examination and MDM of this patient, discussed the same with the dictator, and agree with the dictator's assessment and plan as written ,documented as a scribe. Based on total visit time, I have performed more than 50% of the visit. Patient Condition at Discharge: Good Plan - Discharge Summary Discharge Rx Participant: No New Discharge Prescriptions: New Benzocaine/Menthol Lozeng [Cepacol lozenge] 1 each MUCOUS MEM Q4HR PRN lozenge PRN Reason: Cough Ipratropium-Albuterol Nebulize [Duoneb 0.5 mg-3 mg/3 ml Soln] 3 ml INHALATION RT-QID each Ipratropium-Albuterol Nebulize [Duoneb 0.5 mg-3 mg/3 ml Soln] 3 ml INHALATION RT-Q2H PRN each PRN Reason: Shortness Of Breath Or Wheezing Apixaban [Eliquis] 5 mg PO BID tab Nitroglycerin Sl Tabs [Nitrostat] 0.4 mg SUBLINGUAL Q5M PRN tab PRN Reason: Chest Pain INSULIN ASPART (NovoLOG) [NovoLOG (formulary)] 0 unit SQ ACHS each Budesonide [Pulmicort] 1 mg INHALATION RT-BID ml Metoprolol Tartrate [Lopressor] 25 mg PO BID tab predniSONE 10 mg PO DIRECTED #30 tab Acetaminophen Tab [Tylenol] 650 mg PO Q6HR PRN tab PRN Reason: Fever And/ Or Pain ALPRAZolam [Xanax] 0.5 mg PO TID PRN #3 tab PRN Reason: Anxiety Continue Budesonide-Formot 160-4.5 Mcg [Symbicort 160-4.5 Mcg Inhaler] 2 puff INHALATION RT-BID Ubidecarenone [Co Q-10] 100 mg PO DAILY Famotidine [Pepcid] 20 mg PO BID Atorvastatin Calcium [Lipitor] 10 mg PO HS Ergocalciferol [Vitamin D2 (1250 Mcg = 20915 Iu)] 2,500 mcg PO Q30D Dorzolamide 2% [Trusopt 2%] 1 drop BOTH EYES BID Gabapentin [Neurontin] 300 mg PO BID #4 cap Diltiazem Oral [Cardizem*] 30 mg PO BID Albuterol Inhaler [Ventolin Hfa Inhaler] 2 puff INHALATION RT-BID Memantine [Namenda] 5 mg PO BID Changed HYDROcodone/APAP 10-325MG [[place] 10-325] 1 tab PO BID #2 tab Discontinued traMADol HCL [Ultram] 50 mg PO DAILY Metoprolol Tartrate [Lopressor] 12.5 mg PO BID predniSONE 5 mg PO DAILY Discharge Medication List Budesonide-Formot 160-4.5 Mcg [Symbicort 160-4.5 Mcg Inhaler] 2 puff INHALATION RT-BID 04/03/19 [History] Ubidecarenone [Co Q-10] 100 mg PO DAILY 05/16/19 [History] Famotidine [Pepcid] 20 mg PO BID 11/06/19 [History] Atorvastatin Calcium [Lipitor] 10 mg PO HS 03/28/22 [History] Diltiazem Oral [Cardizem*] 30 mg PO BID 03/28/22 [History] Ergocalciferol [Vitamin D2 (1250 Mcg = 18594 Iu)] 2,500 mcg PO Q30D 03/28/22 [History] Albuterol Inhaler [Ventolin Hfa Inhaler] 2 puff INHALATION RT-BID 05/15/23 [History] Dorzolamide 2% [Trusopt 2%] 1 drop BOTH EYES BID 05/15/23 [History] Memantine [Namenda] 5 mg PO BID 05/15/23 [History] ALPRAZolam [Xanax] 0.5 mg PO TID PRN #3 tab 05/25/23 [Rx] Acetaminophen Tab [Tylenol] 650 mg PO Q6HR PRN tab 05/25/23 [Rx] Apixaban [Eliquis] 5 mg PO BID tab 05/25/23 [Rx] Benzocaine/Menthol Lozeng [Cepacol lozenge] 1 each MUCOUS MEM Q4HR PRN lozenge 05/25/23 [Rx] Budesonide [Pulmicort] 1 mg INHALATION RT-BID ml 05/25/23 [Rx] Gabapentin [Neurontin] 300 mg PO BID #4 cap 05/25/23 [Rx] HYDROcodone/APAP 10-325MG [[place] 10-325] 1 tab PO BID #2 tab 05/25/23 [Rx] INSULIN ASPART (NovoLOG) [NovoLOG (formulary)] 0 unit SQ ACHS each 05/25/23 [Rx] Ipratropium-Albuterol Nebulize [Duoneb 0.5 mg-3 mg/3 ml Soln] 3 ml INHALATION RT-Q2H PRN each 05/25/23 [Rx] Ipratropium-Albuterol Nebulize [Duoneb 0.5 mg-3 mg/3 ml Soln] 3 ml INHALATION RT-QID each 05/25/23 [Rx] Metoprolol Tartrate [Lopressor] 25 mg PO BID tab 05/25/23 [Rx] Nitroglycerin Sl Tabs [Nitrostat] 0.4 mg SUBLINGUAL Q5M PRN tab 05/25/23 [Rx] predniSONE 10 mg PO DIRECTED #30 tab 05/25/23 [Rx] Follow up Appointment(s)/Referral(s): [facility] [REFERRING] - Jsaon Robles DO [Doctor of Osteopathic Medicine] - 06/06/23 9:15 am Vern Rodriguez DO [Primary Care Provider] - 1-2 days
--- NOTE | 2023-05-25 13:29 | P.PN ---
Subjective HISTORY OF PRESENT ILLNESS: This is 72-year-old female who follows in the office with Dr. Elizabeth. Patient is admitted to the hospital secondary to respiratory failure, COPD exacerbation, and possible acute bronchitis. Cardiology was initially consulted for ventricular tachycardia. She was evaluated last week by Dr. Hernández and cardiology signed off. Cardiology was reconsulted to evaluate patient due to new onset atrial fibrillation. Patient states that she has a known history of irregular heart rhythm which she believes is just "extra beats" but denies history of atrial fibrillation. EKG performed yesterday reveals atrial fibrillation with mild RVR with heart rate of 106. Patient is maintaining sinus mechanism this morning. She denies chest pain or pressure. She reports shortness of breath. She is currently on a BiPAP at the time of examination. She is on a heparin drip at this time. Patient underwent echocardiogram on 05/19/2023 revealing ejection fraction 55% with trace mitral regurgitation. 05/24/2023 Patient examined this morning at the bedside. Patient denies chest pain or pressure. She currently denies shortness of breath. She is wearing a BiPAP. She states that she feels significantly improved from yesterday. Telemetry reveals sinus mechanism.TSH 0.594. 05/25/2023 Patient examined this morning at the bedside. Patient denies chest pain or pressure. She denies shortness of breath. Telemetry reveals sinus mechanism. Patient has been weaned off BiPAP and is currently on 3 L nasal cannula. PHYSICAL EXAM: VITAL SIGNS: Reviewed. GENERAL: Well-developed in no acute distress. NECK: Supple. No JVD or thyromegaly LUNGS: Respirations even and unlabored. Lungs essentially clear to auscultation bilaterally. HEART: Regular rate and rhythm. S1 and S2 heard. EXTREMITIES: Normal range of motion. No clubbing or cyanosis. Peripheral pulses intact. No lower extremity edema ASSESSMENT: Shortness of breath Acute on chronic hypoxic and hypercapnic respiratory failure Acute COPD exacerbation Acute bronchitis New onset paroxysmal atrial fibrillation, currently maintaining sinus mechanism History of pulmonary arrest followed by cardiac arrest, 2019, with subsequent cardiac catheterization revealing nonobstructive coronary artery disease with 40% proximal RCA and 35% mid circumflex Hypertension Hyperlipidemia GERD Nicotine dependence PLAN: continue current cardiac medications Continue telemetry monitoring Patient is stable from a cardiac standpoint We will sign off. Please reconsult if needed. Nurse practitioner note has been reviewed by physician. Signing provider agrees with the documented findings, assessment, and plan of care. Objective - Vital Signs Vital signs: Vital Signs Temp 97.8 F 05/25/23 11:58 Pulse 78 05/25/23 11:58 Resp 16 05/25/23 11:58 BP 134/68 05/25/23 11:58 Pulse Ox 97 05/25/23 11:58 FiO2 28 05/25/23 04:15 Intake & Output 05/24/23 05/25/23 05/25/23 18:59 06:59 18:59 Intake Total 470 990 Output Total 875 300 200 Balance -405 -300 790 Intake: Oral 470 990 Output: Urine 875 300 200 Other: Voiding Method External Catheter External Catheter External Catheter - Labs CBC & Chem 7: 05/25/23 07:21 05/25/23 07:21 Labs: Abnormal Lab Results - Last 24 Hours (Table) 05/24/23 05/24/23 05/25/23 Range/Units 16:54 19:59 06:10 WBC (3.8-10.6) k/uL Neutrophils # (1.3-7.7) k/uL Lymphocytes # (1.0-4.8) k/uL Sodium (137-145) mmol/L Chloride (98-107) mmol/L Carbon Dioxide (22-30) mmol/L BUN (7-17) mg/dL Creatinine (0.52-1.04) mg/dL Glucose (74-99) mg/dL POC Glucose (mg/dL) 124 H 154 H 153 H (70-110) mg/dL ALT (4-34) U/L Total Protein (6.3-8.2) g/dL Albumin (3.5-5.0) g/dL 05/25/23 05/25/23 05/25/23 Range/Units 07:21 07:21 10:37 WBC 13.0 H (3.8-10.6) k/uL Neutrophils # 12.0 H (1.3-7.7) k/uL Lymphocytes # 0.4 L (1.0-4.8) k/uL Sodium 130 L (137-145) mmol/L Chloride 91 L (98-107) mmol/L Carbon Dioxide 37 H (22-30) mmol/L BUN 24 H (7-17) mg/dL Creatinine 0.41 L (0.52-1.04) mg/dL Glucose 142 H (74-99) mg/dL POC Glucose (mg/dL) 140 H (70-110) mg/dL ALT 35 H (4-34) U/L Total Protein 5.1 L (6.3-8.2) g/dL Albumin 2.8 L (3.5-5.0) g/dL
[2023-05-25 16:16] VITALS: BP 137/69; PULSE 74; TEMP 98.3
[2023-05-25 17:05] LABS: Glucose,Whole Blood 128 mg/dL (70-110)
== END 2023-05-25 18:51 | DRG 189 ==
LOC: EC 15:21 → 4SSUR 20:11 → 3SCARD 05-16 01:19
PROVIDERS: ADMIT Hospitalist; ATTEND Hospitalist
PROC: 5A09357 Assistance with Respiratory Ventilation, Less than 24 Consecutive Hours, Continuous Positive Airway Pressure (ICD-10-PCS; principal; 2023-05-16)
DX: J96.21 Acute and chronic respiratory failure with hypoxia (principal); J44.1 Chronic obstructive pulmonary disease with (acute) exacerbation; J44.0 Chronic obstructive pulmonary disease with (acute) lower respiratory infection; I47.20 Ventricular tachycardia, unspecified; E87.3 Alkalosis; J96.22 Acute and chronic respiratory failure with hypercapnia; J20.9 Acute bronchitis, unspecified; M19.90 Unspecified osteoarthritis, unspecified site; Z66 Do not resuscitate; K21.9 Gastro-esophageal reflux disease without esophagitis; M81.0 Age-related osteoporosis without current pathological fracture; Z20.822 Contact with and (suspected) exposure to COVID-19; K57.90 Diverticulosis of intestine, part unspecified, without perforation or abscess without bleeding; I10 Essential (primary) hypertension; I48.0 Paroxysmal atrial fibrillation; Z79.01 Long term (current) use of anticoagulants; H91.90 Unspecified hearing loss, unspecified ear; I49.3 Ventricular premature depolarization; I27.20 Pulmonary hypertension, unspecified; F41.9 Anxiety disorder, unspecified; I08.3 Combined rheumatic disorders of mitral, aortic and tricuspid valves; I25.10 Atherosclerotic heart disease of native coronary artery without angina pectoris; E78.5 Hyperlipidemia, unspecified; Z79.51 Long term (current) use of inhaled steroids; Z99.81 Dependence on supplemental oxygen; Z86.74 Personal history of sudden cardiac arrest; Z79.899 Other long term (current) drug therapy; Z82.49 Family history of ischemic heart disease and other diseases of the circulatory system; Z96.651 Presence of right artificial knee joint; Z86.010 Personal history of colon polyps; Z71.3 Dietary counseling and surveillance; Z28.311 Partially vaccinated for COVID-19
CPT/HCPCS: 36415; 36600; 71045; 80053; 82805; 83605; 83735; 83880; 84100; 84145; 84439; 84443; 84484; 85025; 85379; 85610; 85730; 87040; 87636; 93005; 93306; 94640; 94660; 94760; 96365; 96366; 96367; 96368; 96375; 99285

== ENCOUNTER 2023-07-01 11:26 | Inpatient (IN) | payer MEDICARE, BC, OTHER ==
[2023-07-01] MEDS ORDERED: IBUPROFEN 600 MG TAB PO STA (12:20)
[2023-07-01] MEDS ORDERED: ACETAMINOPHEN TAB 500 MG TAB PO STA (12:20)
[2023-07-01 12:40] LABS: Basophils # (A) 0.1 k/uL (0-0.2); Basophils % (A) 1 %; Eosinophils % (A) 0 %; HGB 12.8 gm/dL (11.4-16.0); Hypochromasia Slight; Lymphocytes # (A) 1.2 k/uL (1.0-4.8); Lymphocytes % (A) 16 %; MCH 29.8 pg (25.0-35.0); Mean Platelet Volume 7.3; Monocytes # (A) 0.9 k/uL (0-1.0); Monocytes % (A) 12 %; Neutrophils # (A) 5.2 k/uL (1.3-7.7); Neutrophils % (A) 69 %; Platelet Count 211 k/uL (150-450); RBC 4.29 m/uL (3.80-5.40); RDW 14.8 % (11.5-15.5); WBC 7.6 k/uL (3.8-10.6)
[2023-07-01 12:46] LABS: Appearance,Urine Cloudy (Clear); Bilirubin,Urine Negative (Negative); Blood,Urine Small (Negative); Color,Urine Light Red; Glucose,Urine (UA) Negative (Negative); Ketones,Urine Negative (Negative); Leukocyte Esterase,Urine Negative (Negative); Mucus,Urine Rare /hpf; Nitrite,Urine Negative (Negative); Protein,Urine Trace (Negative); RBC,Urine 39 /hpf (0-5); Specific Gravity,Urine 1.015 (1.001-1.035); Squamous Epithelial Cell,Urine <1 /hpf (0-4); Urobilinogen,Urine <2.0 mg/dL (<2.0); WBC,Urine 1 /hpf (0-5)
[2023-07-01 12:50] LABS: INR 0.9 (<1.2); Partial Thromboplastin Time 25.1 sec (22.0-30.0); Prothrombin Time 10.1 sec (9.0-12.0)
[2023-07-01 12:55] LABS: ALT 29 U/L (4-34); AST 44 U/L (14-36); African American GFR (CKD) >90 (>60 ml/min/1.73 sqM); Albumin 3.8 g/dL (3.5-5.0); Alkaline Phosphatase 90 U/L (38-126); Anion Gap 5 mmol/L; Blood Urea Nitrogen 10 mg/dL (7-17); Calcium 8.6 mg/dL (8.4-10.2); Carbon Dioxide 34 mmol/L (22-30); Chloride 89 mmol/L (98-107); Glucose 98 mg/dL (74-99); Non-African American GFR(CKD) >90 (>60 ml/min/1.73 sqM); Potassium 3.9 mmol/L (3.5-5.1); Sodium 128 mmol/L (137-145); Total Bilirubin 0.7 mg/dL (0.2-1.3); Total Protein 6.7 g/dL (6.3-8.2)
--- NOTE | 2023-07-01 13:03 | ED ---
General Adult HPI - General Chief complaint: Shortness of Breath Stated complaint: SOB Time Seen by Provider: 07/01/23 11:45 Source: patient, RN notes reviewed, old records reviewed Mode of arrival: EMS Limitations: no limitations - History of Present Illness Initial comments: This is a 72-year-old female presents emergency Department because she short of breath. Patient also appears to be altered but there is no one here to let me know what the baseline is. Patient states she has underlying COPD and the shortness of breath is getting worse. Patient states she has had an increased cough she denies sputum production. Patient denies chest pain or palpitations. Patient denies any abdominal pain patient denies nausea vomiting diarrhea. Patient denies any dysuria hematuria urinary frequency. - Related Data Home Medications Medication Instructions Recorded Confirmed Budesonide-Formot 160-4.5 Mcg 2 puff INHALATION RT-BID 04/03/19 07/01/23 [Symbicort 160-4.5 Mcg Inhaler] Famotidine [Pepcid] 20 mg PO BID 11/06/19 07/01/23 Atorvastatin Calcium [Lipitor] 10 mg PO HS 03/28/22 07/01/23 Diltiazem Oral [Cardizem*] 30 mg PO BID 03/28/22 07/01/23 Albuterol Inhaler [Ventolin Hfa 2 puff INHALATION RT-Q6H PRN 05/15/23 07/01/23 Inhaler] Dorzolamide 2% [Trusopt 2%] 1 drop BOTH EYES BID 05/15/23 07/01/23 Memantine [Namenda] 5 mg PO BID 05/15/23 07/01/23 Donepezil [Aricept] 5 mg PO HS 07/01/23 07/01/23 Metoprolol Tartrate [Lopressor] 12.5 mg PO BID 07/01/23 07/01/23 Ondansetron [Ondansetron Odt] 4 mg PO Q8H PRN 07/01/23 07/01/23 predniSONE 5 mg PO DAILY 07/01/23 07/01/23 Previous Rx's Medication Instructions Recorded Apixaban [Eliquis] 5 mg PO BID tab 05/25/23 Gabapentin [Neurontin] 300 mg PO BID #4 cap 05/25/23 HYDROcodone/APAP 10-325MG [[place] 1 tab PO BID #2 tab 05/25/23 10325] Allergies Allergy/AdvReac Type Severity Reaction Status Date / Time dextromethorphan Allergy Unknown Verified 07/01/23 13:51 [From Mucinex DM] guaifenesin [From Mucinex DM] Allergy Diarrhea Verified 07/01/23 13:51 diltiazem AdvReac Intermediate Abdominal Verified 07/01/23 13:51 Pain alprazolam [From Xanax] AdvReac Anaphylaxis Verified 07/01/23 13:51 donepezil [From Aricept] AdvReac Nausea & Verified 07/01/23 13:51 Vomiting levofloxacin [From Levaquin] AdvReac Nausea, Verified 07/01/23 13:51 Diarrhea , States she got C-Diff after, Migraines roflumilast [From Daliresp] AdvReac Nausea & Verified 07/01/23 13:51 Vomiting & Diarrhea Review of Systems ROS Statement: Those systems with pertinent positive or pertinent negative responses have been documented in the HPI. ROS Other: All systems not noted in ROS Statement are negative. Past Medical History Past Medical History: COPD, GERD/Reflux, Hearing Disorder / Deafness, Hyper tension, Osteoarthritis (OA), Respiratory Disorder Additional Past Medical History / Comment(s): HX POLYPS, DIVERTICULI. Osteoporosis. ICU - History of Any Multi-Drug Resistant Organisms: C-DIFF Date of last positivie culture/infection: 2013 approx MDRO Source:: stool Past Surgical History: Back Surgery, Bowel Resection, Joint Replacement, Orthopedic Surgery Additional Past Surgical History / Comment(s): RIGHT KNEE REPLACEMENT, LEFT LEG ORIF-removed, LIZZIE CARPAL TUNNEL,. Bilateral cataract surgery,plate rt foot Additional Past Anesthesia/Blood Transfusion Reaction / Comment(s): STATES NO EPIDURALS R/T GETTING SEVERE MIGRAINES Past Psychological History: No Psychological Hx Reported Smoking Status: Former smoker - Past Family History Mother Family Medical History: Hypertension Father Family Medical History: Cancer Additional Family Medical History / Comment(s): aneurysms,prostate General Exam - General Exam Comments Initial Comments: GENERAL: Patient is well-developed and well-nourished. Patient is nontoxic and well- hydrated and is in mild distress. Patient's temperature 102.1. ENT: Neck is soft and supple. No significant lymphadenopathy is noted. Oropharynx is clear. Moist mucous membranes. Neck has full range of motion without eliciting any pain. EYES: The sclera were anicteric and conjunctiva were pink and moist. Extraocular movements were intact and pupils were equal round and reactive to light. Eyelids were unremarkable. PULMONARY: Patient has expiratory wheezing in the bases CARDIOVASCULAR: There is a regular rate and rhythm without any murmurs gallops or rubs. ABDOMEN: Soft and nontender with normal bowel sounds. No palpable organomegaly was noted. There is no palpable pulsatile mass. SKIN: Skin is clear with no lesions or rashes and otherwise unremarkable. NEUROLOGIC: Patient is alert and oriented x3. Cranial nerves II through XII are grossly intact. Motor and sensory are also intact. Normal speech, volume and content. Symmetrical smile. MUSCULOSKELETAL: Normal extremities with adequate strength and full range of motion. No lower extremity swelling or edema. No calf tenderness. LYMPHATICS: No significant lymphadenopathy is noted PSYCHIATRIC: Normal psychiatric evaluation. Limitations: no limitations Course Vital Signs 07/01/23 11:30 Temperature 98.7 F Pulse Rate 107 H Respiratory 20 Rate Blood Pressure 122/59 O2 Sat by Pulse 94 L Oximetry Medical Decision Making - Medical Decision Making EKG as interpreted by myself shows a sinus tachycardia at 107 bpm WA interval 128 QRS is 82 QT interval 02 QTC is 365 per patient's EKG shows no ST segment elevation or depression Was pt. sent in by a medical professional or institution (TIFFANI Calderon, DRAGSAW OPERATOR, urgent care, hospital, or penitentiary...) When possible be specific @ -No Did you speak to anyone other than the patient for history (EMS, parent, family, police, friend...)? What history was obtained from this source @ -EMS gave all the history because the patient's slightly altered Did you review nursing and triage notes (agree or disagree)? Why? @ -I reviewed and agree with nursing and triage notes Were old charts reviewed (outside hosp., previous admission, EMS record, old E KG, old radiological studies, urgent care reports/EKG's, penitentiary records)? Report findings @ -I reviewed prior charts her lab work Differential Diagnosis (chest pain, altered mental status, abdominal pain women, abdominal pain men, vaginal bleeding, weakness, fever, dyspnea, syncope, headache, dizziness, GI bleed, back pain, seizure, CVA, palpatations, mental health, musculoskeletal)? @ -Differential Dyspnea: Coronary syndrome, arrhythmia, tamponade, asthma, COPD, pulmonary embolism, pneumonia, pneumothorax, pulmonary effusion, anaphylaxis, diabetic ketoacidosis, flailed chest, pulmonary contusion, diaphragmatic rupture, anemia, neuromuscular, this is not meant to be an all-inclusive list. EKG interpreted by me (3pts min.). @ -As above X-rays interpreted by me (1pt min.). @ -Chest x-ray shows no acute abnormality CT interpreted by me (1pt min.). @ -None done U/S interpreted by me (1pt. min.). @ -None done What testing was considered but not performed or refused? (CT, X-rays, U/S, labs)? Why? @ -None What meds were considered but not given or refused? Why? @ -None Did you discuss the management of the patient with other professionals (professionals i.e. , PA, DRAGSAW OPERATOR, lab, RT, psych nurse, social media sr strategy manager, real estate acquisition analyst, teacher, state patrol officer, case management manager)? Give summary @ -I spoke with the [facility] she agreed to admit the patient Was smoking cessation discussed for >3mins.? @ -No Was critical care preformed (if so, how long)? @ -No Were there social determinants of health that impacted care today? How? (Homelessness, low income, unemployed, alcoholism, drug addiction, transportation, low edu. Level, literacy, decrease access to med. care, usp, rehab)? @ -No Was there de-escalation of care discussed even if they declined (Discuss DNR or withdrawal of care, Hospice)? DNR status @ -No What co-morbidities impacted this encounter? (DM, HTN, Smoking, COPD, CAD, Cancer, CVA, ARF, Chemo, Hep., AIDS, mental health diagnosis, sleep apnea, morbid obesity)? @ -None Was patient admitted / discharged? Hospital course, mention meds given and route, prescriptions, significant lab abnormalities, going to OR and other pertinent info. @ -Patient received breathing treatments in the emergency department as well as steroids and antibiotics. Patient 102 fever no specific source was determined however I'm going to assume patient has an early infection in the lungs. [facility] I will consult pulmonary and infectious disease Undiagnosed new problem with uncertain prognosis? @ -No Drug Therapy requiring intensive monitoring for toxicity (Heparin, Nitro, Insulin, Cardizem)? @ -No Were any procedures done? @ -No Diagnosis/symptom? @ -COPD exacerbation Acute, or Chronic, or Acute on Chronic? @ -Acute Uncomplicated (without systemic symptoms) or Complicated (systemic symptoms)? @ -Complicated Side effects of treatment? @ -No Exacerbation, Progression, or Severe Exacerbation? @ -No Poses a threat to life or bodily function? How? (Chest pain, USA, VT, pneumonia, PE, COPD, DKA, ARF, appy, cholecystitis, CVA, Diverticulitis, Homicidal, Suicidal, threat to staff... and all critical care pts) @ -Yes this could lead to hypoxia and end organ dysfunction Diagnosis/symptom? @ -Bronchitis Acute, or Chronic, or Acute on Chronic? @ -Acute Uncomplicated (without systemic symptoms) or Complicated (systemic symptoms)? @ -Complicated Side effects of treatment? @ -none Exacerbation, Progression, or Severe Exacerbation] @ -no Poses a threat to life or bodily function? @ -no - Lab Data Result diagrams: 07/01/23 12:25 07/01/23 12:25 Lab Results 07/01/23 07/01/23 07/01/23 Range/Units 12:25 12:25 12:25 WBC 7.6 (3.8-10.6) k/uL RBC 4.29 (3.80-5.40) m/uL Hgb 12.8 (11.4-16.0) gm/dL Hct 40.0 (34.0-46.0) % MCV 93.0 (80.0-100.0) fL MCH 29.8 (25.0-35.0) pg MCHC 32.0 (31.0-37.0) g/dL RDW 14.8 (11.5-15.5) % Plt Count 211 (150-450) k/uL MPV 7.3 Neutrophils % 69 % Lymphocytes % 16 % Monocytes % 12 % Eosinophils % 0 % Basophils % 1 % Neutrophils # 5.2 (1.3-7.7) k/uL Lymphocytes # 1.2 (1.0-4.8) k/uL Monocytes # 0.9 (0-1.0) k/uL Eosinophils # 0.0 (0-0.7) k/uL Basophils # 0.1 (0-0.2) k/uL Hypochromasia Slight PT 10.1 (9.0-12.0) sec INR 0.9 (<1.2) APTT 25.1 (22.0-30.0) sec Sodium (137-145) mmol/L Potassium (3.5-5.1) mmol/L Chloride (98-107) mmol/L Carbon Dioxide (22-30) mmol/L Anion Gap mmol/L BUN (7-17) mg/dL Creatinine (0.52-1.04) mg/dL Est GFR (CKD-EPI)AfAm (>60 ml/min/1.73 sqM) Est GFR (CKD-EPI)NonAf (>60 ml/min/1.73 sqM) Glucose (74-99) mg/dL Plasma Lactic Acid Robert (0.7-2.0) mmol/L Calcium (8.4-10.2) mg/dL Total Bilirubin (0.2-1.3) mg/dL AST (14-36) U/L ALT (4-34) U/L Alkaline Phosphatase (38-126) U/L Total Protein (6.3-8.2) g/dL Albumin (3.5-5.0) g/dL Urine Color Light Red Urine Appearance Cloudy H (Clear) Urine pH 8.0 (5.0-8.0) Ur Specific [place] 1.015 (1.001-1.035) Urine Protein Trace H (Negative) Urine Glucose (UA) Negative (Negative) Urine Ketones Negative (Negative) Urine Blood Small H (Negative) Urine Nitrite Negative (Negative) Urine Bilirubin Negative (Negative) Urine Urobilinogen <2.0 (<2.0) mg/dL Ur Leukocyte Esterase Negative (Negative) Urine RBC 39 H (0-5) /hpf Urine WBC 1 (0-5) /hpf Ur Squamous Epith Cells <1 (0-4) /hpf Urine Mucus Rare H (None) /hpf Influenza Type A (PCR) (Not Detectd) Influenza Type B (PCR) (Not Detectd) RSV (PCR) (Not Detectd) SARS-CoV-2 (PCR) (Not Detectd) 07/01/23 07/01/23 07/01/23 Range/Units 12:25 12:25 12:25 WBC (3.8-10.6) k/uL RBC (3.80-5.40) m/uL Hgb (11.4-16.0) gm/dL Hct (34.0-46.0) % MCV (80.0-100.0) fL MCH (25.0-35.0) pg MCHC (31.0-37.0) g/dL RDW (11.5-15.5) % Plt Count (150-450) k/uL MPV Neutrophils % % Lymphocytes % % Monocytes % % Eosinophils % % Basophils % % Neutrophils # (1.3-7.7) k/uL Lymphocytes # (1.0-4.8) k/uL Monocytes # (0-1.0) k/uL Eosinophils # (0-0.7) k/uL Basophils # (0-0.2) k/uL Hypochromasia PT (9.0-12.0) sec INR (<1.2) APTT (22.0-30.0) sec Sodium 128 L (137-145) mmol/L Potassium 3.9 (3.5-5.1) mmol/L Chloride 89 L (98-107) mmol/L Carbon Dioxide 34 H (22-30) mmol/L Anion Gap 5 mmol/L BUN 10 (7-17) mg/dL Creatinine 0.52 (0.52-1.04) mg/dL Est GFR (CKD-EPI)AfAm >90 (>60 ml/min/1.73 sqM) Est GFR (CKD-EPI)NonAf >90 (>60 ml/min/1.73 sqM) Glucose 98 (74-99) mg/dL Plasma Lactic Acid Robert 1.1 (0.7-2.0) mmol/L Calcium 8.6 (8.4-10.2) mg/dL Total Bilirubin 0.7 (0.2-1.3) mg/dL AST 44 H (14-36) U/L ALT 29 (4-34) U/L Alkaline Phosphatase 90 (38-126) U/L Total Protein 6.7 (6.3-8.2) g/dL Albumin 3.8 (3.5-5.0) g/dL Urine Color Urine Appearance (Clear) Urine pH (5.0-8.0) Ur Specific [place] (1.001-1.035) Urine Protein (Negative) Urine Glucose (UA) (Negative) Urine Ketones (Negative) Urine Blood (Negative) Urine Nitrite (Negative) Urine Bilirubin (Negative) Urine Urobilinogen (<2.0) mg/dL Ur Leukocyte Esterase (Negative) Urine RBC (0-5) /hpf Urine WBC (0-5) /hpf Ur Squamous Epith Cells (0-4) /hpf Urine Mucus (None) /hpf Influenza Type A (PCR) Not Detected (Not Detectd) Influenza Type B (PCR) Not Detected (Not Detectd) RSV (PCR) Not Detected (Not Detectd) SARS-CoV-2 (PCR) Not Detected (Not Detectd) Disposition Clinical Impression: Acute exacerbation of chronic obstructive pulmonary disease, Bronchitis Disposition: ADMITTED IP TO THIS HOSP Referrals: Vern Rodriguez DO [Primary Care Provider] - 1-2 days Time of Disposition: 14:29
[2023-07-01] MEDS ORDERED: IPRATROPIUM-ALBUTEROL 3 ML NEB INHALATION STA (13:04)
[2023-07-01] MEDS ORDERED: methylPREDNISolone SOD SUCCI 125 MG/2 ML VIAL IV STA (13:04)
--- NOTE | 2023-07-01 13:44 | XR ---
EXAMINATION TYPE: XR chest 2V DATE OF EXAM: 07/01/2023 1:22 PM COMPARISON: Chest radiographs from 05/19/2023 TECHNIQUE: XR chest 2V Frontal and lateral views of the chest. CLINICAL INDICATION:Female, 72 years old with history of Fever; FINDINGS: Lungs/Pleura: There is flattening of the diaphragm with increased lucency of the lungs. No evidence o f pneumothorax, pleural effusion or focal consolidation. Chronic senescent parenchymal change. Pulmonary vascularity: Unremarkable. Heart/mediastinum: Cardiomediastinal silhouette is unremarkable. Atherosclerotic calcifications are seen in the aorta. Musculoskeletal: No acute osseous pathology. IMPRESSION: 1. No acute cardiopulmonary disease process. 2. COPD changes.
[2023-07-01] MEDS ORDERED: cefTRIAXone IN SWFI 1,000 MG/10 ML SYRINGE IVP STA (14:14)
[2023-07-01] MEDS ORDERED: IPRATROPIUM-ALBUTEROL 3 ML NEB INHALATION PRN (14:29)
[2023-07-01] MEDS ORDERED: NALOXONE 0.4 MG/ML 1 ML VIAL IVP PRN (14:29)
[2023-07-01] MEDS: IPRATROPIUM-ALBUTEROL 3 ML NEB INHALATION SCH ×2 (16:26→21:53)
[2023-07-01] MEDS ORDERED: NON FORMULARY DRUG (Albuterol Inhaler 90 MCG Puff) INHALATION PRN (17:08)
[2023-07-01 17:33] LABS: VBG PH 7.37 (7.31-7.41)
[2023-07-01] MEDS: methylPREDNISolone SOD SUCCI 125 MG/2 ML VIAL IV SCH (17:44)
[2023-07-01] MEDS: METOPROLOL TARTRATE 12.5 MG TAB PO SCH (21:24)
[2023-07-01] MEDS: DILTIAZEM ORAL 30 MG TAB PO SCH (21:24)
[2023-07-01] MEDS: APIXABAN 5 MG TAB PO SCH (21:25)
[2023-07-01] MEDS: ATORVASTATIN 10 MG TAB PO SCH (21:25)
[2023-07-01] MEDS: FAMOTIDINE 20 MG TAB PO SCH (21:25)
[2023-07-01] MEDS: HYDROcodone/APAP 10-325MG 1 EACH TAB PO SCH (21:25)
[2023-07-01] MEDS: GABAPENTIN 300 MG CAP PO SCH (21:25)
[2023-07-01] MEDS: MEMANTINE 5 MG TAB PO SCH (21:25)
[2023-07-01] MEDS: DONEPEZIL 5 MG TAB PO SCH (21:25)
[2023-07-01] MEDS: SYMBICORT 160-4.5 MCG INHALER INHALATION SCH (21:53)
--- NOTE | 2023-07-01 22:26 | P.CONS ---
History of Present Illness - Reason for Consult Consult date: 07/01/23 - History of Present Illness Patient is a 72-year-old female with a past medical history significant for COPD reflux hypertension osteoarthritis presenting to the hospital for evaluation of increasing shortness of breath patient was noticed to have some mental status changes on presentation the hospital has been complaining of worsening shortness of breath the last few days patient was complain shortness of breath on exertion myonecrosis she did have a mild to moderate congested cough but not bringing up any sputum denies any nausea or vomiting no abdominal pain or any diarrhea patient presented to the hospital did have a low-grade fever of 99.1 degree for night patient was mildly hypoxic and currently on a 3 L nasal cannula oxygen patient did have a normal white count kidney function was normal AST 44 urine was cloudy but negative leukocyte esterase influenza RSV and COVID testing was negative patient did have a chest x-ray no acute cardiopulmonary disease COPD changes patient did receive a dose of Rocephin in the ER started on Solu-Medrol infectious disease was consulted for further management and need for advised therapy concerning for possible tracheobronchitis/pneumonia Past Medical History Past Medical History: COPD, GERD/Reflux, Hearing Disorder / Deafness, Hypertension, Osteoarthritis (OA), Respiratory Disorder Additional Past Medical History / Comment(s): HX POLYPS, DIVERTICULI. Osteoporosis. ICU - -2018 History of Any Multi-Drug Resistant Organisms: C-DIFF Year Discovered:: 2013 approx MDRO Source:: stool Past Surgical History: Back Surgery, Bowel Resection, Joint Replacement, Orthopedic Surgery Additional Past Surgical History / Comment(s): RIGHT KNEE REPLACEMENT, LEFT LEG ORIF-removed, LIZZIE CARPAL TUNNEL,. Bilateral cataract surgery,plate rt foot Additional Past Anesthesia/Blood Transfusion Reaction / Comm: STATES NO EPIDURALS R/T GETTING SEVERE MIGRAINES Past Psychological History: No Psychological Hx Reported Smoking Status: Former smoker - Past Family History Mother Family Medical History: Hypertension Father Family Medical History: Cancer Additional Family Medical History / Comment(s): aneurysms,prostate Medications and Allergies Home Medications Medication Instructions Recorded Confirmed Type Budesonide-Formot 160-4.5 Mcg 2 puff INHALATION RT-BID 04/03/19 07/01/23 History [Symbicort 160-4.5 Mcg Inhaler] Famotidine [Pepcid] 20 mg PO BID 11/06/19 07/01/23 History Atorvastatin Calcium [Lipitor] 10 mg PO HS 03/28/22 07/01/23 History Diltiazem Oral [Cardizem*] 30 mg PO BID 03/28/22 07/01/23 History Albuterol Inhaler [Ventolin Hfa 2 puff INHALATION RT-Q6H PRN 05/15/23 07/01/23 History Inhaler] Dorzolamide 2% [Trusopt 2%] 1 drop BOTH EYES BID 05/15/23 07/01/23 History Memantine [Namenda] 5 mg PO BID 05/15/23 07/01/23 History Apixaban [Eliquis] 5 mg PO BID tab 05/25/23 07/01/23 Rx Gabapentin [Neurontin] 300 mg PO BID #4 cap 05/25/23 07/01/23 Rx HYDROcodone/APAP 10-325MG [[place] 1 tab PO BID #2 tab 05/25/23 07/01/23 Rx 10-325] Donepezil [Aricept] 5 mg PO HS 07/01/23 07/01/23 History Metoprolol Tartrate [Lopressor] 12.5 mg PO BID 07/01/23 07/01/23 History Ondansetron [Ondansetron Odt] 4 mg PO Q8H PRN 07/01/23 07/01/23 History predniSONE 5 mg PO DAILY 07/01/23 07/01/23 History Allergies Allergy/AdvReac Type Severity Reaction Status Date / Time dextromethorphan Allergy Unknown Verified 07/01/23 13:51 [From Mucinex DM] guaifenesin [From Mucinex DM] Allergy Diarrhea Verified 07/01/23 13:51 diltiazem AdvReac Intermediate Abdominal Verified 07/01/23 13:51 Pain alprazolam [From Xanax] AdvReac Anaphylaxis Verified 07/01/23 13:51 donepezil [From Aricept] AdvReac Nausea & Verified 07/01/23 13:51 Vomiting levofloxacin [From Levaquin] AdvReac Nausea, Verified 07/01/23 13:51 Diarrhea , States she got C-Diff after, Migraines roflumilast [From Daliresp] AdvReac Nausea & Verified 07/01/23 13:51 Vomiting & Diarrhea Physical Exam Vitals: Vital Signs Temp Pulse Resp BP Pulse Ox 07/01/23 15:00 90 16 92 L 07/01/23 14:32 104 H 07/01/23 14:24 106 H 07/01/23 14:00 99 21 97 07/01/23 13:30 99.1 F 07/01/23 13:00 104 H 25 H 94 L 07/01/23 12:00 15 94 L 07/01/23 11:36 18 07/01/23 11:30 98.7 F 107 H 20 122/59 94 L Intake and Output 07/01/23 07/01/23 07/01/23 06:59 14:59 22:59 Other: Weight 55.792 kg Results CBC & Chem 7: 07/01/23 12:25 07/01/23 12:25 Labs: Abnormal Lab Results - Last 24 Hours (Table) 07/01/23 07/01/23 Range/Units 12:25 12:25 Sodium 128 L (137-145) mmol/L Chloride 89 L (98-107) mmol/L Carbon Dioxide 34 H (22-30) mmol/L AST 44 H (14-36) U/L Urine Appearance Cloudy H (Clear) Urine Protein Trace H (Negative) Urine Blood Small H (Negative) Urine RBC 39 H (0-5) /hpf Urine Mucus Rare H (None) /hpf Assessment and Plan Plan: 1patient was in the hospital with increasing shortness of breath did have a congested cough but not bringing up any sputum patient did not have high-grade fever or elevated white count chest x-ray report negative for consolidation, likely COPD exacerbation with tracheobronchitis clinically not behaving as pneumonia 2-we will check a CRP and a procalcitonin and obtain sputum for Gram stain and culture sensitivity 3-continue with the steroids and bronchodilator no need for systemic antibiotic therapy at this point We will follow on clinical condition and cultures to further adjust medication if needed Thank you for this consultation we will follow the patient along with you Dictation was produced using [email or web address] dictation software. please excuse any grammatical, word or spelling errors. Time with Patient: Greater than 30
[2023-07-01] MEDS ORDERED: SODIUM CHLORIDE 0.9% 1,000 ML IV SCH (23:45)
[2023-07-01] MEDS ORDERED: SODIUM CHLORIDE 0.9% 1,000 ML IV ONE (23:56)
[2023-07-02] MEDS: ONDANSETRON 4 MG/2 ML VIAL IVP PRN (00:07)
[2023-07-02] MEDS: DORZOLAMIDE HCL 2% DROPS 10 ML BTL BOTH EYES SCH ×3 (00:19→20:59)
[2023-07-02] MEDS: AMOXIC-POT CLAV 875-125MG 1 EACH TAB PO SCH ×3 (00:19→20:58)
[2023-07-02] MEDS ORDERED: SODIUM CHLORIDE 0.9% 1,000 ML IV ONE (02:58)
[2023-07-02] MEDS: methylPREDNISolone SOD SUCCI 125 MG/2 ML VIAL IV SCH ×5 (03:00→23:17)
[2023-07-02 04:14] LABS: ALT 32 U/L (4-34); AST 47 U/L (14-36); African American GFR (CKD) >90 (>60 ml/min/1.73 sqM); Albumin 3.1 g/dL (3.5-5.0); Albumin/Globulin Ratio 1.2; Alkaline Phosphatase 57 U/L (38-126); Anion Gap 5 mmol/L; Blood Urea Nitrogen 20 mg/dL (7-17); Calcium 7.7 mg/dL (8.4-10.2); Carbon Dioxide 27 mmol/L (22-30); Chloride 96 mmol/L (98-107); Globulin 2.5 g/dL; Glucose 157 mg/dL (74-99); Non-African American GFR(CKD) >90 (>60 ml/min/1.73 sqM); Potassium 3.8 mmol/L (3.5-5.1); Sodium 128 mmol/L (137-145); Total Bilirubin 0.4 mg/dL (0.2-1.3); Total Protein 5.6 g/dL (6.3-8.2)
[2023-07-02 05:45] LABS: Glucose,Whole Blood 151 mg/dL (70-110)
[2023-07-02] MEDS: DILTIAZEM ORAL 30 MG TAB PO SCH ×2 (08:44→20:58)
[2023-07-02] MEDS: GABAPENTIN 300 MG CAP PO SCH ×2 (08:45→20:59)
[2023-07-02] MEDS: METOPROLOL TARTRATE 12.5 MG TAB PO SCH ×2 (08:45→20:59)
[2023-07-02] MEDS: FAMOTIDINE 20 MG TAB PO SCH ×2 (08:45→20:58)
[2023-07-02] MEDS: APIXABAN 5 MG TAB PO SCH ×2 (08:45→20:58)
[2023-07-02] MEDS: HYDROcodone/APAP 10-325MG 1 EACH TAB PO SCH ×2 (08:47→20:59)
[2023-07-02] MEDS: IPRATROPIUM-ALBUTEROL 3 ML NEB INHALATION SCH ×4 (08:58→21:44)
[2023-07-02] MEDS: SYMBICORT 160-4.5 MCG INHALER INHALATION SCH ×2 (08:58→21:44)
[2023-07-02 09:09] LABS: Basophils # (A) 0.02 X 10*3/uL (0.00-0.10); Basophils % (A) 0.3 %; Eosinophils # (A) 0.18 X 10*3/uL (0.04-0.35); Eosinophils % (A) 2.8 %; HCT 37.7 % (37.2-46.3); HGB 12.1 d/dL (12.0-15.0); Lymphocytes % (A) 7.8 %; MCH 29.8 pg (27.0-32.0); MCHC 32.1 d/dL (32.0-37.0); MCV 92.9 FL (80.0-97.0); Mean Platelet Volume 9.1 FL (9.5-12.2); Monocytes % (A) 4.7 %; NRBC Per 100 WBC 0 X 10*3/uL (0.00-0.01); Neutrophils # (A) 5.31 X 10*3/uL (1.80-7.70); Neutrophils % (A) 83.5 %; Platelet Count 204 X 10*3/uL (140-440); RBC 4.06 X 10*6/uL (4.10-5.20); RDW 15.6 % (11.5-14.5); WBC 6.37 X 10*3/uL (4.50-10.00)
[2023-07-02 09:20] LABS: Blood Urea Nitrogen 18.1 mg/dL (9.0-27.0); Calcium 8.1 mg/dL (8.7-10.3); Carbon Dioxide 26.5 mmol/L (21.6-31.8); Chloride 96 mmol/L (96-109); Glucose 158 mg/dL (70-110); Potassium 3.9 mmol/L (3.5-5.5); Sodium 131 mmol/L (135-145)
--- NOTE | 2023-07-02 09:20 | P.HPIM ---
History of Present Illness H&P Date: 07/01/23 Chief Complaint: Shortness of breath 72-year-old female presents emergency Department because she short of breath. Patient also appears to be altered but there is no one here to let me know what the baseline is. Patient states she has underlying COPD and the shortness of b reath is getting worse. Patient states she has had an increased cough she denies sputum production. Patient denies chest pain or palpitations. Patient denies any abdominal pain patient denies nausea vomiting diarrhea. Patient denies any dysuria hematuria urinary frequency. In the ED patient was found to have low-grade temperature of 99.1 and was mildly hypoxic and was placed on O2 at 3 L per nasal cannula Blood work reveals a sodium of 128, potassium 3.9, BUN/creatinine of 10/0.52 and blood glucose of 98, WBC 7.6, hemoglobin 12.8, and platelet count of 211, AST mildly elevated at 44 UA is negative for leukocyte esterase and nitrates Influenza, RSV and covert testing is negative Chest x-ray is negative for any acute cardiopulmonary disease but does reveal COPD changes Patient received IV Rocephin and Solu-Medrol in ED and is admitted to the hospital for further treatment and management of tracheobronchitis/pneumonia and altered mental status Review of Systems REVIEW OF SYSTEMS: CONSTITUTIONAL: No fever, no malaise, no fatigue. HEENT: No recent visual problems or hearing problems. Denied any sore throat. CARDIOVASCULAR: No chest pain, orthopnea, PND, no palpitations, no syncope. PULMONARY: No shortness of breath, no cough, no hemoptysis. GASTROINTESTINAL: No diarrhea, no nausea, no vomiting, no abdominal pain. NEUROLOGICAL: No headaches, no weakness, no numbness. HEMATOLOGICAL: Denies any bleeding or petechiae. GENITOURINARY: Denies any burning micturition, frequency, or urgency. MUSCULOSKELETAL/RHEUMATOLOGICAL: Denies any joint pain, swelling, or any muscle pain. ENDOCRINE: Denies any polyuria or polydipsia. The rest of the 14-point review of systems is negative. Past Medical History Past Medical History: COPD, GERD/Reflux, Hearing Disorder / Deafness, Hypertension, Osteoarthritis (OA), Respiratory Disorder Additional Past Medical History / Comment(s): HX POLYPS, DIVERTICULI. Osteoporosis. ICU - History of Any Multi-Drug Resistant Organisms: C-DIFF Date of last positivie culture/infection: 2013 approx MDRO Source:: stool Past Surgical History: Back Surgery, Bowel Resection, Joint Replacement, Orthopedic Surgery Additional Past Surgical History / Comment(s): RIGHT KNEE REPLACEMENT, LEFT LEG ORIF-removed, LIZZIE CARPAL TUNNEL,. Bilateral cataract surgery,plate rt foot Additional Past Anesthesia/Blood Transfusion Reaction / Comment(s): STATES NO EPIDURALS R/T GETTING SEVERE MIGRAINES Past Psychological History: No Psychological Hx Reported Smoking Status: Former smoker - Past Family History Mother Family Medical History: Hypertension Father Family Medical History: Cancer Additional Family Medical History / Comment(s): aneurysms,prostate Medications and Allergies Home Medications Medication Instructions Recorded Confirmed Type Budesonide-Formot 160-4.5 Mcg 2 puff INHALATION RT-BID 04/03/19 07/01/23 History [Symbicort 160-4.5 Mcg Inhaler] Famotidine [Pepcid] 20 mg PO BID 11/06/19 07/01/23 History Atorvastatin Calcium [Lipitor] 10 mg PO HS 03/28/22 07/01/23 History Diltiazem Oral [Cardizem*] 30 mg PO BID 03/28/22 07/01/23 History Albuterol Inhaler [Ventolin Hfa 2 puff INHALATION RT-Q6H PRN 05/15/23 07/01/23 History Inhaler] Dorzolamide 2% [Trusopt 2%] 1 drop BOTH EYES BID 05/15/23 07/01/23 History Memantine [Namenda] 5 mg PO BID 05/15/23 07/01/23 History Apixaban [Eliquis] 5 mg PO BID tab 05/25/23 07/01/23 Rx Gabapentin [Neurontin] 300 mg PO BID #4 cap 05/25/23 07/01/23 Rx HYDROcodone/APAP 10-325MG [[place] 1 tab PO BID #2 tab 05/25/23 07/01/23 Rx 10-325] Donepezil [Aricept] 5 mg PO HS 07/01/23 07/01/23 History Metoprolol Tartrate [Lopressor] 12.5 mg PO BID 07/01/23 07/01/23 History Ondansetron [Ondansetron Odt] 4 mg PO Q8H PRN 07/01/23 07/01/23 History predniSONE 5 mg PO DAILY 07/01/23 07/01/23 History Allergies Allergy/AdvReac Type Severity Reaction Status Date / Time dextromethorphan Allergy Unknown Verified 07/01/23 13:51 [From Mucinex DM] guaifenesin [From Mucinex DM] Allergy Diarrhea Verified 07/01/23 13:51 methylprednisolone Allergy Rash/Hives Verified 07/02/23 07:22 [From Solu-Medrol] diltiazem AdvReac Intermediate Abdominal Verified 07/01/23 13:51 Pain alprazolam [From Xanax] AdvReac Anaphylaxis Verified 07/01/23 13:51 donepezil [From Aricept] AdvReac Nausea & Verified 07/01/23 13:51 Vomiting levofloxacin [From Levaquin] AdvReac Nausea, Verified 07/01/23 13:51 Diarrhea , States she got C-Diff after, Migraines roflumilast [From Daliresp] AdvReac Nausea & Verified 07/01/23 13:51 Vomiting & Diarrhea Physical Exam Vitals: Vital Signs Temp Pulse Resp BP Pulse Ox 07/01/23 16:38 90 07/01/23 16:29 86 07/01/23 15:00 90 16 92 L 07/01/23 14:32 104 H 07/01/23 14:24 106 H 07/01/23 14:00 99 21 97 07/01/23 13:30 99.1 F 07/01/23 13:00 104 H 25 H 94 L 07/01/23 12:00 15 94 L 07/01/23 11:36 18 07/01/23 11:30 98.7 F 107 H 20 122/59 94 L Intake and Output 07/01/23 07/01/23 07/01/23 06:59 14:59 22:59 Other: Weight 55.792 kg - Constitutional General appearance: Present: average body habitus, cooperative, no acute distress - EENT Eyes: Present: anicteric sclerae, EOMI, PERRLA, normal appearance ENT: Present: hearing grossly normal, normal oropharynx Ears: bilateral: normal - Neck Neck: Present: normal ROM. Absent: lymphadenopathy, rigidity, thyromegaly Carotids: negative: bruit present Thyroid: bilateral: normal size, negative: enlarged, nodule - Respiratory Respiratory: bilateral: CTA, negative: rales, rhonchi, wheezing - Cardiovascular Rhythm: regular Heart sounds: normal: S1, S2 Abnormal Heart Sounds: Absent: systolic murmur, diastolic murmur - Gastrointestinal General gastrointestinal: Present: normal bowel sounds, soft. Absent: distended, organomegaly, tenderness - Genitourinary Genitourinary Comment(s): deferred - Integumentary Integumentary: Present: normal turgor. Absent: jaundiced, rash, ulcer - Neurologic Neurologic: Present: CNII-XII intact. Absent: focal deficits - Musculoskeletal Musculoskeletal: Present: gait normal, strength equal bilaterally - Psychiatric Psychiatric: Present: A&O x's 3, appropriate affect, intact judgment & insight Results CBC & Chem 7: 07/01/23 12:25 07/02/23 03:28 Labs: Abnormal Lab Results - Last 24 Hours (Table) 07/01/23 07/01/23 07/01/23 Range/Units 12:25 12:25 12:25 Sodium 128 L (137-145) mmol/L Chloride 89 L (98-107) mmol/L Carbon Dioxide 34 H (22-30) mmol/L AST 44 H (14-36) U/L C-Reactive Protein 1.7 H (<1.0) mg/dL Urine Appearance Cloudy H (Clear) Urine Protein Trace H (Negative) Urine Blood Small H (Negative) Urine RBC 39 H (0-5) /hpf Urine Mucus Rare H (None) /hpf Assessment and Plan Assessment: 1. Acute exacerbation COPD/hypoxia - Patient has been placed on IV Solu-Medrol 60 mg every 4 hours; DuoNeb nebulizer treatments 4 times a day and when necessary -- we will place pulmonary consultation for further evaluation treatment if patient doesn't show any improvement - Continue with oral nasal cannula and titrated to oral pain keeping O2 saturation greater than 92% - We will continue with home inhaler therapy 2. Purulent tracheobronchitis/possible pneumonia; patient received IV Rocephin in ED; has been evaluated by ID; not recommending patient to receive systemic antibiotic for pneumonia - We will start patient on Augmentin 875 mg every 12 hours for COPD exacerbation - We will monitor CBC, CMP and pro-calcitonin 3. Hyponatremia; IV fluids in form of normal saline at a rate of 75 mL an hour; we will monitor strict SAM's and electrolytes; further recommendations once resu lts are available 4. Mild transaminitis; possibly related to statin therapy; we will monitor liver enzymes periodically 5. Hypertension; patient takes Cardizem 30 mg twice a day; metoprolol 25 mg twice a day 6. Hyperlipidemia; Lipitor 10 mg by mouth daily at bedtime 7. Paroxysmal atrial fibrillation; patient remains rate controlled on metoprolol; anticoagulated with Eliquis 8. Dementia; patient takes Aricept 5 mg by mouth daily at bedtime which will be resumed along with Namenda 5 mg twice a day DVT prophylaxis; SCDs/systemic anticoagulation CODE STATUS; full code
[2023-07-02] MEDS: SODIUM CHLORIDE 0.9% 1,000 ML IV SCH ×3 (10:42→20:59)
[2023-07-02] MEDS: MEMANTINE 5 MG TAB PO SCH ×2 (11:11→20:58)
[2023-07-02] MEDS ORDERED: BENZOCAINE/MENTHOL LOZENG 1 EACH LOZENGE MUCOUS MEM PRN (16:10)
[2023-07-02 20:29] LABS: Glucose,Whole Blood 146 mg/dL (70-110)
[2023-07-02] MEDS: ATORVASTATIN 10 MG TAB PO SCH (20:58)
[2023-07-02] MEDS: DONEPEZIL 5 MG TAB PO SCH (20:59)
[2023-07-02] MEDS ORDERED: DOCUSATE 100 MG CAP PO PRN (21:22)
[2023-07-03] MEDS: SODIUM CHLORIDE 0.9% 1,000 ML IV SCH ×2 (04:58→15:44)
[2023-07-03] MEDS: methylPREDNISolone SOD SUCCI 125 MG/2 ML VIAL IV SCH ×3 (06:00→18:30)
[2023-07-03 06:09] LABS: Glucose,Whole Blood 130 mg/dL (70-110)
[2023-07-03 09:08] LABS: Basophils % (A) 0 %; Eosinophils # (A) 0.1 k/uL (0-0.7); Eosinophils % (A) 1 %; HCT 35.9 % (34.0-46.0); HGB 11.8 gm/dL (11.4-16.0); Hypochromasia Slight; Lymphocytes # (A) 0.5 k/uL (1.0-4.8); Lymphocytes % (A) 7 %; MCH 30.6 pg (25.0-35.0); MCHC 32.8 g/dL (31.0-37.0); MCV 93.2 fL (80.0-100.0); Mean Platelet Volume 7.6; Monocytes # (A) 0.5 k/uL (0-1.0); Monocytes % (A) 6 %; Neutrophils # (A) 6.5 k/uL (1.3-7.7); Neutrophils % (A) 85 %; Platelet Count 186 k/uL (150-450); RBC 3.85 m/uL (3.80-5.40); WBC 7.7 k/uL (3.8-10.6)
[2023-07-03] MEDS: IPRATROPIUM-ALBUTEROL 3 ML NEB INHALATION SCH ×4 (09:13→21:42)
[2023-07-03] MEDS: SYMBICORT 160-4.5 MCG INHALER INHALATION SCH ×2 (09:13→21:41)
[2023-07-03] MEDS: APIXABAN 5 MG TAB PO SCH ×2 (09:18→20:11)
[2023-07-03] MEDS: GABAPENTIN 300 MG CAP PO SCH ×2 (09:18→20:10)
[2023-07-03] MEDS: FAMOTIDINE 20 MG TAB PO SCH ×2 (09:18→20:11)
[2023-07-03] MEDS: AMOXIC-POT CLAV 875-125MG 1 EACH TAB PO SCH ×2 (09:18→20:11)
[2023-07-03] MEDS: HYDROcodone/APAP 10-325MG 1 EACH TAB PO SCH ×2 (09:18→20:11)
[2023-07-03] MEDS: MEMANTINE 5 MG TAB PO SCH ×2 (09:18→20:10)
[2023-07-03] MEDS: METOPROLOL TARTRATE 12.5 MG TAB PO SCH ×2 (09:18→20:10)
[2023-07-03] MEDS: DILTIAZEM ORAL 30 MG TAB PO SCH ×2 (09:19→20:11)
[2023-07-03 09:29] LABS: African American GFR (CKD) >90 (>60 ml/min/1.73 sqM); Anion Gap 4 mmol/L; Blood Urea Nitrogen 15 mg/dL (7-17); Calcium 7.7 mg/dL (8.4-10.2); Carbon Dioxide 31 mmol/L (22-30); Chloride 94 mmol/L (98-107); Glucose 140 mg/dL (74-99); Non-African American GFR(CKD) >90 (>60 ml/min/1.73 sqM); Potassium 4.3 mmol/L (3.5-5.1); Sodium 129 mmol/L (137-145)
--- NOTE | 2023-07-03 10:13 | P.CNPUL ---
History of Present Illness Consult date: 07/02/23 Reason for consult: dyspnea History of present illness: [address] [place], [place] [address] Pulmonology - Consult Note Patient Name: Juju Forte Date of : 1950 Patient Status: Recurring Attending Provider: Leroy Dubose Date: 07/02/23 10:10 Initialization Date: 07/02/23 10:10 History of Present Illness Consult date: 07/02/23 Reason for consult: dyspnea, COPD History of present illness: Patient is a 72-year-old female with history of severe/stage IV COPD with an FEV1 is 30% of predicted. In addition, she has a history of cardiac arrest, essential hypertension, hyperlipidemia, osteoporosis, gastroesophageal reflux diseas, C. difficile colitis, and pneumonia. Patient does follow with Dr. Robles in the outpatient setting. She is chronically steroid and oxygen dependent on 3 L/m nasal cannula. She normally manages her COPD with Symbicort, Yupelri, and when necessary albuterol inhaler. The patient is on prednisone on outpatient basis at a dose of 5 mg by mouth daily. The patient is coming in with worsening shortness of breath. No chest pain. She has some left upper quadrant discomfort which is nonspecific. She has limited on anticoagulation on outpatient basis. This was given to her for approximately A. fib. The patient has no altered mentation. No signs of any CO2 narcosis. She had increased cough without any sputum production. Denies having any chest pain. No nausea or vomiting. No diarrhea and she is also stooling. No dysuria or frequency and urgency. No history of kidney stones. In the emergency, the patient was given influenza screen that came back negative. RSV was negative. Covid 19 testing was also negative. The patient was restless for an acute COPD exacerbation. She is currently in the intensive care unit as a overflow Review of Systems CONSTITUTIONAL: Denies any recent significant weight loss or weight gain. EYES: Denies change in vision. EARS, NOSE, MOUTH, THROAT: Denies headaches, denies sore throat. CARDIOVASCULAR: Denies chest pain, palpitations or syncopal episodes. RESPIRATORY: See HPI GASTROINTESTINAL: Denies change in appetite, abdominal pain, nausea and vomiting, or diarrhea GENITOURINARY: Denies hematuria, denies infections. MUSKULOSKELETAL: Denies pain, denies swelling. INTEGUMENTARY: Denies rash, denies eczema. NEUROLOGICAL: Denies recent memory loss, no recent seizure activity. PSYCHIATRIC: Denies anxiety, denies depression. HEMATOLOGIC/LYMPHATIC: Denies anemia, denies enlarged lymph node Past Medical History Past Medical History: COPD, GERD/Reflux, Hearing Disorder / Deafness, Hypertension, Osteoarthritis (OA), Respiratory Disorder Additional Past Medical History / Comment(s): HX POLYPS, DIVERTICULI. Osteoporosis. ICU - History of Any Multi-Drug Resistant Organisms: C-DIFF Date of last positivie culture/infection: 2013 approx MDRO Source:: stool Past Surgical History: Back Surgery, Bowel Resection, Joint Replacement, Orthopedic Surgery Additional Past Surgical History / Comment(s): RIGHT KNEE REPLACEMENT, LEFT LEG ORIF-removed, LIZZIE CARPAL TUNNEL,. Bilateral cataract surgery,plate rt foot Additional Past Anesthesia/Blood Transfusion Reaction / Comment(s): STATES NO EPIDURALS R/T GETTING SEVERE MIGRAINES Past Psychological History: No Psychological Hx Reported Smoking Status: Former smoker - Past Family History Mother Family Medical History: Hypertension Father Family Medical History: Cancer Additional Family Medical History / Comment(s): aneurysms,prostate Medications and Allergies Home Medications Medication Instructions Recorded Confirmed Type Budesonide-Formot 160-4.5 Mcg 2 puff INHALATION RT-BID 04/03/19 07/01/23 History [Symbicort 160-4.5 Mcg Inhaler] Famotidine [Pepcid] 20 mg PO BID 11/06/19 07/01/23 History Atorvastatin Calcium [Lipitor] 10 mg PO HS 03/28/22 07/01/23 History Diltiazem Oral [Cardizem*] 30 mg PO BID 03/28/22 07/01/23 History Albuterol Inhaler [Ventolin Hfa 2 puff INHALATION RT-Q6H PRN 05/15/23 07/01/23 History Inhaler] Dorzolamide 2% [Trusopt 2%] 1 drop BOTH EYES BID 05/15/23 07/01/23 History Memantine [Namenda] 5 mg PO BID 05/15/23 07/01/23 History Apixaban [Eliquis] 5 mg PO BID tab 05/25/23 07/01/23 Rx Gabapentin [Neurontin] 300 mg PO BID #4 cap 05/25/23 07/01/23 Rx HYDROcodone/APAP 10-325MG [[place] 1 tab PO BID #2 tab 05/25/23 07/01/23 Rx 10-325] Donepezil [Aricept] 5 mg PO HS 07/01/23 07/01/23 History Metoprolol Tartrate [Lopressor] 12.5 mg PO BID 07/01/23 07/01/23 History Ondansetron [Ondansetron Odt] 4 mg PO Q8H PRN 07/01/23 07/01/23 History predniSONE 5 mg PO DAILY 07/01/23 07/01/23 History Allergies Allergy/AdvReac Type Severity Reaction Status Date / Time dextromethorphan Allergy Unknown Verified 07/01/23 13:51 [From Mucinex DM] guaifenesin [From Mucinex DM] Allergy Diarrhea Verified 07/01/23 13:51 methylprednisolone Allergy Rash/Hives Verified 07/02/23 07:22 [From Solu-Medrol] diltiazem AdvReac Intermediate Abdominal Verified 07/01/23 13:51 Pain alprazolam [From Xanax] AdvReac Anaphylaxis Verified 07/01/23 13:51 donepezil [From Aricept] AdvReac Nausea & Verified 07/01/23 13:51 Vomiting levofloxacin [From Levaquin] AdvReac Nausea, Verified 07/01/23 13:51 Diarrhea , States she got C-Diff after, Migraines roflumilast [From Daliresp] AdvReac Nausea & Verified 07/01/23 13:51 Vomiting & Diarrhea Physical Exam GENERAL EXAM: Alert, 72-year-old white female, no major Respiratory Distress and the Patient Is on 2 liters 02 HEAD: Normocephalic and atraumatic EYES: Normal reaction of pupils, equal size. NOSE: Clear with pink turbinates. THROAT: No erythema or exudates. NECK: No masses, no JVD. CHEST: No chest wall deformity. LUNGS: Equal air entry with expiratory wheezes heard throughout. On BiPAP settings 12/5 and FiO2 50%. No conversational dyspnea or accessory muscle use.. CVS: S1 and S2 normal with no audible murmur, regular rhythm. No extra heart sounds ABDOMEN: No hepatosplenomegaly, active bowel sounds, no guarding or rigidity. SPINE: No scoliosis or deformity SKIN: No rashes CENTRAL NERVOUS SYSTEM: No focal deficits, tone is normal in all 4 extremities. EXTREMITIES: There is no peripheral edema, clubbing, or cyanosis. Peripheral pulses are intact. Results - Diagnostic Findings Chest x-ray: image reviewed Assessment and Plan Plan: Acute on chronic hypoxemic and hypercapnic respiratory failure secondary to COPD exacerbation and possible acute bronchitis. No evidence of any pneumonia. Chest x-ray on arrival shows no acute cardiopulmonary process or evidence of pneumonia. Negative for influenza, RSV, COVID-19. Last hospitalization was on 05/16/2023 for an acute COPD exacerbation. The patient was treated and the patient was discharged home. She is coming essentially for the same. Shortness of breath secondary to above Essential hypertension Hyperlipidemia History of cardiac arrest Chronic hypoxemic respiratory failure, normally on 3 L/m nasal cannula PAF , she is sinus rhythm for now GERD without esophagitis Diverticulosis Osteoarthritis Ex-smoker Hard of hearing Plan: We'll treat the patient with a combination of bronchodilators and steroids. The patient has received IV Solu-Medrol in the past without any major side effects. The same will be continued. Continue DuoNeb neb blotchiness on the clock. Restart Symbicort. Continue broad-spectrum antibiotics with Augmentin. Resume home outpatient medications. The patient takes and coagulation with Eliquis for paroxysmal A. fib Anti-cognition will be restarted Continue metoprolol Continue Lipitor Continue Neurontin Continue Cardizem Restart eyedrops Patient is a DNR/DNI DO NOT RESUSCITATE status. Past Medical History Past Medical History: COPD, GERD/Reflux, Hearing Disorder / Deafness, Hypertension, Osteoarthritis (OA), Respiratory Disorder Additional Past Medical History / Comment(s): HX POLYPS, DIVERTICULI. Osteoporosis. ICU - History of Any Multi-Drug Resistant Organisms: C-DIFF Date of last positivie culture/infection: 2013 approx MDRO Source:: stool Past Surgical History: Back Surgery, Bowel Resection, Joint Replacement, Orthopedic Surgery Additional Past Surgical History / Comment(s): RIGHT KNEE REPLACEMENT, LEFT LEG ORIF-removed, LIZZIE CARPAL TUNNEL,. Bilateral cataract surgery,plate rt foot Additional Past Anesthesia/Blood Transfusion Reaction / Comment(s): STATES NO EPIDURALS R/T GETTING SEVERE MIGRAINES Past Psychological History: No Psychological Hx Reported Smoking Status: Former smoker - Past Family History Mother Family Medical History: Hypertension Father Family Medical History: Cancer Additional Family Medical History / Comment(s): aneurysms,prostate Medications and Allergies Home Medications Medication Instructions Recorded Confirmed Type Budesonide-Formot 160-4.5 Mcg 2 puff INHALATION RT-BID 04/03/19 07/01/23 History [Symbicort 160-4.5 Mcg Inhaler] Famotidine [Pepcid] 20 mg PO BID 11/06/19 07/01/23 History Atorvastatin Calcium [Lipitor] 10 mg PO HS 03/28/22 07/01/23 History Diltiazem Oral [Cardizem*] 30 mg PO BID 03/28/22 07/01/23 History Albuterol Inhaler [Ventolin Hfa 2 puff INHALATION RT-Q6H PRN 05/15/23 07/01/23 History Inhaler] Dorzolamide 2% [Trusopt 2%] 1 drop BOTH EYES BID 05/15/23 07/01/23 History Memantine [Namenda] 5 mg PO BID 05/15/23 07/01/23 History Apixaban [Eliquis] 5 mg PO BID tab 05/25/23 07/01/23 Rx Gabapentin [Neurontin] 300 mg PO BID #4 cap 05/25/23 07/01/23 Rx HYDROcodone/APAP 10-325MG [[place] 1 tab PO BID #2 tab 05/25/23 07/01/23 Rx 10-325] Donepezil [Aricept] 5 mg PO HS 07/01/23 07/01/23 History Metoprolol Tartrate [Lopressor] 12.5 mg PO BID 07/01/23 07/01/23 History Ondansetron [Ondansetron Odt] 4 mg PO Q8H PRN 07/01/23 07/01/23 History predniSONE 5 mg PO DAILY 07/01/23 07/01/23 History Allergies Allergy/AdvReac Type Severity Reaction Status Date / Time dextromethorphan Allergy Unknown Verified 07/01/23 13:51 [From Mucinex DM] guaifenesin [From Mucinex DM] Allergy Diarrhea Verified 07/01/23 13:51 methylprednisolone Allergy Rash/Hives Verified 07/02/23 07:22 [From Solu-Medrol] diltiazem AdvReac Intermediate Abdominal Verified 07/01/23 13:51 Pain alprazolam [From Xanax] AdvReac Anaphylaxis Verified 07/01/23 13:51 donepezil [From Aricept] AdvReac Nausea & Verified 07/01/23 13:51 Vomiting levofloxacin [From Levaquin] AdvReac Nausea, Verified 07/01/23 13:51 Diarrhea , States she got C-Diff after, Migraines roflumilast [From Daliresp] AdvReac Nausea & Verified 07/01/23 13:51 Vomiting & Diarrhea Physical Exam Vitals: Vital Signs Temp Pulse Pulse Resp BP Pulse Ox 07/03/23 09:30 77 18 07/03/23 09:19 97.4 F L 62 18 107/67 98 07/03/23 09:15 77 18 97 07/03/23 04:00 78 18 104/57 96 07/02/23 23:17 72 18 99/57 98 07/02/23 21:55 76 07/02/23 21:45 77 07/02/23 20:00 98.1 F 73 20 117/68 100 07/02/23 16:00 98.3 F 70 20 101/59 95 07/02/23 15:47 73 07/02/23 15:34 73 07/02/23 14:00 72 18 07/02/23 12:04 71 07/02/23 12:00 72 18 99/44 96 07/02/23 11:53 69 Intake and Output 07/02/23 07/03/23 07/03/23 22:59 06:59 14:59 Intake Total 180 Output Total 500 Balance -500 180 Intake: Oral 180 Output: Urine 500 Other: # Voids 2 1 Results - Laboratory Findings CBC and BMP: 07/03/23 08:46 07/03/23 08:46 PT/INR, D-dimer PT 10.1 sec (9.0-12.0) 07/01/23 12:25 INR 0.9 (<1.2) 07/01/23 12:25 Abnormal lab findings: Abnormal Labs 07/01/23 07/01/23 07/01/23 12:25 12:25 12:25 RBC RDW MPV Lymphocytes # VBG pCO2 VBG HCO3 Sodium 128 L Chloride 89 L Carbon Dioxide 34 H BUN Creatinine BUN/Creatinine Ratio Glucose POC Glucose (mg/dL) Calcium AST 44 H C-Reactive Protein 1.7 H Total Protein Albumin Urine Appearance Cloudy H Urine Protein Trace H Urine Blood Small H Urine RBC 39 H Urine Mucus Rare H 07/01/23 07/02/23 07/02/23 17:15 03:28 03:28 RBC 4.06 L RDW 15.6 H MPV 9.1 L Lymphocytes # 0.50 L VBG pCO2 54 H VBG HCO3 31 H Sodium 131 L Chloride Carbon Dioxide BUN Creatinine 0.5 L BUN/Creatinine Ratio 36.20 H Glucose 158 H POC Glucose (mg/dL) Calcium 8.1 L AST C-Reactive Protein Total Protein Albumin Urine Appearance Urine Protein Urine Blood Urine RBC Urine Mucus 07/02/23 07/02/23 07/02/23 03:28 05:34 20:27 RBC RDW MPV Lymphocytes # VBG pCO2 VBG HCO3 Sodium 128 L Chloride 96 L Carbon Dioxide BUN 20 H Creatinine 0.44 L BUN/Creatinine Ratio Glucose 157 H POC Glucose (mg/dL) 151 H 146 H Calcium 7.7 L AST 47 H C-Reactive Protein Total Protein 5.6 L Albumin 3.1 L Urine Appearance Urine Protein Urine Blood Urine RBC Urine Mucus 07/03/23 07/03/23 07/03/23 06:07 08:46 08:46 RBC RDW MPV Lymphocytes # 0.5 L VBG pCO2 VBG HCO3 Sodium 129 L Chloride 94 L Carbon Dioxide 31 H BUN Creatinine 0.47 L BUN/Creatinine Ratio Glucose 140 H POC Glucose (mg/dL) 130 H Calcium 7.7 L AST C-Reactive Protein Total Protein Albumin Urine Appearance Urine Protein Urine Blood Urine RBC Urine Mucus
--- NOTE | 2023-07-03 11:25 | P.PN ---
Subjective Progress Note Date: 07/03/23 Patient is a 72-year-old female with history of severe/stage IV COPD with an FEV1 is 30% of predicted. In addition, she has a history of cardiac arrest, essential hypertension, hyperlipidemia, osteoporosis, gastroesophageal reflux diseas, C. difficile colitis, and pneumonia. Patient does follow with Dr. Robles in the outpatient setting. She is chronically steroid and oxygen dependent on 3 L/m nasal cannula. She normally manages her COPD with Symbicort, Yupelri, and when necessary albuterol inhaler. The patient is on prednisone on outpatient basis at a dose of 5 mg by mouth daily. The patient is coming in with worsening shortness of breath. No chest pain. She has some left upper quadrant discomfort which is nonspecific. She has limited on anticoagulation on outpatient basis. This was given to her for approximately A. fib. The patient has no altered mentation. No signs of any CO2 narcosis. She had increased cough without any sputum production. Denies having any chest pain. No nausea or vomiting. No diarrhea and she is also stooling. No dysuria or frequency and urgency. No history of kidney stones. In the emergency, the patient was given influenza screen that came back negative. RSV was negative. Covid 19 testing was also negative. The patient was restless for an acute COPD exacerbation. She is currently in the intensive care unit as a overflow On today's evaluation of 07/03/2023, the patient is improving and she is less short of breath. She remains on bronchodilators. She is on Symbicort. She is on IV Solu-Medrol. No new complaints. BUN is at 50 with a creatinine of 0.4 and a sodium level is at 129 which is slightly improved compared to yesterday. No recent count is at 7.7 with a hemoglobin 11.8. Objective - Vital Signs Vital signs: Vital Signs Temp 97.4 F L 07/03/23 09:19 Pulse 77 07/03/23 09:30 Resp 18 07/03/23 09:30 BP 107/67 07/03/23 09:19 Pulse Ox 98 07/03/23 09:19 FiO2 Intake & Output 07/02/23 07/03/23 07/03/23 18:59 06:59 18:59 Intake Total 180 Output Total 700 Balance -700 180 Intake: Oral 180 Output: Urine 700 Other: # Voids 2 1 - Exam GENERAL EXAM: Alert, 72-year-old white female, no major Respiratory Distress and the Patient Is on 2 liters 02 HEAD: Normocephalic and atraumatic EYES: Normal reaction of pupils, equal size. NOSE: Clear with pink turbinates. THROAT: No erythema or exudates. NECK: No masses, no JVD. CHEST: No chest wall deformity. LUNGS: Equal air entry with expiratory wheezes heard throughout. On BiPAP settings 12/5 and FiO2 50%. No conversational dyspnea or accessory muscle use.. CVS: S1 and S2 normal with no audible murmur, regular rhythm. No extra heart sounds ABDOMEN: No hepatosplenomegaly, active bowel sounds, no guarding or rigidity. SPINE: No scoliosis or deformity SKIN: No rashes CENTRAL NERVOUS SYSTEM: No focal deficits, tone is normal in all 4 extremities. EXTREMITIES: There is no peripheral edema, clubbing, or cyanosis. Peripheral pulses are intact. - Labs CBC & Chem 7: 07/03/23 08:46 07/03/23 08:46 Labs: Abnormal Lab Results - Last 24 Hours (Table) 07/02/23 07/03/23 07/03/23 Range/Units 20:27 06:07 08:46 Lymphocytes # 0.5 L (1.0-4.8) k/uL Sodium (137-145) mmol/L Chloride (98-107) mmol/L Carbon Dioxide (22-30) mmol/L Creatinine (0.52-1.04) mg/dL Glucose (74-99) mg/dL POC Glucose (mg/dL) 146 H 130 H (70-110) mg/dL Calcium (8.4-10.2) mg/dL 07/03/23 Range/Units 08:46 Lymphocytes # (1.0-4.8) k/uL Sodium 129 L (137-145) mmol/L Chloride 94 L (98-107) mmol/L Carbon Dioxide 31 H (22-30) mmol/L Creatinine 0.47 L (0.52-1.04) mg/dL Glucose 140 H (74-99) mg/dL POC Glucose (mg/dL) (70-110) mg/dL Calcium 7.7 L (8.4-10.2) mg/dL Microbiology - Last 24 Hours (Table) 07/01/23 12:43 Blood Culture - Preliminary Blood 07/01/23 12:35 Blood Culture - Preliminary Blood Assessment and Plan Plan: Acute on chronic hypoxemic and hypercapnic respiratory failure secondary to COPD exacerbation and possible acute bronchitis. No evidence of any pneumonia. Chest x-ray on arrival shows no acute cardiopulmonary process or evidence of pn eumonia. Negative for influenza, RSV, COVID-19. Last hospitalization was on 05/16/2023 for an acute COPD exacerbation. The patient was treated and the patient was discharged home. She is coming essentially for the same. The patient is clinically improving and she is less short of breath. Shortness of breath secondary to above, improving Essential hypertension Hyperlipidemia History of cardiac arrest Chronic hypoxemic respiratory failure, normally on 3 L/m nasal cannula PAF , she is sinus rhythm for now GERD without esophagitis Diverticulosis Osteoarthritis Ex-smoker Hard of hearing Plan: Continue same treatment with bronchodilators and steroids and occupational IV Solu-Medrol for now. We'll treat the patient with a combination of bronchodilators and steroids. . Continue broad-spectrum antibiotics with Augmentin. Resume home outpatient medications. The patient takes and coagulation with Eliquis for paroxysmal A. fib Anti-cognition will be restarted Continue metoprolol Continue Lipitor Continue Neurontin Continue Cardizem Restart eyedrops Patient is a DNR/DNI DO NOT RESUSCITATE status.
[2023-07-03 11:59] LABS: Glucose,Whole Blood 168 mg/dL (70-110)
[2023-07-03] MEDS: DORZOLAMIDE HCL 2% DROPS 10 ML BTL BOTH EYES SCH ×2 (12:05→20:12)
[2023-07-03 16:39] LABS: Glucose,Whole Blood 169 mg/dL (70-110)
--- NOTE | 2023-07-03 17:07 | P.PN ---
Subjective Progress Note Date: 07/02/23 Principal diagnosis: Tracheobronchitis/pneumonia Patient is a 72-year-old female with a past medical history significant for COPD reflux hypertension osteoarthritis presenting to the hospital for evaluation of increasing shortness of breath patient was noticed to have some mental status changes, patient subsequently admitted to the ICU because of respiratory status requiring BiPAP on today's evaluation that is 07/02/2023, the patient is afebrile the patient is currently breathing comfortably on 3 L nasal cannula oxygen, patient denies having any chest pain she did have a cough but not bringing up any sputum, patient denies having any nausea no vomiting no abdominal pain and no diarrhea Patient did have a white count of 6.37, creatinine 0.44, pro calcitonin 0.07 Objective - Vital Signs Vital signs: Vital Signs Temp 98.6 F 07/02/23 08:00 Pulse 85 07/02/23 09:12 Resp 12 07/02/23 08:00 BP 100/56 07/02/23 08:00 Pulse Ox 96 07/02/23 08:00 FiO2 Intake & Output 07/01/23 07/02/23 07/02/23 18:59 06:59 18:59 Output Total 200 Balance -200 Weight 55.792 kg Output: Urine 200 Other: # Voids 2 # Bowel Movements 1 - Exam GENERAL DESCRIPTION: An elderly female lying in bed in no distress RESPIRATORY SYSTEM: Unlabored breathing , decreased breath sounds at bases HEART: S1 S2 regular rate and rhythm , ABDOMEN: Soft , no tenderness EXTREMITIES: No edema feet - Labs CBC & Chem 7: 07/03/23 08:46 07/03/23 08:46 Labs: Abnormal Lab Results - Last 24 Hours (Table) 07/01/23 07/01/23 07/01/23 Range/Units 12:25 12:25 12:25 RBC (4.10-5.20) X 10*6/uL RDW (11.5-14.5) % MPV (9.5-12.2) FL Lymphocytes # (0.90-5.00) X 10*3/uL VBG pCO2 (37-51) mmHg VBG HCO3 (24-28) mmol/L Sodium 128 L (137-145) mmol/L Chloride 89 L (98-107) mmol/L Carbon Dioxide 34 H (22-30) mmol/L BUN (7-17) mg/dL Creatinine (0.6-1.5) mg/dL BUN/Creatinine Ratio (12.00-20.00) Ratio Glucose (70-110) mg/dL POC Glucose (mg/dL) (70-110) mg/dL Calcium (8.7-10.3) mg/dL AST 44 H (14-36) U/L C-Reactive Protein 1.7 H (<1.0) mg/dL Total Protein (6.3-8.2) g/dL Albumin (3.5-5.0) g/dL Urine Appearance Cloudy H (Clear) Urine Protein Trace H (Negative) Urine Blood Small H (Negative) Urine RBC 39 H (0-5) /hpf Urine Mucus Rare H (None) /hpf 07/01/23 07/02/23 07/02/23 Range/Units 17:15 03:28 03:28 RBC 4.06 L (4.10-5.20) X 10*6/uL RDW 15.6 H (11.5-14.5) % MPV 9.1 L (9.5-12.2) FL Lymphocytes # 0.50 L (0.90-5.00) X 10*3/uL VBG pCO2 54 H (37-51) mmHg VBG HCO3 31 H (24-28) mmol/L Sodium 131 L (137-145) mmol/L Chloride (98-107) mmol/L Carbon Dioxide (22-30) mmol/L BUN (7-17) mg/dL Creatinine 0.5 L (0.6-1.5) mg/dL BUN/Creatinine Ratio 36.20 H (12.00-20.00) Ratio Glucose 158 H (70-110) mg/dL POC Glucose (mg/dL) (70-110) mg/dL Calcium 8.1 L (8.7-10.3) mg/dL AST (14-36) U/L C-Reactive Protein (<1.0) mg/dL Total Protein (6.3-8.2) g/dL Albumin (3.5-5.0) g/dL Urine Appearance (Clear) Urine Protein (Negative) Urine Blood (Negative) Urine RBC (0-5) /hpf Urine Mucus (None) /hpf 07/02/23 07/02/23 Range/Units 03:28 05:34 RBC (4.10-5.20) X 10*6/uL RDW (11.5-14.5) % MPV (9.5-12.2) FL Lymphocytes # (0.90-5.00) X 10*3/uL VBG pCO2 (37-51) mmHg VBG HCO3 (24-28) mmol/L Sodium 128 L (137-145) mmol/L Chloride 96 L (98-107) mmol/L Carbon Dioxide (22-30) mmol/L BUN 20 H (7-17) mg/dL Creatinine 0.44 L (0.6-1.5) mg/dL BUN/Creatinine Ratio (12.00-20.00) Ratio Glucose 157 H (70-110) mg/dL POC Glucose (mg/dL) 151 H (70-110) mg/dL Calcium 7.7 L (8.7-10.3) mg/dL AST 47 H (14-36) U/L C-Reactive Protein (<1.0) mg/dL Total Protein 5.6 L (6.3-8.2) g/dL Albumin 3.1 L (3.5-5.0) g/dL Urine Appearance (Clear) Urine Protein (Negative) Urine Blood (Negative) Urine RBC (0-5) /hpf Urine Mucus (None) /hpf Assessment and Plan (1) Bronchitis Current Visit: Yes Status: Acute Code(s): J40 - BRONCHITIS, NOT SPECIFIED ACUTE OR CHRONIC SNOMED Code(s): 58058538 Plan: 1patient was in the hospital with increasing shortness of breath did have a congested cough but not bringing up any sputum patient did not have high-grade fever or elevated white count chest x-ray report negative for consolidation, likely COPD exacerbation with tracheobronchitis clinically not behaving as pneumonia 2-patient did have CRP 1.7 however procalcitonin is 0.07 and obtain sputum for Gram stain and culture sensitivity ordered but not collected 3-patient to continue with the steroids and bronchodilator may continue A ugmentin for possible purulent tracheobronchitis Dictation was produced using [employer] dictation software. please excuse any grammatical, word or spelling errors. Time with Patient: Less than 30
--- NOTE | 2023-07-03 17:08 | P.PN ---
Subjective Progress Note Date: 07/03/23 Principal diagnosis: Tracheobronchitis/pneumonia Patient is a 72-year-old female with a past medical history significant for COPD reflux hypertension osteoarthritis presenting to the hospital for evaluation of increasing shortness of breath patient was noticed to have some mental status changes, patient subsequently admitted to the ICU because of respiratory status requiring BiPAP on today's evaluation that is 07/03/2023, the patient remains to be afebrile the patient is currently breathing comfortably and his daughter 2 L nasal cannula oxygen, patient denies having any chest pain she did have a cough but not bringing up any sputum, patient denies having any nausea no vomiting no abdominal pain and no diarrhea Patient did have a white count of 7.7, creatinine 0.47, CRP is 1.7, pro calcitonin 0.07 Objective - Vital Signs Vital signs: Vital Signs Temp 97.4 F L 07/03/23 09:19 Pulse 77 07/03/23 12:25 Resp 18 07/03/23 12:25 BP 113/64 07/03/23 12:09 Pulse Ox 97 07/03/23 12:09 FiO2 Intake & Output 07/02/23 07/03/23 07/03/23 18:59 06:59 18:59 Intake Total 360 Output Total 700 Balance -700 360 Intake: Oral 360 Output: Urine 700 Other: # Voids 2 1 - Exam GENERAL DESCRIPTION: An elderly female lying in bed in no distress RESPIRATORY SYSTEM: Unlabored breathing , decreased breath sounds at bases HEART: S1 S2 regular rate and rhythm , ABDOMEN: Soft , no tenderness EXTREMITIES: No edema feet - Labs CBC & Chem 7: 07/03/23 08:46 07/03/23 08:46 Labs: Abnormal Lab Results - Last 24 Hours (Table) 07/02/23 07/03/23 07/03/23 Range/Units 20:27 06:07 08:46 Lymphocytes # 0.5 L (1.0-4.8) k/uL Sodium (137-145) mmol/L Chloride (98-107) mmol/L Carbon Dioxide (22-30) mmol/L Creatinine (0.52-1.04) mg/dL Glucose (74-99) mg/dL POC Glucose (mg/dL) 146 H 130 H (70-110) mg/dL Calcium (8.4-10.2) mg/dL 07/03/23 07/03/23 Range/Units 08:46 11:57 Lymphocytes # (1.0-4.8) k/uL Sodium 129 L (137-145) mmol/L Chloride 94 L (98-107) mmol/L Carbon Dioxide 31 H (22-30) mmol/L Creatinine 0.47 L (0.52-1.04) mg/dL Glucose 140 H (74-99) mg/dL POC Glucose (mg/dL) 168 H (70-110) mg/dL Calcium 7.7 L (8.4-10.2) mg/dL Microbiology - Last 24 Hours (Table) 07/01/23 12:43 Blood Culture - Preliminary Blood 07/01/23 12:35 Blood Culture - Preliminary Blood Assessment and Plan (1) Tracheobronchitis Current Visit: Yes Status: Acute Code(s): J40 - BRONCHITIS, NOT SPECIFIED ACUTE OR CHRONIC SNOMED Code(s): 49416682 Plan: 1patient was in the hospital with increasing shortness of breath did have a co ngested cough but not bringing up any sputum patient did not have high-grade fever or elevated white count chest x-ray report negative for consolidation, likely COPD exacerbation with tracheobronchitis clinically not behaving as pneumonia 2-patient did have CRP 1.7 however procalcitonin is 0.07 and obtain sputum for Gram stain and culture sensitivity ordered but not collected 3-patient seemed #clinical improvement and a will continue with the steroids and bronchodilator may continue Augmentin for possible purulent tracheobronchitis Dictation was produced using [employer] dictation software. please excuse any grammatical, word or spelling errors. Time with Patient: Less than 30
--- NOTE | 2023-07-03 18:14 | P.PN ---
Subjective Progress Note Date: 07/02/23 72-year-old female presents emergency Department because she short of breath. Patient also appears to be altered but there is no one here to let me know what the baseline is. Patient states she has underlying COPD and the shortness of breath is getting worse. Patient states she has had an increased cough she denies sputum production. Patient denies chest pain or palpitations. Patient denies any abdominal pain patient denies nausea vomiting diarrhea. Patient denies any dysuria hematuria urinary frequency. In the ED patient was found to have low-grade temperature of 99.1 and was mildly hypoxic and was placed on O2 at 3 L per nasal cannula Blood work reveals a sodium of 128, potassium 3.9, BUN/creatinine of 10/0.52 and blood glucose of 98, WBC 7.6, hemoglobin 12.8, and platelet count of 211, AST mildly elevated at 44 UA is negative for leukocyte esterase and nitrates Influenza, RSV and covert testing is negative Chest x-ray is negative for any acute cardiopulmonary disease but does reveal COPD changes Patient received IV Rocephin and Solu-Medrol in ED and is admitted to the hospital for further treatment and management of tracheobronchitis/pneumonia and altered mental status Objective - Vital Signs Vital signs: Vital Signs Temp 98.6 F 07/02/23 08:00 Pulse 71 07/02/23 12:04 Resp 18 07/02/23 12:00 BP 99/44 07/02/23 12:00 Pulse Ox 96 07/02/23 12:00 FiO2 Intake & Output 07/01/23 07/02/23 07/02/23 18:59 06:59 18:59 Output Total 200 Balance -200 Weight 55.792 kg Output: Urine 200 Other: # Voids 2 # Bowel Movements 1 - Exam - Constitutional General appearance: Present: average body habitus, cooperative, no acute distress - EENT Eyes: Present: anicteric sclerae, EOMI, PERRLA, normal appearance ENT: Present: hearing grossly normal, normal oropharynx Ears: bilateral: normal - Neck Neck: Present: normal ROM. Absent: lymphadenopathy, rigidity, thyromegaly Carotids: negative: bruit present Thyroid: bilateral: normal size, negative: enlarged, nodule - Respiratory Respiratory: bilateral: CTA, negative: rales, rhonchi, wheezing - Cardiovascular Rhythm: regular Heart sounds: normal: S1, S2 Abnormal Heart Sounds: Absent: systolic murmur, diastolic murmur - Gastrointestinal General gastrointestinal: Present: normal bowel sounds, soft. Absent: distended, organomegaly, tenderness - Genitourinary Genitourinary Comment(s): deferred - Integumentary Integumentary: Present: normal turgor. Absent: jaundiced, rash, ulcer - Neurologic Neurologic: Present: CNII-XII intact. Absent: focal deficits - Musculoskeletal Musculoskeletal: Present: gait normal, strength equal bilaterally - Psychiatric Psychiatric: Present: A&O x's 3, appropriate affect, intact judgment & insight - Labs CBC & Chem 7: 07/03/23 08:46 07/03/23 08:46 Labs: Abnormal Lab Results - Last 24 Hours (Table) 07/01/23 07/01/23 07/02/23 Range/Units 12:25 17:15 03:28 RBC 4.06 L (4.10-5.20) X 10*6/uL RDW 15.6 H (11.5-14.5) % MPV 9.1 L (9.5-12.2) FL Lymphocytes # 0.50 L (0.90-5.00) X 10*3/uL VBG pCO2 54 H (37-51) mmHg VBG HCO3 31 H (24-28) mmol/L Sodium (135-145) mmol/L Chloride (98-107) mmol/L BUN (7-17) mg/dL Creatinine (0.6-1.5) mg/dL BUN/Creatinine Ratio (12.00-20.00) Ratio Glucose (70-110) mg/dL POC Glucose (mg/dL) (70-110) mg/dL Calcium (8.7-10.3) mg/dL AST (14-36) U/L C-Reactive Protein 1.7 H (<1.0) mg/dL Total Protein (6.3-8.2) g/dL Albumin (3.5-5.0) g/dL 07/02/23 07/02/23 07/02/23 Range/Units 03:28 03:28 05:34 RBC (4.10-5.20) X 10*6/uL RDW (11.5-14.5) % MPV (9.5-12.2) FL Lymphocytes # (0.90-5.00) X 10*3/uL VBG pCO2 (37-51) mmHg VBG HCO3 (24-28) mmol/L Sodium 131 L 128 L (135-145) mmol/L Chloride 96 L (98-107) mmol/L BUN 20 H (7-17) mg/dL Creatinine 0.5 L 0.44 L (0.6-1.5) mg/dL BUN/Creatinine Ratio 36.20 H (12.00-20.00) Ratio Glucose 158 H 157 H (70-110) mg/dL POC Glucose (mg/dL) 151 H (70-110) mg/dL Calcium 8.1 L 7.7 L (8.7-10.3) mg/dL AST 47 H (14-36) U/L C-Reactive Protein (<1.0) mg/dL Total Protein 5.6 L (6.3-8.2) g/dL Albumin 3.1 L (3.5-5.0) g/dL Assessment and Plan Assessment: 1. Acute exacerbation COPD/hypoxia - Patient has been placed on IV Solu-Medrol 60 mg every 4 hours; DuoNeb nebulizer treatments 4 times a day and when necessary -- we will place pulmonary consultation for further evaluation treatment if pa tient doesn't show any improvement - Continue with oral nasal cannula and titrated to oral pain keeping O2 saturation greater than 92% - We will continue with home inhaler therapy 2. Purulent tracheobronchitis/possible pneumonia; patient received IV Rocephin in ED; has been evaluated by ID; not recommending patient to receive systemic antibiotic for pneumonia - We will start patient on Augmentin 875 mg every 12 hours for COPD exacerbation - We will monitor CBC, CMP and pro-calcitonin 3. Hyponatremia; IV fluids in form of normal saline at a rate of 75 mL an hour; we will monitor strict SAM's and electrolytes; further recommendations once results are available 4. Mild transaminitis; possibly related to statin therapy; we will monitor liver enzymes periodically 5. Hypertension; patient takes Cardizem 30 mg twice a day; metoprolol 25 mg twice a day 6. Hyperlipidemia; Lipitor 10 mg by mouth daily at bedtime 7. Paroxysmal atrial fibrillation; patient remains rate controlled on me toprolol; anticoagulated with Eliquis 8. Dementia; patient takes Aricept 5 mg by mouth daily at bedtime which will be resumed along with Namenda 5 mg twice a day DVT prophylaxis; SCDs/systemic anticoagulation CODE STATUS; full code
--- NOTE | 2023-07-03 18:17 | P.PN ---
Subjective Progress Note Date: 07/03/23 72-year-old female presents emergency Department because she short of breath. Patient also appears to be altered but there is no one here to let me know what the baseline is. Patient states she has underlying COPD and the shortness of breath is getting worse. Patient states she has had an increased cough she denies sputum production. Patient denies chest pain or palpitations. Patient denies any abdominal pain patient denies nausea vomiting diarrhea. Patient denies any dysuria hematuria urinary frequency. In the ED patient was found to have low-grade temperature of 99.1 and was mildly hypoxic and was placed on O2 at 3 L per nasal cannula Blood work reveals a sodium of 128, potassium 3.9, BUN/creatinine of 10/0.52 and blood glucose of 98, WBC 7.6, hemoglobin 12.8, and platelet count of 211, AST mildly elevated at 44 UA is negative for leukocyte esterase and nitrates Influenza, RSV and covert testing is negative Chest x-ray is negative for any acute cardiopulmonary disease but does reveal COPD changes Patient received IV Rocephin and Solu-Medrol in ED and is admitted to the hospital for further treatment and management of tracheobronchitis/pneumonia and altered mental status 07/03/2023 the patient is seen and evaluated on selective care unit; reports she is improving and she is less short of breath. Vital signs are reviewed and remained stable BUN is at 50 with a creatinine of 0.4 and a sodium level is at 129 which is slightly improved compared to yesterday. No recent count is at 7.7 with a hemoglobin 11.8. She remains on bronchodilators. She is on Symbicort. She is on IV Solu-Medrol. -- Patient is recommended to continue current treatment with broad-spectrum antibiotics with Augmentin -Patient continues to improve slowly Objective - Vital Signs Vital signs: Vital Signs Temp 97.4 F L 07/03/23 09:19 Pulse 77 07/03/23 12:25 Resp 18 07/03/23 12:25 BP 113/64 07/03/23 12:09 Pulse Ox 97 07/03/23 12:09 FiO2 Intake & Output 07/02/23 07/03/23 07/03/23 18:59 06:59 18:59 Intake Total 360 Output Total 700 Balance -700 360 Intake: Oral 360 Output: Urine 700 Other: # Voids 2 1 - Exam - Constitutional General appearance: Present: average body habitus, cooperative, no acute distress - EENT Eyes: Present: anicteric sclerae, EOMI, PERRLA, normal appearance ENT: Present: hearing grossly normal, normal oropharynx Ears: bilateral: normal - Neck Neck: Present: normal ROM. Absent: lymphadenopathy, rigidity, thyromegaly Carotids: negative: bruit present Thyroid: bilateral: normal size, negative: enlarged, nodule - Respiratory Respiratory: bilateral: CTA, negative: rales, rhonchi, wheezing - Cardiovascular Rhythm: regular Heart sounds: normal: S1, S2 Abnormal Heart Sounds: Absent: systolic murmur, diastolic murmur - Gastrointestinal General gastrointestinal: Present: normal bowel sounds, soft. Absent: distended, organomegaly, tenderness - Genitourinary Genitourinary Comment(s): deferred - Integumentary Integumentary: Present: normal turgor. Absent: jaundiced, rash, ulcer - Neurologic Neurologic: Present: CNII-XII intact. Absent: focal deficits - Musculoskeletal Musculoskeletal: Present: gait normal, strength equal bilaterally - Psychiatric Psychiatric: Present: A&O x's 3, appropriate affect, intact judgment & insight - Labs CBC & Chem 7: 07/03/23 08:46 07/03/23 08:46 Labs: Abnormal Lab Results - Last 24 Hours (Table) 07/02/23 07/03/23 07/03/23 Range/Units 20:27 06:07 08:46 Lymphocytes # 0.5 L (1.0-4.8) k/uL Sodium (137-145) mmol/L Chloride (98-107) mmol/L Carbon Dioxide (22-30) mmol/L Creatinine (0.52-1.04) mg/dL Glucose (74-99) mg/dL POC Glucose (mg/dL) 146 H 130 H (70-110) mg/dL Calcium (8.4-10.2) mg/dL 07/03/23 07/03/23 Range/Units 08:46 11:57 Lymphocytes # (1.0-4.8) k/uL Sodium 129 L (137-145) mmol/L Chloride 94 L (98-107) mmol/L Carbon Dioxide 31 H (22-30) mmol/L Creatinine 0.47 L (0.52-1.04) mg/dL Glucose 140 H (74-99) mg/dL POC Glucose (mg/dL) 168 H (70-110) mg/dL Calcium 7.7 L (8.4-10.2) mg/dL Microbiology - Last 24 Hours (Table) 07/01/23 12:43 Blood Culture - Preliminary Blood 07/01/23 12:35 Blood Culture - Preliminary Blood Assessment and Plan Assessment: 1. Acute exacerbation COPD/hypoxia - Patient has been placed on IV Solu-Medrol 60 mg every 4 hours; DuoNeb nebulizer treatments 4 times a day and when necessary -- we will place pulmonary consultation for further evaluation treatment if patient doesn't show any improvement - Continue with oral nasal cannula and titrated to oral pain keeping O2 saturation greater than 92% - We will continue with home inhaler therapy 2. Purulent tracheobronchitis/possible pneumonia; patient received IV Rocephin in ED; has been evaluated by ID; not recommending patient to receive systemic antibiotic for pneumonia - We will start patient on Augmentin 875 mg every 12 hours for COPD exacerbation - We will monitor CBC, CMP and pro-calcitonin 3. Hyponatremia; IV fluids in form of normal saline at a rate of 75 mL an hour; we will monitor strict SAM's and electrolytes; further recommendations once results are available 4. Mild transaminitis; possibly related to statin therapy; we will monitor liver enzymes periodically 5. Hypertension; patient takes Cardizem 30 mg twice a day; metoprolol 25 mg twice a day 6. Hyperlipidemia; Lipitor 10 mg by mouth daily at bedtime 7. Paroxysmal atrial fibrillation; patient remains rate controlled on metoprolol; anticoagulated with Eliquis 8. Dementia; patient takes Aricept 5 mg by mouth daily at bedtime which will be resumed along with Namenda 5 mg twice a day DVT prophylaxis; SCDs/systemic anticoagulation CODE STATUS; full code
[2023-07-03] MEDS: ATORVASTATIN 10 MG TAB PO SCH (20:11)
[2023-07-03] MEDS: DONEPEZIL 5 MG TAB PO SCH (20:12)
[2023-07-03 20:29] LABS: Glucose,Whole Blood 178 mg/dL (70-110)
[2023-07-03] MEDS: ONDANSETRON 4 MG/2 ML VIAL IVP PRN (23:37)
[2023-07-04] MEDS: SODIUM CHLORIDE 0.9% 1,000 ML IV SCH ×2 (00:43→09:50)
[2023-07-04] MEDS: methylPREDNISolone SOD SUCCI 125 MG/2 ML VIAL IV SCH ×3 (03:28→12:17)
[2023-07-04 05:55] LABS: Glucose,Whole Blood 137 mg/dL (70-110)
[2023-07-04] MEDS: AMOXIC-POT CLAV 875-125MG 1 EACH TAB PO SCH (08:14)
[2023-07-04] MEDS: GABAPENTIN 300 MG CAP PO SCH (08:14)
[2023-07-04] MEDS: MEMANTINE 5 MG TAB PO SCH (08:14)
[2023-07-04] MEDS: DILTIAZEM ORAL 30 MG TAB PO SCH (08:14)
[2023-07-04] MEDS: APIXABAN 5 MG TAB PO SCH (08:14)
[2023-07-04] MEDS: METOPROLOL TARTRATE 12.5 MG TAB PO SCH (08:14)
[2023-07-04] MEDS: FAMOTIDINE 20 MG TAB PO SCH (08:15)
[2023-07-04] MEDS: HYDROcodone/APAP 10-325MG 1 EACH TAB PO SCH (08:15)
[2023-07-04] MEDS: DORZOLAMIDE HCL 2% DROPS 10 ML BTL BOTH EYES SCH (08:16)
[2023-07-04] MEDS: SYMBICORT 160-4.5 MCG INHALER INHALATION SCH (08:31)
[2023-07-04] MEDS: IPRATROPIUM-ALBUTEROL 3 ML NEB INHALATION SCH ×2 (08:31→12:07)
[2023-07-04 11:28] LABS: Glucose,Whole Blood 119 mg/dL (70-110)
[2023-07-04 11:47] LABS: African American GFR (CKD) >90 (>60 ml/min/1.73 sqM); Anion Gap 5 mmol/L; Blood Urea Nitrogen 19 mg/dL (7-17); Calcium 8.1 mg/dL (8.4-10.2); Carbon Dioxide 32 mmol/L (22-30); Chloride 93 mmol/L (98-107); Glucose 111 mg/dL (74-99); Non-African American GFR(CKD) >90 (>60 ml/min/1.73 sqM); Potassium 4.7 mmol/L (3.5-5.1); Sodium 130 mmol/L (137-145)
[2023-07-04 12:23] VITALS: BP 131/74; PULSE 71; RESP 18; TEMP 97.8
--- NOTE | 2023-07-04 14:53 | P.PN ---
Subjective Progress Note Date: 07/04/23 Patient is a 72-year-old female with history of severe/stage IV COPD with an FEV1 is 30% of predicted. In addition, she has a history of cardiac arrest, essential hypertension, hyperlipidemia, osteoporosis, gastroesophageal reflux diseas, C. difficile colitis, and pneumonia. Patient does follow with Dr. Robles in the outpatient setting. She is chronically steroid and oxygen dependent on 3 L/m nasal cannula. She normally manages her COPD with Symbicort, Yupelri, and when necessary albuterol inhaler. The patient is on prednisone on outpatient basis at a dose of 5 mg by mouth daily. The patient is coming in with worsening shortness of breath. No chest pain. She has some left upper quadrant discomfort which is nonspecific. She has limited on anticoagulation on outpatient basis. This was given to her for approximately A. fib. The patient has no altered mentation. No signs of any CO2 narcosis. She had increased cough without any sputum production. Denies having any chest pain. No nausea or vomiting. No diarrhea and she is also stooling. No dysuria or frequency and urgency. No history of kidney stones. In the emergency, the patient was given influenza screen that came back negative. RSV was negative. Covid 19 testing was also negative. The patient was restless for an acute COPD exacerbation. She is currently in the intensive care unit as a overflow On today's evaluation of 07/03/2023, the patient is improving and she is less short of breath. She remains on bronchodilators. She is on Symbicort. She is on IV Solu-Medrol. No new complaints. BUN is at 50 with a creatinine of 0.4 and a sodium level is at 129 which is slightly improved compared to yesterday. No recent count is at 7.7 with a hemoglobin 11.8. The patient is seen today 07/04/2023 in follow-up on the regular medical floor. She is doing well and feeling back to her baseline. She is maintaining good O2 saturations in the 90s on 2 L/m per nasal cannula. Blood cultures revealed no growth. Sodium 130. Potassium 4.7. A 32. BUN 19. Creatinine 0.53. Glucose 111. Continued on DuoNeb inhalations, Symbicort, Solu-Medrol. Objective - Vital Signs Vital signs: Vital Signs Temp 97.8 F 07/04/23 12:22 Pulse 71 07/04/23 12:22 Resp 18 07/04/23 12:22 BP 131/74 07/04/23 12:22 Pulse Ox 96 07/04/23 12:22 FiO2 Intake & Output 07/03/23 07/04/23 07/04/23 18:59 06:59 18:59 Intake Total 900 300 370 Balance 900 300 370 Intake: Oral 900 300 370 Other: # Voids 2 2 2 # Bowel Movements 1 - Exam GENERAL EXAM: Alert, very pleasant 72-year-old female, no acute distress. On 2 L nasal cannula. HEAD: Normocephalic and atraumatic EYES: Normal reaction of pupils, equal size. NOSE: Clear with pink turbinates. THROAT: No erythema or exudates. NECK: No masses, no JVD. CHEST: No chest wall deformity. LUNGS: Equal air entry with expiratory wheezes heard throughout. Diminished. CVS: S1 and S2 normal with no audible murmur, regular rhythm. No extra heart sounds ABDOMEN: No hepatosplenomegaly, active bowel sounds, no guarding or rigidity. SPINE: No scoliosis or deformity SKIN: No rashes CENTRAL NERVOUS SYSTEM: No focal deficits, tone is normal in all 4 extremities. EXTREMITIES: There is no peripheral edema, clubbing, or cyanosis. Peripheral pulses are intact. - Labs CBC & Chem 7: 07/03/23 08:46 07/04/23 11:03 Labs: Abnormal Lab Results - Last 24 Hours (Table) 07/03/23 07/03/23 07/04/23 Range/Units 16:37 20:25 05:50 Sodium (137-145) mmol/L Chloride (98-107) mmol/L Carbon Dioxide (22-30) mmol/L BUN (7-17) mg/dL Glucose (74-99) mg/dL POC Glucose (mg/dL) 169 H 178 H 137 H (70-110) mg/dL Calcium (8.4-10.2) mg/dL 07/04/23 07/04/23 Range/Units 11:03 11:26 Sodium 130 L (137-145) mmol/L Chloride 93 L (98-107) mmol/L Carbon Dioxide 32 H (22-30) mmol/L BUN 19 H (7-17) mg/dL Glucose 111 H (74-99) mg/dL POC Glucose (mg/dL) 119 H (70-110) mg/dL Calcium 8.1 L (8.4-10.2) mg/dL Microbiology - Last 24 Hours (Table) 07/01/23 12:43 Blood Culture - Preliminary Blood 07/01/23 12:35 Blood Culture - Preliminary Blood Assessment and Plan Assessment: Acute on chronic hypoxemic and hypercapnic respiratory failure secondary to COPD exacerbation and possible acute bronchitis. Chest x-ray on arrival shows no acute cardiopulmonary process or evidence of pneumonia. Negative for influenza, RSV, COVID-19. Last hospitalization was on 05/16/2023 for an acute COPD exacerbation. The patient was treated and the patient was discharged home. She is coming essentially for the same. The patient is clinically improving and she is less short of breath. Chronic hypoxemic respiratory failure, normally on 3 L/m nasal cannula Essential hypertension Hyperlipidemia History of cardiac arrest Paroxysmal atrial fibrillation, anticoagulated with Eliquis, she is sinus rhythm for now GERD without esophagitis Diverticulosis Osteoarthritis Ex-smoker Hard of hearing Nanci: The patient was seen and evaluated Medications and labs reviewed Cleared for discharge from the pulmonary standpoint Continue her home pulmonary medications, oxygen Complete prednisone taper Follow up with Dr. Robles in 1 week I have personally seen and examined the patient, performed the documentation and the assessment and plan as written. Number of minutes spent on the visit: 10.
--- NOTE | 2023-07-04 23:11 | DS ---
DISCHARGE SUMMARY FINAL DIAGNOSES: 1. Chronic obstructive pulmonary disease exacerbation with hypoxia. 2. Acute purulent tracheobronchitis. 3. Hyponatremia. 4. Mild transaminitis. 5. Hypertension. 6. Hyperlipidemia. 7. Multiple medical issues. DISPOSITION: Recommended to discharge the patient and discharged in stable condition, guarded prognosis. HISTORY OF PRESENT ILLNESS: This is a 72-year-old woman with a past medical history of COPD acute exacerbation. There was no evidence of pneumonia and Dr. Dubose saw the patient. The patient improved significantly, patient was discharged home in stable condition. Guarded prognosis. PHYSICAL EXAMINATION: VITAL SIGNS: Stable. CARDIOVASCULAR: S1, S2. RESPIRATIONS: Few scattered rhonchi. DISCHARGE MEDICATIONS: 1. DuoNeb q.i.d. and p.r.n. 2. Prednisone taper. 3. Augmentin for 5 days for tracheobronchitis. MMODL / IJN: [id number] /
--- NOTE | 2023-07-11 21:26 | P.PN ---
Subjective Progress Note Date: 07/04/23 Principal diagnosis: Tracheobronchitis/pneumonia Patient is a 72-year-old female with a past medical history significant for COPD reflux hypertension osteoarthritis presenting to the hospital for evaluation of increasing shortness of breath patient was noticed to have some mental status changes, patient subsequently admitted to the ICU because of respiratory status requiring BiPAP on today's evaluation that is 07/04/2023, the patient continues to be afebrile the patient is breathing comfortably and his daughter 2 L nasal cannula oxygen, patient denies having any chest pain patient cough is decreased intensity is mostly dry in nature, patient denies having any nausea no vomiting no abdominal pain and no diarrhea Patient did have a white count of 7.7 as of yesterday no CBC was done today, creatinine 0.47, CRP is 1.7, pro calcitonin 0.07 Objective - Vital Signs Vital signs: Vital Signs Temp 97.8 F 07/04/23 12:22 Pulse 71 07/04/23 12:22 Resp 18 07/04/23 12:22 BP 131/74 07/04/23 12:22 Pulse Ox 96 07/04/23 12:22 FiO2 Intake & Output 07/03/23 07/04/23 07/04/23 18:59 06:59 18:59 Intake Total 900 300 100 Balance 900 300 100 Intake: Oral 900 300 100 Other: # Voids 2 2 2 # Bowel Movements 1 - Exam GENERAL DESCRIPTION: An elderly female lying in bed in no distress RESPIRATORY SYSTEM: Unlabored breathing , decreased breath sounds at bases HEART: S1 S2 regular rate and rhythm , ABDOMEN: Soft , no tenderness EXTREMITIES: No edema feet - Labs CBC & Chem 7: 07/03/23 08:46 07/04/23 11:03 Labs: Abnormal Lab Results - Last 24 Hours (Table) 07/03/23 07/03/23 07/04/23 Range/Units 16:37 20:25 05:50 Sodium (137-145) mmol/L Chloride (98-107) mmol/L Carbon Dioxide (22-30) mmol/L BUN (7-17) mg/dL Glucose (74-99) mg/dL POC Glucose (mg/dL) 169 H 178 H 137 H (70-110) mg/dL Calcium (8.4-10.2) mg/dL 07/04/23 07/04/23 Range/Units 11:03 11:26 Sodium 130 L (137-145) mmol/L Chloride 93 L (98-107) mmol/L Carbon Dioxide 32 H (22-30) mmol/L BUN 19 H (7-17) mg/dL Glucose 111 H (74-99) mg/dL POC Glucose (mg/dL) 119 H (70-110) mg/dL Calcium 8.1 L (8.4-10.2) mg/dL Microbiology - Last 24 Hours (Table) 07/01/23 12:43 Blood Culture - Preliminary Blood 07/01/23 12:35 Blood Culture - Preliminary Blood Assessment and Plan (1) Tracheobronchitis Status: Acute Code(s): J40 - BRONCHITIS, NOT SPECIFIED ACUTE OR CHRONIC SNOMED Code(s): 13730381 Plan: 1patient was in the hospital with increasing shortness of breath did have a congested cough but not bringing up any sputum patient did not have high-grade fever or elevated white count chest x-ray report negative for consolidation, likely COPD exacerbation with tracheobronchitis clinically not behaving as pneumonia 2-patient did have CRP 1.7 however procalcitonin is 0.07 and obtain sputum for Gram stain and culture sensitivity ordered but not collected 3-patient has shown clinical improvement and a will finish therapy with tapering course of steroids and bronchodilator and few days of Augmentin for possible purulent tracheobronchitis on discharge Dictation was produced using [employer] dictation software. please excuse any grammatical, word or spelling errors. Time with Patient: Less than 30
--- NOTE | 2023-07-14 11:15 | CDI ---
Documentation Clarification Form Date: 07/14/2023 10:16:44 AM From: Kacey Sanches Phone: Admit Date: 07/01/2023 02:29:00 PM Patient Name: Juju Forte Visit Number: [id number] Discharge Date: 07/04/2023 01:50:00 PM ATTENTION: The Clinical Documentation Specialists (CDI) and [facility] Coding Staff appreciate your assistance in clarifying documentation. Please respond to the clarification below the line at the bottom and electronically sign. The CDI & [facility] Coding staff will review the response and follow-up if needed. Please note: Queries are made part of the Legal Health Record. If you have any questions, please contact the author of this message via ITS. Dr. Erinn Vance Conflicting documentation has been found in the medical record. As attending physician, please provide clarification. Chronichypoxemic respiratory failure, normally on 3 L/m nasal cannula Dr. Dubose Consult 07/03 Acute on chronichypoxemicandhypercapnic respiratory failure Dr. Flynn Progress Note 07/04 History/Risk Factors: 72yo F, CRF w home O2, AECOPD, acute bronchitis, HTN, HLD, Hx PEA, PAF, GERD, ex-smoker Clinical Indicators: IP admission orders 07/01/23 14:29. After admission, piano refinisher evaluated patient and stated they have chronic O2 dependency at 3LNC. This is the same flow rate applied per vitals from 07/01/23 11:30-08:00 on 07/02/23. The remainder of the encounter showed patient on 2LNC. Initial SpO2 is 94% and coincides with 3LNC. Lowest SpO2 is 92% (on 3LNC) and this occurred 15:00 07/01/23. RR elevated at 25 13:00 07/01/23. Treatment: 2LNC; chronically steroid and oxygen dependent on 3LNC Please clarify which diagnosis is most appropriate: [x ] Acute on chronic hypoxemic and hypercapnic respiratory failure, Present on Admission [ ] Chronic hypoxemic and hypercapnic respiratory failure, Acute developed post Admission [ ] Chronic hypoxemic and hypercapnic respiratory failure only [ ] Other (please specify) [ ] Unable to determine (Template Last Revised: January 2021) MTDD
== END 2023-07-04 13:50 | disposition home or self-care (01) | DRG 190 ==
LOC: EC 11:26 → 3SCARD 14:29 → 4SSUR 17:13 → 2SICU 07-02 05:22 → 3SCARD 07-02 18:44
PROVIDERS: ADMIT Hospitalist; ATTEND Hospitalist
DX: J44.1 Chronic obstructive pulmonary disease with (acute) exacerbation (principal); J96.21 Acute and chronic respiratory failure with hypoxia; J96.22 Acute and chronic respiratory failure with hypercapnia; E87.1 Hypo-osmolality and hyponatremia; F03.90 Unspecified dementia, unspecified severity, without behavioral disturbance, psychotic disturbance, mood disturbance, and anxiety; I48.0 Paroxysmal atrial fibrillation; J44.0 Chronic obstructive pulmonary disease with (acute) lower respiratory infection; E78.5 Hyperlipidemia, unspecified; I10 Essential (primary) hypertension; K21.9 Gastro-esophageal reflux disease without esophagitis; M19.90 Unspecified osteoarthritis, unspecified site; M81.0 Age-related osteoporosis without current pathological fracture; R74.01 Elevation of levels of liver transaminase levels; T46.6X5A Adverse effect of antihyperlipidemic and antiarteriosclerotic drugs, initial encounter; J20.9 Acute bronchitis, unspecified; K57.90 Diverticulosis of intestine, part unspecified, without perforation or abscess without bleeding; H91.90 Unspecified hearing loss, unspecified ear; Z96.651 Presence of right artificial knee joint; Z20.822 Contact with and (suspected) exposure to COVID-19; Z99.81 Dependence on supplemental oxygen; Z86.74 Personal history of sudden cardiac arrest; Z79.899 Other long term (current) drug therapy; Z79.51 Long term (current) use of inhaled steroids; Z79.01 Long term (current) use of anticoagulants; Z79.891 Long term (current) use of opiate analgesic; Z88.8 Allergy status to other drugs, medicaments and biological substances; Z86.19 Personal history of other infectious and parasitic diseases; Z87.19 Personal history of other diseases of the digestive system; Z87.891 Personal history of nicotine dependence; Z79.52 Long term (current) use of systemic steroids
CPT/HCPCS: 36415; 71046; 80048; 80053; 81001; 82803; 83605; 84145; 85025; 85610; 85730; 86140; 87040; 87636; 93005; 94640; 94760; 96374; 96375; 96376; 99285

== ENCOUNTER 2023-09-13 04:11 | Observation (INO) | payer MEDICARE, OTHER ==
[2023-09-13] MEDS ORDERED: IPRATROPIUM-ALBUTEROL 3 ML NEB INHALATION STA (04:31)
[2023-09-13 05:08] LABS: Basophils % (A) 0 %; Eosinophils # (A) 0.1 k/uL (0-0.7); Eosinophils % (A) 1 %; HCT 44.2 % (34.0-46.0); Hypochromasia Moderate; Lymphocytes # (A) 1.9 k/uL (1.0-4.8); Lymphocytes % (A) 25 %; MCHC 31.8 g/dL (31.0-37.0); MCV 94.3 fL (80.0-100.0); Mean Platelet Volume 8.3; Monocytes # (A) 0.7 k/uL (0-1.0); Monocytes % (A) 9 %; Neutrophils # (A) 4.8 k/uL (1.3-7.7); Neutrophils % (A) 62 %; Platelet Count 171 k/uL (150-450); RBC 4.69 m/uL (3.80-5.40); RDW 13.1 % (11.5-15.5); WBC 7.8 k/uL (3.8-10.6)
--- NOTE | 2023-09-13 05:17 | ED ---
SOB HPI - General Chief Complaint: Shortness of Breath Stated Complaint: Difficulty Breathing Time Seen by Provider: 09/13/23 04:31 Source: patient, EMS Mode of arrival: EMS - History of Present Illness Initial Comments: Hyacinth is a 72-year-old female with a history of oxygen-dependent COPD who presents to the ER today for evaluation of shortness of breath. Patient reports that despite taking daily steroids and wearing oxygen she woke this morning with severe wheezing feeling like she could not catch her breath. Patient tried a breathing treatment at home with minimal relief which prompted her call EMS for transport. EMS gave an additional breathing treatment and increased her oxygen to 3 L nasal cannula and route with some improvement in her hypoxia but patient had persistent wheezing and tightness in her chest. Patient reports she's not been any antibiotics recently. She's not had any sick contacts. - Related Data Home Medications Medication Instructions Recorded Confirmed Budesonide-Formot 160-4.5 Mcg 2 puff INHALATION RT-BID 04/03/19 07/01/23 [Symbicort 160-4.5 Mcg Inhaler] Famotidine [Pepcid] 20 mg PO BID 11/06/19 07/01/23 Atorvastatin Calcium [Lipitor] 10 mg PO HS 03/28/22 07/01/23 Diltiazem Oral [Cardizem*] 30 mg PO BID 03/28/22 07/01/23 Albuterol Inhaler [Ventolin Hfa 2 puff INHALATION RT-Q6H PRN 05/15/23 07/01/23 Inhaler] Dorzolamide 2% [Trusopt 2%] 1 drop BOTH EYES BID 05/15/23 07/01/23 Memantine [Namenda] 5 mg PO BID 05/15/23 07/01/23 Donepezil [Aricept] 5 mg PO HS 07/01/23 07/01/23 Metoprolol Tartrate [Lopressor] 12.5 mg PO BID 07/01/23 07/01/23 Ondansetron [Ondansetron Odt] 4 mg PO Q8H PRN 07/01/23 07/01/23 predniSONE 5 mg PO DAILY 07/01/23 07/01/23 Previous Rx's Medication Instructions Recorded Apixaban [Eliquis] 5 mg PO BID tab 05/25/23 Gabapentin [Neurontin] 300 mg PO BID #4 cap 05/25/23 HYDROcodone/APAP 10-325MG [[place] 1 tab PO BID #2 tab 05/25/23 10-325] Amoxic-Pot Clav 875-125Mg 1 each PO Q12HR 5 Days #10 tab 07/04/23 [Augmentin 875-125] Ipratropium-Albuterol Nebulize 3 ml INHALATION RT-Q2H PRN each 07/04/23 [Duoneb 0.5 mg-3 mg/3 ml Soln] Ipratropium-Albuterol Nebulize 3 ml INHALATION RT-QID #100 each 07/04/23 [Duoneb 0.5 mg-3 mg/3 ml Soln] predniSONE 10 mg PO DIRECTED #30 tab 07/04/23 Allergies Allergy/AdvReac Type Severity Reaction Status Date / Time dextromethorphan Allergy Unknown Verified 07/01/23 13:51 [From Mucinex DM] guaifenesin [From Mucinex DM] Allergy Diarrhea Verified 07/01/23 13:51 methylprednisolone Allergy Rash/Hives Verified 07/02/23 07:22 [From Solu-Medrol] diltiazem AdvReac Intermediate Abdominal Verified 07/01/23 13:51 Pain alprazolam [From Xanax] AdvReac Anaphylaxis Verified 07/01/23 13:51 donepezil [From Aricept] AdvReac Nausea & Verified 07/01/23 13:51 Vomiting levofloxacin [From Levaquin] AdvReac Nausea, Verified 07/01/23 13:51 Diarrhea , States she got C-Diff after, Migraines roflumilast [From Daliresp] AdvReac Nausea & Verified 07/01/23 13:51 Vomiting & Diarrhea Review of Systems ROS Statement: Those systems with pertinent positive or pertinent negative responses have been documented in the HPI. ROS Other: All systems not noted in ROS Statement are negative. Past Medical History Past Medical History: COPD, GERD/Reflux, Hearing Disorder / Deafness, Hypertension, Osteoarthritis (OA), Respiratory Disorder Additional Past Medical History / Comment(s): HX POLYPS, DIVERTICULI. Osteoporosis. ICU - History of Any Multi-Drug Resistant Organisms: C-DIFF Date of last positivie culture/infection: 2013 approx MDRO Source:: stool Past Surgical History: Back Surgery, Bowel Resection, Joint Replacement, Orthopedic Surgery Additional Past Surgical History / Comment(s): RIGHT KNEE REPLACEMENT, LEFT LEG ORIF-removed, LIZZIE CARPAL TUNNEL,. Bilateral cataract surgery,plate rt foot Additional Past Anesthesia/Blood Transfusion Reaction / Comment(s): STATES NO EPIDURALS R/T GETTING SEVERE MIGRAINES Past Psychological History: No Psychological Hx Reported Smoking Status: Former smoker - Past Family History Mother Family Medical History: Hypertension Father Family Medical History: Cancer Additional Family Medical History / Comment(s): aneurysms,prostate General Exam - General Exam Comments Initial Comments: Physical Exam GENERAL: Chronically ill-appearing female appears older than stated age HENT: Normocephalic, Atraumatic. EYES: PERRL, EOMI PULMONARY: Tachypnea with wheezing in all lung russell CARDIOVASCULAR: There is a regular rate and rhythm without any murmurs gallops or rubs. ABDOMEN: Soft and nontender with normal bowel sounds. SKIN: Skin is clear with no lesions or rashes and otherwise unremarkable. : Deferred NEUROLOGIC: Patient is alert and oriented x3. Moving all extremities spontaneously MUSCULOSKELETAL: Normal extremities with adequate strength and full range of motion. No lower extremity swelling or edema. No calf tenderness. PSYCHIATRIC: Normal psychiatric evaluation. Course Vital Signs 09/13/23 09/13/23 09/13/23 04:19 04:48 05:07 Temperature 98.7 F Pulse Rate 80 80 77 Respiratory 19 Rate Blood Pressure 139/79 O2 Sat by Pulse 95 Oximetry 09/13/23 06:13 Temperature Pulse Rate 78 Respiratory 19 Rate Blood Pressure 114/50 O2 Sat by Pulse 93 L Oximetry Medical Decision Making - Medical Decision Making Was pt. sent in by a medical professional or institution (, PA, POCKETED SPRING MACHINE OPERATOR, urgent care, hospital, or fpc...) When possible be specific @ -[No] Did you speak to anyone other than the patient for history (EMS, parent, family, police, friend...)? What history was obtained from this source @ -EMS Did you review nursing and triage notes (agree or disagree)? Why? @ -[I reviewed and agree with nursing and triage notes] Were old charts reviewed (outside hosp., previous admission, EMS record, old EKG, old radiological studies, urgent care reports/EKG's, fpc records)? Report findings @ -[No old charts were reviewed] Differential Diagnosis (chest pain, altered mental status, abdominal pain women, abdominal pain men, vaginal bleeding, weakness, fever, dyspnea, syncope, headache, dizziness, GI bleed, back pain, seizure, CVA, palpatations, mental health, musculoskeletal)? @ -Differential Dyspnea: Coronary syndrome, arrhythmia, tamponade, asthma, COPD, pulmonary embolism, pneumonia, pneumothorax, pulmonary effusion, anaphylaxis, diabetic ketoacidosis, flailed chest, pulmonary contusion, diaphragmatic rupture, anemia, neuromuscular, this is not meant to be an all-inclusive list. EKG interpreted by me (3pts min.). @ -[As above] X-rays interpreted by me (1pt min.). @ -No focal consolidations, no pneumothorax, hyperinflation is noted chronic changes CT interpreted by me (1pt min.). @ -[None done] U/S interpreted by me (1pt. min.). @ -[None done] What testing was considered but not performed or refused? (CT, X-rays, U/S, labs)? Why? @ -[None] What meds were considered but not given or refused? Why? @ -[None] Did you discuss the management of the patient with other professionals (professionals i.e. , PA, POCKETED SPRING MACHINE OPERATOR, lab, RT, psych nurse, healthcare social worker, dean of graduate studies, teacher, financial officer, caser up)? Give summary @ -Admitting physician Dr. nath Was smoking cessation discussed for >3mins.? @ -[No] Was critical care preformed (if so, how long)? @ -[No] Were there social determinants of health that impacted care today? How? (Homelessness, low income, unemployed, alcoholism, drug addiction, transportation, low edu. Level, literacy, decrease access to med. care, detention, rehab)? @ -[No] Was there de-escalation of care discussed even if they declined (Discuss DNR or withdrawal of care, Hospice)? DNR status @ -[No] What co-morbidities impacted this encounter? (DM, HTN, Smoking, COPD, CAD, Cancer, CVA, ARF, Chemo, Hep., AIDS, mental health diagnosis, sleep apnea, morbid obesity)? @ -COPD Was patient admitted / discharged? Hospital course, mention meds given and route, prescriptions, significant lab abnormalities, going to OR and other pertinent info. @ -Admit Patient was seen and evaluated immediately upon arrival the emergency department. Patient with COPD exacerbation received a breathing treatment in route, 2 more breathing treatments were ordered. Patient has an ALLERGY to IV steroids. Chest x-ray was obtained and reviewed by myself and see no acute findings. Labs resulted with evidence of of hypercapnia, this is worse in the patient's baseline. We will reassess. Patient care was discussed with Dr. nath who accepts admission for COPD exacerbation. Undiagnosed new problem with uncertain prognosis? @ -[No] Drug Therapy requiring intensive monitoring for toxicity (Heparin, Nitro, Insulin, Cardizem)? @ -[No] Were any procedures done? @ -[No] Diagnosis/symptom? @ COPD exacerbation, hypercapnic respiratory failure] Acute, or Chronic, or Acute on Chronic? @ -[default] Uncomplicated (without systemic symptoms) or Complicated (systemic symptoms)? @ -[default] Side effects of treatment? @ -[No] Exacerbation, Progression, or Severe Exacerbation? @ Exacerbation] Poses a threat to life or bodily function? How? (Chest pain, [place], [place], pneumonia, PE, COPD, DKA, ARF, appy, cholecystitis, CVA, Diverticulitis, Homicidal, Suicidal, threat to staff... and all critical care pts) @ Yes, can result in respiratory failure] - Lab Data Result diagrams: 09/13/23 04:59 09/13/23 04:59 Lab Results 09/13/23 09/13/23 09/13/23 Range/Units 04:59 04:59 04:59 WBC 7.8 (3.8-10.6) k/uL RBC 4.69 (3.80-5.40) m/uL Hgb 14.0 (11.4-16.0) gm/dL Hct 44.2 (34.0-46.0) % MCV 94.3 (80.0-100.0) fL MCH 30.0 (25.0-35.0) pg MCHC 31.8 (31.0-37.0) g/dL RDW 13.1 (11.5-15.5) % Plt Count 171 (150-450) k/uL MPV 8.3 Neutrophils % 62 % Lymphocytes % 25 % Monocytes % 9 % Eosinophils % 1 % Basophils % 0 % Neutrophils # 4.8 (1.3-7.7) k/uL Lymphocytes # 1.9 (1.0-4.8) k/uL Monocytes # 0.7 (0-1.0) k/uL Eosinophils # 0.1 (0-0.7) k/uL Basophils # 0.0 (0-0.2) k/uL Hypochromasia Moderate PT 11.8 (10.0-12.5) sec INR 1.1 (<1.2) APTT 29.6 (22.0-30.0) sec Sodium 129 L (137-145) mmol/L Potassium 4.5 (3.5-5.1) mmol/L Chloride 80 L (98-107) mmol/L Carbon Dioxide 43 H* (22-30) mmol/L Anion Gap 6 mmol/L BUN 7 (7-17) mg/dL Creatinine 0.41 L (0.52-1.04) mg/dL Est GFR (CKD-EPI)AfAm >90 (>60 ml/min/1.73 sqM) Est GFR (CKD-EPI)NonAf >90 (>60 ml/min/1.73 sqM) Glucose 98 (74-99) mg/dL Plasma Lactic Acid Robert (0.7-2.0) mmol/L Calcium 8.8 (8.4-10.2) mg/dL Magnesium 1.7 (1.6-2.3) mg/dL Total Bilirubin 0.7 (0.2-1.3) mg/dL AST 34 (14-36) U/L ALT 18 (4-34) U/L Alkaline Phosphatase 66 (38-126) U/L Troponin I (0.000-0.034) ng/mL NT-Pro-B Natriuret Pep 276 pg/mL Total Protein 6.5 (6.3-8.2) g/dL Albumin 3.7 (3.5-5.0) g/dL Influenza Type A (PCR) (Not Detectd) Influenza Type B (PCR) (Not Detectd) RSV (PCR) (Not Detectd) SARS-CoV-2 (PCR) (Not Detectd) 09/13/23 09/13/23 09/13/23 Range/Units 04:59 04:59 04:59 WBC (3.8-10.6) k/uL RBC (3.80-5.40) m/uL Hgb (11.4-16.0) gm/dL Hct (34.0-46.0) % MCV (80.0-100.0) fL MCH (25.0-35.0) pg MCHC (31.0-37.0) g/dL RDW (11.5-15.5) % Plt Count (150-450) k/uL MPV Neutrophils % % Lymphocytes % % Monocytes % % Eosinophils % % Basophils % % Neutrophils # (1.3-7.7) k/uL Lymphocytes # (1.0-4.8) k/uL Monocytes # (0-1.0) k/uL Eosinophils # (0-0.7) k/uL Basophils # (0-0.2) k/uL Hypochromasia PT (10.0-12.5) sec INR (<1.2) APTT (22.0-30.0) sec Sodium (137-145) mmol/L Potassium (3.5-5.1) mmol/L Chloride (98-107) mmol/L Carbon Dioxide (22-30) mmol/L Anion Gap mmol/L BUN (7-17) mg/dL Creatinine (0.52-1.04) mg/dL Est GFR (CKD-EPI)AfAm (>60 ml/min/1.73 sqM) Est GFR (CKD-EPI)NonAf (>60 ml/min/1.73 sqM) Glucose (74-99) mg/dL Plasma Lactic Acid Robert 0.8 (0.7-2.0) mmol/L Calcium (8.4-10.2) mg/dL Magnesium (1.6-2.3) mg/dL Total Bilirubin (0.2-1.3) mg/dL AST (14-36) U/L ALT (4-34) U/L Alkaline Phosphatase (38-126) U/L Troponin I <0.012 (0.000-0.034) ng/mL NT-Pro-B Natriuret Pep pg/mL Total Protein (6.3-8.2) g/dL Albumin (3.5-5.0) g/dL Influenza Type A (PCR) Not Detected (Not Detectd) Influenza Type B (PCR) Not Detected (Not Detectd) RSV (PCR) Not Detected (Not Detectd) SARS-CoV-2 (PCR) Not Detected (Not Detectd) - EKG Data -: EKG Interpreted by Me EKG Comments: EKG interpreted by me, EKG obtained due to shortness breath EKG obtained at 4:56 AM, rate is 74 rhythm is sinus normal axis normal intervals NC 150 QRS 80 QTc [address] elevations or depressions no evidence of ischemia or infarction. Disposition Clinical Impression: Acute exacerbation of chronic obstructive pulmonary disease, Hyponatremia, Respiratory acidosis Disposition: ADMITTED IP TO THIS HOSP Condition: Serious Referrals: Vern Rodriguez DO [Primary Care Provider] - 1-2 days
[2023-09-13 05:19] LABS: ALT 18 U/L (4-34); AST 34 U/L (14-36); African American GFR (CKD) >90 (>60 ml/min/1.73 sqM); Albumin 3.7 g/dL (3.5-5.0); Alkaline Phosphatase 66 U/L (38-126); Blood Urea Nitrogen 7 mg/dL (7-17); Calcium 8.8 mg/dL (8.4-10.2); Chloride 80 mmol/L (98-107); Glucose 98 mg/dL (74-99); Magnesium 1.7 mg/dL (1.6-2.3); Non-African American GFR(CKD) >90 (>60 ml/min/1.73 sqM); Potassium 4.5 mmol/L (3.5-5.1); Sodium 129 mmol/L (137-145); Total Bilirubin 0.7 mg/dL (0.2-1.3); Total Protein 6.5 g/dL (6.3-8.2)
[2023-09-13 05:25] LABS: Anion Gap 6 mmol/L
[2023-09-13 05:28] LABS: NT-Pro-B-Type Natriuretic Pept 276 pg/mL
[2023-09-13 05:49] LABS: INR 1.1 (<1.2); Partial Thromboplastin Time 29.6 sec (22.0-30.0); Prothrombin Time 11.8 sec (10.0-12.5)
[2023-09-13 06:11] LABS: Carbon Dioxide 43 mmol/L (22-30)
[2023-09-13] MEDS ORDERED: NALOXONE 0.4 MG/ML 1 ML VIAL IVP PRN (07:26)
--- NOTE | 2023-09-13 07:36 | XR ---
EXAMINATION TYPE: XR chest 2V DATE OF EXAM: 09/13/2023 COMPARISON: 07/01/2023 INDICATION: Short of breath TECHNIQUE: Frontal and lateral views of the chest are obtained. FINDINGS: The heart size is normal. The pulmonary vasculature is normal. Mild scattered filtrates are present through the bilateral lung russell. Correlate for pneumonia. Cons ider atypical pneumonia. IMPRESSION: 1. Scattered bilateral mild lung infiltrates. Correlate for pneumonia and atypical pneumonia. Follow- up can be performed.
[2023-09-13] MEDS: IPRATROPIUM-ALBUTEROL 3 ML NEB INHALATION SCH ×4 (07:49→20:25)
[2023-09-13] MEDS: predniSONE 20 MG TAB PO SCH (09:01)
[2023-09-13] MEDS ORDERED: ALBUTEROL NEBULIZED 2.5 MG/3 ML INHALATION PRN (09:43)
[2023-09-13] MEDS ORDERED: ONDANSETRON ODT 4 MG TAB PO PRN (09:43)
--- NOTE | 2023-09-13 09:51 | P.HPIM ---
History of Present Illness Patient was oriented 72-year-old female came in with complaints of shortness of breath found to be in COPD exacerbation patient uses 2 L of oxygen at home patient has stage IV advanced emphysema. Patient quit smoking many years ago. Patient is hyponatremic. Patient does have chronic hyponatremia. Patient has cough with occasional sputum production. The COPD did improve since last night significantly but still hyponatremic. Patient does have history of atrial fibrillation, paroxysmal A. fib presently sinus rhythm. Patient is on anticoagulation. Chest x-ray showing bilateral infiltrates was recently treated for pneumonia patient doesn't have any leukocytosis or any clinical evidence of infection at this time for calcitonin was ordered. REVIEW OF SYSTEMS: CONSTITUTIONAL: No fever, no malaise, no fatigue. HEENT: No recent visual problems or hearing problems. Denied any sore throat. CARDIOVASCULAR: No chest pain, orthopnea, PND, no palpitations, no syncope. PULMONARY no hemoptysis. GASTROINTESTINAL: No diarrhea, no nausea, no vomiting, no abdominal pain. NEUROLOGICAL: No headaches, no weakness, no numbness. HEMATOLOGICAL: Denies any bleeding or petechiae. GENITOURINARY: Denies any burning micturition, frequency, or urgency. MUSCULOSKELETAL/RHEUMATOLOGICAL: Denies any joint pain, swelling, or any muscle pain. ENDOCRINE: Denies any polyuria or polydipsia. The rest of the 14-point review of systems is negative. PHYSICAL EXAMINATION: GENERAL: The patient is alert and oriented x3, not in any acute distress. Thin built female HEENT: Pupils are round and equally reacting to light. EOMI. No scleral icterus. No conjunctival pallor. Normocephalic, atraumatic. No pharyngeal erythema. No thyromegaly. CARDIOVASCULAR: S1 and S2 present. No murmurs, rubs, or gallops. PULMONARY: Chest is clear to auscultation, no crackles. Fairly good air entry into bilateral lung russell minimal wheezing ABDOMEN: Soft, nontender, nondistended, normoactive bowel sounds. No palpable organomegaly. MUSCULOSKELETAL: No joint swelling or deformity. EXTREMITIES: No cyanosis, clubbing, or pedal edema. NEUROLOGICAL: Gross neurological examination did not reveal any focal deficits. SKIN: No rashes. Assessment and plan -Acute on chronic hypercapnic respiratory failure secondary to COPD exacerbation: Continue with oral steroids this time continue with inhalational treatments. No clinical evidence of pneumonia -Hyponatremia: hypovolemic hyponatremia, patient will be continued on IV fluids. -Proximal atrial fibrillation presently sinus rhythm rate controlled continue with home medications and continue with anticoagulation -Gastroesophageal reflux disease DVT prophylaxis: On anticoagulation for atrial fibrillation Past Medical History Past Medical History: COPD, GERD/Reflux, Hearing Disorder / Deafness, Hypertension, Osteoarthritis (OA), Respiratory Disorder Additional Past Medical History / Comment(s): HX POLYPS, DIVERTICULI. Osteoporosis. ICU - History of Any Multi-Drug Resistant Organisms: C-DIFF Date of last positivie culture/infection: 2013 approx MDRO Source:: stool Past Surgical History: Back Surgery, Bowel Resection, Joint Replacement, Orthopedic Surgery Additional Past Surgical History / Comment(s): RIGHT KNEE REPLACEMENT, LEFT LEG ORIF-removed, LIZZIE CARPAL TUNNEL,. Bilateral cataract surgery,plate rt foot Additional Past Anesthesia/Blood Transfusion Reaction / Comment(s): STATES NO EPIDURALS R/T GETTING SEVERE MIGRAINES Past Psychological History: No Psychological Hx Reported Smoking Status: Former smoker - Past Family History Mother Family Medical History: Hypertension Father Family Medical History: Cancer Additional Family Medical History / Comment(s): aneurysms,prostate Medications and Allergies Home Medications Medication Instructions Recorded Confirmed Type Budesonide-Formot 160-4.5 Mcg 2 puff INHALATION RT-BID 04/03/19 09/13/23 History [Symbicort 160-4.5 Mcg Inhaler] Famotidine [Pepcid] 20 mg PO BID 11/06/19 09/13/23 History Atorvastatin Calcium [Lipitor] 10 mg PO HS 03/28/22 09/13/23 History Diltiazem Oral [Cardizem*] 30 mg PO BID 03/28/22 09/13/23 History Albuterol Inhaler [Ventolin Hfa 2 puff INHALATION RT-Q6H PRN 05/15/23 09/13/23 History Inhaler] Dorzolamide 2% [Trusopt 2%] 1 drop BOTH EYES BID 05/15/23 09/13/23 History Memantine [Namenda] 5 mg PO BID 05/15/23 09/13/23 History Apixaban [Eliquis] 5 mg PO BID tab 05/25/23 09/13/23 Rx Gabapentin [Neurontin] 300 mg PO BID #4 cap 05/25/23 09/13/23 Rx Metoprolol Tartrate [Lopressor] 12.5 mg PO BID 07/01/23 09/13/23 History Ondansetron [Ondansetron Odt] 4 mg PO Q8H PRN 07/01/23 09/13/23 History Ipratropium-Albuterol Nebulize 3 ml INHALATION RT-Q2H PRN each 07/04/23 09/13/23 Rx [Duoneb 0.5 mg-3 mg/3 ml Soln] Ipratropium-Albuterol Nebulize 3 ml INHALATION RT-QID #100 each 07/04/23 09/13/23 Rx [Duoneb 0.5 mg-3 mg/3 ml Soln] HYDROcodone/APAP 7.5-325MG [[place] 1 tab PO QID PRN 09/13/23 09/13/23 History 7.5-325] Allergies Allergy/AdvReac Type Severity Reaction Status Date / Time alprazolam [From Xanax] Allergy Anaphylaxis Verified 09/13/23 08:25 dextromethorphan Allergy Unknown Verified 09/13/23 08:25 [From Mucinex DM] methylprednisolone Allergy Rash/Hives Verified 09/13/23 08:25 [From Solu-Medrol] diltiazem AdvReac Intermediate Abdominal Verified 09/13/23 08:25 Pain donepezil [From Aricept] AdvReac Nausea & Verified 09/13/23 08:25 Vomiting guaifenesin [From Mucinex DM] AdvReac Diarrhea Verified 09/13/23 08:25 levofloxacin [From Levaquin] AdvReac Nausea, Verified 09/13/23 08:25 Diarrhea , States she got C-Diff after, Migraines roflumilast [From Daliresp] AdvReac Nausea & Verified 09/13/23 08:25 Vomiting & Diarrhea Physical Exam Vitals: Vital Signs Temp Pulse Resp BP Pulse Ox 09/13/23 08:00 82 09/13/23 07:50 82 96 09/13/23 06:13 78 19 114/50 93 L 09/13/23 05:07 77 09/13/23 04:48 80 09/13/23 04:19 98.7 F 80 19 139/79 95 Intake and Output 09/12/23 09/13/23 09/13/23 22:59 06:59 14:59 Other: Weight 54.431 kg Results CBC & Chem 7: 09/13/23 04:59 09/13/23 04:59 Labs: Abnormal Lab Results - Last 24 Hours (Table) 09/13/23 Range/Units 04:59 Sodium 129 L (137-145) mmol/L Chloride 80 L (98-107) mmol/L Carbon Dioxide 43 H* (22-30) mmol/L Creatinine 0.41 L (0.52-1.04) mg/dL
[2023-09-13] MEDS: GABAPENTIN 300 MG CAP PO SCH ×2 (10:06→23:21)
[2023-09-13] MEDS: METOPROLOL TARTRATE 12.5 MG TAB PO SCH ×2 (10:06→23:22)
[2023-09-13] MEDS: APIXABAN 5 MG TAB PO SCH ×2 (10:06→23:20)
[2023-09-13] MEDS: FAMOTIDINE 20 MG TAB PO SCH ×2 (10:07→23:21)
[2023-09-13] MEDS: SODIUM CHLORIDE 0.9% 1,000 ML IV SCH (10:07)
[2023-09-13] MEDS: DILTIAZEM ORAL 30 MG TAB PO SCH (10:07)
--- NOTE | 2023-09-13 11:49 | P.CNPUL ---
History of Present Illness Consult date: 09/13/23 Requesting physician: Vern Rodriguez Reason for consult: dyspnea, cough, COPD, hypoxemia, pneumonia, abnormal CXR/CT Chief complaint: Shortness of breath, cough, phlegm production. History of present illness: Pulmonary consult dated 09/13/2023. This is a 72-year-old female seen in the emergency department, on September 13. She presented there, at 4:00 in the morning, complaining of increasing shortness of breath, wheezing, chest tightness, cough, and phlegm production. She states that she was very short of breath. For that reason, she dialed 911, and EMS brought her into the emergency department. In route, they gave her a breathing treatment, and applied oxygen. I see the patient in the office, for COPD. Currently, the patient is seen in the emergency department, room 17. Her [facility] care provider is Dr. Gloria Rodriguez. She's currently on 2 L of oxygen. She's not receiving any IV fluids. He was having symptoms as above, for at least 2 days prior to admission. White count is 7.8, hemoglobin 14, hematocrit 44.2, and a platelet count of 171,000. Sodium 129, CO2 4.5, chlorides 80, CO2 43, BUN 7, and creatinine 0.41. N-terminal proBNP was normal. She tested negative for influenza A and B, RSV, and coronavirus. Chest x-ray showed scattered bilateral lung infiltrates, consistent with pneumonia. Review of Systems REVIEW OF SYSTEMS: CONSTITUTIONAL: Weakness NEUROLOGIC: [ Negative.] HEENT: [ Negative.] CARDIAC: [Negative.] PULMONARY: Shortness of breath, cough, chest tightness, wheezing, and phlegm production. GI: [Negative.] : [Negative.] RHEUMATOLOGIC: [ Negative.] IMMUNOLOGIC: [ Negative.] ENDOCRINE: [Negative. ] DERMATOLOGIC: [Negative.] Past Medical History Past Medical History: COPD, GERD/Reflux, Hearing Disorder / Deafness, Hypertension, Osteoarthritis (OA), Respiratory Disorder Additional Past Medical History / Comment(s): HX POLYPS, DIVERTICULI. Osteoporosis. ICU - History of Any Multi-Drug Resistant Organisms: C-DIFF Date of last positivie culture/infection: 2013 approx MDRO Source:: stool Past Surgical History: Back Surgery, Bowel Resection, Joint Replacement, Orthopedic Surgery Additional Past Surgical History / Comment(s): RIGHT KNEE REPLACEMENT, LEFT LEG ORIF-removed, LIZZIE CARPAL TUNNEL,. Bilateral cataract surgery,plate rt foot Additional Past Anesthesia/Blood Transfusion Reaction / Comment(s): STATES NO EPIDURALS R/T GETTING SEVERE MIGRAINES Past Psychological History: No Psychological Hx Reported Smoking Status: Former smoker - Past Family History Mother Family Medical History: Hypertension Father Family Medical History: Cancer Additional Family Medical History / Comment(s): aneurysms,prostate Medications and Allergies Home Medications Medication Instructions Recorded Confirmed Type Budesonide-Formot 160-4.5 Mcg 2 puff INHALATION RT-BID 04/03/19 09/13/23 History [Symbicort 160-4.5 Mcg Inhaler] Famotidine [Pepcid] 20 mg PO BID 11/06/19 09/13/23 History Atorvastatin Calcium [Lipitor] 10 mg PO HS 03/28/22 09/13/23 History Diltiazem Oral [Cardizem*] 30 mg PO BID 03/28/22 09/13/23 History Albuterol Inhaler [Ventolin Hfa 2 puff INHALATION RT-Q6H PRN 05/15/23 09/13/23 History Inhaler] Dorzolamide 2% [Trusopt 2%] 1 drop BOTH EYES BID 05/15/23 09/13/23 History Memantine [Namenda] 5 mg PO BID 05/15/23 09/13/23 History Apixaban [Eliquis] 5 mg PO BID tab 05/25/23 09/13/23 Rx Gabapentin [Neurontin] 300 mg PO BID #4 cap 05/25/23 09/13/23 Rx Metoprolol Tartrate [Lopressor] 12.5 mg PO BID 07/01/23 09/13/23 History Ondansetron [Ondansetron Odt] 4 mg PO Q8H PRN 07/01/23 09/13/23 History Ipratropium-Albuterol Nebulize 3 ml INHALATION RT-Q2H PRN each 07/04/23 09/13/23 Rx [Duoneb 0.5 mg-3 mg/3 ml Soln] Ipratropium-Albuterol Nebulize 3 ml INHALATION RT-QID #100 each 07/04/23 09/13/23 Rx [Duoneb 0.5 mg-3 mg/3 ml Soln] HYDROcodone/APAP 7.5-325MG [Man 1 tab PO QID PRN 09/13/23 09/13/23 History 7.5-325] Allergies Allergy/AdvReac Type Severity Reaction Status Date / Time alprazolam [From Xanax] Allergy Anaphylaxis Verified 09/13/23 08:25 dextromethorphan Allergy Unknown Verified 09/13/23 08:25 [From Mucinex DM] methylprednisolone Allergy Rash/Hives Verified 09/13/23 08:25 [From Solu-Medrol] diltiazem AdvReac Intermediate Abdominal Verified 09/13/23 08:25 Pain donepezil [From Aricept] AdvReac Nausea & Verified 09/13/23 08:25 Vomiting guaifenesin [From Mucinex DM] AdvReac Diarrhea Verified 09/13/23 08:25 levofloxacin [From Levaquin] AdvReac Nausea, Verified 09/13/23 08:25 Diarrhea , States she got C-Diff after, Migraines roflumilast [From Daliresp] AdvReac Nausea & Verified 09/13/23 08:25 Vomiting & Diarrhea Physical Exam Osteopathic Statement: *. No significant issues noted on an osteopathic structural exam other than those noted in the History and Physical/Consult. Vitals: Vital Signs Temp Pulse Resp BP Pulse Ox 09/13/23 11:29 74 09/13/23 11:21 74 09/13/23 11:06 99.3 F 71 17 113/60 98 09/13/23 10:13 84 18 94 L 09/13/23 08:00 82 09/13/23 07:50 82 96 09/13/23 06:13 78 19 114/50 93 L 09/13/23 05:07 77 09/13/23 04:48 80 09/13/23 04:19 98.7 F 80 19 139/79 95 Intake and Output 09/12/23 09/13/23 09/13/23 22:59 06:59 14:59 Other: Weight 54.431 kg Mild respiratory distress, currently on 2 L. Oriented 3. No audible wheezing. HEENT examination is grossly unremarkable. Mucous membranes are moist. No oral lesions. Neck supple. Full range of motion. No adenopathy thyromegaly or neck vein distention. Cardiovascular examination reveals regular rhythm rate. S1-S2 normal. No S3 or S4. No discernible murmur noted. Heart sounds are distant. Heart rate 74 bpm. Lungs reveal scattered bilateral inspiratory and expiratory rhonchi, and expiratory wheezes. No crackles. Breath sounds are equal bilaterally. 2 L saturation is 94%. Abdomen soft bowel sounds are heard. No masses or tenderness. Extremities are intact. No cyanosis clubbing or edema. Skin is without rash or lesion. Neurologic examination is brief but nonfocal. Results - Laboratory Findings CBC and BMP: 09/13/23 04:59 09/13/23 04:59 PT/INR, D-dimer PT 11.8 sec (10.0-12.5) 09/13/23 04:59 INR 1.1 (<1.2) 09/13/23 04:59 Abnormal lab findings: Abnormal Labs 09/13/23 04:59 Sodium 129 L Chloride 80 L Carbon Dioxide 43 H* Creatinine 0.41 L - Diagnostic Findings Chest x-ray: image reviewed Assessment and Plan Assessment: Acute hypoxemic respiratory failure, secondary to COPD exacerbation, complicated by bilateral pneumonia. History of hypertension. History of gastroesophageal reflux disease. History of diverticulitis. History of osteoporosis. Previous history of C. difficile colitis. Prior history of heavy tobacco use. History of osteoarthritis. Plan: Plan dated 09/13/2023. The patient is seen in the emergency department. She was admitted with a diagnosis of COPD exacerbation, complicated by bilateral pneumonia. If not or ready, the patient should have a pro-calcitonin level. The patient was placed on antibiotics. Additional recommendations and suggestions are forthcoming. Prognosis is certainly guarded. We will continue to follow the patient, and make recommendations along the way. Labs, x-rays, and medications are all reviewed. Time with Patient: Greater than 30
[2023-09-13] MEDS ORDERED: SYMBICORT 160-4.5 MCG INHALER INHALATION SCH (20:00)
[2023-09-13] MEDS: BUDESONIDE 1 MG/2 ML NEBU INHALATION SCH (20:25)
[2023-09-13] MEDS: FORMOTEROL FUMARATE 20 MCG/2 ML NEBU INHALATION SCH (20:25)
[2023-09-13] MEDS ORDERED: AMOXIC-POT CLAV 875-125MG 1 EACH TAB PO SCH (21:00)
[2023-09-13] MEDS ORDERED: ATORVASTATIN 10 MG TAB PO SCH (21:00)
[2023-09-13] MEDS: DORZOLAMIDE HCL 2% DROPS 10 ML BTL BOTH EYES SCH (23:24)
[2023-09-13] MEDS: HYDROcodone/APAP 7.5-325MG 1 EACH TAB PO PRN (23:28)
[2023-09-13] MEDS: MEMANTINE 5 MG TAB PO SCH (23:34)
[2023-09-14] MEDS: DILTIAZEM ORAL 30 MG TAB PO SCH ×2 (01:46→08:31)
[2023-09-14] MEDS: SODIUM CHLORIDE 0.9% 1,000 ML IV SCH (01:47)
--- NOTE | 2023-09-14 08:18 | P.PN ---
Subjective Progress Note Date: 09/14/23 This is a 72-year-old female seen in the emergency department, on September 13. She presented there, at 4:00 in the morning, complaining of increasing shortness of breath, wheezing, chest tightness, cough, and phlegm production. She states that she was very short of breath. For that reason, she dialed 911, and EMS brought her into the emergency department. In route, they gave her a breathing treatment, and applied oxygen. I see the patient in the office, for COPD. Currently, the patient is seen in the emergency department, room 17. Her primary care provider is Dr. Gloria Rodriguez. She's currently on 2 L of oxygen. She's not receiving any IV fluids. He was having symptoms as above, for at least 2 days prior to admission. White count is 7.8, hemoglobin 14, hematocrit 44.2, and a platelet count of 171,000. Sodium 129, CO2 4.5, chlorides 80, CO2 43, BUN 7, and creatinine 0.41. N-terminal proBNP was normal. She tested negative for influenza A and B, RSV, and coronavirus. Chest x-ray showed scattered bilateral lung infiltrates, consistent with pneumonia. The patient is seen today 09/14/2023 in follow-up on the regular medical floor. She is currently sitting up in bed. Awake and alert in no acute distress. She is currently on oxygen at 4 L/m per nasal cannula. O2 saturations up to 100%. She remains afebrile. Hemodynamically stable. Her pro-calcitonin level was less than 0.02. She is currently on Augmentin. This will be discontinued. She is on normal saline at 75 ML's per hour. Continued on DuoNeb inhalations, Pulmicort and Perforomist inhalations, prednisone taper. Anticoagulated with Eliquis. Objective - Vital Signs Vital signs: Vital Signs Temp 98.5 F 09/14/23 01:35 Pulse 68 09/14/23 01:35 Resp 18 09/14/23 01:35 BP 118/62 09/14/23 01:35 Pulse Ox 100 09/14/23 01:35 FiO2 Intake & Output 09/13/23 09/14/23 09/14/23 18:59 06:59 18:59 Weight 54.431 kg Other: Voiding Method Bedside Commode # Voids 2 - Exam GENERAL EXAM: Alert, very pleasant 72-year-old female, on 4 L nasal cannula, comfortable in no apparent distress. HEAD: Normocephalic. EYES: Normal reaction of pupils, equal size. NOSE: Clear with pink turbinates. THROAT: No erythema or exudates. NECK: No masses, no JVD. CHEST: No chest wall deformity. LUNGS: Equal air entry with bilateral end expiratory wheeze. CVS: S1 and S2 normal with no audible murmur, regular rhythm. ABDOMEN: No hepatosplenomegaly, normal bowel sounds, no guarding or rigidity. SPINE: No scoliosis or deformity SKIN: No rashes CENTRAL NERVOUS SYSTEM: No focal deficits, tone is normal in all 4 extremities. EXTREMITIES: There is no peripheral edema. No clubbing, no cyanosis. Peripheral pulses are intact. - Labs CBC & Chem 7: 09/13/23 04:59 09/13/23 04:59 Assessment and Plan Assessment: Acute chronic hypoxemic respiratory failure, secondary to COPD exacerbation, pneumonia ruled out due to pro calcitonin less than 0.02.. History of hypertension. History of gastroesophageal reflux disease. History of diverticulitis. History of osteoporosis. Previous history of C. difficile colitis. Prior history of heavy tobacco use. History of osteoarthritis. Plan: The patient was seen and evaluated Labs and medications reviewed Pro calcitonin negative Discontinued Augmentin Cleared for discharge from pulmonary standpoint Continue her home pulmonary medications, home oxygen Complete a prednisone taper starting at 40 mg daily 4 days Follow-up with in our office in 1 week. This patient was seen independently by the nurse practitioner I have personally seen and examined the patient, performed the documentation and the assessment and plan as written. Number of minutes spent on the visit: 22.
[2023-09-14] MEDS: BUDESONIDE 1 MG/2 ML NEBU INHALATION SCH (08:23)
[2023-09-14] MEDS: IPRATROPIUM-ALBUTEROL 3 ML NEB INHALATION SCH ×3 (08:23→15:36)
[2023-09-14] MEDS: FORMOTEROL FUMARATE 20 MCG/2 ML NEBU INHALATION SCH (08:23)
[2023-09-14] MEDS: HYDROcodone/APAP 7.5-325MG 1 EACH TAB PO PRN (08:29)
[2023-09-14] MEDS: METOPROLOL TARTRATE 12.5 MG TAB PO SCH (08:29)
[2023-09-14] MEDS: GABAPENTIN 300 MG CAP PO SCH (08:31)
[2023-09-14] MEDS: predniSONE 20 MG TAB PO SCH (08:31)
[2023-09-14] MEDS: MEMANTINE 5 MG TAB PO SCH (08:31)
[2023-09-14] MEDS: FAMOTIDINE 20 MG TAB PO SCH (08:31)
[2023-09-14] MEDS: APIXABAN 5 MG TAB PO SCH (08:34)
[2023-09-14] MEDS ORDERED: MAGNESIUM OXIDE 400 MG TAB PO SCH (10:45)
[2023-09-14 12:46] VITALS: BP 118/65; PULSE 74; RESP 20; TEMP 98.5
[2023-09-14 12:50] LABS: Blood Urea Nitrogen 7.8 mg/dL (9.0-27.0); Calcium 8.4 mg/dL (8.7-10.3); Carbon Dioxide 34.6 mmol/L (21.6-31.8); Chloride 90 mmol/L (96-109); Glucose 68 mg/dL (70-110); Potassium 4.2 mmol/L (3.5-5.5); Sodium 134 mmol/L (135-145)
[2023-09-14] MEDS: DORZOLAMIDE HCL 2% DROPS 10 ML BTL BOTH EYES SCH (15:03)
--- NOTE | 2023-09-17 14:00 | P.DS ---
Providers Date of admission: 09/13/23 07:26 Attending physician: Josef So MD Consults: 09/13/23 07:34 Consult Physician Stat Consulting Provider: Jason Robles Reason/Comments: COPD exacerbation Do you want consulting provider notified?: Yes, Notify in am Primary care physician: Vern Rodriguez [facility] Course: Final Diagnosis Acute chronic hypoxemic respiratory failure, secondary to COPD exacerbation, pneumonia ruled out due to pro calcitonin less than 0.02 History of hypertension History of paroxysmal atrial fibrillation anticoagulated with eliquis History of gastroesophageal reflux disease History of diverticulitis History of osteoporosis Previous history of C. difficile colitis Prior history of heavy tobacco use GI prophylaxis Discharge Disposition Patient is stable for discharge home. Has been weaned back to her usual home oxygen level at 2L. Patient was cleared by pulmonary to follow up in the office. She is given an oral prednisone taper. Patient to continue all other same home medications. Repeat a BMP in 2 to 3 days. Follow up with PCP Dr. Vern Rodriguez. Hospital Course This is a 72-year-old female came in with complaints of shortness of breath found to be in COPD exacerbation. Patient uses 2 L of oxygen at home patient has stage IV advanced emphysema, and also has history of GERD, diverticulitis, C.Dif colitis, atrial fibrillation, hypertension, patient quit smoking many years ago. Patient is hyponatremic on admission. Patient does have chronic hyponatremia. Patient has cough with occasional sputum production. Was admitted to the hospital with consult placed to pulmonary and was given a dose of IV steroids. Chest x-ray showing bilateral infiltrates was recently treated for pneumonia patient doesn't have any leukocytosis or any clinical evidence of infection at this time and a procalcitonin level was normal and negative at 0.02. Patient will be treated for an acute COPD exacerbation likely to a viral illness. Her sodium did improve to 134. CO2 is down to 34.6 from 43. Covid, infleunza and rsv are negative. No shortness of breath and no chest pain. Patient does have some faint scattered wheezing. She was cleared for discharge home with the above mentioned recommendations. Please see medication reconciliation for a list of current medications. Thank you for allowing us to participate in the care of this patient. The impression and plan of care has been dictated by Lizz Ng, Nurse Practitioner as directed. Dr. New MD I have performed a history and physical examination and medical decision making of this patient, discussed the same with the dictator, and agree with the dictators assessment and plan as written, documented as a scribe. Based on total visit time, I have performed more than 50% of this visit. Patient Condition at Discharge: Fair Plan - Discharge Summary Discharge Rx Participant: No New Discharge Prescriptions: New predniSONE 0 mg PO DIRECTED 10 Days #30 tab Continue Budesonide-Formot 160-4.5 Mcg [Symbicort 160-4.5 Mcg Inhaler] 2 puff INHALATION RT-BID Famotidine [Pepcid] 20 mg PO BID Atorvastatin Calcium [Lipitor] 10 mg PO HS Dorzolamide 2% [Trusopt 2%] 1 drop BOTH EYES BID Apixaban [Eliquis] 5 mg PO BID tab Gabapentin [Neurontin] 300 mg PO BID #4 cap Metoprolol Tartrate [Lopressor] 12.5 mg PO BID Ipratropium-Albuterol Nebulize [Duoneb 0.5 mg-3 mg/3 ml Soln] 3 ml INHALATION RT-Q2H PRN each PRN Reason: Shortness Of Breath Or Wheezing Diltiazem Oral [Cardizem*] 30 mg PO BID Albuterol Inhaler [Ventolin Hfa Inhaler] 2 puff INHALATION RT-Q6H PRN PRN Reason: Shortness Of Breath Memantine [Namenda] 5 mg PO BID Ondansetron [Ondansetron Odt] 4 mg PO Q8H PRN PRN Reason: Nausea And Vomiting Ipratropium-Albuterol Nebulize [Duoneb 0.5 mg-3 mg/3 ml Soln] 3 ml INHALATION RT-QID #100 each HYDROcodone/APAP 7.5-325MG [Dumas 7.5-325] 1 tab PO QID PRN PRN Reason: Pain Discharge Medication List Budesonide-Formot 160-4.5 Mcg [Symbicort 160-4.5 Mcg Inhaler] 2 puff INHALATION RT-BID 04/03/19 [History] Famotidine [Pepcid] 20 mg PO BID 11/06/19 [History] Atorvastatin Calcium [Lipitor] 10 mg PO HS 03/28/22 [History] Diltiazem Oral [Cardizem*] 30 mg PO BID 03/28/22 [History] Albuterol Inhaler [Ventolin Hfa Inhaler] 2 puff INHALATION RT-Q6H PRN 05/15/23 [History] Dorzolamide 2% [Trusopt 2%] 1 drop BOTH EYES BID 05/15/23 [History] Memantine [Namenda] 5 mg PO BID 05/15/23 [History] Apixaban [Eliquis] 5 mg PO BID tab 05/25/23 [Rx] Gabapentin [Neurontin] 300 mg PO BID #4 cap 05/25/23 [Rx] Metoprolol Tartrate [Lopressor] 12.5 mg PO BID 07/01/23 [History] Ondansetron [Ondansetron Odt] 4 mg PO Q8H PRN 07/01/23 [History] Ipratropium-Albuterol Nebulize [Duoneb 0.5 mg-3 mg/3 ml Soln] 3 ml INHALATION RT-Q2H PRN each 07/04/23 [Rx] Ipratropium-Albuterol Nebulize [Duoneb 0.5 mg-3 mg/3 ml Soln] 3 ml INHALATION RT-QID #100 each 07/04/23 [Rx] HYDROcodone/APAP 7.5-325MG [Dumas 7.5-325] 1 tab PO QID PRN 09/13/23 [History] predniSONE 0 mg PO DIRECTED 10 Days #30 tab 09/14/23 [Rx] Follow up Appointment(s)/Referral(s): Jason Robles DO [Doctor of Osteopathic Medicine] - 10/19/23 1:30 pm Vern Rodriguez DO [Primary Care Provider] - 09/21/23 2:00 pm Ambulatory/Diagnostic Orders: Basic Metabolic Panel [LAB.AMB] Time Frame: 3 Days, Location: None Selected Patient Instructions/Handouts: Prednisone (By mouth), COPD (Chronic Obstructive Pulmonary Disease) (DC) Discharge/Stand Alone Forms: Who Do I Call?, Community Resources, Help In The Home, Personal Compliance Testing Analyst Discharge Disposition: HOME SELF-CARE
== END 2023-09-14 15:34 | disposition home or self-care (01) ==
LOC: EC 04:11 → INTOOBSV 07:26 → 5NMEDONC 07:26 → UNDODISIN 09-14 15:34
PROVIDERS: ADMIT Internal Medicine; ATTEND Internal Medicine
DX: J44.1 Chronic obstructive pulmonary disease with (acute) exacerbation (principal); J96.22 Acute and chronic respiratory failure with hypercapnia; J44.0 Chronic obstructive pulmonary disease with (acute) lower respiratory infection; J18.9 Pneumonia, unspecified organism; J43.9 Emphysema, unspecified; E87.1 Hypo-osmolality and hyponatremia; E87.29 Other acidosis; K21.9 Gastro-esophageal reflux disease without esophagitis; I10 Essential (primary) hypertension; M81.0 Age-related osteoporosis without current pathological fracture; M19.90 Unspecified osteoarthritis, unspecified site; I48.0 Paroxysmal atrial fibrillation; Z20.822 Contact with and (suspected) exposure to COVID-19; Z87.19 Personal history of other diseases of the digestive system; Z87.891 Personal history of nicotine dependence; Z99.81 Dependence on supplemental oxygen; Z79.51 Long term (current) use of inhaled steroids; Z79.899 Other long term (current) drug therapy; Z79.52 Long term (current) use of systemic steroids; Z79.01 Long term (current) use of anticoagulants; Z88.1 Allergy status to other antibiotic agents
CPT/HCPCS: 96360; 96361; 99285; 36415; 94640 ×4; 94760 ×2; 93005; 92610; 83880; 80053; 80048; 83605; 83735; 84484; 85025; 85610; 85730; 84145; 87636; 71046; G0378 ×2; J7512 ×2

== ENCOUNTER 2023-09-26 08:54 | Inpatient (IN) | payer MEDICARE, OTHER ==
[2023-09-26] MEDS ORDERED: MAGNESIUM SULFATE-D5W PMX 1 GM in DEXTROSE/WATER 1 100ML.BAG IVPB STA (09:03)
[2023-09-26] MEDS ORDERED: IPRATROPIUM-ALBUTEROL 3 ML NEB INHALATION STA (09:03)
[2023-09-26 09:33] LABS: Basophils % (A) 0 %; Eosinophils # (A) 0.1 k/uL (0-0.7); Eosinophils % (A) 1 %; HCT 45.4 % (34.0-46.0); HGB 13.8 gm/dL (11.4-16.0); Hypochromasia Marked; Lymphocytes % (A) 22 %; MCH 28.9 pg (25.0-35.0); MCHC 30.4 g/dL (31.0-37.0); MCV 95.1 fL (80.0-100.0); Mean Platelet Volume 7.2; Monocytes # (A) 0.8 k/uL (0-1.0); Monocytes % (A) 9 %; Neutrophils # (A) 5.9 k/uL (1.3-7.7); Neutrophils % (A) 66 %; Platelet Count 161 k/uL (150-450); RBC 4.77 m/uL (3.80-5.40); RDW 12.8 % (11.5-15.5)
[2023-09-26 09:35] LABS: VBG PH 7.22 (7.31-7.41)
[2023-09-26 09:43] LABS: ABG Base Excess 20.2 mmol/L; ABG Oxygen Saturation 84.5 % (94-97); ABG PH 7.29 (7.35-7.45); ABG TCO2 50 mmol/L (19-24); Allen Test Performed? Yes
[2023-09-26 09:44] LABS: INR 1.1 (<1.2); Partial Thromboplastin Time 28.6 sec (22.0-30.0); Prothrombin Time 12.1 sec (10.0-12.5)
--- NOTE | 2023-09-26 09:44 | CT ---
EXAMINATION TYPE: CT brain wo con CT DLP: 2535.6 mGycm, Automated exposure control for dose reduction was used. DATE OF EXAM: 09/26/2023 9:39 AM COMPARISON: Prior CT Brain from 12/06/2021 . CLINICAL INDICATION:Female, 72 years old with history of confusion, Confusion, increased AMS TECHNIQUE: Brain: Multiple axial CT images of the brain were obtained without IV contrast. Coronal and sagittal reformats reviewed. FINDINGS: Brain: Motion degraded examination. Extra-axial spaces: No abnormal extra-axial fluid collections. Ventricular system: Within normal limits Cerebral parenchyma: Cerebral atrophy. No acute intraparenchymal hemorrhage or mass effect. The latif -white junction is well differentiated. Scattered hypoattenuating areas are seen within the white mat ter. Cerebellum: Unremarkable. Mass effect: No evidence of midline shift. Intracranial vasculature: Atherosclerotic calcifications of the intracranial vessels. Soft tissues: Normal. Calvarium/osseous structures: No gross evidence of depressed skull fracture. Paranasal sinuses and mastoid air cells: Clear Visualized orbits: Bilateral aphakia IMPRESSION: Motion degraded examination. 1. No acute intracranial process. 2. Nonspecific white matter changes, likely secondary to chronic small vessel ischemic disease.
[2023-09-26 09:55] LABS: ALT 17 U/L (4-34); AST 30 U/L (14-36); African American GFR (CKD) >90 (>60 ml/min/1.73 sqM); Albumin 3.7 g/dL (3.5-5.0); Alkaline Phosphatase 48 U/L (38-126); Blood Urea Nitrogen 9 mg/dL (7-17); Calcium 8.6 mg/dL (8.4-10.2); Chloride 78 mmol/L (98-107); Glucose 92 mg/dL (74-99); Non-African American GFR(CKD) >90 (>60 ml/min/1.73 sqM); Potassium 4.5 mmol/L (3.5-5.1); Sodium 128 mmol/L (137-145); Total Bilirubin 0.8 mg/dL (0.2-1.3); Total Protein 6.5 g/dL (6.3-8.2)
[2023-09-26 09:57] LABS: ABG PCO2 97 mmHg (35-45)
[2023-09-26 09:58] LABS: ABG HCO3 47 mmol/L (21-25); ABG PO2 44 mmHg (83-108)
[2023-09-26 10:02] LABS: Anion Gap 5 mmol/L
[2023-09-26 10:04] LABS: NT-Pro-B-Type Natriuretic Pept 336 pg/mL
[2023-09-26 10:06] LABS: Carbon Dioxide 45 mmol/L (22-30)
--- NOTE | 2023-09-26 10:12 | ED ---
General Adult HPI - General Chief complaint: Altered Mental Status Stated complaint: ALT MENTAL Time Seen by Provider: 09/26/23 09:00 Source: patient Mode of arrival: EMS Limitations: no limitations - History of Present Illness Initial comments: 72-year-old female past history of COPD on 2 L home O2 who presents to the emergency department with altered mental status. Her cousin is at bedside and provides a history. States that when she saw the patient earlier today she seemed confused. She was recently hospitalized for COPD exacerbation. She was supposed to take it prednisone taper however because and found the whole bottle at home. It appeared that the patient did not take any of the steroids. She does take chronic steroids daily. They deny that she has had any falls. She does take Eliquis. Oxygen saturations were found to be 92% on the patient's 2 L however she was very latif in color. EMS put her up to 6 L. Patient does not know her date. She denies any chest pain. No cough. Remainder of HPI is limited because the patient's current condition. Unknown last well time - Related Data Home Medications Medication Instructions Recorded Confirmed Budesonide-Formot 160-4.5 Mcg 2 puff INHALATION RT-BID 04/03/19 09/26/23 [Symbicort 160-4.5 Mcg Inhaler] Famotidine [Pepcid] 20 mg PO BID 11/06/19 09/26/23 Atorvastatin Calcium [Lipitor] 10 mg PO HS 03/28/22 09/26/23 Diltiazem Oral [Cardizem*] 30 mg PO BID 03/28/22 09/26/23 Albuterol Inhaler [Ventolin Hfa 2 puff INHALATION RT-Q6H PRN 05/15/23 09/26/23 Inhaler] Dorzolamide 2% [Trusopt 2%] 1 drop BOTH EYES BID 05/15/23 09/26/23 Memantine [Namenda] 5 mg PO BID 05/15/23 09/26/23 Metoprolol Tartrate [Lopressor] 12.5 mg PO BID 07/01/23 09/26/23 Ondansetron [Ondansetron Odt] 4 mg PO Q8H PRN 07/01/23 09/26/23 HYDROcodone/APAP 7.5-325MG [[place] 1 tab PO QID PRN 09/13/23 09/26/23 7.5-325] Albuterol Nebulized [Ventolin 2.5 mg INHALATION RT-QID 09/26/23 09/26/23 Nebulized] Metoprolol Tartrate [Lopressor] 12.5 mg PO BID PRN 09/26/23 09/26/23 predniSONE 5 mg PO DAILY 09/26/23 09/26/23 Previous Rx's Medication Instructions Recorded Apixaban [Eliquis] 5 mg PO BID tab 05/25/23 Gabapentin [Neurontin] 300 mg PO BID #4 cap 05/25/23 Doxycycline [Vibramycin] 100 mg PO BID 3 Days #6 cap 09/28/23 predniSONE [Deltasone] 40 mg PO DAILY 5 Days #5 tab 09/28/23 Allergies Allergy/AdvReac Type Severity Reaction Status Date / Time alprazolam [From Xanax] Allergy Anaphylaxis Verified 09/26/23 13:59 dextromethorphan Allergy Unknown Verified 09/26/23 13:59 [From Mucinex DM] methylprednisolone Allergy Rash/Hives Verified 09/26/23 13:59 [From Solu-Medrol] diltiazem AdvReac Intermediate Abdominal Verified 09/26/23 13:59 Pain donepezil [From Aricept] AdvReac Nausea & Verified 09/26/23 13:59 Vomiting guaifenesin [From Mucinex DM] AdvReac Diarrhea Verified 09/26/23 13:59 levofloxacin [From Levaquin] AdvReac Nausea, Verified 09/26/23 13:59 Diarrhea , States she got C-Diff after, Migraines roflumilast [From Daliresp] AdvReac Nausea & Verified 09/26/23 13:59 Vomiting & Diarrhea Review of Systems ROS Statement: Those systems with pertinent positive or pertinent negative responses have been documented in the HPI. ROS Other: All systems not noted in ROS Statement are negative. Past Medical History Past Medical History: COPD, GERD/Reflux, Hearing Disorder / Deafness, Hypertension, Osteoarthritis (OA), Respiratory Disorder Additional Past Medical History / Comment(s): HX POLYPS, DIVERTICULI. Osteoporosis. ICU - History of Any Multi-Drug Resistant Organisms: C-DIFF Date of last positivie culture/infection: 2013 approx MDRO Source:: stool Past Surgical History: Back Surgery, Bowel Resection, Joint Replacement, Orthopedic Surgery Additional Past Surgical History / Comment(s): RIGHT KNEE REPLACEMENT, LEFT LEG ORIF-removed, LIZZIE CARPAL TUNNEL,. Bilateral cataract surgery,plate rt foot Additional Past Anesthesia/Blood Transfusion Reaction / Comment(s): STATES NO EPIDURALS R/T GETTING SEVERE MIGRAINES Past Psychological History: No Psychological Hx Reported Smoking Status: Former smoker Past Alcohol Use History: None Reported Past Drug Use History: None Reported - Past Family History Mother Family Medical History: Hypertension Father Family Medical History: Cancer Additional Family Medical History / Comment(s): aneurysms,prostate General Exam Limitations: altered mental status General appearance: lethargic Head exam: Present: atraumatic, normocephalic, normal inspection Eye exam: Present: normal appearance, PERRL, EOMI. Absent: scleral icterus, conjunctival injection, periorbital swelling Respiratory exam: Present: wheezes, accessory muscle use, decreased breath sounds Cardiovascular Exam: Present: regular rate, normal rhythm, normal heart sounds. Absent: systolic murmur, diastolic murmur, rubs, gallop, clicks GI/Abdominal exam: Present: soft, normal bowel sounds. Absent: distended, tenderness, guarding, rebound, rigid Neurological exam: Present: altered, CN II-XII intact Psychiatric exam: Present: flat affect Skin exam: Present: cyanosis Course Vital Signs 09/26/23 09/26/23 09/26/23 08:57 09:01 09:06 Temperature 97.2 F L 97.2 F L Pulse Rate 67 78 78 Respiratory 20 28 H Rate Blood Pressure 140/71 145/72 O2 Sat by Pulse 100 99 Oximetry Fraction of Inspired Oxygen (FIO2) 09/26/23 09/26/23 09/26/23 09:15 09:22 09:50 Temperature 97.5 F L Pulse Rate 75 80 Respiratory 24 Rate Blood Pressure 145/72 O2 Sat by Pulse 99 Oximetry Fraction of 50 Inspired Oxygen (FIO2) 09/26/23 09/26/23 09/26/23 09:56 10:01 11:42 Temperature Pulse Rate 79 81 Respiratory 18 Rate Blood Pressure 100/53 O2 Sat by Pulse 98 Oximetry Fraction of 50 28 Inspired Oxygen (FIO2) 09/26/23 09/26/23 09/26/23 11:43 12:08 12:21 Temperature Pulse Rate 86 87 Respiratory 20 Rate Blood Pressure 113/64 O2 Sat by Pulse 91 L Oximetry Fraction of 40 Inspired Oxygen (FIO2) 09/26/23 09/26/23 09/26/23 13:00 14:00 15:00 Temperature Pulse Rate 84 86 90 Respiratory 20 20 20 Rate Blood Pressure 125/60 120/67 124/59 O2 Sat by Pulse 95 96 97 Oximetry Fraction of Inspired Oxygen (FIO2) 09/26/23 09/26/23 09/26/23 15:35 15:46 16:37 Temperature Pulse Rate 89 88 Respiratory Rate Blood Pressure O2 Sat by Pulse Oximetry Fraction of 30 30 Inspired Oxygen (FIO2) 09/26/23 09/26/23 17:10 17:17 Temperature Pulse Rate 68 68 Respiratory 16 16 Rate Blood Pressure 160/80 136/60 O2 Sat by Pulse 98 98 Oximetry Fraction of Inspired Oxygen (FIO2) Medical Decision Making - Medical Decision Making Was pt. sent in by a medical professional or institution (, PA, [facility], urgent care, hospital, or intermediate...) When possible be specific @ -No Did you speak to anyone other than the patient for history (EMS, parent, family, police, friend...)? What history was obtained from this source @ -ems Did you review nursing and triage notes (agree or disagree)? Why? @ -I reviewed and agree with nursing and triage notes Were old charts reviewed (outside hosp., previous admission, EMS record, old EKG, old radiological studies, urgent care reports/EKG's, intermediate records)? Report findings @ -old charts reviewed - patient just discharged from [facility] and i reviewed discharge summary Differential Diagnosis (chest pain, altered mental status, abdominal pain women, abdominal pain men, vaginal bleeding, weakness, fever, dyspnea, syncope, headache, dizziness, GI bleed, back pain, seizure, CVA, palpatations, mental health, musculoskeletal)? @ -chf exacerbation, copd exacerbation, uti, sah, sdh, medication overdose EKG interpreted by me (3pts min.). @ -yes and demonstrates sinus rhythm with rate of 77. VT interval 149. QRS E4. QTC of 368. No acute ST segment elevations or depressions Repeat done at 9:20 demonstrates sinus rhythm with rate of 80. VT interval 143. QRS 87. QTC of 367. No acute ST segment elevations or depressions X-rays interpreted by me (1pt min.). @ -yes - no acute process CT interpreted by me (1pt min.). @ -None done U/S interpreted by me (1pt. min.). @ -None done What testing was considered but not performed or refused? (CT, X-rays, U/S, labs)? Why? @ -None What meds were considered but not given or refused? Why? @ -None Did you discuss the management of the patient with other professionals (professionals i.e. , PA, [facility], lab, RT, psych nurse, health social work professor, financial management consultant, teacher, radio division officer, rn case mgr)? Give summary @ -Dr. Hannon Was smoking cessation discussed for >3mins.? @ -No Was critical care preformed (if so, how long)? @ -yes, 40 minutes for bipap management Were there social determinants of health that impacted care today? How? (Homelessness, low income, unemployed, alcoholism, drug addiction, transportation, low edu. Level, literacy, decrease access to med. care, custodial, rehab)? @ -No Was there de-escalation of care discussed even if they declined (Discuss DNR or withdrawal of care, Hospice)? DNR status @ -yes - patient wants to be a dni What co-morbidities impacted this encounter? (DM, HTN, Smoking, COPD, CAD, Cancer, CVA, ARF, Chemo, Hep., AIDS, mental health diagnosis, sleep apnea, morbid obesity)? @ -copd Was patient admitted / discharged? Hospital course, mention meds given and route, prescriptions, significant lab abnormalities, going to OR and other pertinent info. @ -Upon arrival patient was placed into room trauma 2. There are history of physical exam was performed. Laboratory studies are conducted. She is place on continuous pulse ox and cardiac monitoring. A VBG and ABG are obtained. CO2 is markedly elevated and therefore patient is placed on BiPAP. I did give her oral steroids that she is ALLERGIC to IV steroids. She is also given magnesium and a breathing treatment. She was given a breathing treatment in route. Patient will be admitted for BiPAP dependent respiratory failure. I will consult pulmonology. I spoke with Dr. Hannon for admission. Undiagnosed new problem with uncertain prognosis? @ -No Drug Therapy requiring intensive monitoring for toxicity (Heparin, Nitro, Insulin, Cardizem)? @ -No Were any procedures done? @ -No Diagnosis/symptom? @ -acute bipap dependant resp failure, aecopf, hypercarbia Acute, or Chronic, or Acute on Chronic? @ -acute Uncomplicated (without systemic symptoms) or Complicated (systemic symptoms)? @ -complicated Side effects of treatment? @ -No Exacerbation, Progression, or Severe Exacerbation? @ -yes Poses a threat to life or bodily function? How? (Chest pain, [place], [place], pneumonia, PE, COPD, DKA, ARF, appy, cholecystitis, CVA, Diverticulitis, Homicidal, Suicidal, threat to staff... and all critical care pts) @ -yes patient has markedly elevated co2 levels leading to alteration in consciousness - Lab Data Result diagrams: 09/27/23 08:02 09/28/23 08:24 Lab Results 09/26/23 09/26/23 09/26/23 Range/Units 09:04 09:04 09:04 WBC 9.0 (3.8-10.6) k/uL RBC 4.77 (3.80-5.40) m/uL Hgb 13.8 (11.4-16.0) gm/dL Hct 45.4 (34.0-46.0) % MCV 95.1 (80.0-100.0) fL MCH 28.9 (25.0-35.0) pg MCHC 30.4 L (31.0-37.0) g/dL RDW 12.8 (11.5-15.5) % Plt Count 161 (150-450) k/uL MPV 7.2 Neutrophils % 66 % Lymphocytes % 22 % Monocytes % 9 % Eosinophils % 1 % Basophils % 0 % Neutrophils # 5.9 (1.3-7.7) k/uL Lymphocytes # 2.0 (1.0-4.8) k/uL Monocytes # 0.8 (0-1.0) k/uL Eosinophils # 0.1 (0-0.7) k/uL Basophils # 0.0 (0-0.2) k/uL Manual Slide Review Performed Hypochromasia Marked PT (10.0-12.5) sec INR (<1.2) APTT (22.0-30.0) sec Sample Site ABG pH (7.35-7.45) ABG pCO2 (35-45) mmHg ABG pO2 (83-108) mmHg ABG HCO3 (21-25) mmol/L ABG Total CO2 (19-24) mmol/L ABG O2 Saturation (94-97) % ABG Base Excess mmol/L Brandon Test VBG pH 7.22 L (7.31-7.41) VBG pCO2 116 H* (37-51) mmHg VBG HCO3 48 H (24-28) mmol/L FiO2 % Sodium (137-145) mmol/L Potassium (3.5-5.1) mmol/L Chloride (98-107) mmol/L Carbon Dioxide (22-30) mmol/L Anion Gap mmol/L BUN (7-17) mg/dL Creatinine (0.52-1.04) mg/dL Est GFR (CKD-EPI)AfAm (>60 ml/min/1.73 sqM) Est GFR (CKD-EPI)NonAf (>60 ml/min/1.73 sqM) Glucose (74-99) mg/dL Plasma Lactic Acid Robert 0.6 L (0.7-2.0) mmol/L Calcium (8.4-10.2) mg/dL Total Bilirubin (0.2-1.3) mg/dL AST (14-36) U/L ALT (4-34) U/L Alkaline Phosphatase (38-126) U/L Troponin I (0.000-0.034) ng/mL NT-Pro-B Natriuret Pep pg/mL Total Protein (6.3-8.2) g/dL Albumin (3.5-5.0) g/dL 09/26/23 09/26/23 09/26/23 Range/Units 09:04 09:04 09:04 WBC (3.8-10.6) k/uL RBC (3.80-5.40) m/uL Hgb (11.4-16.0) gm/dL Hct (34.0-46.0) % MCV (80.0-100.0) fL MCH (25.0-35.0) pg MCHC (31.0-37.0) g/dL RDW (11.5-15.5) % Plt Count (150-450) k/uL MPV Neutrophils % % Lymphocytes % % Monocytes % % Eosinophils % % Basophils % % Neutrophils # (1.3-7.7) k/uL Lymphocytes # (1.0-4.8) k/uL Monocytes # (0-1.0) k/uL Eosinophils # (0-0.7) k/uL Basophils # (0-0.2) k/uL Manual Slide Review Hypochromasia PT 12.1 (10.0-12.5) sec INR 1.1 (<1.2) APTT 28.6 (22.0-30.0) sec Sample Site ABG pH (7.35-7.45) ABG pCO2 (35-45) mmHg ABG pO2 (83-108) mmHg ABG HCO3 (21-25) mmol/L ABG Total CO2 (19-24) mmol/L ABG O2 Saturation (94-97) % ABG Base Excess mmol/L Brandon Test VBG pH (7.31-7.41) VBG pCO2 (37-51) mmHg VBG HCO3 (24-28) mmol/L FiO2 % Sodium 128 L (137-145) mmol/L Potassium 4.5 (3.5-5.1) mmol/L Chloride 78 L (98-107) mmol/L Carbon Dioxide 45 H* (22-30) mmol/L Anion Gap 5 mmol/L BUN 9 (7-17) mg/dL Creatinine 0.39 L (0.52-1.04) mg/dL Est GFR (CKD-EPI)AfAm >90 (>60 ml/min/1.73 sqM) Est GFR (CKD-EPI)NonAf >90 (>60 ml/min/1.73 sqM) Glucose 92 (74-99) mg/dL Plasma Lactic Acid Robert (0.7-2.0) mmol/L Calcium 8.6 (8.4-10.2) mg/dL Total Bilirubin 0.8 (0.2-1.3) mg/dL AST 30 (14-36) U/L ALT 17 (4-34) U/L Alkaline Phosphatase 48 (38-126) U/L Troponin I <0.012 (0.000-0.034) ng/mL NT-Pro-B Natriuret Pep 336 pg/mL Total Protein 6.5 (6.3-8.2) g/dL Albumin 3.7 (3.5-5.0) g/dL 09/26/23 Range/Units 09:39 WBC (3.8-10.6) k/uL RBC (3.80-5.40) m/uL Hgb (11.4-16.0) gm/dL Hct (34.0-46.0) % MCV (80.0-100.0) fL MCH (25.0-35.0) pg MCHC (31.0-37.0) g/dL RDW (11.5-15.5) % Plt Count (150-450) k/uL MPV Neutrophils % % Lymphocytes % % Monocytes % % Eosinophils % % Basophils % % Neutrophils # (1.3-7.7) k/uL Lymphocytes # (1.0-4.8) k/uL Monocytes # (0-1.0) k/uL Eosinophils # (0-0.7) k/uL Basophils # (0-0.2) k/uL Manual Slide Review Hypochromasia PT (10.0-12.5) sec INR (<1.2) APTT (22.0-30.0) sec Sample Site lrad ABG pH 7.29 L (7.35-7.45) ABG pCO2 97 H* (35-45) mmHg ABG pO2 44 L* (83-108) mmHg ABG HCO3 47 H* (21-25) mmol/L ABG Total CO2 50 H (19-24) mmol/L ABG O2 Saturation 84.5 L (94-97) % ABG Base Excess 20.2 mmol/L Brandon Test Yes VBG pH (7.31-7.41) VBG pCO2 (37-51) mmHg VBG HCO3 (24-28) mmol/L FiO2 32 % Sodium (137-145) mmol/L Potassium (3.5-5.1) mmol/L Chloride (98-107) mmol/L Carbon Dioxide (22-30) mmol/L Anion Gap mmol/L BUN (7-17) mg/dL Creatinine (0.52-1.04) mg/dL Est GFR (CKD-EPI)AfAm (>60 ml/min/1.73 sqM) Est GFR (CKD-EPI)NonAf (>60 ml/min/1.73 sqM) Glucose (74-99) mg/dL Plasma Lactic Acid Robert (0.7-2.0) mmol/L Calcium (8.4-10.2) mg/dL Total Bilirubin (0.2-1.3) mg/dL AST (14-36) U/L ALT (4-34) U/L Alkaline Phosphatase (38-126) U/L Troponin I (0.000-0.034) ng/mL NT-Pro-B Natriuret Pep pg/mL Total Protein (6.3-8.2) g/dL Albumin (3.5-5.0) g/dL Disposition Clinical Impression: Acute respiratory insufficiency, BiPAP (biphasic positive airway pressure) dependence, COPD exacerbation, Hypercarbia Disposition: ADMITTED IP TO THIS HOSP Condition: Good Is patient prescribed a controlled substance at d/c from ED?: No Time of Disposition: 10:20 Decision to Admit Reason: Admit from EC Decision Date: 09/26/23 Decision Time: 10:20
--- NOTE | 2023-09-26 10:16 | XR ---
EXAMINATION TYPE: XR chest 1V portable DATE OF EXAM: 09/26/2023 10:10 AM COMPARISON: Chest radiographs from 09/13/2023 TECHNIQUE: XR chest 1V portable Portable AP radiograph of the chest. CLINICAL INDICATION:Female, 72 years old with history of difficulty breathing; FINDINGS: Patient is rotated which limits evaluation. Lungs/Pleura: There is no evidence of pleural effusion, focal consolidation, or pneumothorax. Chroni c senescent parenchymal change. Hyperinflation compatible with COPD. Pulmonary vascularity: Unremarkable. Heart/mediastinum: Cardiomediastinal silhouette is unremarkable. Atherosclerotic calcifications are seen in the aorta. Musculoskeletal: No acute osseous pathology. IMPRESSION: 1. No acute cardiopulmonary disease/process. 2. COPD changes.
[2023-09-26] MEDS ORDERED: predniSONE 20 MG TAB PO STA (10:18)
[2023-09-26] MEDS ORDERED: NALOXONE 0.4 MG/ML 1 ML VIAL IV PRN ×2 (10:21→13:47)
[2023-09-26] MEDS: IPRATROPIUM-ALBUTEROL 3 ML NEB INHALATION SCH ×3 (11:41→20:55)
[2023-09-26 12:11] LABS: ABG Base Excess 21.6 mmol/L; ABG Oxygen Saturation 89.1 % (94-97); ABG TCO2 49 mmol/L (19-24); Allen Test Performed? Yes
[2023-09-26 12:13] LABS: ABG HCO3 47 mmol/L (21-25); ABG PCO2 76 mmHg (35-45); ABG PO2 46 mmHg (83-108)
[2023-09-26] MEDS: DOXYCYCLINE 100 MG CAP PO SCH ×2 (12:56→21:45)
[2023-09-26] MEDS ORDERED: ACETAMINOPHEN TAB 325 MG TAB PO PRN (13:47)
--- NOTE | 2023-09-26 16:20 | P.CNPUL ---
History of Present Illness Consult date: 09/26/23 Requesting physician: Josef E Saray Reason for consult: dyspnea, COPD, hypoxemia Chief complaint: Shortness of breath, cough, congestion History of present illness: This is a 72-year-old female patient with a known history of stage IV oxygen- dependent, steroid-dependent chronic obstructive pulmonary disease, former smoker, hearing disorder, hypertension. He was recently discharged on 023 following COPD exacerbation, complicated by bilateral pneumonia. She is brought back to the emergency room early this morning with altered mental status and shortness of breath. Computed tomography scan of the brain revealed no acute intracranial process. Chest x-ray showed no acute cardiopulmonary process. Evidence of COPD. Arterial blood gases on 32% FiO2 revealed a PaO2 of 44, pCO2 of 97 and a pH of 7.29. She was placed on BiPAP 12/5 and 40% FiO2, titrated down to 28%. Follow-up blood gases revealed a PaO2 of 46, pCO2 of 76 and a pH of 7.40. She was brought back to 40% FiO2. White count 9.0. Hemoglobin 13.8. Platelets 161. Sodium 128. Potassium 4.5. Bicarb 45. BUN 9. Creatinine 0.39. Lactic acid 0.6. Troponin negative times one. ProBNP 336. She is seen today in consultation in the emergency department. She is on BiPAP. Minimally responsive. Most information is taken from her family is at the bedside. Review of Systems ROS unobtainable: due to mental status Past Medical History Past Medical History: COPD, GERD/Reflux, Hearing Disorder / Deafness, Hypertension, Osteoarthritis (OA), Respiratory Disorder Additional Past Medical History / Comment(s): HX POLYPS, DIVERTICULI. Osteoporosis. ICU - History of Any Multi-Drug Resistant Organisms: C-DIFF Date of last positivie culture/infection: 2013 approx MDRO Source:: stool Past Surgical History: Back Surgery, Bowel Resection, Joint Replacement, Orthopedic Surgery Additional Past Surgical History / Comment(s): RIGHT KNEE REPLACEMENT, LEFT LEG ORIF-removed, LIZZIE CARPAL TUNNEL,. Bilateral cataract surgery,plate rt foot Additional Past Anesthesia/Blood Transfusion Reaction / Comment(s): STATES NO EPIDURALS R/T GETTING SEVERE MIGRAINES Past Psychological History: No Psychological Hx Reported Smoking Status: Former smoker Past Alcohol Use History: None Reported Past Drug Use History: None Reported - Past Family History Mother Family Medical History: Hypertension Father Family Medical History: Cancer Additional Family Medical History / Comment(s): aneurysms,prostate Medications and Allergies Home Medications Medication Instructions Recorded Confirmed Type Budesonide-Formot 160-4.5 Mcg 2 puff INHALATION RT-BID 04/03/19 09/26/23 History [Symbicort 160-4.5 Mcg Inhaler] Famotidine [Pepcid] 20 mg PO BID 11/06/19 09/26/23 History Atorvastatin Calcium [Lipitor] 10 mg PO HS 03/28/22 09/26/23 History Diltiazem Oral [Cardizem*] 30 mg PO BID 03/28/22 09/26/23 History Albuterol Inhaler [Ventolin Hfa 2 puff INHALATION RT-Q6H PRN 05/15/23 09/26/23 History Inhaler] Dorzolamide 2% [Trusopt 2%] 1 drop BOTH EYES BID 05/15/23 09/26/23 History Memantine [Namenda] 5 mg PO BID 05/15/23 09/26/23 History Apixaban [Eliquis] 5 mg PO BID tab 05/25/23 09/26/23 Rx Gabapentin [Neurontin] 300 mg PO BID #4 cap 05/25/23 09/26/23 Rx Metoprolol Tartrate [Lopressor] 12.5 mg PO BID 07/01/23 09/26/23 History Ondansetron [Ondansetron Odt] 4 mg PO Q8H PRN 07/01/23 09/26/23 History HYDROcodone/APAP 7.5-325MG [[place] 1 tab PO QID PRN 09/13/23 09/26/23 History 7.5-325] Albuterol Nebulized [Ventolin 2.5 mg INHALATION RT-QID 09/26/23 09/26/23 History Nebulized] Metoprolol Tartrate [Lopressor] 12.5 mg PO BID PRN 09/26/23 09/26/23 History predniSONE 5 mg PO DAILY 09/26/23 09/26/23 History Allergies Allergy/AdvReac Type Severity Reaction Status Date / Time alprazolam [From Xanax] Allergy Anaphylaxis Verified 09/26/23 13:59 dextromethorphan Allergy Unknown Verified 09/26/23 13:59 [From Mucinex DM] methylprednisolone Allergy Rash/Hives Verified 09/26/23 13:59 [From Solu-Medrol] diltiazem AdvReac Intermediate Abdominal Verified 09/26/23 13:59 Pain donepezil [From Aricept] AdvReac Nausea & Verified 09/26/23 13:59 Vomiting guaifenesin [From Mucinex DM] AdvReac Diarrhea Verified 09/26/23 13:59 levofloxacin [From Levaquin] AdvReac Nausea, Verified 09/26/23 13:59 Diarrhea , States she got C-Diff after, Migraines roflumilast [From Daliresp] AdvReac Nausea & Verified 09/26/23 13:59 Vomiting & Diarrhea Physical Exam Vitals: Vital Signs Temp Pulse Resp BP Pulse Ox FiO2 09/26/23 15:35 89 30 09/26/23 15:00 90 20 124/59 97 09/26/23 14:00 86 20 120/67 96 09/26/23 13:00 84 20 125/60 95 09/26/23 12:21 40 09/26/23 12:08 87 09/26/23 11:43 86 20 113/64 91 L 09/26/23 11:42 81 28 09/26/23 10:01 79 18 100/53 98 09/26/23 09:56 50 09/26/23 09:50 50 09/26/23 09:22 80 09/26/23 09:15 97.5 F L 75 24 145/72 99 09/26/23 09:06 78 09/26/23 09:01 97.2 F L 78 28 H 145/72 99 09/26/23 08:57 97.2 F L 67 20 140/71 100 Intake and Output 09/26/23 09/26/23 09/26/23 06:59 14:59 22:59 Other: Weight 55.338 kg GENERAL EXAM: Arousable, frail 72-year-old female, on BiPAP 12/5 and 40% FiO2, fairly comfortable in no apparent distress. HEAD: Normocephalic. EYES: Normal reaction of pupils, equal size. NOSE: Clear with pink turbinates. THROAT: No erythema or exudates. NECK: No masses, no JVD. CHEST: No chest wall deformity. LUNGS: Equal air entry with no crackles, wheeze, rhonchi or dullness. Diminished throughout. CVS: S1 and S2 normal with no audible murmur, regular rhythm. ABDOMEN: No hepatosplenomegaly, normal bowel sounds, no guarding or rigidity. SPINE: No scoliosis or deformity SKIN: No rashes CENTRAL NERVOUS SYSTEM: Obtunded, tone is normal in all 4 extremities. EXTREMITIES: There is no peripheral edema. No clubbing, no cyanosis. Peripheral pulses are intact. Results - Laboratory Findings CBC and BMP: 09/26/23 09:04 09/26/23 09:04 ABG ABG pH 7.40 (7.35-7.45) 09/26/23 12:11 ABG pCO2 76 mmHg (35-45) H* 09/26/23 12:11 ABG pO2 46 mmHg (83-108) L* 09/26/23 12:11 ABG O2 Saturation 89.1 % (94-97) L 09/26/23 12:11 PT/INR, D-dimer PT 12.1 sec (10.0-12.5) 09/26/23 09:04 INR 1.1 (<1.2) 09/26/23 09:04 Abnormal lab findings: Abnormal Labs 09/26/23 09/26/23 09/26/23 09:04 09:04 09:04 MCHC 30.4 L ABG pH ABG pCO2 ABG pO2 ABG HCO3 ABG Total CO2 ABG O2 Saturation VBG pH 7.22 L VBG pCO2 116 H* VBG HCO3 48 H Sodium Chloride Carbon Dioxide Creatinine Plasma Lactic Acid Robert 0.6 L 09/26/23 09/26/23 09/26/23 09:04 09:39 12:11 MCHC ABG pH 7.29 L ABG pCO2 97 H* 76 H* ABG pO2 44 L* 46 L* ABG HCO3 47 H* 47 H* ABG Total CO2 50 H 49 H ABG O2 Saturation 84.5 L 89.1 L VBG pH VBG pCO2 VBG HCO3 Sodium 128 L Chloride 78 L Carbon Dioxide 45 H* Creatinine 0.39 L Plasma Lactic Acid Robert - Diagnostic Findings Chest x-ray: image reviewed (No acute pulmonary process) Assessment and Plan Assessment: Acute on chronic hypoxemic and hypercapnic respiratory failure secondary to an acute exacerbation of chronic obstructive pulmonary disease. Currently on BiPAP History of severe oxygen dependent steroid dependent COPD, FEV1 value 23% of predicted History of former heavy tobacco dependence Hypertension Hearing disorder Gastroesophageal reflux disease Osteoporosis Osteoarthritis Hyperlipidemia History of C. difficile colitis Plan: The patient was seen and evaluated Computed tomography scan of the brain, chest x-ray, labs and medications reviewed Arterial blood gases reviewed, BiPAP adjustments were made Continue DuoNeb inhalations, add Pulmicort and Perforomist inhalations Add Vibramycin empirically Prognosis is guarded DO NOT RESUSCITATE/DO NOT INTUBATE CODE STATUS We will continue to follow and make further recommendations based on his clinical status I have personally seen and examined the patient, performed the documentation and the assessment and plan as written. Number of minutes spent on the visit: 20.
[2023-09-26] MEDS: FORMOTEROL FUMARATE 20 MCG/2 ML NEBU INHALATION SCH (20:55)
[2023-09-26] MEDS: BUDESONIDE 1 MG/2 ML NEBU INHALATION SCH (20:55)
[2023-09-26] MEDS ORDERED: METOPROLOL TARTRATE 12.5 MG TAB PO PRN (21:26)
[2023-09-26] MEDS: METOPROLOL TARTRATE 12.5 MG TAB PO SCH (21:44)
[2023-09-26] MEDS: DILTIAZEM ORAL 30 MG TAB PO SCH (21:45)
[2023-09-26] MEDS: ATORVASTATIN 10 MG TAB PO SCH (21:46)
[2023-09-26] MEDS: MEMANTINE 5 MG TAB PO SCH (21:46)
[2023-09-26] MEDS: APIXABAN 5 MG TAB PO SCH (21:46)
[2023-09-27] MEDS: IPRATROPIUM-ALBUTEROL 3 ML NEB INHALATION SCH ×6 (00:29→20:07)
[2023-09-27] MEDS: DORZOLAMIDE HCL 2% DROPS 10 ML BTL BOTH EYES SCH ×3 (00:48→19:47)
[2023-09-27] MEDS ORDERED: SYMBICORT 160-4.5 MCG INHALER INHALATION SCH (08:00)
[2023-09-27] MEDS: FORMOTEROL FUMARATE 20 MCG/2 ML NEBU INHALATION SCH ×2 (08:07→20:07)
[2023-09-27] MEDS: BUDESONIDE 1 MG/2 ML NEBU INHALATION SCH ×2 (08:07→20:07)
[2023-09-27] MEDS: METOPROLOL TARTRATE 12.5 MG TAB PO SCH ×2 (08:48→19:46)
[2023-09-27] MEDS: APIXABAN 5 MG TAB PO SCH ×2 (08:48→19:46)
[2023-09-27] MEDS: DILTIAZEM ORAL 30 MG TAB PO SCH ×2 (08:48→19:47)
[2023-09-27] MEDS: predniSONE 20 MG TAB PO SCH (08:48)
[2023-09-27] MEDS: DOXYCYCLINE 100 MG CAP PO SCH ×2 (08:48→19:46)
[2023-09-27] MEDS: FAMOTIDINE 20 MG TAB PO SCH ×2 (08:48→19:46)
[2023-09-27] MEDS: MEMANTINE 5 MG TAB PO SCH ×2 (08:48→19:47)
[2023-09-27 08:51] LABS: Basophils % (A) 0 %; Eosinophils % (A) 0 %; HCT 42.2 % (34.0-46.0); HGB 13.3 gm/dL (11.4-16.0); Lymphocytes # (A) 1.9 k/uL (1.0-4.8); Lymphocytes % (A) 13 %; MCH 28.8 pg (25.0-35.0); MCHC 31.6 g/dL (31.0-37.0); MCV 91.1 fL (80.0-100.0); Mean Platelet Volume 7.7; Monocytes # (A) 1.1 k/uL (0-1.0); Monocytes % (A) 8 %; Neutrophils # (A) 10.6 k/uL (1.3-7.7); Neutrophils % (A) 76 %; Platelet Count 160 k/uL (150-450); RBC 4.63 m/uL (3.80-5.40); RDW 13.3 % (11.5-15.5)
[2023-09-27 09:15] LABS: African American GFR (CKD) >90 (>60 ml/min/1.73 sqM); Anion Gap 8 mmol/L; Blood Urea Nitrogen 17 mg/dL (7-17); Calcium 8.7 mg/dL (8.4-10.2); Carbon Dioxide 36 mmol/L (22-30); Chloride 82 mmol/L (98-107); Glucose 72 mg/dL (74-99); Non-African American GFR(CKD) >90 (>60 ml/min/1.73 sqM); Sodium 126 mmol/L (137-145)
--- NOTE | 2023-09-27 10:09 | P.HPIM ---
History of Present Illness H&P Date: 09/26/23 History of present illness; patient is a 72-year-old lady with past medical hist ory significant for COPD, hypertension, osteoarthritis who presented to The ER because of altered mental status. Patient was only recently discharged in the hospital after being treated for COPD exacerbation, patient was supposed to be on steroids but stopped taking them. Most of the history is limited because of patient's current mental status and has to be obtained from electronic medical records. Patient was found to be confused this morning, patient was also tachypneic and wheezing. No complain of any chest pain or palpitations. No complaints of fever or chills. Because of his confusion, patient was brought to the ER, Initial lab work done in the ER showed WBC 9, hemoglobin 13.8, platelet count 161 sodium 128, potassium 4.5, BUN 9, creatinine 0.39 troponin 0.012 initial ABGs done showed patient 7.22, pCO2 116. CT brain negative for any acute intracranial process Chest x-ray done in the ER showed no acute cardiac pulmonary process Patient was placed on BiPAP and was admitted to internal medicine service REVIEW OF SYSTEMS: Review of systems cannot be obtained as patient is confused and on BiPAP PHYSICAL EXAMINATION: GENERAL: The patient is lethargic, not in any acute distress. Chronically ill- looking HEENT: Pupils are round and equally reacting to light. EOMI. No scleral icterus. No conjunctival pallor. Normocephalic, atraumatic. No pharyngeal erythema. No thyromegaly. CARDIOVASCULAR: S1 and S2 present. No murmurs, rubs, or gallops. PULMONARY: Diminished breath sounds at the bases bilaterally ABDOMEN: Soft, nontender, nondistended, normoactive bowel sounds. No palpable organomegaly. MUSCULOSKELETAL: No joint swelling or deformity. EXTREMITIES: No cyanosis, clubbing, or pedal edema. NEUROLOGICAL: Gross neurological examination did not reveal any focal deficits. SKIN: No rashes. Assessment and plan Acute on chronic hypoxemic hypercapnic respiratory failure Acute metabolic encephalopathy Acute COPD exacerbation Hyponatremia History of hypertension. History of gastroesophageal reflux disease. History of diverticulitis. History of osteoporosis. Previous history of C. difficile colitis. Prior history of heavy tobacco use. History of osteoarthritis. Monitor vital signs Monitor CBC Monitor CMP Continue telemetry monitoring Aggressive bronchopulmonary hygiene Continue use of BiPAP as needed Serial ABGs Continue breathing treatment continue prednisone Resume home meds Pulmonology consulted Labs and medication were reviewed.. Continue same treatment. Continue with symptomatic treatment. Resume home medication. Monitor labs and vitals. DVT and GI prophylaxis. Further recommendations as per clinical course of the patient Dictation was produced using [employer] dictation software. please excuse any grammatical, word or spelling errors. Past Medical History Past Medical History: COPD, GERD/Reflux, Hearing Disorder / Deafness, Hypertension, Osteoarthritis (OA), Respiratory Disorder Additional Past Medical History / Comment(s): HX POLYPS, DIVERTICULI. Osteoporosis. ICU - History of Any Multi-Drug Resistant Organisms: C-DIFF Date of last positivie culture/infection: 2013 approx MDRO Source:: stool Past Surgical History: Back Surgery, Bowel Resection, Joint Replacement, Orthopedic Surgery Additional Past Surgical History / Comment(s): RIGHT KNEE REPLACEMENT, LEFT LEG ORIF-removed, LIZZIE CARPAL TUNNEL,. Bilateral cataract surgery,plate rt foot Additional Past Anesthesia/Blood Transfusion Reaction / Comment(s): STATES NO EPIDURALS R/T GETTING SEVERE MIGRAINES Past Psychological History: No Psychological Hx Reported Smoking Status: Former smoker Past Alcohol Use History: None Reported Past Drug Use History: None Reported - Past Family History Mother Family Medical History: Hypertension Father Family Medical History: Cancer Additional Family Medical History / Comment(s): aneurysms,prostate Medications and Allergies Home Medications Medication Instructions Recorded Confirmed Type Budesonide-Formot 160-4.5 Mcg 2 puff INHALATION RT-BID 04/03/19 09/13/23 History [Symbicort 160-4.5 Mcg Inhaler] Famotidine [Pepcid] 20 mg PO BID 11/06/19 09/13/23 History Atorvastatin Calcium [Lipitor] 10 mg PO HS 03/28/22 09/13/23 History Diltiazem Oral [Cardizem*] 30 mg PO BID 03/28/22 09/13/23 History Albuterol Inhaler [Ventolin Hfa 2 puff INHALATION RT-Q6H PRN 05/15/23 09/13/23 History Inhaler] Dorzolamide 2% [Trusopt 2%] 1 drop BOTH EYES BID 05/15/23 09/13/23 History Memantine [Namenda] 5 mg PO BID 05/15/23 09/13/23 History Apixaban [Eliquis] 5 mg PO BID tab 05/25/23 09/13/23 Rx Gabapentin [Neurontin] 300 mg PO BID #4 cap 05/25/23 09/13/23 Rx Metoprolol Tartrate [Lopressor] 12.5 mg PO BID 07/01/23 09/13/23 History Ondansetron [Ondansetron Odt] 4 mg PO Q8H PRN 07/01/23 09/13/23 History Ipratropium-Albuterol Nebulize 3 ml INHALATION RT-Q2H PRN each 07/04/23 09/13/23 Rx [Duoneb 0.5 mg-3 mg/3 ml Soln] Ipratropium-Albuterol Nebulize 3 ml INHALATION RT-QID #100 each 07/04/23 09/13/23 Rx [Duoneb 0.5 mg-3 mg/3 ml Soln] HYDROcodone/APAP 7.5-325MG [[place] 1 tab PO QID PRN 09/13/23 09/13/23 History 7.5-325] predniSONE 0 mg PO DIRECTED 10 Days #30 tab 09/14/23 Rx Allergies Allergy/AdvReac Type Severity Reaction Status Date / Time alprazolam [From Xanax] Allergy Anaphylaxis Verified 09/26/23 09:02 dextromethorphan Allergy Unknown Verified 09/26/23 09:02 [From Mucinex DM] methylprednisolone Allergy Rash/Hives Verified 09/26/23 09:02 [From Solu-Medrol] diltiazem AdvReac Intermediate Abdominal Verified 09/26/23 09:02 Pain donepezil [From Aricept] AdvReac Nausea & Verified 09/26/23 09:02 Vomiting guaifenesin [From Mucinex DM] AdvReac Diarrhea Verified 09/26/23 09:02 levofloxacin [From Levaquin] AdvReac Nausea, Verified 09/26/23 09:02 Diarrhea , States she got C-Diff after, Migraines roflumilast [From Daliresp] AdvReac Nausea & Verified 09/26/23 09:02 Vomiting & Diarrhea Physical Exam Vitals: Vital Signs Temp Pulse Resp BP Pulse Ox FiO2 09/26/23 13:00 84 20 125/60 95 09/26/23 12:21 40 09/26/23 12:08 87 10/30/23 11:43 86 20 113/64 91 L 09/26/23 11:42 81 28 09/26/23 10:01 79 18 100/53 98 09/26/23 09:56 50 09/26/23 09:50 50 09/26/23 09:22 80 09/26/23 09:15 97.5 F L 75 24 145/72 99 09/26/23 09:06 78 09/26/23 09:01 97.2 F L 78 28 H 145/72 99 09/26/23 08:57 97.2 F L 67 20 140/71 100 Intake and Output 09/25/23 09/26/23 09/26/23 22:59 06:59 14:59 Other: Weight 55.338 kg Results CBC & Chem 7: 09/26/23 09:04 09/26/23 09:04 Labs: Abnormal Lab Results - Last 24 Hours (Table) 09/26/23 09/26/23 09/26/23 Range/Units 09:04 09:04 09:04 MCHC 30.4 L (31.0-37.0) g/dL ABG pH (7.35-7.45) ABG pCO2 (35-45) mmHg ABG pO2 (83-108) mmHg ABG HCO3 (21-25) mmol/L ABG Total CO2 (19-24) mmol/L ABG O2 Saturation (94-97) % VBG pH 7.22 L (7.31-7.41) VBG pCO2 116 H* (37-51) mmHg VBG HCO3 48 H (24-28) mmol/L Sodium (137-145) mmol/L Chloride (98-107) mmol/L Carbon Dioxide (22-30) mmol/L Creatinine (0.52-1.04) mg/dL Plasma Lactic Acid Robert 0.6 L (0.7-2.0) mmol/L 09/26/23 09/26/23 09/26/23 Range/Units 09:04 09:39 12:11 MCHC (31.0-37.0) g/dL ABG pH 7.29 L (7.35-7.45) ABG pCO2 97 H* 76 H* (35-45) mmHg ABG pO2 44 L* 46 L* (83-108) mmHg ABG HCO3 47 H* 47 H* (21-25) mmol/L ABG Total CO2 50 H 49 H (19-24) mmol/L ABG O2 Saturation 84.5 L 89.1 L (94-97) % VBG pH (7.31-7.41) VBG pCO2 (37-51) mmHg VBG HCO3 (24-28) mmol/L Sodium 128 L (137-145) mmol/L Chloride 78 L (98-107) mmol/L Carbon Dioxide 45 H* (22-30) mmol/L Creatinine 0.39 L (0.52-1.04) mg/dL Plasma Lactic Acid Robert (0.7-2.0) mmol/L
[2023-09-27] MEDS ORDERED: HYDROcodone/APAP 7.5-325MG 1 EACH TAB PO PRN (10:10)
--- NOTE | 2023-09-27 12:23 | P.NPCON ---
History of Present Illness - Reason for Consult hyponatremia - History of Present Illness Reason for consultation: Hyponatremia History of present illness: Patient is a 72-year-old female seen in renal consultation for hyponatremia. Patient's sodium level on admission was 128 and is 126 today. Patient was recently admitted with COPD exacerbation as well as pneumonia. She is currently being followed by pulmonology. Patient was noted to be in acute hypercapnic and hypoxic respiratory failure on admission. She is currently on nasal cannula. She is awake and alert. Family is present at bedside. Family patient was confused when she was brought to the hospital. Mentation is now at baseline. She denies use of diuretics. Denies use of nonsteroidals. She does admit to drinking water, coffee, juice constantly throughout the day. Oral intake has been poor her family. She denies personal history of malignancy. Has been voiding. No history of kidney disease. GFR at baseline. Vital signs are stable. General: No acute distress. HEENT: Head exam is unremarkable. LUNGS: No audible rhonchi or wheezes. HEART: Rate and Rhythm are regular. ABDOMEN: Nontender. EXTREMITITES: No edema. Past Medical History Past Medical History: COPD, GERD/Reflux, Hearing Disorder / Deafness, Hypertension, Osteoarthritis (OA), Respiratory Disorder Additional Past Medical History / Comment(s): HX POLYPS, DIVERTICULI. Osteoporosis. ICU - History of Any Multi-Drug Resistant Organisms: C-DIFF Date of last positivie culture/infection: 2013 approx MDRO Source:: stool Past Surgical History: Back Surgery, Bowel Resection, Joint Replacement, Orthopedic Surgery Additional Past Surgical History / Comment(s): RIGHT KNEE REPLACEMENT, LEFT LEG ORIF-removed, LIZZIE CARPAL TUNNEL,. Bilateral cataract surgery,plate rt foot Additional Past Anesthesia/Blood Transfusion Reaction / Comment(s): STATES NO EPIDURALS R/T GETTING SEVERE MIGRAINES Past Psychological History: No Psychological Hx Reported Smoking Status: Former smoker Past Alcohol Use History: None Reported Past Drug Use History: None Reported - Past Family History Mother Family Medical History: Hypertension Father Family Medical History: Cancer Additional Family Medical History / Comment(s): aneurysms,prostate Medications and Allergies Home Medications Medication Instructions Recorded Confirmed Type Budesonide-Formot 160-4.5 Mcg 2 puff INHALATION RT-BID 04/03/19 09/26/23 History [Symbicort 160-4.5 Mcg Inhaler] Famotidine [Pepcid] 20 mg PO BID 11/06/19 09/26/23 History Atorvastatin Calcium [Lipitor] 10 mg PO HS 03/28/22 09/26/23 History Diltiazem Oral [Cardizem*] 30 mg PO BID 03/28/22 09/26/23 History Albuterol Inhaler [Ventolin Hfa 2 puff INHALATION RT-Q6H PRN 05/15/23 09/26/23 History Inhaler] Dorzolamide 2% [Trusopt 2%] 1 drop BOTH EYES BID 05/15/23 09/26/23 History Memantine [Namenda] 5 mg PO BID 05/15/23 09/26/23 History Apixaban [Eliquis] 5 mg PO BID tab 05/25/23 09/26/23 Rx Gabapentin [Neurontin] 300 mg PO BID #4 cap 05/25/23 09/26/23 Rx Metoprolol Tartrate [Lopressor] 12.5 mg PO BID 07/01/23 09/26/23 History Ondansetron [Ondansetron Odt] 4 mg PO Q8H PRN 07/01/23 09/26/23 History HYDROcodone/APAP 7.5-325MG [[place] 1 tab PO QID PRN 09/13/23 09/26/23 History 7.5-325] Albuterol Nebulized [Ventolin 2.5 mg INHALATION RT-QID 09/26/23 09/26/23 History Nebulized] Metoprolol Tartrate [Lopressor] 12.5 mg PO BID PRN 09/26/23 09/26/23 History predniSONE 5 mg PO DAILY 09/26/23 09/26/23 History Allergies Allergy/AdvReac Type Severity Reaction Status Date / Time alprazolam [From Xanax] Allergy Anaphylaxis Verified 09/26/23 13:59 dextromethorphan Allergy Unknown Verified 09/26/23 13:59 [From Mucinex DM] methylprednisolone Allergy Rash/Hives Verified 09/26/23 13:59 [From Solu-Medrol] diltiazem AdvReac Intermediate Abdominal Verified 09/26/23 13:59 Pain donepezil [From Aricept] AdvReac Nausea & Verified 09/26/23 13:59 Vomiting guaifenesin [From Mucinex DM] AdvReac Diarrhea Verified 09/26/23 13:59 levofloxacin [From Levaquin] AdvReac Nausea, Verified 09/26/23 13:59 Diarrhea , States she got C-Diff after, Migraines roflumilast [From Daliresp] AdvReac Nausea & Verified 09/26/23 13:59 Vomiting & Diarrhea Physical Exam Vitals: Vital Signs Temp Pulse Pulse Resp BP BP Pulse Ox 09/27/23 11:51 88 09/27/23 11:49 09/27/23 11:42 86 09/27/23 08:44 98.3 F 91 17 170/69 95 09/27/23 08:30 84 09/27/23 08:19 86 09/27/23 08:18 86 09/27/23 08:10 09/27/23 08:08 84 09/27/23 05:00 99.1 F 89 20 156/83 98 09/27/23 04:50 76 09/27/23 04:31 80 09/27/23 02:00 74 20 09/27/23 00:47 74 20 115/57 99 09/27/23 00:39 92 09/27/23 00:29 90 09/26/23 22:08 93 20 09/26/23 21:08 86 09/26/23 21:07 86 09/26/23 20:58 85 09/26/23 20:00 98.7 F 93 20 121/58 94 L 09/26/23 18:00 89 22 115/58 09/26/23 17:17 68 16 136/60 98 09/26/23 17:10 68 16 160/80 98 09/26/23 16:37 09/26/23 15:46 88 09/26/23 15:35 89 09/26/23 15:00 90 20 124/59 97 09/26/23 14:00 86 20 120/67 96 09/26/23 13:00 84 20 125/60 95 09/26/23 12:21 FiO2 09/27/23 11:51 09/27/23 11:49 30 09/27/23 11:42 09/27/23 08:44 09/27/23 08:30 09/27/23 08:19 09/27/23 08:18 09/27/23 08:10 30 10/31/23 08:08 09/27/23 05:00 30 09/27/23 04:50 09/27/23 04:31 30 09/27/23 02:00 09/27/23 00:47 30 09/27/23 00:39 09/27/23 00:29 30 09/26/23 22:08 09/26/23 21:08 09/26/23 21:07 09/26/23 20:58 30 09/26/23 20:00 30 09/26/23 18:00 09/26/23 17:17 09/26/23 17:10 09/26/23 16:37 30 09/26/23 15:46 09/26/23 15:35 30 09/26/23 15:00 09/26/23 14:00 09/26/23 13:00 09/26/23 12:21 40 Intake and Output 09/26/23 09/27/23 09/27/23 22:59 06:59 14:59 Output Total 400 400 Balance -400 -400 Output: Urine 400 400 Other: Voiding Method External Catheter External Catheter External Catheter Weight 55.338 kg Results - Lab Results Most recent lab results ABG pH 7.40 (7.35-7.45) 09/26/23 12:11 ABG pCO2 76 mmHg (35-45) H* 09/26/23 12:11 ABG pO2 46 mmHg (83-108) L* 09/26/23 12:11 ABG HCO3 47 mmol/L (21-25) H* 09/26/23 12:11 ABG O2 Saturation 89.1 % (94-97) L 09/26/23 12:11 Calcium 8.7 mg/dL (8.4-10.2) 09/27/23 08:02 09/27/23 08:02 09/27/23 08:02 Assessment and Plan Plan: Assessment: 1. Hyponatremia from poor solid intake and excessive fluid intake. Sodium l evel 126 today. 2. Acute on chronic hypercapnic and hypoxic respiratory failure. 3. Metabolic alkalosis which is compensatory for underlying respiratory acidosis. Better. 4. Elevated blood pressure exacerbated by steroids. Plan: Maintain IV fluids and see response to serum sodium level. Add 1200 mL fluid restriction. Check serum and urine osmolality and urine sodium level. Check TSH. Check PTH related peptide. Repeat labs in the morning. Add as needed hydralazine. Thank you for the consultation. I will continue to follow patient with you during her hospital stay.
--- NOTE | 2023-09-27 12:28 | P.PN ---
Subjective Progress Note Date: 09/27/23 patient is a 72-year-old lady with past medical history significant for COPD, hypertension, osteoarthritis who presented to The ER because of altered mental status. Patient was only recently discharged in the hospital after being treated for COPD exacerbation, patient was supposed to be on steroids but stopped taking them. Most of the history is limited because of patient's current mental status and has to be obtained from electronic medical records. Patient was found to be confused this morning, patient was also tachypneic and wheezing. No complain of any chest pain or palpitations. No complaints of fever or chills. Because of his confusion, patient was brought to the ER, Initial lab work done in the ER showed WBC 9, hemoglobin 13.8, platelet count 161 sodium 128, potassium 4.5, BUN 9, creatinine 0.39 troponin 0.012 initial ABGs done showed patient 7.22, pCO2 116. CT brain negative for any acute intracranial process Chest x-ray done in the ER showed no acute cardiac pulmonary process Patient was placed on BiPAP and was admitted to internal medicine service 09/27. The patient seen and examined. Lab work done this morning showed WBC 14, hemoglobin 13.3, platelet count 160, sodium is 126, BUN is 17, creatinine 0.41. Patient awake, answering questions, was being switched from BiPAP to her home O2 via nasal cannula REVIEW OF SYSTEMS: CONSTITUTIONAL: No fever, no malaise,. CARDIOVASCULAR: No chest pain, no palpitations, no syncope. PULMONARY: No shortness of breath, no cough, GASTROINTESTINAL: No diarrhea, no nausea, no vomiting, no abdominal pain. NEUROLOGICAL: No headaches, no weakness, PHYSICAL EXAMINATION: GENERAL: The patient is alert and oriented x3, not in any acute distress. Well developed, well nourished. HEENT: Pupils are round and equally reacting to light. EOMI. No scleral icterus. No conjunctival pallor. Normocephalic, atraumatic. No pharyngeal erythema. No thyromegaly. CARDIOVASCULAR: S1 and S2 present. No murmurs, rubs, or gallops. PULMONARY: Coarse breath sounds bilaterally, no wheeze ABDOMEN: Soft, nontender, nondistended, normoactive bowel sounds. No palpable organomegaly. MUSCULOSKELETAL: No joint swelling or deformity. EXTREMITIES: No cyanosis, clubbing, or pedal edema. NEUROLOGICAL: Gross neurological examination did not reveal any focal deficits. SKIN: No rashes. Assessment and plan Acute on chronic hypoxemic hypercapnic respiratory failure Acute metabolic encephalopathy Acute COPD exacerbation Hyponatremia History of hypertension. Paroxysmal atrial fibrillation History of gastroesophageal reflux disease. History of diverticulitis. History of osteoporosis. Previous history of C. difficile colitis. Prior history of heavy tobacco use. History of osteoarthritis. Monitor vital signs Monitor CBC Monitor CMP Continue telemetry monitoring Encourage use of incentive spirometer Continue prednisone Continue breathing treatments continue doxycycline Pulmonology following Nephrology consulted for hyponatremia In regards to hypertension, continue Lopressor Regards to hyperlipidemia , continue Lipitor Regarding atrial fibrillation, continue Eliquis Labs and medication were reviewed.. Continue same treatment. Continue with symptomatic treatment. Resume home medication. Monitor labs and vitals. DVT and GI prophylaxis. Further recommendations as per clinical course of the patient Dictation was produced using [email or web address] dictation software. please excuse any grammatical, word or spelling errors. Objective - Vital Signs Vital signs: Vital Signs Temp 98.3 F 09/27/23 08:44 Pulse 91 09/27/23 08:44 Resp 17 09/27/23 08:44 BP 170/69 09/27/23 08:44 Pulse Ox 95 09/27/23 08:44 FiO2 30 09/27/23 08:10 Intake & Output 09/26/23 09/27/23 09/27/23 18:59 06:59 18:59 Output Total 400 Balance -400 Weight 55.338 kg Output: Urine 400 Other: Voiding Method External Catheter External Catheter - Labs CBC & Chem 7: 09/27/23 08:02 09/27/23 08:02 Labs: Abnormal Lab Results - Last 24 Hours (Table) 09/26/23 09/27/23 09/27/23 Range/Units 12:11 08:02 08:02 WBC 14.0 H (3.8-10.6) k/uL Neutrophils # 10.6 H (1.3-7.7) k/uL Monocytes # 1.1 H (0-1.0) k/uL ABG pCO2 76 H* (35-45) mmHg ABG pO2 46 L* (83-108) mmHg ABG HCO3 47 H* (21-25) mmol/L ABG Total CO2 49 H (19-24) mmol/L ABG O2 Saturation 89.1 L (94-97) % Sodium 126 L (137-145) mmol/L Chloride 82 L (98-107) mmol/L Carbon Dioxide 36 H (22-30) mmol/L Creatinine 0.41 L (0.52-1.04) mg/dL Glucose 72 L (74-99) mg/dL
--- NOTE | 2023-09-27 14:17 | P.PN ---
Subjective Progress Note Date: 09/27/23 This is a 72-year-old female patient with a known history of stage IV oxygen- dependent, steroid-dependent chronic obstructive pulmonary disease, former smoker, hearing disorder, hypertension. He was recently discharged on 09/14/2023 following COPD exacerbation, complicated by bilateral pneumonia. She is brought back to the emergency room early this morning with altered mental status and shortness of breath. Computed tomography scan of the brain revealed no acute intracranial process. Chest x-ray showed no acute cardiopulmonary process. Evidence of COPD. Arterial blood gases on 32% FiO2 revealed a PaO2 of 44, pCO2 of 97 and a pH of 7.29. She was placed on BiPAP 12/5 and 40% FiO2, titrated down to 28%. Follow-up blood gases revealed a PaO2 of 46, pCO2 of 76 and a pH of 7.40. She was brought back to 40% FiO2. White count 9.0. Hemoglobin 13.8. Platelets 161. Sodium 128. Potassium 4.5. Bicarb 45. BUN 9. Creatinine 0.39. Lactic acid 0.6. Troponin negative times one. ProBNP 336. She is seen today in consultation in the emergency department. She is on BiPAP. Minimally responsive. Most information is taken from her family is at the bedside. The patient is seen today 09/27/2023 and follow-up on the selective care unit. She is much more awake and alert today. Oriented 3. She did utilize BiPAP throughout the night. She is currently on 2 L nasal cannula. O2 saturations in the mid 90s. She's afebrile. Hemodynamically stable. White count 14.0. Hemoglobin 13.3. Platelets 160. Sodium 126. Potassium 4.0. Bicarb 36. BUN 17. Creatinine 0.41. Glucose 72. She is continued on DuoNeb inhalations, Pulmicort and Perforomist inhalations, prednisone taper. Objective - Vital Signs Vital signs: Vital Signs Temp 98.3 F 09/27/23 12:00 Pulse 74 09/27/23 12:00 Resp 19 09/27/23 12:00 BP 145/72 09/27/23 12:00 Pulse Ox 94 L 09/27/23 12:00 FiO2 30 09/27/23 12:00 Intake & Output 09/26/23 09/27/23 09/27/23 18:59 06:59 18:59 Output Total 400 400 Balance -400 -400 Weight 55.338 kg Output: Urine 400 400 Other: Voiding Method External Catheter External Catheter - Exam GENERAL EXAM: Awake, alert frail 72-year-old female, on 2 L nasal cannula, fairly comfortable in no apparent distress. HEAD: Normocephalic. EYES: Normal reaction of pupils, equal size. NOSE: Clear with pink turbinates. THROAT: No erythema or exudates. NECK: No masses, no JVD. CHEST: No chest wall deformity. LUNGS: Equal air entry with no crackles, wheeze, rhonchi or dullness. Diminished throughout. CVS: S1 and S2 normal with no audible murmur, regular rhythm. ABDOMEN: No hepatosplenomegaly, normal bowel sounds, no guarding or rigidity. SPINE: No scoliosis or deformity SKIN: No rashes CENTRAL NERVOUS SYSTEM: No focal deficits, tone is normal in all 4 extremities. EXTREMITIES: There is no peripheral edema. No clubbing, no cyanosis. Peripheral pulses are intact. - Labs CBC & Chem 7: 09/27/23 08:02 09/27/23 08:02 Labs: Abnormal Lab Results - Last 24 Hours (Table) 09/27/23 09/27/23 09/27/23 Range/Units 08:02 08:02 12:14 WBC 14.0 H (3.8-10.6) k/uL Neutrophils # 10.6 H (1.3-7.7) k/uL Monocytes # 1.1 H (0-1.0) k/uL Sodium 126 L (137-145) mmol/L Chloride 82 L (98-107) mmol/L Carbon Dioxide 36 H (22-30) mmol/L Creatinine 0.41 L (0.52-1.04) mg/dL Glucose 72 L (74-99) mg/dL Osmolality 267 L (280-301) mosm/kg Assessment and Plan Assessment: Acute on chronic hypoxemic and hypercapnic respiratory failure secondary to an acute exacerbation of chronic obstructive pulmonary disease. Currently on 2 L nasal cannula, alternating with BiPAP Hyponatremia, suspect secondary to poor oral intake versus SIADH History of severe oxygen dependent steroid dependent COPD, FEV1 value 23% of predicted History of former heavy tobacco dependence Hypertension Hearing disorder Gastroesophageal reflux disease Osteoporosis Osteoarthritis Hyperlipidemia History of C. difficile colitis Plan: The patient was seen and evaluated Labs and medications reviewed Add normal saline at 75 ML's per hour Continue DuoNeb inhalations, Pulmicort and Perforomist inhalations Continue Vibramycin empirically Prognosis is guarded Titrate the FiO2 as tolerated DO NOT RESUSCITATE/DO NOT INTUBATE CODE STATUS We will continue to follow I have personally seen and examined the patient, performed the documentation and the assessment and plan as written. Number of minutes spent on the visit: 10.
[2023-09-27 17:42] VITALS: BMI 23.8
[2023-09-27] MEDS: SODIUM CHLORIDE 0.9% 1,000 ML IV SCH (18:46)
[2023-09-27] MEDS: GABAPENTIN 300 MG CAP PO SCH (19:47)
[2023-09-27] MEDS: ATORVASTATIN 10 MG TAB PO SCH (19:47)
[2023-09-27] MEDS ORDERED: IPRATROPIUM-ALBUTEROL 3 ML NEB INHALATION PRN (20:36)
[2023-09-27] MEDS: ONDANSETRON 4 MG/2 ML VIAL IVP PRN (22:49)
[2023-09-28] MEDS: SODIUM CHLORIDE 0.9% 1,000 ML IV SCH (02:55)
[2023-09-28] MEDS: FORMOTEROL FUMARATE 20 MCG/2 ML NEBU INHALATION SCH (08:16)
[2023-09-28] MEDS: IPRATROPIUM-ALBUTEROL 3 ML NEB INHALATION SCH ×2 (08:16→11:38)
[2023-09-28] MEDS: BUDESONIDE 1 MG/2 ML NEBU INHALATION SCH (08:16)
[2023-09-28 08:22] VITALS: BP 113/55; RESP 16; TEMP 97.4
[2023-09-28] MEDS: GABAPENTIN 300 MG CAP PO SCH (08:45)
[2023-09-28] MEDS: predniSONE 20 MG TAB PO SCH (08:45)
[2023-09-28] MEDS: METOPROLOL TARTRATE 12.5 MG TAB PO SCH (08:45)
[2023-09-28] MEDS: FAMOTIDINE 20 MG TAB PO SCH (08:45)
[2023-09-28] MEDS: APIXABAN 5 MG TAB PO SCH (08:45)
[2023-09-28] MEDS: MEMANTINE 5 MG TAB PO SCH (08:45)
[2023-09-28] MEDS: DILTIAZEM ORAL 30 MG TAB PO SCH (08:45)
[2023-09-28] MEDS: ONDANSETRON 4 MG/2 ML VIAL IVP PRN (08:45)
[2023-09-28] MEDS: DORZOLAMIDE HCL 2% DROPS 10 ML BTL BOTH EYES SCH (08:46)
[2023-09-28 08:49] VITALS: PULSE 80
[2023-09-28 08:53] LABS: African American GFR (CKD) >90 (>60 ml/min/1.73 sqM); Anion Gap 4 mmol/L; Blood Urea Nitrogen 13 mg/dL (7-17); Calcium 8.3 mg/dL (8.4-10.2); Carbon Dioxide 38 mmol/L (22-30); Chloride 86 mmol/L (98-107); Glucose 141 mg/dL (74-99); Magnesium 1.6 mg/dL (1.6-2.3); Non-African American GFR(CKD) >90 (>60 ml/min/1.73 sqM); Potassium 3.8 mmol/L (3.5-5.1); Sodium 128 mmol/L (137-145)
[2023-09-28] MEDS: DOXYCYCLINE 100 MG CAP PO SCH (10:33)
[2023-09-28] MEDS ORDERED: SODIUM CHLORIDE TAB 1 GM TAB PO STA (11:25)
--- NOTE | 2023-09-28 11:27 | P.PN ---
Subjective Patient is seen in follow-up for hyponatremia. Sodium level better. No vomiting or diarrhea. No chest pain or shortness of breath. Vital signs are stable. General: No acute distress. HEENT: Head exam is unremarkable. On nasal cannula. LUNGS: No audible rhonchi or wheezes. HEART: Rate and Rhythm are regular. ABDOMEN: Nontender. EXTREMITITES: No edema. Objective - Vital Signs Vital signs: Vital Signs Temp 97.4 F L 09/28/23 08:00 Pulse 80 09/28/23 08:40 Resp 16 09/28/23 08:00 BP 113/55 09/28/23 08:00 Pulse Ox 98 09/28/23 08:00 FiO2 30 09/28/23 05:19 Intake & Output 09/27/23 09/28/23 09/28/23 18:59 06:59 18:59 Intake Total 716 200 Output Total 750 200 Balance -34 -200 200 Weight 55.338 kg Intake: Oral 716 200 Output: Urine 750 200 Other: Voiding Method External Catheter External Catheter External Catheter - Labs CBC & Chem 7: 09/27/23 08:02 09/28/23 08:24 Labs: Abnormal Lab Results - Last 24 Hours (Table) 09/27/23 09/28/23 Range/Units 12:14 08:24 Sodium 128 L (137-145) mmol/L Chloride 86 L (98-107) mmol/L Carbon Dioxide 38 H (22-30) mmol/L Creatinine 0.42 L (0.52-1.04) mg/dL Glucose 141 H (74-99) mg/dL Osmolality 267 L (280-301) mosm/kg Calcium 8.3 L (8.4-10.2) mg/dL Assessment and Plan Plan: Assessment: 1. Hyponatremia from poor solid intake and excessive fluid intake. Sodium level 128 today. TSH normal. Urine sodium 43 and urine osmolality 383. 2. Acute on chronic hypercapnic and hypoxic respiratory failure. 3. Metabolic alkalosis which is compensatory for underlying respiratory acidosis. Also on prednisone. Better. 4. Elevated blood pressure exacerbated by steroids. Improved. Plan: Hep-Lock IV fluids. Encourage oral intake. Maintain fluid restriction. Salt tab once today. Follow-up PTH related peptide. Repeat labs in the morning.
[2023-09-28] MEDS ORDERED: MAGNESIUM OXIDE 400 MG TAB PO SCH (11:45)
--- NOTE | 2023-09-28 12:11 | P.DS ---
Providers Date of admission: 09/26/23 10:26 Expected date of discharge: 09/28/23 Attending physician: Erinn Vance Consults: 09/26/23 10:21 Consult Physician Urgent Consulting Provider: Riddhi Flynn Consult Reason/Comments: Acute BiPAP dependent respiratory failure, copd exacerbation Do you want consulting provider notified?: Yes 09/27/23 10:10 Consult Physician Routine Consulting Provider: Javier Yates Consult Reason/Comments: Hyponatremia Do you want consulting provider notified?: Yes Primary care physician: Vern Rodriguez [facility] Course: Discharge diagnoses; Acute on chronic hypoxemic hypercapnic respiratory failure Acute metabolic encephalopathy Acute COPD exacerbation Hyponatremia History of hypertension. Paroxysmal atrial fibrillation History of gastroesophageal reflux disease. History of diverticulitis. History of osteoporosis. Previous history of C. difficile colitis. Prior history of heavy tobacco use. History of osteoarthritis. Hospital course; patient is a 72-year-old lady with past medical history significant for COPD, hypertension, osteoarthritis who presented to The ER because of altered mental status. Patient was only recently discharged in the hospital after being treated for COPD exacerbation, patient was supposed to be on steroids but stop ped taking them. Most of the history is limited because of patient's current mental status and has to be obtained from electronic medical records. Patient was found to be confused this morning, patient was also tachypneic and wheezing. No complain of any chest pain or palpitations. No complaints of fever or chills. Because of his confusion, patient was brought to the ER, Initial lab work done in the ER showed WBC 9, hemoglobin 13.8, platelet count 161 sodium 128, potassium 4.5, BUN 9, creatinine 0.39 troponin 0.012 initial ABGs done showed patient 7.22, pCO2 116. CT brain negative for any acute intracranial process Chest x-ray done in the ER showed no acute cardiac pulmonary process Patient was placed on BiPAP and was admitted to internal medicine service 09/27. The patient seen and examined. Lab work done this morning showed WBC 14, hemoglobin 13.3, platelet count 160, sodium is 126, BUN is 17, creatinine 0.41. Patient awake, answering questions, was being switched from BiPAP to her home O2 via nasal cannula 09/28. Patient seen and examined. Currently on home O2 levels while nasal cannula. Pulmonology had evaluated the patient, recommended discharging patient on prednisone, cleared the patient for discharge. PHYSICAL EXAMINATION: GENERAL: The patient is alert and oriented x3, not in any acute distress. Well developed, well nourished. HEENT: Pupils are round and equally reacting to light. EOMI. No scleral icterus. No conjunctival pallor. Normocephalic, atraumatic. No pharyngeal erythema. No thyromegaly. CARDIOVASCULAR: S1 and S2 present. No murmurs, rubs, or gallops. PULMONARY: Coarse breath some bilaterally, no wheeze ABDOMEN: Soft, nontender, nondistended, normoactive bowel sounds. No palpable organomegaly. MUSCULOSKELETAL: No joint swelling or deformity. EXTREMITIES: No cyanosis, clubbing, or pedal edema. NEUROLOGICAL: Gross neurological examination did not reveal any focal deficits. SKIN: No rashes. Dictation was produced using [employer] dictation software. please excuse any grammatical, word or spelling errors. Patient Condition at Discharge: Good Plan - Discharge Summary New Discharge Prescriptions: New predniSONE [Deltasone] 40 mg PO DAILY 5 Days #5 tab Doxycycline [Vibramycin] 100 mg PO BID 3 Days #6 cap Continue Budesonide-Formot 160-4.5 Mcg [Symbicort 160-4.5 Mcg Inhaler] 2 puff INHALATION RT-BID Famotidine [Pepcid] 20 mg PO BID Atorvastatin Calcium [Lipitor] 10 mg PO HS Dorzolamide 2% [Trusopt 2%] 1 drop BOTH EYES BID Apixaban [Eliquis] 5 mg PO BID tab Gabapentin [Neurontin] 300 mg PO BID #4 cap Metoprolol Tartrate [Lopressor] 12.5 mg PO BID Diltiazem Oral [Cardizem*] 30 mg PO BID Albuterol Inhaler [Ventolin Hfa Inhaler] 2 puff INHALATION RT-Q6H PRN PRN Reason: Shortness Of Breath Memantine [Namenda] 5 mg PO BID Ondansetron [Ondansetron Odt] 4 mg PO Q8H PRN PRN Reason: Nausea And Vomiting HYDROcodone/APAP 7.5-325MG [[place] 7.5-325] 1 tab PO QID PRN PRN Reason: Pain Metoprolol Tartrate [Lopressor] 12.5 mg PO BID PRN PRN Reason: Blood Pressure - High predniSONE 5 mg PO DAILY Albuterol Nebulized [Ventolin Nebulized] 2.5 mg INHALATION RT-QID Discharge Medication List Budesonide-Formot 160-4.5 Mcg [Symbicort 160-4.5 Mcg Inhaler] 2 puff INHALATION RT-BID 04/03/19 [History] Famotidine [Pepcid] 20 mg PO BID 11/06/19 [History] Atorvastatin Calcium [Lipitor] 10 mg PO HS 03/28/22 [History] Diltiazem Oral [Cardizem*] 30 mg PO BID 03/28/22 [History] Albuterol Inhaler [Ventolin Hfa Inhaler] 2 puff INHALATION RT-Q6H PRN 05/15/23 [History] Dorzolamide 2% [Trusopt 2%] 1 drop BOTH EYES BID 05/15/23 [History] Memantine [Namenda] 5 mg PO BID 05/15/23 [History] Apixaban [Eliquis] 5 mg PO BID tab 05/25/23 [Rx] Gabapentin [Neurontin] 300 mg PO BID #4 cap 05/25/23 [Rx] Metoprolol Tartrate [Lopressor] 12.5 mg PO BID 07/01/23 [History] Ondansetron [Ondansetron Odt] 4 mg PO Q8H PRN 07/01/23 [History] HYDROcodone/APAP 7.5-325MG [[place] 7.5-325] 1 tab PO QID PRN 09/13/23 [History] Albuterol Nebulized [Ventolin Nebulized] 2.5 mg INHALATION RT-QID 09/26/23 [History] Metoprolol Tartrate [Lopressor] 12.5 mg PO BID PRN 09/26/23 [History] predniSONE 5 mg PO DAILY 09/26/23 [History] Doxycycline [Vibramycin] 100 mg PO BID 3 Days #6 cap 09/28/23 [Rx] predniSONE [Deltasone] 40 mg PO DAILY 5 Days #5 tab 09/28/23 [Rx] Follow up Appointment(s)/Referral(s): None,Stated [REFERRING] - 1-2 days Riddhi Flynn MD [STAFF PHYSICIAN] - 1 Week Javier Yates DO [STAFF PHYSICIAN] - 1 Week Discharge Disposition: HOME SELF-CARE
--- NOTE | 2023-09-28 13:44 | P.PN ---
Subjective Progress Note Date: 09/28/23 This is a 72-year-old female patient with a known history of stage IV oxygen- dependent, steroid-dependent chronic obstructive pulmonary disease, former smoker, hearing disorder, hypertension. He was recently discharged on 09/14/2023 following COPD exacerbation, complicated by bilateral pneumonia. She is brought back to the emergency room early this morning with altered mental status and shortness of breath. Computed tomography scan of the brain revealed no acute intracranial process. Chest x-ray showed no acute cardiopulmonary process. Evidence of COPD. Arterial blood gases on 32% FiO2 revealed a PaO2 of 44, pCO2 of 97 and a pH of 7.29. She was placed on BiPAP 12/5 and 40% FiO2, titrated down to 28%. Follow-up blood gases revealed a PaO2 of 46, pCO2 of 76 and a pH of 7.40. She was brought back to 40% FiO2. White count 9.0. Hemoglobin 13.8. Platelets 161. Sodium 128. Potassium 4.5. Bicarb 45. BUN 9. Creatinine 0.39. Lactic acid 0.6. Troponin negative times one. ProBNP 336. She is seen today in consultation in the emergency department. She is on BiPAP. Minimally responsive. Most information is taken from her family is at the bedside. The patient is seen today 09/27/2023 and follow-up on the selective care unit. She is much more awake and alert today. Oriented 3. She did utilize BiPAP throughout the night. She is currently on 2 L nasal cannula. O2 saturations in the mid 90s. She's afebrile. Hemodynamically stable. White count 14.0. Hemoglobin 13.3. Platelets 160. Sodium 126. Potassium 4.0. Bicarb 36. BUN 17. Creatinine 0.41. Glucose 72. She is continued on DuoNeb inhalations, Pulmicort and Perforomist inhalations, prednisone taper. The patient is seen today 09/28/2023 in follow-up on the selective care unit. She is currently sitting up in a chair at the bedside. She had been up in the shower. She is doing very well. No worsening shortness of breath, cough or congestion. She is maintaining O2 saturations in the 90s on 2 L/m per nasal cannula. 128. Potassium 3.8. Bicarb 38. BUN 13. Creatinine 0.42. Glucose 141. She remains on DuoNeb inhalations, Pulmicort and Perforomist inhalations, prednisone taper. Empiric antibiotics in form of Vibramycin. She is quite anxious to go home. Objective - Vital Signs Vital signs: Vital Signs Temp 97.4 F L 09/28/23 08:00 Pulse 80 09/28/23 11:51 Resp 16 09/28/23 08:00 BP 113/55 09/28/23 08:00 Pulse Ox 98 09/28/23 08:00 FiO2 30 09/28/23 05:19 Intake & Output 09/27/23 09/28/23 09/28/23 18:59 06:59 18:59 Intake Total 716 440 Output Total 750 200 Balance -34 -200 440 Weight 55.338 kg Intake: Oral 716 440 Output: Urine 750 200 Other: Voiding Method External Catheter External Catheter External Catheter - Exam GENERAL EXAM: Awake, frail 72-year-old female, up in a chair, on 2 L nasal cannula, comfortable in no apparent distress. HEAD: Normocephalic. EYES: Normal reaction of pupils, equal size. NOSE: Clear with pink turbinates. THROAT: No erythema or exudates. NECK: No masses, no JVD. CHEST: No chest wall deformity. LUNGS: Equal air entry with no crackles, wheeze, rhonchi or dullness. Diminishe d throughout. CVS: S1 and S2 normal with no audible murmur, regular rhythm. ABDOMEN: No hepatosplenomegaly, normal bowel sounds, no guarding or rigidity. SPINE: No scoliosis or deformity SKIN: No rashes CENTRAL NERVOUS SYSTEM: No focal deficits, tone is normal in all 4 extremities. EXTREMITIES: There is no peripheral edema. No clubbing, no cyanosis. Peripheral pulses are intact. - Labs CBC & Chem 7: 09/27/23 08:02 09/28/23 08:24 Labs: Abnormal Lab Results - Last 24 Hours (Table) 09/28/23 Range/Units 08:24 Sodium 128 L (137-145) mmol/L Chloride 86 L (98-107) mmol/L Carbon Dioxide 38 H (22-30) mmol/L Creatinine 0.42 L (0.52-1.04) mg/dL Glucose 141 H (74-99) mg/dL Calcium 8.3 L (8.4-10.2) mg/dL Assessment and Plan Assessment: Acute on chronic hypoxemic and hypercapnic respiratory failure secondary to an acute exacerbation of chronic obstructive pulmonary disease. Currently on 2 L nasal cannula, alternating with BiPAP Hyponatremia, suspect secondary to poor oral intake versus SIADH History of severe oxygen dependent steroid dependent COPD, FEV1 value 23% of predicted History of former heavy tobacco dependence Hypertension Hearing disorder Gastroesophageal reflux disease Osteoporosis Osteoarthritis Hyperlipidemia History of C. difficile colitis Plan: The patient was seen and evaluated Labs and medications reviewed She is feeling back to her baseline Could be discharged home Continue her home oxygen, home pulmonary medications Continue prednisone taper Complete a course of antibiotics Follow closely in our office in 1 week I have personally seen and examined the patient, performed the documentation and the assessment and plan as written. Number of minutes spent on the visit: 10.
== END 2023-09-28 13:48 | disposition home or self-care (01) | DRG 189 ==
LOC: EC 08:54 → 3SCARD 10:26
PROVIDERS: ADMIT Hospitalist; ATTEND Hospitalist
PROC: 5A09357 Assistance with Respiratory Ventilation, Less than 24 Consecutive Hours, Continuous Positive Airway Pressure (ICD-10-PCS; principal; 2023-09-26)
DX: J96.21 Acute and chronic respiratory failure with hypoxia (principal); G93.41 Metabolic encephalopathy; J44.1 Chronic obstructive pulmonary disease with (acute) exacerbation; E87.1 Hypo-osmolality and hyponatremia; E87.4 Mixed disorder of acid-base balance; J96.22 Acute and chronic respiratory failure with hypercapnia; I10 Essential (primary) hypertension; T38.0X5A Adverse effect of glucocorticoids and synthetic analogues, initial encounter; M81.0 Age-related osteoporosis without current pathological fracture; M19.90 Unspecified osteoarthritis, unspecified site; K57.90 Diverticulosis of intestine, part unspecified, without perforation or abscess without bleeding; T38.0X6A Underdosing of glucocorticoids and synthetic analogues, initial encounter; K21.9 Gastro-esophageal reflux disease without esophagitis; I48.0 Paroxysmal atrial fibrillation; H91.90 Unspecified hearing loss, unspecified ear; E78.5 Hyperlipidemia, unspecified; Z66 Do not resuscitate; Z96.651 Presence of right artificial knee joint; Z87.891 Personal history of nicotine dependence; Z87.01 Personal history of pneumonia (recurrent); Z99.81 Dependence on supplemental oxygen; Z79.899 Other long term (current) drug therapy; Z79.52 Long term (current) use of systemic steroids; Z79.51 Long term (current) use of inhaled steroids; Z79.01 Long term (current) use of anticoagulants; Z88.8 Allergy status to other drugs, medicaments and biological substances; Z88.6 Allergy status to analgesic agent; Z88.1 Allergy status to other antibiotic agents; Z88.3 Allergy status to other anti-infective agents
CPT/HCPCS: 36415; 36600; 70450; 71045; 80048; 80053; 82803; 82805; 83605; 83735; 83880; 83930; 83935; 84300; 84443; 84484; 85025; 85610; 85730; 93005; 94640; 94660; 94760; 96365; 96366; 99291

== ENCOUNTER 2024-01-20 10:39 | Emergency (ER) | payer MEDICARE ==
[2024-01-20 11:02] VITALS: RESP 18
--- NOTE | 2024-01-20 11:44 | ED ---
General Adult HPI - General Chief complaint: Altered Mental Status Stated complaint: Headache Time Seen by Provider: 01/20/24 11:07 Source: patient, family, RN notes reviewed, old records reviewed Mode of arrival: wheelchair Limitations: no limitations - History of Present Illness Initial comments: 73-year-old female sent from primary care for evaluation of confusion. Symptoms have been progressive over the past 5 days. She does have history of memory loss but has not been formally diagnosed with dementia. She has history of oxygen dependent COPD and was also hypoxic. She had complained of a headache which she states is currently resolved. No fever. - Related Data Home Medications Medication Instructions Recorded Confirmed Budesonide-Formot 160-4.5 Mcg 2 puff INHALATION RT-BID 04/03/19 01/20/24 [Symbicort 160-4.5 Mcg Inhaler] Famotidine [Pepcid] 20 mg PO BID 11/06/19 01/20/24 Diltiazem Oral [Cardizem*] 30 mg PO BID 03/28/22 01/20/24 Albuterol Inhaler [Ventolin Hfa 2 puff INHALATION RT-Q6H PRN 05/15/23 01/20/24 Inhaler] Dorzolamide 2% [Trusopt 2%] 1 drop BOTH EYES BID 05/15/23 01/20/24 Memantine [Namenda] 5 mg PO BID 05/15/23 01/20/24 Metoprolol Tartrate [Lopressor] 12.5 mg PO BID 07/01/23 01/20/24 Ondansetron [Ondansetron Odt] 4 mg PO Q8H PRN 07/01/23 01/20/24 HYDROcodone/APAP 7.5-325MG [Walters 1 tab PO QID 09/13/23 01/20/24 7.5-325] Albuterol Nebulized [Ventolin 2.5 mg INHALATION RT-QID 09/26/23 01/20/24 Nebulized] Metoprolol Tartrate [Lopressor] 12.5 mg PO BID PRN 09/26/23 01/20/24 predniSONE 5 mg PO DAILY 09/26/23 01/20/24 Acetaminophen Tab [Tylenol Tab] 500 mg PO Q6H PRN 01/20/24 01/20/24 Stryker-3/Dha/Epa/Fish Oil [Fish Oil 1 cap PO DAILY 01/20/24 01/20/24 1,000 mg Softgel] Previous Rx's Medication Instructions Recorded Apixaban [Eliquis] 5 mg PO BID tab 05/25/23 Gabapentin [Neurontin] 300 mg PO BID #4 cap 05/25/23 Allergies Allergy/AdvReac Type Severity Reaction Status Date / Time alprazolam [From Xanax] Allergy Anaphylaxis Verified 01/20/24 11:42 dextromethorphan Allergy Unknown Verified 01/20/24 11:42 [From Mucinex DM] methylprednisolone Allergy Rash/Hives Verified 01/20/24 11:42 [From Solu-Medrol] diltiazem AdvReac Intermediate Abdominal Verified 01/20/24 11:42 Pain donepezil [From Aricept] AdvReac Nausea & Verified 01/20/24 11:42 Vomiting guaifenesin [From Mucinex DM] AdvReac Diarrhea Verified 01/20/24 11:42 levofloxacin [From Levaquin] AdvReac Nausea, Verified 01/20/24 11:42 Diarrhea , States she got C-Diff after, Migraines roflumilast [From Daliresp] AdvReac Nausea & Verified 01/20/24 11:42 Vomiting & Diarrhea Review of Systems ROS Statement: Those systems with pertinent positive or pertinent negative responses have been documented in the HPI. ROS Other: All systems not noted in ROS Statement are negative. Past Medical History Past Medical History: COPD, GERD/Reflux, Hearing Disorder / Deafness, Hypertension, Osteoarthritis (OA), Respiratory Disorder Additional Past Medical History / Comment(s): HX POLYPS, DIVERTICULI. Osteoporosis. - History of Any Multi-Drug Resistant Organisms: C-DIFF Date of last positivie culture/infection: 2013 approx MDRO Source:: stool Past Surgical History: Back Surgery, Bowel Resection, Joint Replacement, Orthopedic Surgery Additional Past Surgical History / Comment(s): RIGHT KNEE REPLACEMENT, LEFT LEG ORIF-removed, LIZZIE CARPAL TUNNEL,. Bilateral cataract surgery,plate rt foot Additional Past Anesthesia/Blood Transfusion Reaction / Comment(s): STATES NO EPIDURALS R/T GETTING SEVERE MIGRAINES Past Psychological History: No Psychological Hx Reported Smoking Status: Former smoker Past Alcohol Use History: None Reported Past Drug Use History: None Reported - Past Family History Mother Family Medical History: Hypertension Father Family Medical History: Cancer Additional Family Medical History / Comment(s): aneurysms,prostate General Exam Limitations: no limitations General appearance: alert, in no apparent distress Head exam: Present: atraumatic, normocephalic Eye exam: Present: normal appearance, PERRL ENT exam: Present: normal exam Neck exam: Present: normal inspection. Absent: tenderness, meningismus Respiratory exam: Present: wheezes, decreased breath sounds. Absent: respiratory distress Cardiovascular Exam: Present: regular rate, normal rhythm GI/Abdominal exam: Present: soft. Absent: distended, tenderness, guarding Extremities exam: Present: normal inspection, normal capillary refill Neurological exam: Present: alert. Absent: motor sensory deficit Psychiatric exam: Present: normal affect, normal mood Skin exam: Present: warm, dry, intact. Absent: cyanosis, diaphoretic Course Vital Signs 01/20/24 10:58 Temperature 98.1 F Pulse Rate 71 Respiratory 18 Rate Blood Pressure 134/65 O2 Sat by Pulse 83 L Oximetry - Reevaluation(s) Reevaluation #1: 01/20/24 14:39 Case discussed at length with the patient and the patient's caregiver who is her niece. They prefer discharge with outpatient follow-up. Medical Decision Making - Medical Decision Making Was pt. sent in by a medical professional or institution (Dr. PA, COSTING MANAGER, urgent care, hospital, or senior care...) When possible be specific @ -No Did you speak to anyone other than the patient for history (EMS, parent, family, police, friend...)? What history was obtained from this source @ -No Did you review nursing and triage notes (agree or disagree)? Why? @ -I reviewed and agree with nursing and triage notes Were old charts reviewed (outside hosp., previous admission, EMS record, old EKG, old radiological studies, urgent care reports/EKG's, senior care records)? Report findings @ -No old charts were reviewed Differential Diagnosis (chest pain, altered mental status, abdominal pain women, abdominal pain men, vaginal bleeding, weakness, fever, dyspnea, syncope, headache, dizziness, GI bleed, back pain, seizure, CVA, palpatations, mental health, musculoskeletal)? @ -[Differential Altered Mental Status: Hypoglycemia, DKA, hypercapnia, ETOH, overdose, CO poisoning, trauma, myxedema coma, HTN encephalopathy, infection, encephalitis, psychosis, intercranial hemorrhage, hepatic encephalopathy, meningitis, CVA, this is not meant to be an all-inclusive list EKG interpreted by me (3pts min.). @ -Sinus rhythm rate of 66, OR interval 152, QRS duration 90, QTc [address] segment elevation, artifact limiting assessment. X-rays interpreted by me (1pt min.). @ -Chest x-ray negative for focal pneumonia or acute findings CT interpreted by me (1pt min.). @ -CT brain negative for intracranial hemorrhage or mass effect U/S interpreted by me (1pt. min.). @ -[None done What testing was considered but not performed or refused? (CT, X-rays, U/S, labs)? Why? @ -None What meds were considered but not given or refused? Why? @ -None Did you discuss the management of the patient with other professionals (professionals i.e. , PA, COSTING MANAGER, lab, RT, psych nurse, social work case manager, manager payment, teacher, digital marketing officer, child welfare caseworker)? Give summary @ -No Was smoking cessation discussed for >3mins.? @ -No Was critical care preformed (if so, how long)? @ -No Were there social determinants of health that impacted care today? How? (Homelessness, low income, unemployed, alcoholism, drug addiction, transportation, low edu. Level, literacy, decrease access to med. care, correction, rehab)? @ -No Was there de-escalation of care discussed even if they declined (Discuss DNR or withdrawal of care, Hospice)? DNR status @ -No What co-morbidities impacted this encounter? (DM, HTN, Smoking, COPD, CAD, Cancer, CVA, ARF, Chemo, Hep., AIDS, mental health diagnosis, sleep apnea, morbid obesity)? @ -Oxygen dependent COPD Was patient admitted / discharged? Hospital course, mention meds given and route, prescriptions, significant lab abnormalities, going to OR and other pertinent info. @ -[73-year-old female presenting from primary care office with request for CT brain, CO2 level and urinalysis for worsening confusion. Patient is alert and oriented at the time my evaluation without new complaint. I did an extensive workup including CT, chest x-ray, laboratory testing, urinalysis, venous blood gas. Testing is essentially unremarkable. Patient offered admission for treatment of her COPD but states that she really has no worsening symptoms and prefers discharge. She will follow with her primary care provider. Undiagnosed new problem with uncertain prognosis? @ -No Drug Therapy requiring intensive monitoring for toxicity (Heparin, Nitro, Insulin, Cardizem)? @ -No Were any procedures done? @ -No Diagnosis/symptom? @ -[Confusion Acute, or Chronic, or Acute on Chronic? @ -Acute on chronic Uncomplicated (without systemic symptoms) or Complicated (systemic symptoms)? @ -Default Side effects of treatment? @ -No Exacerbation, Progression, or Severe Exacerbation? @ -No Poses a threat to life or bodily function? How? (Chest pain, [place], [place], pneumonia, PE, COPD, DKA, ARF, appy, cholecystitis, CVA, Diverticulitis, Homicidal, Suicidal, threat to staff... and all critical care pts) @ -[Moderate risk, end-stage COPD - Lab Data Result diagrams: 01/20/24 11:35 01/20/24 11:35 Lab Results 01/20/24 01/20/24 01/20/24 Range/Units 11:35 11:35 11:35 WBC 9.8 (3.8-10.6) k/uL RBC 4.66 (3.80-5.40) m/uL Hgb 13.9 (11.4-16.0) gm/dL Hct 43.7 (34.0-46.0) % MCV 93.8 (80.0-100.0) fL MCH 29.8 (25.0-35.0) pg MCHC 31.8 (31.0-37.0) g/dL RDW 12.6 (11.5-15.5) % Plt Count 196 (150-450) k/uL MPV 8.0 Neutrophils % 83 % Lymphocytes % 9 % Monocytes % 5 % Eosinophils % 1 % Basophils % 0 % Neutrophils # 8.2 H (1.3-7.7) k/uL Lymphocytes # 0.9 L (1.0-4.8) k/uL Monocytes # 0.5 (0-1.0) k/uL Eosinophils # 0.1 (0-0.7) k/uL Basophils # 0.0 (0-0.2) k/uL PT 11.1 (10.0-12.5) sec INR 1.0 (<1.2) APTT 27.6 (22.0-30.0) sec VBG pH (7.31-7.41) VBG pCO2 (37-51) mmHg VBG HCO3 (24-28) mmol/L Sodium (137-145) mmol/L Potassium (3.5-5.1) mmol/L Chloride (98-107) mmol/L Carbon Dioxide (22-30) mmol/L Anion Gap mmol/L BUN (7-17) mg/dL Creatinine (0.52-1.04) mg/dL Est GFR (CKD-EPI)AfAm (>60 ml/min/1.73 sqM) Est GFR (CKD-EPI)NonAf (>60 ml/min/1.73 sqM) Glucose (74-99) mg/dL Calcium (8.4-10.2) mg/dL Total Bilirubin (0.2-1.3) mg/dL AST (14-36) U/L ALT (4-34) U/L Alkaline Phosphatase (38-126) U/L Troponin I (0.000-0.034) ng/mL Total Protein (6.3-8.2) g/dL Albumin (3.5-5.0) g/dL Urine Color Yellow Urine Appearance Cloudy H (Clear) Urine pH 8.0 (5.0-8.0) Ur Specific [place] 1.017 (1.001-1.035) Urine Protein Trace H (Negative) Urine Glucose (UA) Negative (Negative) Urine Ketones Negative (Negative) Urine Blood Moderate H (Negative) Urine Nitrite Negative (Negative) Urine Bilirubin Negative (Negative) Urine Urobilinogen 4.0 (<2.0) mg/dL Ur Leukocyte Esterase Negative (Negative) Urine RBC 46 H (0-5) /hpf Urine WBC 2 (0-5) /hpf Urine Yeast (Budding) Few H (None) /hpf 01/20/24 01/20/24 01/20/24 Range/Units 11:35 11:35 11:35 WBC (3.8-10.6) k/uL RBC (3.80-5.40) m/uL Hgb (11.4-16.0) gm/dL Hct (34.0-46.0) % MCV (80.0-100.0) fL MCH (25.0-35.0) pg MCHC (31.0-37.0) g/dL RDW (11.5-15.5) % Plt Count (150-450) k/uL MPV Neutrophils % % Lymphocytes % % Monocytes % % Eosinophils % % Basophils % % Neutrophils # (1.3-7.7) k/uL Lymphocytes # (1.0-4.8) k/uL Monocytes # (0-1.0) k/uL Eosinophils # (0-0.7) k/uL Basophils # (0-0.2) k/uL PT (10.0-12.5) sec INR (<1.2) APTT (22.0-30.0) sec VBG pH 7.39 (7.31-7.41) VBG pCO2 36 L (37-51) mmHg VBG HCO3 22 L (24-28) mmol/L Sodium 133 L (137-145) mmol/L Potassium 4.5 (3.5-5.1) mmol/L Chloride 91 L (98-107) mmol/L Carbon Dioxide 37 H (22-30) mmol/L Anion Gap 5 mmol/L BUN 14 (7-17) mg/dL Creatinine 0.37 L (0.52-1.04) mg/dL Est GFR (CKD-EPI)AfAm >90 (>60 ml/min/1.73 sqM) Est GFR (CKD-EPI)NonAf >90 (>60 ml/min/1.73 sqM) Glucose 105 H (74-99) mg/dL Calcium 9.6 (8.4-10.2) mg/dL Total Bilirubin 1.1 (0.2-1.3) mg/dL AST 43 H (14-36) U/L ALT 17 (4-34) U/L Alkaline Phosphatase 76 (38-126) U/L Troponin I <0.012 (0.000-0.034) ng/mL Total Protein 6.8 (6.3-8.2) g/dL Albumin 4.1 (3.5-5.0) g/dL Urine Color Urine Appearance (Clear) Urine pH (5.0-8.0) Ur Specific [place] (1.001-1.035) Urine Protein (Negative) Urine Glucose (UA) (Negative) Urine Ketones (Negative) Urine Blood (Negative) Urine Nitrite (Negative) Urine Bilirubin (Negative) Urine Urobilinogen (<2.0) mg/dL Ur Leukocyte Esterase (Negative) Urine RBC (0-5) /hpf Urine WBC (0-5) /hpf Urine Yeast (Budding) (None) /hpf Disposition Clinical Impression: Confusion, COPD (chronic obstructive pulmonary disease) Disposition: HOME SELF-CARE Condition: Fair Instructions (If sedation given, give patient instructions): COPD (Chronic Obstructive Pulmonary Disease) (ED), Altered Mental Status (ED) Is patient prescribed a controlled substance at d/c from ED?: No Referrals: Vern Rodriguez DO [Primary Care Provider] - 1-2 days Angeles King MD [REFERRING] - 1-2 days Patricio Hager DO [STAFF PHYSICIAN] - 1-2 days Time of Disposition: 14:42
[2024-01-20 11:54] LABS: VBG PH 7.39 (7.31-7.41)
[2024-01-20 11:59] LABS: ALT 17 U/L (4-34); African American GFR (CKD) >90 (>60 ml/min/1.73 sqM); Albumin 4.1 g/dL (3.5-5.0); Anion Gap 5 mmol/L; Blood Urea Nitrogen 14 mg/dL (7-17); Calcium 9.6 mg/dL (8.4-10.2); Carbon Dioxide 37 mmol/L (22-30); Chloride 91 mmol/L (98-107); Glucose 105 mg/dL (74-99); Non-African American GFR(CKD) >90 (>60 ml/min/1.73 sqM); Sodium 133 mmol/L (137-145); Total Bilirubin 1.1 mg/dL (0.2-1.3); Total Protein 6.8 g/dL (6.3-8.2)
[2024-01-20 12:02] LABS: AST 43 U/L (14-36); Alkaline Phosphatase 76 U/L (38-126); Potassium 4.5 mmol/L (3.5-5.1)
[2024-01-20] MEDS: SODIUM CHLORIDE 0.9% 500 ML 500 ML IV ONE (12:07)
--- NOTE | 2024-01-20 12:07 | XR ---
EXAMINATION TYPE: XR chest 2V DATE OF EXAM: 01/20/2024 COMPARISON: 09/26/2023 TECHNIQUE: PA and lateral views submitted. HISTORY: Low oxygen saturation. FINDINGS: The lungs are clear and there is no pneumothorax, pleural effusion, or focal pneumonia. Heart size normal and no overt failure. Osseous structures demonstrate hypertrophic and degenerative changes of the spine. Underlying emphysematous changes. Atherosclerotic change of the aorta. Soft tissue artifac t overlying the lower left chest. IMPRESSION: 1. No acute process. Correlate for COPD.
[2024-01-20 12:08] LABS: Partial Thromboplastin Time 27.6 sec (22.0-30.0); Prothrombin Time 11.1 sec (10.0-12.5)
[2024-01-20 12:12] LABS: Basophils % (A) 0 %; Eosinophils # (A) 0.1 k/uL (0-0.7); Eosinophils % (A) 1 %; HCT 43.7 % (34.0-46.0); HGB 13.9 gm/dL (11.4-16.0); Lymphocytes # (A) 0.9 k/uL (1.0-4.8); Lymphocytes % (A) 9 %; MCH 29.8 pg (25.0-35.0); MCHC 31.8 g/dL (31.0-37.0); MCV 93.8 fL (80.0-100.0); Monocytes # (A) 0.5 k/uL (0-1.0); Monocytes % (A) 5 %; Neutrophils # (A) 8.2 k/uL (1.3-7.7); Neutrophils % (A) 83 %; Platelet Count 196 k/uL (150-450); RBC 4.66 m/uL (3.80-5.40); RDW 12.6 % (11.5-15.5); WBC 9.8 k/uL (3.8-10.6)
[2024-01-20 12:59] LABS: Appearance,Urine Cloudy (Clear); Bilirubin,Urine Negative (Negative); Blood,Urine Moderate (Negative); Budding Yeast,Urine Few /hpf; Color,Urine Yellow; Glucose,Urine (UA) Negative (Negative); Ketones,Urine Negative (Negative); Leukocyte Esterase,Urine Negative (Negative); Nitrite,Urine Negative (Negative); Protein,Urine Trace (Negative); RBC,Urine 46 /hpf (0-5); Specific Gravity,Urine 1.017 (1.001-1.035); WBC,Urine 2 /hpf (0-5)
--- NOTE | 2024-01-20 14:21 | CT ---
EXAMINATION TYPE: CT brain wo con DATE OF EXAM: 01/20/2024 COMPARISON: 09/26/2023 HISTORY: Altered mental status CT DLP: 1095.1 mGycm Automated exposure control for dose reduction was used. FINDINGS: The ventricles, basal cisterns and sulci over convexities are moderately enlarged consistent with mod erate generalized atrophy but appropriate for the patient's age. There is moderate decreased density in the periventricular white matter consistent with chronic [place] jack white matter demyelination. There is no mass effect or shift of the midline structures. There is no acute intra or extra-axial hemorrhage. The posterior fossa is grossly normal. The intraorbital contents appear normal symmetric. Visualized paranasal sinuses and mastoid air cells are well aerated. The calvarium is intact. IMPRESSION: 1. No acute bleed or mass effect. 2. Stable senescent changes as described above. IMPRESSION:
[2024-01-20 17:10] VITALS: BP 128/55; PULSE 73; TEMP 97.9
== END 2024-01-20 15:02 | disposition home or self-care (01) ==
LOC: EC 10:39
DX: R41.0 Disorientation, unspecified (principal); J44.9 Chronic obstructive pulmonary disease, unspecified; I10 Essential (primary) hypertension; M19.90 Unspecified osteoarthritis, unspecified site; Z87.891 Personal history of nicotine dependence; Z79.1 Long term (current) use of non-steroidal anti-inflammatories (NSAID); Z79.51 Long term (current) use of inhaled steroids; Z79.899 Other long term (current) drug therapy; Z88.6 Allergy status to analgesic agent; Z88.8 Allergy status to other drugs, medicaments and biological substances; Z88.1 Allergy status to other antibiotic agents
CPT/HCPCS: 36415; 70450; 71046; 80053; 81001; 82803; 84484; 85025; 85610; 85730; 93005; 99285